=== PATIENT | female | born 1935 | race Caucasian/White ===

== ENCOUNTER → 2016-08-03 | Outpatient (CLI) | payer OTHER ==
--- NOTE | 2016-08-03 12:48 | MAMMOGRAPHY REPORT ---
BILATERAL DIGITAL SCREENING MAMMOGRAM WITH CAD: 08/03/2016 CLINICAL HISTORY: Routine screening. Patient has no complaints. TECHNIQUE: Bilateral CC and MLO views were obtained. Current study was also evaluated with a Comput er Aided Detection (CAD) system. COMPARISON: Comparison is made to exams dated: 08/03/2015 mammogram, 07/31/2013 mammogram, 07/30/2012 ma mmogram, 08/01/2014 mammogram, 07/28/2011 mammogram, and 07/26/2010 mammogram - [facility] ter. BREAST COMPOSITION: The tissue of both breasts is heterogeneously dense, which may obscure small ma sses. FINDINGS: There is an asymmetry in the medial posterior right breast, only seen on the CC view, for which additional spot compression tomosynthesis views and possibly ultrasound are recommended. There are minimal vascular calcifications in the breasts. No other suspicious mass, architectural di stortion or cluster of microcalcifications is seen. IMPRESSION: ACR BI-RADS CATEGORY 0: INCOMPLETE EVALUATION: NEED ADDITIONAL IMAGING EVALUATION The asymmetry in the medial right breast needs additional evaluation. The patient will be called to schedule an appointment. Approximately 10% of breast cancers are not detected with mammography. A negative mammographic repor t should not delay biopsy if a clinically suggestive mass is present. Namrata Perez M.D. ay/:08/03/2016 11:23:56 Institutional Cook: Stacey MARTINEZ(Ross)(Babita), [facility] letter sent: Addl Imaging 0 BI-RADS Code: ACR BI-RADS Category 0: Incomplete Evaluation: Need Additional Imaging Evaluation
== END | disposition home or self-care (01) ==
LOC: C.MAMM 10:42
PROVIDERS: ATTEND Obstetrics & Gynecology
DX: Z12.31 Encounter for screening mammogram for malignant neoplasm of breast (principal); N64.9 Disorder of breast, unspecified

== ENCOUNTER → 2016-08-24 | Outpatient (CLI) | payer OTHER ==
--- NOTE | 2016-08-24 13:33 | MAMMOGRAPHY REPORT ---
UNILATERAL RIGHT DIGITAL DIAGNOSTIC MAMMOGRAM TOMOSYNTHESIS: 08/24/2016 CLINICAL HISTORY: Callback from screening mammogram for right breast asymmetry. TECHNIQUE: Breast tomosynthesis in addition to standard 2D mammography was performed. Spot danette itzel right CC and MLO 2-D and tomosynthesis images were obtained. COMPARISON: Comparison is made to exams dated: 08/03/2016 mammogram, 08/03/2015 mammogram, 08/01/2014 mammogram, 07/31/2013 mammogram, 07/30/2012 mammogram, and 07/28/2011 mammogram - [facility] nter. BREAST COMPOSITION: The tissue of the right breast is heterogeneously dense, which may obscure smal l masses. FINDINGS: The previously described asymmetry seen within the right medial breast on the cc view eff aces on the additional images, and is compatible with normal overlapping fibroglandular tissue. No suspicious masses or areas of architectural distortion are seen in this region on the additional vie ws. IMPRESSION: ACR BI-RADS CATEGORY 2: BENIGN The right breast asymmetry effaces on the additional views, and is benign and compatible with normal overlapping fibroglandular tissue. There is no mammographic evidence of malignancy. A 1 year scree rosi mammogram is recommended. The patient has been verbally notified of the results. Approximately 10% of breast cancers are not detected with mammography. A negative mammographic repor t should not delay biopsy if a clinically suggestive mass is present. Dona Dela Cruz M.D. /:08/24/2016 11:15:04 Contact Center Specialist: Ashley MARTINEZ(R)(Babita), [facility] letter sent: Normal 1/2 BI-RADS Code: ACR BI-RADS Category 2: Benign
== END | disposition home or self-care (01) ==
LOC: C.MAMM 10:41
PROVIDERS: ATTEND Obstetrics & Gynecology
DX: R92.8 Other abnormal and inconclusive findings on diagnostic imaging of breast (principal)

== ENCOUNTER → 2016-11-07 | Outpatient (CLI) | payer OTHER | END | disposition home or self-care (01) | LOC: C.MAMM 15:32 | PROVIDERS: ATTEND Internal Medicine Endocrinology, Diabetes & Metabolism | DX: M85.89 Other specified disorders of bone density and structure, multiple sites (principal) ==

== ENCOUNTER → 2016-11-09 | Outpatient (CLI) | payer OTHER ==
[2016-11-09 12:17] LABS: BASO ABS # 0.05 K/uL (0-0.2); COMPLETE YES; EOS % 2.8 %; HEMATOCRIT 42.2 % (37-47); IG% 0.2 %; LYMPH % 43.7 %; LYMPH ABS # 2.19 K/uL (1.2-3.4); MEAN CORPUSCULAR HEMOGLOBIN 29.7 pg (25-34); MEAN CORPUSCULAR HGB CONC 33.4 g/dl (32-36); MEAN PLATELET VOLUME 9.4 fL (7.4-10.4); MONO % 9.2 %; NEUT % 43.1 %; PLATELET COUNT 253 K/uL (130-400); RED BLOOD COUNT 4.74 M/uL (4.2-5.4); WHITE BLOOD COUNT 5.01 K/uL (4.8-10.8)
[2016-11-09 12:47] LABS: ALT/SGPT 29 U/L (12-78); BLOOD UREA NITROGEN 35 mg/dl (7-18); BUN/CREATININE RATIO 28.9 (10-20); CALCIUM 8.9 mg/dl (8.5-10.1); CARBON DIOXIDE 27 mmol/L (21-32); CHLORIDE 106 mmol/L (98-107); CHOLESTEROL 203 mg/dl (0-200); GLUCOSE 94 mg/dl (70-99); POTASSIUM 3.8 mmol/L (3.5-5.1); SODIUM 139 mmol/L (136-145); TRIGLYCERIDES 58 mg/dl (0-150); VERY LOW DENSITY LIPOPROT CALC 12 mg/dl
[2016-11-09 12:58] LABS: ALB/GLOB RATIO 1.3 (0.9-2); ALKALINE PHOSPHATASE 59 U/L (45-117); AST/SGOT 25 U/L (15-37); CHOLESTEROL/HDL RATIO 2.3; HDL CHOLESTEROL 89 mg/dl; LDL CHOLESTEROL CALCULATED 102 mg/dl
== END | disposition home or self-care (01) ==
LOC: C.LABPBG 08:29
PROVIDERS: ATTEND Internal Medicine
DX: M85.80 Other specified disorders of bone density and structure, unspecified site (principal)

== ENCOUNTER → 2017-08-04 | Outpatient (CLI) | payer OTHER ==
--- NOTE | 2017-08-07 07:44 | MAMMOGRAPHY REPORT ---
BILATERAL DIGITAL SCREENING MAMMOGRAM TOMOSYNTHESIS WITH CAD: 08/04/2017 CLINICAL HISTORY: Routine screening. Patient has no complaints. TECHNIQUE: Breast tomosynthesis in addition to standard 2D mammography was performed. Current study was also evaluated with a Computer Aided Detection (CAD) system. COMPARISON: Comparison is made to exams dated: 08/24/2016 mammogram, 08/03/2016 mammogram, 08/03/2015 ma mmogram, 08/01/2014 mammogram, 07/31/2013 mammogram, and 07/30/2012 mammogram - [facility] er. BREAST COMPOSITION: The tissue of both breasts is heterogeneously dense, which may obscure small mas ses. FINDINGS: No suspicious masses, calcifications, or areas of architectural distortion are noted in ei ther breast. There has been no significant interval change compared to prior exams. IMPRESSION: ACR BI-RADS CATEGORY 1: NEGATIVE There is no mammographic evidence of malignancy. A 1 year screening mammogram is recommended. The pa tient will receive written notification of the results. Approximately 10% of breast cancers are not detected with mammography. A negative mammographic report should not delay biopsy if a clinically suggestive mass is present. Dona Dela Cruz M.D. ah/:08/04/2017 14:35:19 Sandwich Wrapper: Ashley MARTINEZ(Ross)(Babita), [facility] letter sent: Normal 1/2 BI-RADS Code: ACR BI-RADS Category 1: Negative
== END | disposition home or self-care (01) ==
LOC: C.MAMM 10:10
PROVIDERS: ATTEND Internal Medicine
DX: Z12.31 Encounter for screening mammogram for malignant neoplasm of breast (principal)

== ENCOUNTER → 2017-12-08 | Outpatient (CLI) | payer OTHER ==
[2017-12-08 13:17] LABS: BASO % 0.7 %; BASO ABS # 0.03 K/uL (0-0.2); EOS % 2.1 %; EOS ABS # 0.09 K/uL (0-0.5); HEMATOCRIT 42.3 % (37-47); HEMOGLOBIN 13.7 g/dL (12.0-16.0); LYMPH % 45.4 %; LYMPH ABS # 1.93 K/uL (1.2-3.4); MEAN CORPUSCULAR HEMOGLOBIN 29.1 pg (25-34); MEAN CORPUSCULAR HGB CONC 32.4 g/dl (32-36); MEAN PLATELET VOLUME 9.8 fL (7.4-10.4); MONO % 8.7 %; MONO ABS # 0.37 K/uL (0.11-0.59); NEUT % 43.1 %; NEUT ABS # 1.83 K/uL (1.4-6.5); PLATELET COUNT 280 K/uL (130-400); RED CELL DISTRIBUTION WIDTH CV 14.5 % (11.5-14.5); RED CELL DISTRIBUTION WIDTH SD 47.7 fL (36.4-46.3); WHITE BLOOD COUNT 4.25 K/uL (4.8-10.8)
[2017-12-08 14:01] LABS: ALKALINE PHOSPHATASE 50 U/L (45-117); ALT/SGPT 28 U/L (12-78); AST/SGOT 26 U/L (15-37); BLOOD UREA NITROGEN 38 mg/dl (7-18); CALCIUM 9.1 mg/dl (8.5-10.1); CARBON DIOXIDE 26 mmol/L (21-32); CHOLESTEROL 184 mg/dl (0-200); CREATININE 1.11 mg/dl (0.60-1.20); GLUCOSE 95 mg/dl (70-99); LDL CHOLESTEROL CALCULATED 90 mg/dl; POTASSIUM 4.3 mmol/L (3.5-5.1); SODIUM 137 mmol/L (136-145); TOTAL PROTEIN 7.7 gm/dl (6.4-8.2)
== END | disposition home or self-care (01) ==
LOC: C.LABPBG 09:16
PROVIDERS: ATTEND Internal Medicine
DX: Z00.00 Encounter for general adult medical examination without abnormal findings (principal); I10 Essential (primary) hypertension; R26.9 Unspecified abnormalities of gait and mobility; E78.5 Hyperlipidemia, unspecified; E03.9 Hypothyroidism, unspecified; M85.80 Other specified disorders of bone density and structure, unspecified site

== ENCOUNTER 2021-10-04 15:35 | Inpatient (IN) ==
--- NOTE | 2021-10-04 16:24 | XRay Report ---
RIGHT FOOT 3 VIEWS CLINICAL HISTORY: Right foot pain. FINDINGS: 3 views of the right foot are obtained. No prior studies are available for comparison at th e time of dictation. The skeletal structures are osteopenic. No acute fracture is identified. Mild de generative change is seen throughout the foot. No erosive disease is seen. The overlying soft tissues are within normal limits. There is a tiny plantar heel spur. IMPRESSION: No acute bony abnormality is identified. Electronically signed by: Wally Mario M.D. 10/04/2021 4:23 PM
--- NOTE | 2021-10-04 16:30 | XRay Report ---
XR ankle RT min 3V routine CLINICAL HISTORY: right ankle pain. COMPARISON STUDY: No previous studies for comparison. TECHNIQUE: 3 right ankle views FINDINGS: Bones: There is no evidence for an acute fracture or dislocation. There is evidence for an erosion ve rsus cyst at the base of the fifth metatarsal. Clinical correlation as to the exact site of pain is n ecessary. There is no lytic or blastic lesion. Joints: The joint spaces are maintained. The bones are in anatomic alignment. Soft tissues: There is no focal soft tissue abnormality. There is no radiopaque foreign body. IMPRESSION: 1. No acute osseous pathology. 2. Small erosion versus cyst at the base of the fifth metatarsal as described. ACT 112: Negative or not required by law. Electronically signed by: Duncan Rubalcava M.D. 10/04/2021 4:28 PM
--- NOTE | 2021-10-04 18:21 | Ultrasound Report ---
ULTRASOUND LEFT LOWER EXTREMITY VENOUS CLINICAL HISTORY: Left leg swelling. COMPARISON STUDY: No priors. TECHNIQUE: Real-time, grayscale, and color Doppler sonography of the deep veins of the left lower ext remity was performed from the inguinal crease to the calf. Compression and augmentation were utilized . FINDINGS: Extensive occlusive deep venous thrombosis is seen throughout the left lower extremity. Thi s extends from the common femoral vein, throughout the superficial femoral and popliteal veins, and i nto the calf within the tibial and peroneal veins. Superficial venous thrombus is seen within the gre ater saphenous vein. IMPRESSION: Extensive and occlusive left lower extremity deep venous thrombosis as above. ACT 112: Negative or not required by law. Electronically signed by: Wally Mario M.D. 10/04/2021 6:19 PM
[2021-10-04 18:44] LABS: Basophils # (auto) 0.02 K/uL (0-0.2); Basophils % (auto) 0.2 %; Eosinophils # (auto) 0.05 K/uL (0-0.5); Eosinophils % (auto) 0.5 %; Hemoglobin 13.5 g/dL (12.0-16.0); Immature Granulocytes # (auto) 0.03 K/uL (0.00-0.02); Immature Granulocytes % (auto) 0.3 %; Lymphocytes # (auto) 1.37 K/uL (1.2-3.4); Lymphocytes % (auto) 13.8 %; Mean Corpuscular Hemoglobin 29.3 pg (25-34); Mean Corpuscular Hgb Conc 32.1 g/dL (32-36); Mean Corpuscular Volume 91.3 fL (80-100); Mean Platelet Volume 9.5 fL (7.4-10.4); Monocytes # (auto) 0.77 K/uL (0.11-0.59); Monocytes % (auto) 7.7 %; Neutrophils # (auto) 7.72 K/uL (1.4-6.5); Neutrophils % (auto) 77.5 %; Platelet Count 279 K/uL (130-400); RDW Coefficient of Variation 14.1 % (11.5-14.5); RDW Standard Deviation 46.9 fL (36.4-46.3); White Blood Count 9.96 K/uL (4.8-10.8)
--- NOTE | 2021-10-04 18:54 | History & Physical Report ---
Date of Service October 04, 2021 Assessment & Plan (1) DVT (deep venous thrombosis): Plan: Unprovoked. Extensive and occlusive. Start IV heparin standard drip and bolus. CT for PE (due to tachycardia although notably not hypoxic) and CT A/P venogram to assess for venous compression. 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 CT head to r/o intracranial pathology. Haldol 2mg IV x2 given in the ER as patient at risk of removing IV and also unable to stay still for CT scan. Cautious use of Haldol ongoing given increased QTc 497ms (4) Peripheral vascular disease: Plan: Unable to feel pulses in left foot therefore US arterial doppler performed Severe peripheral artery disease but flow is detected in left foot. Notably CT A/P from February shows extensive atherosclerotic vascular disease with high grade stenosis of distal infrarenal artery at that time although not on antiplatelet or statin. Consider antiplatelet/statin depending on clinical course. (5) Hypothyroidism: Plan: TSH 3.256 in June Continue levothyroxine 50mcg PO daily (6) HTN (hypertension): Plan: Will hold off nebivolol pending CT results to make sure we are not going to drop her blood pressure extensively (7) Hyperlipidemia: Plan: Unclear why she isn't on a statin however last LDL only 70. Depending on prognosis consider statin on discharge for PVD. 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 Continue hydroxychloroquine Will need to hold Celebrex while on heparin IV drip (10) Parkinsonism: Plan: Continue Sinemet 0.5 tab PO BID Plan: VTE Prophylaxis - IV heparin standard dose with bolus Diet - NPO after midnight Disposition - admit to PCU Admission and Anticipated Discharge Date Admission Date: October 04, 2021 History of Present Illness Chief Complaint: Left leg swelling Primary Care Provider: DO Yolie Kuhn Terrie is an 86 year old female who presents to the ER with left leg swelling. Unable to get any history from the patient due to expressive dysphasia and unable to communicate by writing or other means. History taken from her daughter at bedside (reportedly her POA although paperwork not with her at the present time). She reports left leg swelling noticed today by her daughter. Associated discoloration of her leg and pain. No shortness of breath. Her daughter reports longer standing history of significant weight loss over the last year despite her eating well. 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 Her daughter reports she normally understand what is said to her however. Baseline mobility has significantly declined since clavicle fracture in February. However she is still mobile with walker. She lives with her at home in [place]. Her daughter notes she is more acutely confused than normal in the emergency room. In the ER US venous doppler showed extensive and occlusive left lower extremity DVT. 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 Allergies Allergy/AdvReac Type Severity Reaction Status Date / Time No Known Drug Allergies Allergy NKDA Verified 10/04/21 18:51 Home Medications Medication Instructions Recorded Confirmed Type calcium carbonate 600 mg-vitamin 1 tab PO HS tab 01/26/19 10/04/21 History D3 5 mcg (200 unit) tablet hydroxychloroquine 200 mg tablet 200 mg PO QAM 02/03/20 10/04/21 History multivitamin 1 tab PO QAM 08/31/20 10/04/21 History latanoprost 0.005 % eye drops 1 drp OPHTHALMIC (EYE) QPM 01/05/21 10/04/21 History celecoxib 100 mg capsule (Celebrex) 100 mg PO Q OTHER DAY cap 06/30/21 10/04/21 History turmeric root extract 500 mg 1,500 mg PO HS cap 07/26/21 10/04/21 History capsule carbidopa 25 mg-levodopa 100 mg 0.5 tab PO BID 10/04/21 10/04/21 History tablet (Sinemet) cyanocobalamin (vitamin B-12) 1,000 mcg PO QAM 10/04/21 10/04/21 History 1,000 mcg capsule glucosamine 750 yo-[id number]-[id number] 1 tab PO QAM 10/04/21 10/04/21 History no1 644 mg-C 30 mg-adriel 1 mg tablet (Osteo Bi-Flex Triple Strength) levothyroxine 50 mcg tablet 50 mcg PO QAM 10/04/21 10/04/21 History (Synthroid) nebivolol 10 mg tablet (Bystolic) 10 mg PO QAM 10/04/21 10/04/21 History Past Med/Surg History Medical History Chronic back pain Glaucoma Hearing deficit HTN (hypertension) Hyperlipidemia Hypothyroidism Osteoarthritis Osteopenia after menopause Ovarian cancer Prediabetes Primary progressive aphasia Pulmonary nodule (02/2021) Rheumatoid arthritis without rheumatoid factor, multiple sites Tachycardia Surgical History History of bilateral cataract extraction History of bladder suspension procedure History of colonoscopy with polypectomy History of total hysterectomy with bilateral salpingo-oophorectomy (BSO) S/P ORIF (open reduction internal fixation) fracture (03/17/21) Family History Sister Colorectal cancer, Onset Age: 68 Ovarian cancer Father Alzheimer disease Mother Hypertension Other No family history of adverse response to anesthesia Denies family history of Prostate cancer Myocardial infarction Breast cancer Social History Smoking Status: Never smoker Second Hand Exposure: No; Hx Alcohol Use: No Hx Substance Use: No Preferred Language: Moroccan Communication Ability: Effective Visual Impairment: Limited Hearing Ability: Use of Hearing Aid Media Reconciliation Specialist Required: No Beliefs That Will Affect Care: None marital status: Current Living Situation: Spouse current occupational status: retired Other Information That Helps Us Care for You: No Feels Safe at Home: Yes Safety Concerns: Feels Safe At This Time Childhood Exposure to Second-Hand Smoke: No Diet Comment: regular caffeine: Yes (Tea x 2 cups per day.) during the past year weight has: decreased > 10 lbs Dental Care, Regularly: Yes Physical Activity Frequency: Daily Seatbelt Use: always Sunscreen Use: Yes Assistive Devices: Glasses and Walker Review of Systems Review of Systems: Unobtainable due to cognitive status Physical Exam Constitutional: well developed and + frail appearing; + not well nourished and no acute distress Eyes: PERRL, conjunctivae normal, anicteric sclerae ENMT: external ear and nose normal, oropharynx normal Neck: trachea midline, no thyromegaly Respiratory: normal respiratory effort, lungs clear to auscultation Cardiovascular: Rate/Rhythm: regular rate and regular rhythm Heart Sounds: no murmur Extremities: + pedal edema (1+ pre-tibial on LLE, trace RLE); + abnormal capillary refill (5-6 seconds left 1st toe) and no calf tenderness (unable to assess due to cognitive status) Gastrointestinal (Abdomen): normal bowel sounds, soft, nontender, no hepatosplenomegaly Musculoskeletal: extensive rheumatic chronic joint changes most notably in right hand Skin: + mottling (purple blanching discoloration of enitre LLE, worse distally) Neurologic: moves all extremities, awake and + confused Speech / Cognition: + expressive aphasia and + receptive aphasia (unable to follow commands) Psychiatric: Orientation: alert; + not oriented to person, + not oriented to place and + not oriented to time Results & Data Results & Data ([facility]) Vital Signs (Past 12 Hours) Vital Signs Temp Pulse Resp BP Pulse Ox 10/04/21 18:30 86 19 136/78 98 10/04/21 15:38 36 C L 93 H 18 128/70 99 Laboratory Results Abnormal lab results 10/04/21 10/04/21 10/04/21 Range/Units 18:06 18:06 18:30 RDW Std Deviation 46.9 H (36.4-46.3) fL Neut # (Auto) 7.72 H (1.4-6.5) K/uL [place] # (Auto) 0.77 H (0.11-0.59) K/uL Immature Gran # (Auto) 0.03 H (0.00-0.02) K/uL POC BUN 40 H (7-18) mg/dl BUN 39 H (6-23) mg/dl BUN/Creatinine Ratio 35.8 H (10-20) Glucose 113 H (70-99(Fasting)) mg/dl POC Glucose (other) 117 H (70-99) mg/dl Calcium 10.2 H (8.5-10.1) mg/dl Diagnostic Findings ULTRASOUND LEFT LOWER EXTREMITY ARTERIAL CLINICAL HISTORY: Cold left foot with no pulses. COMPARISON STUDY: No priors. TECHNIQUE: Real-time grayscale and color Doppler sonography of the arteries of the left lower extremity is performed from the inguinal crease to the foot. FINDINGS: There is advanced atherosclerotic plaque and irregularity throughout the arteries of the left lower extremity. Monophasic flow is seen throughout the left lower extremity with blunted arterial upstroke. Velocities in the common femoral artery measure up to 5 cm/s. The profunda femoris artery is patent with velocities measuring up to 17 cm/s. Velocities throughout the superficial femoral artery measure up to 20 cm/s, and velocities in the popliteal artery measure up to 11 cm/s. There is three-vessel runoff to the foot. Velocities t hroughout the calf arteries measure up to 11 cm/s. The dorsalis pedis artery is patent with velocities measuring up to 7 cm/s. IMPRESSION: 1. Severe peripheral vascular disease throughout the left lower extremity with abnormal arterial waveforms and markedly diminished velocities. 2. No focally elevated velocities or focal vessel occlusion is identified. ULTRASOUND LEFT LOWER EXTREMITY VENOUS CLINICAL HISTORY: Left leg swelling. COMPARISON STUDY: No priors. TECHNIQUE: Real-time, grayscale, and color Doppler sonography of the deep veins of the left lower extremity was performed from the inguinal crease to the calf. Compression and augmentation were utilized. FINDINGS: Extensive occlusive deep venous thrombosis is seen throughout the left lower extremity. This extends from the common femoral vein, throughout the superficial femoral and popliteal veins, and into the calf within the tibial and peroneal veins. Superficial venous thrombus is seen within the greater saphenous vein. IMPRESSION: Extensive and occlusive left lower extremity deep venous thrombosis as above. XR ankle RT min 3V routine CLINICAL HISTORY: right ankle pain. COMPARISON STUDY: No previous studies for comparison. TECHNIQUE: 3 right ankle views FINDINGS: Bones: There is no evidence for an acute fracture or dislocation. There is evidence for an erosion versus cyst at the base of the fifth metatarsal. Clinical correlation as to the exact site of pain is necessary. There is no lytic or blastic lesion. Joints: The joint spaces are maintained. The bones are in anatomic alignment. Soft tissues: There is no focal soft tissue abnormality. There is no radiopaque foreign body. IMPRESSION: 1. No acute osseous pathology. 2. Small erosion versus cyst at the base of the fifth metatarsal as described. RIGHT FOOT 3 VIEWS CLINICAL HISTORY: Right foot pain. FINDINGS: 3 views of the right foot are obtained. No prior studies are available for comparison at the time of dictation. The skeletal structures are osteopenic. No acute fracture is identified. Mild degenerative change is seen throughout the foot. No erosive disease is seen. The overlying soft tissues are within normal limits. There is a tiny plantar heel spur. IMPRESSION: No acute bony abnormality is identified. Medications Administered ER Medications Given: None ECG Rate (beats per minute): 86 Rhythm: normal sinus Findings: + PVC; no acute ischemic change Comparison ECG Date: from (March 16, 2021) Change: the following changes noted Code Status & VTE Plan Code Status Full per daughter who reports she has POA paperwork - advised to bring this in VTE Prophylaxis Plan VTE Prophylaxis will be ordered: Yes PG Care Time/CCT Total # of Minutes Spent Total Time Spent with Patient: Total time spent is greater than 50% in coordination of care (as documented) at patient's floor/unit and/or counseling patient: Coding Level of Care Code 76249 Initial Inpt Care Lvl 3 Diagnoses Hypothyroidism E03.9 Hypothyroidism type: acquired HTN (hypertension) I10 Hypertension type: essential hypertension Hyperlipidemia E78.00; E78.0 Hyperlipidemia type: pure hypercholesterolemia Primary progressive aphasia G31.01; F02.80 Rheumatoid arthritis without rheumatoid factor, multiple sites M06.09 Parkinsonism G20 DVT (deep venous thrombosis) I82.409 Phlegmasia cerulea dolens I80.209 Peripheral vascular disease I73.9 Altered mental state R41.82 (1) Hyperlipidemia Hyperlipidemia type: pure hypercholesterolemia Qualified Code(s): E78.00 - Pure hypercholesterolemia, unspecified; E78.0 - Pure hypercholesterolemia (2) Hypothyroidism Hypothyroidism type: acquired Qualified Code(s): E03.9 - Hypothyroidism, unspecified (3) HTN (hypertension) Hypertension type: essential hypertension Qualified Code(s): I10 - Essential (primary) hypertension
[2021-10-04 18:58] LABS: iSTAT Creatinine 1.2 mg/dl (0.6-1.3); iSTAT Hemoglobin 13.9 g/dl (12.0-16.0); iSTAT Ionized Calcium 1.25 mmol/l (1.12-1.32); iSTAT Potassium 4.3 mmol/L (3.3-5.0)
[2021-10-04 19:05] LABS: Albumin Globulin Ratio 1.4 (0.9-2); Albumin Level 4.4 gm/dl (3.4-5.0); BUN Creatinine Ratio 35.8 (10-20); Bilirubin,Total 0.3 mg/dl (0.2-1.0); Calcium 10.2 mg/dl (8.5-10.1); Creatinine Clr Calc Pharmacy 24.7 ml/min; Est GFR (African American) 53.2 ml/min; Est GFR (Non-African American) 45.9 ml/min; Globulin 3.2 gm/dl (2.5-4.0); Potassium 4.1 mmol/L (3.5-5.1); Total Protein 7.6 gm/dl (6.0-8.3)
[2021-10-04 19:07] LABS: Partial Thromboplastin Ratio 0.8; Prothrombin Time 10.6 Seconds (9.0-12.0)
--- NOTE | 2021-10-04 19:09 | Emergency Department Note ---
Impression & Plan DVT (deep venous thrombosis), Phlegmasia cerulea dolens, Acute pain of left lower extremity ED Provider Note INFORMANT: Patient and daughter ED PROVIDER(S): Benoit Reeder MD CHIEF COMPLAINT: Leg pain PLAN: Disposition: Admitted Condition: Good Outpatient prescription management: none Referral: None patient presented with MEDICAL DECISION MAKING: Complaints of pain and swelling in the left lower extremity. On physical examination she had significant purpleish discoloration. Cap refill was about 3 to 4 seconds. X-ray imaging did not reveal any evidence of fracture or dislocat ion. No acute bony pathology was noted. Ultrasound imaging was performed and revealed an occlusive DVT. CBC and coagulation studies were unremarkable. I- STAT was unremarkable. Further management in the hospital will be necessary. [facility] Anticoagulation choice deferred to internal medicine. Patient and daughter were informed. I gave my usual and customary discussion regarding this issue. Triage Nursing notes reviewed and agree them. Vital Signs: reviewed and remarkable for no significant abnormalities Differential diagnosis: DVT, musculoskeletal, infection, joint effusion, trauma, lymphedema, idiopathic, CHF, as well as other pathologies. Diagnostics interpreted by me: ECG: none Cardiac Monitoring: Cardiac monitoring ordered by me: The patient was placed on continuous cardiac monitoring and observed. It revealed a normal sinus rhythm at 86 beats per minute without ectopy or evidence of dysrhythmia. Imaging studies: X-ray imaging of the left foot and ankle negative for acute process. Ultrasound imaging of the left lower extremity reveals extensive and occlusive DVT. HPI: The patient is a 86 year old female who presents to the Emergency Room with complaints of left leg pain. This started today and Was noticed by the daughter.patient has advanced Parkinson's disease and has difficulty speaking. She can understand basic questioning per the daughter. There was no trauma. The patient also notes the following associated symptoms, dark discoloration of the left leg as well as left leg swelling. The patient has taken no medication for relieving factors. Current pain is rated as 6/10. No history of the same. Patient has no history of significant vascular or blood clot related issues. Patient denies any chest pain or difficulty breathing. No abdominal pain. History is limited secondary to the patient's ability to communicate. ROS: See above HPI for pertinent positives & negatives. Limited secondary to the patient's ability to communicate. PAST MEDICAL HISTORY:See Below , Parkinson's disease PAST SURGICAL HISTORY:See Below, FAMILY HISTORY:See Below SOCIAL HISTORY:See Below, retired HOME MEDICATIONS:See Below ALLERGIES:See Below VITALS:See Below PHYSICAL EXAMINATION: GENERAL: Awake, alert, mildly uncomfortable-appearing, in no distress HENT: Normocephalic, atraumatic. Oropharynx unremarkable. EYES: Normal conjunctiva. Sclera non-icteric. NECK: Inspection normal. Non-tender. Supple. No nuchal rigidity. FROM. No masses. RESPIRATORY: Clear to auscultation. No wheezes. No rales. Normal respiratory effort. CARDIAC: Normal rate. Normal rhythm. No murmurs. No rubs. Extremities warm and well perfused. Pulses equal. No JVD. GI: Soft, non-distended. No tenderness to palpation. No rebound or guarding. No masses. RECTAL: Deferred. MUSCULOSKELETAL: Atraumatic. Chest examination reveals no tenderness. The back is symmetrical on inspection without obvious abnormality. There is no CVA tenderness to palpation. No joint edema. LOWER EXTREMITIES: There is bluish discoloration of the left lower leg with mild edema compared to the right. 4+ capillary refill on the left and 2-3 on the right. There is difficulty palpating pulses on the left side. There is mild tenderness from the calf distally through the foot. NEURO: Normal sensorium. No sensory or motor deficits noted. SKIN: No rash or jaundice noted. Benoit Reeder MD Past Med/Surg History Medical History Chronic back pain Glaucoma Hearing deficit HTN (hypertension) Hyperlipidemia Hypothyroidism Osteoarthritis Osteopenia after menopause Ovarian cancer Prediabetes Primary progressive aphasia Pulmonary nodule (02/2021) Rheumatoid arthritis without rheumatoid factor, multiple sites Tachycardia Surgical History History of bilateral cataract extraction History of bladder suspension procedure History of colonoscopy with polypectomy History of total hysterectomy with bilateral salpingo-oophorectomy (BSO) S/P ORIF (open reduction internal fixation) fracture (03/17/21) Family History Sister Colorectal cancer, Onset Age: 68 Ovarian cancer Father Alzheimer disease Mother Hypertension Other No family history of adverse response to anesthesia Denies family history of Prostate cancer Myocardial infarction Breast cancer Social History Smoking Status: Never smoker Second Hand Exposure: No; Hx Alcohol Use: No Hx Substance Use: No Preferred Language: Irish Communication Ability: Effective Visual Impairment: Limited Hearing Ability: Use of Hearing Aid Mobility Manager Required: No Beliefs That Will Affect Care: None marital status: Current Living Situation: Spouse current occupational status: retired Other Information That Helps Us Care for You: No Feels Safe at Home: Yes Safety Concerns: Feels Safe At This Time Childhood Exposure to Second-Hand Smoke: No Diet Comment: regular caffeine: Yes (Tea x 2 cups per day.) during the past year weight has: decreased > 10 lbs Dental Care, Regularly: Yes Physical Activity Frequency: Daily Seatbelt Use: always Sunscreen Use: Yes Assistive Devices: Glasses and Walker Allergies Allergies Allergy/AdvReac Type Severity Reaction Status Date / Time No Known Drug Allergies Allergy NKDA Verified 10/04/21 18:51 Home Meds Home Medications Medication Instructions Recorded Confirmed calcium carbonate 600 mg-vitamin 1 tab PO HS tab 01/26/19 10/04/21 D3 5 mcg (200 unit) tablet hydroxychloroquine 200 mg tablet 200 mg PO QAM 02/03/20 10/04/21 multivitamin 1 tab PO QAM 08/31/20 10/04/21 latanoprost 0.005 % eye drops 1 drp OPHTHALMIC (EYE) QPM 01/05/21 10/04/21 celecoxib 100 mg capsule (Celebrex) 100 mg PO Q OTHER DAY cap 06/30/21 10/04/21 turmeric root extract 500 mg 1,500 mg PO HS cap 07/26/21 10/04/21 capsule carbidopa 25 mg-levodopa 100 mg 0.5 tab PO BID 10/04/21 10/04/21 tablet (Sinemet) cyanocobalamin (vitamin B-12) 1,000 mcg PO QAM 10/04/21 10/04/21 1,000 mcg capsule glucosamine 750 mw-xugmnkmoije-uez 1 tab PO QAM 10/04/21 10/04/21 no1 644 mg-C 30 mg-adriel 1 mg tablet (Osteo Bi-Flex Triple Strength) levothyroxine 50 mcg tablet 50 mcg PO QAM 10/04/21 10/04/21 (Synthroid) nebivolol 10 mg tablet (Bystolic) 10 mg PO QAM 10/04/21 10/04/21 Results & Data (ED) Vital Signs Vital Signs - 24 hr 10/04/21 15:38 10/04/21 18:30 Temperature 36 C L Temperature Source Temporal Artery Scan Pulse Rate 93 H 86 Respiratory Rate 18 19 Blood Pressure 128/70 136/78 Blood Pressure Mean 89 97 Pulse Oximetry 99 98 Oxygen Delivery Method Room Air Sepsis Recent Fever Within 48 Hours No Sepsis New/Unexplained Change in Mental Status No Sepsis Action Taken by Nursing No Action Required Laboratory Data Result diagrams: 10/04/21 18:06 10/04/21 18:06 Lab Results 10/04/21 10/04/21 10/04/21 Range/Units 18:06 18:06 18:06 WBC 9.96 (4.8-10.8) K/uL RBC 4.60 (4.2-5.4) M/uL Hgb 13.5 (12.0-16.0) g/dL POC Hgb (12.0-16.0) g/dl Hct 42.0 (37-47) % POC Hct (37-47) % MCV 91.3 (80-100) fL MCH 29.3 (25-34) pg MCHC 32.1 (32-36) g/dL RDW Std Deviation 46.9 H (36.4-46.3) fL RDW Coeff of Meryl 14.1 (11.5-14.5) % Plt Count 279 (130-400) K/uL MPV 9.5 (7.4-10.4) fL Immature Gran % (Auto) 0.3 % Neut % (Auto) 77.5 % Lymph % (Auto) 13.8 % Dunn % (Auto) 7.7 % Eos % (Auto) 0.5 % Baso % (Auto) 0.2 % Neut # (Auto) 7.72 H (1.4-6.5) K/uL Lymph # (Auto) 1.37 (1.2-3.4) K/uL Dunn # (Auto) 0.77 H (0.11-0.59) K/uL Eos # (Auto) 0.05 (0-0.5) K/uL Baso # (Auto) 0.02 (0-0.2) K/uL Immature Gran # (Auto) 0.03 H (0.00-0.02) K/uL PT 10.6 (9.0-12.0) Seconds INR 1.0 (0.9-1.1) APTT 23.0 (21.0-31.0) Seconds PTT Ratio 0.8 POC Sodium (135-144) mmol/L Sodium 142 (136-145) mmol/L POC Potassium (3.3-5.0) mmol/L Potassium 4.1 (3.5-5.1) mmol/L POC Chloride (101-112) mmol/L Chloride 106 (98-107) mmol/L Carbon Dioxide 26 (21-32) mmol/L POC Total CO2 (24-31) mmol/L Anion Gap 10 (3-11) POC Anion Gap (16-25) mmol/L POC BUN (7-18) mg/dl BUN 39 H (6-23) mg/dl Creatinine 1.09 (0.6-1.2) mg/dl POC Creatinine (0.6-1.3) mg/dl Est Cr Clr Drug Dosing 24.7 ml/min Est GFR ( Amer) 53.2 ml/min Est GFR (Non-Af Amer) 45.9 ml/min BUN/Creatinine Ratio 35.8 H (10-20) Glucose 113 H (70-99(Fasting)) mg/dl POC Glucose (other) (70-99) mg/dl Calcium 10.2 H (8.5-10.1) mg/dl POC Ioniz Calcium Hema (1.12-1.32) mmol/l Total Bilirubin 0.3 (0.2-1.0) mg/dl AST 21 (13-39) U/L ALT 16 (7-52) U/L Alkaline Phosphatase 73 (34-104) U/L Total Protein 7.6 (6.0-8.3) gm/dl Albumin 4.4 (3.4-5.0) gm/dl Globulin 3.2 (2.5-4.0) gm/dl Albumin/Globulin Ratio 1.4 (0.9-2) SARS-CoV-2, RNA, NAAT (NEGATIVE) 10/04/21 10/04/21 Range/Units 18:30 18:42 WBC (4.8-10.8) K/uL RBC (4.2-5.4) M/uL Hgb (12.0-16.0) g/dL POC Hgb 13.9 (12.0-16.0) g/dl Hct (37-47) % POC Hct 41 (37-47) % MCV (80-100) fL MCH (25-34) pg MCHC (32-36) g/dL RDW Std Deviation (36.4-46.3) fL RDW Coeff of Meryl (11.5-14.5) % Plt Count (130-400) K/uL MPV (7.4-10.4) fL Immature Gran % (Auto) % Neut % (Auto) % Lymph % (Auto) % Dunn % (Auto) % Eos % (Auto) % Baso % (Auto) % Neut # (Auto) (1.4-6.5) K/uL Lymph # (Auto) (1.2-3.4) K/uL Dunn # (Auto) (0.11-0.59) K/uL Eos # (Auto) (0-0.5) K/uL Baso # (Auto) (0-0.2) K/uL Immature Gran # (Auto) (0.00-0.02) K/uL PT (9.0-12.0) Seconds INR (0.9-1.1) APTT (21.0-31.0) Seconds PTT Ratio POC Sodium 142 (135-144) mmol/L Sodium (136-145) mmol/L POC Potassium 4.3 (3.3-5.0) mmol/L Potassium (3.5-5.1) mmol/L POC Chloride 107 (101-112) mmol/L Chloride (98-107) mmol/L Carbon Dioxide (21-32) mmol/L POC Total CO2 24 (24-31) mmol/L Anion Gap (3-11) POC Anion Gap 16.0 (16-25) mmol/L POC BUN 40 H (7-18) mg/dl BUN (6-23) mg/dl Creatinine (0.6-1.2) mg/dl POC Creatinine 1.2 (0.6-1.3) mg/dl Est Cr Clr Drug Dosing ml/min Est GFR ( Amer) ml/min Est GFR (Non-Af Amer) ml/min BUN/Creatinine Ratio (10-20) Glucose (70-99(Fasting)) mg/dl POC Glucose (other) 117 H (70-99) mg/dl Calcium (8.5-10.1) mg/dl POC Ioniz Calcium Hema 1.25 (1.12-1.32) mmol/l Total Bilirubin (0.2-1.0) mg/dl AST (13-39) U/L ALT (7-52) U/L Alkaline Phosphatase (34-104) U/L Total Protein (6.0-8.3) gm/dl Albumin (3.4-5.0) gm/dl Globulin (2.5-4.0) gm/dl Albumin/Globulin Ratio (0.9-2) SARS-CoV-2, RNA, NAAT NEGATIVE (NEGATIVE) Administered Medications Heparin Sodium/Dextrose (Heparin Sodium/Dextrose) 25,000 units in 500 mls @ 15 mls/hr IV .Q24H [facility]; Protocol Stop: 11/03/21 21:14 Last Admin: 10/05/21 00:17 Dose: 750 units/hr, 15 mls/hr Documented by: [id number] Cosigned by: [id number] Discontinued Medications Haloperidol Lactate (Haloperidol Lactate 5 Mg/Ml 1 Ml Vial) 2 mg IV NOW STA Stop: 10/04/21 21:13 Last Admin: 10/04/21 21:21 Dose: 2 mg Documented by: [id number] Haloperidol Lactate (Haloperidol Lactate 5 Mg/Ml 1 Ml Vial) 2 mg IV NOW STA Stop: 10/04/21 22:03 Last Admin: 10/04/21 22:30 Dose: 2 mg Documented by: [id number] Heparin Sodium (Porcine) (Heparin Sod (Porcine) 1000 Unit/Ml) 3,000 units IV 210 [facility] Stop: 10/04/21 23:59 Last Admin: 10/05/21 00:17 Dose: 3,000 units Documented by: [id number] Cosigned by: [id number] Ioversol (Optiray 320 125ml) 125 ml IV ONCE ONE Stop: 10/04/21 23:31 Last Admin: 10/04/21 23:30 Dose: 118 ml Documented by: [id number] Imaging Data Radiologist's Impression: Foot X-Ray 10/04/21 15:43 RIGHT FOOT 3 VIEWS CLINICAL HISTORY: Right foot pain. FINDINGS: 3 views of the right foot are obtained. No prior studies are available for comparison at the time of dictation. The skeletal structures are osteopenic. No acute fracture is identified. Mild degenerative change is seen throughout the foot. No erosive disease is seen. The overlying soft tissues are within normal limits. There is a tiny plantar heel spur. IMPRESSION: No acute bony abnormality is identified. Electronically signed by: Wally Mario M.D. 10/04/2021 4:23 PM Ankle X-Ray 10/04/21 15:45 XR ankle RT min 3V routine CLINICAL HISTORY: right ankle pain. COMPARISON STUDY: No previous studies for comparison. TECHNIQUE: 3 right ankle views FINDINGS: Bones: There is no evidence for an acute fracture or dislocation. There is evidence for an erosion versus cyst at the base of the fifth metatarsal. Clinical correlation as to the exact site of pain is necessary. There is no lytic or blastic lesion. Joints: The joint spaces are maintained. The bones are in anatomic alignment. Soft tissues: There is no focal soft tissue abnormality. There is no radiopaque foreign body. IMPRESSION: 1. No acute osseous pathology. 2. Small erosion versus cyst at the base of the fifth metatarsal as described. ACT 112: Negative or not required by law. Electronically signed by: Duncan Rubalcava M.D. 10/04/2021 4:28 PM Venous Doppler Study 10/04/21 15:47 ULTRASOUND LEFT LOWER EXTREMITY VENOUS CLINICAL HISTORY: Left leg swelling. COMPARISON STUDY: No priors. TECHNIQUE: Real-time, grayscale, and color Doppler sonography of the deep veins of the left lower extremity was performed from the inguinal crease to the calf. Compression and augmentation were utilized. FINDINGS: Extensive occlusive deep venous thrombosis is seen throughout the left lower extremity. This extends from the common femoral vein, throughout the superficial femoral and popliteal veins, and into the calf within the tibial and peroneal veins. Superficial venous thrombus is seen within the greater saphenous vein. IMPRESSION: Extensive and occlusive left lower extremity deep venous thrombosis as above. ACT 112: Negative or not required by law. Electronically signed by: Wally Mario M.D. 10/04/2021 6:19 PM Duplex Scan Lower Extremity Artery 10/04/21 18:55 ULTRASOUND LEFT LOWER EXTREMITY ARTERIAL CLINICAL HISTORY: Cold left foot with no pulses. COMPARISON STUDY: No priors. TECHNIQUE: Real-time grayscale and color Doppler sonography of the arteries of the left lower extremity is performed from the inguinal crease to the foot. FINDINGS: There is advanced atherosclerotic plaque and irregularity throughout the arteries of the left lower extremity. Monophasic flow is seen throughout the left lower extremity with blunted arterial upstroke. Velocities in the common femoral artery measure up to 5 cm/s. The profunda femoris artery is patent with velocities measuring up to 17 cm/s. Velocities throughout the superficial femoral artery measure up to 20 cm/s, and velocities in the popliteal artery measure up to 11 cm/s. There is three-vessel runoff to the foot. Velocities throughout the calf arteries measure up to 11 cm/s. The dorsalis pedis artery is patent with velocities measuring up to 7 cm/s. IMPRESSION: 1. Severe peripheral vascular disease throughout the left lower extremity with abnormal arterial waveforms and markedly diminished velocities. 2. No focally elevated velocities or focal vessel occlusion is identified. Dictated: 10/04/2021 8:19 PM Transcribed: 10/04/2021 8:31 PM Amanda [id number] LUDWIN_Toni Electronically signed by: Wally Mario M.D. 10/04/2021 8:54 PM Discharge Plan Visit Data Chief Complaint: Leg Injury/Pain Stated Complaint: L LEG SWOLLEN ED Provider: Benoit Reeder Discharge Problem: DVT (deep venous thrombosis), Phlegmasia cerulea dolens, Acute pain of left lower extremity Patient Disposition: Admitted As Inpatient Discharge Instructions Interventions: ED Discharge Assessment Last Done: 10/04/21 22:52
--- NOTE | 2021-10-04 20:55 | Ultrasound Report ---
ULTRASOUND LEFT LOWER EXTREMITY ARTERIAL CLINICAL HISTORY: Cold left foot with no pulses. COMPARISON STUDY: No priors. TECHNIQUE: Real-time grayscale and color Doppler sonography of the arteries of the left lower extremi ty is performed from the inguinal crease to the foot. FINDINGS: There is advanced atherosclerotic plaque and irregularity throughout the arteries of the le ft lower extremity. Monophasic flow is seen throughout the left lower extremity with blunted arterial upstroke. Velocities in the common femoral artery measure up to 5 cm/s. The profunda femoris artery is patent with velocities measuring up to 17 cm/s. Velocities throughout the superficial femoral sharlene ry measure up to 20 cm/s, and velocities in the popliteal artery measure up to 11 cm/s. There is thre e-vessel runoff to the foot. Velocities throughout the calf arteries measure up to 11 cm/s. The dorsa lis pedis artery is patent with velocities measuring up to 7 cm/s. IMPRESSION: 1. Severe peripheral vascular disease throughout the left lower extremity with abnormal arterial wave forms and markedly diminished velocities. 2. No focally elevated velocities or focal vessel occlusion is identified. Dictated: 10/04/2021 8:19 PM Transcribed: 10/04/2021 8:31 PM Amanda [id number] LUDWIN_Toni Electronically signed by: Wally Mario M.D. 10/04/2021 8:54 PM
[2021-10-04] MEDS ORDERED: HEPARIN SOD (PORCINE) 1000 UNIT/ML IV SCH (21:01)
[2021-10-04] MEDS ORDERED: Heparin IV Adult Wt-Based Standard WITH Bolus Protocol IV SCH (21:05)
[2021-10-04] MEDS ORDERED: HALOPERIDOL LACTATE 5 MG/ML 1 ML VIAL IV STA ×2 (21:12→22:02)
[2021-10-04] MEDS ORDERED: OPTIRAY 320 125ml IV ONE (23:30)
[2021-10-05] MEDS: HEPARIN SODIUM/DEXTROSE 25,000 UNITS/500 ML BAG IV SCH (00:17)
[2021-10-05 05:54] LABS: Basophils # (auto) 0.01 K/uL (0-0.2); Basophils % (auto) 0.1 %; Eosinophils # (auto) 0.06 K/uL (0-0.5); Eosinophils % (auto) 0.8 %; Hematocrit (blood only) 36.2 % (37-47); Hemoglobin 11.9 g/dL (12.0-16.0); Immature Granulocytes # (auto) 0.02 K/uL (0.00-0.02); Immature Granulocytes % (auto) 0.3 %; Lymphocytes # (auto) 1.37 K/uL (1.2-3.4); Lymphocytes % (auto) 19.2 %; Mean Corpuscular Hemoglobin 30.1 pg (25-34); Mean Corpuscular Hgb Conc 32.9 g/dL (32-36); Mean Corpuscular Volume 91.6 fL (80-100); Mean Platelet Volume 8.9 fL (7.4-10.4); Monocytes # (auto) 0.53 K/uL (0.11-0.59); Monocytes % (auto) 7.4 %; Neutrophils # (auto) 5.16 K/uL (1.4-6.5); Neutrophils % (auto) 72.2 %; Platelet Count 192 K/uL (130-400); RDW Standard Deviation 47.3 fL (36.4-46.3); Red Blood Count 3.95 M/uL (4.2-5.4); White Blood Count 7.15 K/uL (4.8-10.8)
[2021-10-05 06:18] LABS: BUN Creatinine Ratio 34.5 (10-20); Calcium 8.8 mg/dl (8.5-10.1); Est GFR (African American) 69.9 ml/min; Est GFR (Non-African American) 60.3 ml/min
[2021-10-05 06:24] LABS: Partial Thromboplastin Ratio 2.6
[2021-10-05 06:44] LABS: Partial Thromboplastin Time 70.9 Seconds (21.0-31.0)
--- NOTE | 2021-10-05 07:12 | CT Scan Report ---
CT angio chest PE protocol CLINICAL HISTORY: PE TECHNIQUE: Multidetector row helical CT of the chest was performed with angiographic protocol. Max l and sagittal reformations were obtained. Coronal and sagittal MIPS were obtained from the axial flora a set and were submitted for review. Automated dose lowering techniques and/or adjustment according to patient size were utilized for this exam. CT DOSE: 1052.64 mGy.cm Comparison: Comparison is made to CT chest 03/14/2021 FINDINGS: Lungs and pleura: Atelectasis versus scarring is seen in the dependent portions of the lungs. Heart and pericardium: Cardiomegaly is seen with biatrial enlargement. Vessels: No evidence of pulmonary embolism. Mediastinum and medardo: Unremarkable. Chest wall and lower neck: Unremarkable. Abdomen: For findings below the diaphragm, please refer to CT of the abdomen dated the same. Bones: There is a fracture of the right eighth rib which is age-indeterminate but likely chronic. Old healed fractures on the left are seen. IMPRESSION: 1. No evidence of pulmonary embolism. 2. Fracture of the right eighth rib is age-indeterminate, correlation with physical exam is recommen ded to exclude acute fracture. Old healed fractures are seen in the left. 3. Atelectasis without evidence of pneumonia. ACT 112: Negative or not required by law. Electronically signed by: Jordan Kennedy M.D. 10/05/2021 7:10 AM
--- NOTE | 2021-10-05 07:17 | CT Scan Report ---
CT head/brain wo con CLINICAL HISTORY: altered mental state COMPARISON STUDY: 03/13/2021 CT DOSE: TECHNIQUE: Standard CT of the Brain was performed without IV contrast. A dose lowering technique was utilized adhering to the principles of ALARA. FINDINGS: Extraaxial space: There is no evidence for subdural hematoma. There are no extra-axial fluid collecti ons. Ventricles and cisterns: The ventricles are mildly dilated bilaterally. There is no evidence for midl ine shift or mass effect. Parenchyma: There is no subarachnoid or intraparenchymal hemorrhage. There is no evidence for an acut e infarct or cerebral edema. There is mild cerebral cortical atrophy and decreased attenuation in the periventricular white matter representing remote small vessel disease. There are no gross mass lesio ns. Osseous structures: There is no evidence for an acute fracture. The visualized paranasal sinuses are clear. The mastoid air cells are clear bilaterally. Soft tissues: There is no evidence for focal soft tissue swelling. IMPRESSION: 1. No acute intracerebral pathology. 2. Cerebral cortical atrophy and remote small vessel disease. ACT 112: Negative or not required by law. Electronically signed by: Duncan Rubalcava M.D. 10/05/2021 7:16 AM
--- NOTE | 2021-10-05 07:35 | CT Scan Report ---
CT abdomen pelvis veno w con CLINICAL HISTORY: DVT ?mass causing compression TECHNIQUE: Helical axial images of the abdomen and pelvis were obtained and displayed. Automated dose lowering techniques and/or adjustment according to patient size were utilized for this exam. This e xam was performed with intravenous contrast. COMPARISON: Comparison is made to CT abdomen pelvis 03/14/2021 FINDINGS: Lower chest: For findings above the diaphragm, please see CT chest performed same day. Liver: Unremarkable. No focal lesions are seen. Gallbladder and biliary tree: No calcified gallstones. Normal caliber wall. No intra- or extrahepatic biliary ductal dilation. Pancreas: Unremarkable, no focal lesions. Spleen: Unremarkable. Adrenals: Unremarkable. Kidneys and ureters: Previously noted renal cysts are stable. Bladder: Unremarkable. Reproductive organs: Unremarkable. Bowel: Unremarkable appearance of the bowel. The appendix is normal. Lymph nodes Retroperitoneal: Unremarkable. Mesenteric: Unremarkable. Pelvic: Unremarkable. Peritoneum: Normal. Vessels: Severe calcified and noncalcified atherosclerotic disease in the aorta is seen with near tot al occlusion in the infrarenal region. There is also critical stenosis in the bilateral iliac veins, most pronounced at the bifurcations. Deep venous thrombus in the right common iliac vein is more exte nsive than in the prior exam. There is suggestion of nonocclusive left common iliac vein thrombosis a s well. Abdominal wall: A fat-containing umbilical hernia is seen. Bones: Degenerative changes in the visualized spine. Old T9 and L2 compression deformities are seen. Bilateral sacral insufficiency fractures are again noted. IMPRESSION: 1. Interval enlargement of right common iliac vein thrombosis and likely development of nonocclusive left common iliac vein thrombosis as well. 2. 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 ACT 112: Negative or not required by law. Electronically signed by: Jordan Kennedy M.D. 10/05/2021 7:34 AM
[2021-10-05] MEDS ORDERED: CARBIDOPA/LEVODOPA 25/100MG TAB PO SCH (09:00)
[2021-10-05] MEDS: HYDROXYCHLOROQUINE SULFATE 200 MG TAB PO SCH (10:52)
[2021-10-05] MEDS: LEVOTHYROXINE SODIUM 50 MCG TABLET PO SCH (10:52)
--- NOTE | 2021-10-05 12:58 | Consultation ---
Date of Consultation October 05, 2021 Assessment & Plan (1) DVT (deep venous thrombosis): Pt with extensive DVT, no evidence for phlegmasia cerulea dolens. No indications for vascular surgical intervention at this time. Recommend AC as directed by medicine/AC clinic. (2) Peripheral arterial disease: Pt does appear to have severe aortoiliac occlusive disease and peripheral arterial disease based on imaging and exam. This is a chronic issue and is probably compensated via collateralization. She likely does not walk far or fast enough to claudicate. She denies any pain presently and has no visible toe or foot wounds. No indications for urgent vascular surgical intervention at this time. If she begins to have severe pain in legs or ulcerations that do not heal, would be happy to reeval pt for surgical options. Please call if needed. 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 Pt unable to verbalize any complaints or provide any meaningful hx, so information obtained from chart. She does shake her head when asked if she has pain currently. Per prior records, pt lives at home with family and typically uses a walker to ambulate. Daughter is clinical social worker. She noted swelling and discoloration of LLE, so brought her mother to [facility] ED. No prior hx of DVT, no recent travel or surgery. Has had decreased overall activity since falling and suffering a clavicle fx last fall. Venous US demonstrates extensive thrombus in LLE. Arterial US of LLE demonstrates extensive diffuse disease, with poor inflow to LLE. RLE was not examined. CT Venogram demonstrates severe aortoiliac disease. Allergies Allergy/AdvReac Type Severity Reaction Status Date / Time No Known Drug Allergies Allergy NKDA Verified 10/04/21 18:51 Home Medications Medication Instructions Recorded Confirmed Type calcium carbonate 600 mg-vitamin 1 tab PO HS tab 01/26/19 10/04/21 History D3 5 mcg (200 unit) tablet hydroxychloroquine 200 mg tablet 200 mg PO QAM 02/03/20 10/04/21 History multivitamin 1 tab PO QAM 08/31/20 10/04/21 History latanoprost 0.005 % eye drops 1 drp OPHTHALMIC (EYE) QPM 01/05/21 10/04/21 History celecoxib 100 mg capsule (Celebrex) 100 mg PO Q OTHER DAY cap 06/30/21 10/04/21 History turmeric root extract 500 mg 1,500 mg PO HS cap 07/26/21 10/04/21 History capsule carbidopa 25 mg-levodopa 100 mg 0.5 tab PO BID 10/04/21 10/04/21 History tablet (Sinemet) cyanocobalamin (vitamin B-12) 1,000 mcg PO QAM 10/04/21 10/04/21 History 1,000 mcg capsule glucosamine 750 tm-dvjurequwib-lva 1 tab PO QAM 10/04/21 10/04/21 History no1 644 mg-C 30 mg-adriel 1 mg tablet (Osteo Bi-Flex Triple Strength) levothyroxine 50 mcg tablet 50 mcg PO QAM 10/04/21 10/04/21 History (Synthroid) nebivolol 10 mg tablet (Bystolic) 10 mg PO QAM 10/04/21 10/04/21 History Patient History Medical History Chronic back pain Glaucoma Hearing deficit HTN (hypertension) Hyperlipidemia Hypothyroidism Osteoarthritis Osteopenia after menopause Ovarian cancer dianosed "a long time ago"--sx only Prediabetes Primary progressive aphasia Pulmonary nodule (02/2021) Rheumatoid arthritis without rheumatoid factor, multiple sites Tachycardia reason for bystolic Surgical History History of bilateral cataract extraction History of bladder suspension procedure History of colonoscopy with polypectomy History of total hysterectomy with bilateral salpingo-oophorectomy (BSO) S/P ORIF (open reduction internal fixation) fracture (03/17/21) L clavicle Family History Sister Colorectal cancer, Onset Age: 68 Ovarian cancer Father Alzheimer disease Mother Hypertension Other No family history of adverse response to anesthesia Denies family history of Prostate cancer Myocardial infarction Breast cancer Social History Smoking Status: Never smoker Second Hand Exposure: No; Hx Alcohol Use: No Hx Substance Use: No Preferred Language: Belarusian Communication Ability: Effective Visual Impairment: Limited Hearing Ability: Use of Hearing Aid Superintendent Meters Required: No Beliefs That Will Affect Care: None marital status: Current Living Situation: Spouse current occupational status: retired Other Information That Helps Us Care for You: No Feels Safe at Home: Yes Safety Concerns: Feels Safe At This Time Childhood Exposure to Second-Hand Smoke: No Diet Comment: regular caffeine: Yes (Tea x 2 cups per day.) during the past year weight has: decreased > 10 lbs Dental Care, Regularly: Yes Physical Activity Frequency: Daily Seatbelt Use: always Sunscreen Use: Yes Assistive Devices: Glasses and Walker Review of Systems Review of Systems: Unobtainable due to cognitive status Physical Exam Constitutional: WD/WN, vitals as above + thin, healthy appearing, + frail appearing and comfortable; not in distress ENMT: Ears: no hearing impairment Neck: trachea midline Respiratory: normal respiratory effort, lungs clear to auscultation Auscultation: + diminished lung sounds Cardiovascular: Rate/Rhythm: regular rate and regular rhythm Vessels: posterior tibial pulses present (nonpalpable but dopplerable), dorsalis pedis pulses present (nonpalpable but dopplerable) and radial pulses present; no carotid bruit, + abnormal peripheral pulses and + femoral pulses abnormal (nonpalpable) Extremities: + edema (+2 LLE); + abnormal capillary refill (LLE 5sec, RLE 3sec) Gastrointestinal (Abdomen): Inspection/Auscultation: abdomen normal to inspection and normal bowel sounds Percussion/Palpation: abdomen soft; abdomen nontender Musculoskeletal: no cyanosis or clubbing, extremities motor strength 5/5 Skin: no ulcers and no wound moves toes on command, L toes purplish discoloration consistent with venous engorgement. Mild erythema of LLE. Toes same temp as LLE, both are cool. Neurologic: moves all extremities and awake Speech / Cognition: + expressive aphasia Psychiatric: Orientation: alert and oriented to person; + not oriented to place and + not oriented to time Eye Contact: good eye contact Results & Data ([facility]) Vital Signs (Past 12 Hours) Vital Signs Temp Pulse Resp BP Pulse Ox 10/05/21 03:16 36.6 C 81 24 108/55 L 95
--- NOTE | 2021-10-05 14:25 | Hospitalist Progress Note ---
Date of Service October 05, 2021 Assessment & Plan (1) DVT (deep venous thrombosis): Plan: Unprovoked. Extensive and occlusive. Start IV heparin standard drip and bolus. - CTA chest for PE on 10/04 was negative. - Consulted vascular surgery due to concern for phlegmasia cerulea dolens; however, no acute intervention warranted. (2) Altered mental state: Plan: Suspect having some delirium in the ER due to unfamiliar environment. Baseline unknown as patient seems to have fairly advanced dementia to me. - CT head negative for acute processes. (3) Peripheral vascular disease: Plan: Severe peripheral artery disease reaffirmed on CT venogram with severe arthrosclerotic disease of aorta and iliac arteries. - Seen by vascular surgery with no acute needs - Will start ASA at minimum. (4) Hypothyroidism: Plan: TSH 3.256 in June. - Continue levothyroxine 50mcg PO daily (5) HTN (hypertension): Plan: BP today is 125/60. - Hold nebivolol (6) Hyperlipidemia: Plan: Unclear why she isn't on a statin however last LDL only 70. Depending on prognosis consider statin on discharge for PVD. (7) Primary progressive aphasia: (8) Rheumatoid arthritis without rheumatoid factor, multiple sites: Plan: No active flare suspected but extensive chronic joint deformities present. - Continue hydroxychloroquine - Hold Celebrex (9) Parkinsonism: Plan: Follows with [facility]. - Continue Sinemet 0.5 tab PO BID Plan: VTE Prophylaxis - IV heparin standard dose with bolus Did attempt to call and daughter with no answers. Admission and Anticipated Discharge Date Admission Date: October 04, 2021 Subjective Patient is very pleasant, but does not answer questions for me. Smiles and says, "Yeah." to all questions. Review of Systems Review of Systems: Unobtainable due to cognitive status Physical Exam Constitutional: WD/WN, vitals as above Eyes: EOM intact bilaterally; no conjunctival abnormality ENMT: external ear and nose normal, oropharynx normal Neck: trachea midline, no thyromegaly normal visual inspection Respiratory: normal respiratory effort, lungs clear to auscultation no respiratory distress Cardiovascular: RRR, no murmur, no edema Gastrointestinal (Abdomen): Inspection/Auscultation: abdomen normal to inspection; abdomen not distended Musculoskeletal: no cyanosis or clubbing, extremities motor strength 5/5 Skin: no rashes, warm and dry Left leg more swollen than left with some mild mottling Neurologic: moves all extremities and awake Psychiatric: Orientation: alert and cooperative; + not oriented to person Results & Data Results & Data ([facility]) Vital Signs (Past 12 Hours) Vital Signs Temp Pulse Pulse Resp BP BP Pulse Ox 10/05/21 12:32 85 19 124/58 L 95 10/05/21 12:30 90 26 H 10/05/21 12:00 94 H 25 H 10/05/21 11:30 84 19 10/05/21 11:00 24 10/05/21 10:30 81 20 10/05/21 10:11 83 25 H 133/57 L 10/05/21 10:00 82 21 10/05/21 09:30 69 19 10/05/21 09:00 74 18 10/05/21 08:30 93 H 22 95 10/05/21 08:00 77 16 10/05/21 07:30 77 22 10/05/21 07:00 93 H 24 10/05/21 06:45 104 H 21 10/05/21 03:16 36.6 C 81 24 108/55 L 95 PG Care Time/CCT Total # of Minutes Spent Total Time Spent with Patient: Total time spent is greater than 50% in coordination of care (as documented) at patient's floor/unit and/or counseling patient: Coding Level of Care Code 95716 Subseq Hosp Care Lvl 3 Diagnoses DVT (deep venous thrombosis) I82.409 Altered mental state R41.82 Peripheral vascular disease I73.9 Hypothyroidism E03.9 Hypothyroidism type: acquired HTN (hypertension) I10 Hypertension type: essential hypertension Hyperlipidemia E78.00; E78.0 Hyperlipidemia type: pure hypercholesterolemia Primary progressive aphasia G31.01; F02.80 Rheumatoid arthritis without rheumatoid factor, multiple sites M06.09 Parkinsonism G20 (1) Hypothyroidism Hypothyroidism type: acquired Qualified Code(s): E03.9 - Hypothyroidism, unspecified (2) HTN (hypertension) Hypertension type: essential hypertension Qualified Code(s): I10 - Essential (primary) hypertension (3) Hyperlipidemia Hyperlipidemia type: pure hypercholesterolemia Qualified Code(s): E78.00 - Pure hypercholesterolemia, unspecified; E78.0 - Pure hypercholesterolemia
[2021-10-05 14:57] LABS: Partial Thromboplastin Ratio 2.2; Partial Thromboplastin Time 61.2 Seconds (21.0-31.0)
--- NOTE | 2021-10-05 19:04 | Electrocardiogram Report ---
Test Reason : Blood Pressure : / mmHG Vent. Rate : 086 BPM Atrial Rate : 086 BPM P-R Int : 198 ms QRS Dur : 100 ms QT Int : 416 ms P-R-T Axes : 052 -18 066 degrees QTc Int : 497 ms Poor data quality, interpretation may be adversely affected Sinus rhythm with occasional Premature ventricular complexes Possible Left atrial enlargement Abnormal ECG When compared with ECG of 16-MAR-2021 16:45, Premature ventricular complexes are now Present Nonspecific T wave abnormality no longer evident in Inferior leads QT has lengthened Confirmed by Mushtaq Cruz ([id number]) on 10/05/2021 7:03:32 PM Referred By: REFERRED SELF Confirmed By:Juan Cruz
[2021-10-05] MEDS: CALCIUM 600MG + VIT D 400 IU TAB PO SCH (20:51)
[2021-10-05] MEDS: CARBIDOPA/LEVODOPA 25/100MG TAB PO SCH (20:52)
[2021-10-05] MEDS: LATANOPROST 0.005% OP SOLN 2.5 ML BTL OPB SCH (20:53)
[2021-10-05] MEDS ORDERED: LACTATED RINGER'S 500 ML IV ONE (20:55)
[2021-10-05] MEDS: MELATONIN 3 MG TAB PO PRN (21:01)
[2021-10-05] MEDS ORDERED: HALOPERIDOL LACTATE 5 MG/ML 1 ML VIAL IV STA (23:33)
[2021-10-06] MEDS: METOPROLOL TARTRATE 1 MG/ML VIAL IV SCH ×6 (00:02→22:04)
[2021-10-06] MEDS: HEPARIN SODIUM/DEXTROSE 25,000 UNITS/500 ML BAG IV SCH (00:03)
[2021-10-06] MEDS: LEVOTHYROXINE SODIUM 50 MCG TABLET PO SCH (04:51)
[2021-10-06 06:24] LABS: Hematocrit (blood only) 37.9 % (37-47); Hemoglobin 12.3 g/dL (12.0-16.0); Mean Corpuscular Hemoglobin 29.2 pg (25-34); Mean Corpuscular Hgb Conc 32.5 g/dL (32-36); Mean Platelet Volume 9.3 fL (7.4-10.4); Platelet Count 228 K/uL (130-400); RDW Coefficient of Variation 14.2 % (11.5-14.5); RDW Standard Deviation 46.7 fL (36.4-46.3); Red Blood Count 4.21 M/uL (4.2-5.4); White Blood Count 7.98 K/uL (4.8-10.8)
[2021-10-06 06:50] LABS: BUN Creatinine Ratio 30.7 (10-20); Calcium 9.3 mg/dl (8.5-10.1); Creatinine Clr Calc Pharmacy 24.6 ml/min; Est GFR (African American) 58.4 ml/min; Est GFR (Non-African American) 50.4 ml/min; Magnesium 1.7 mg/dl (1.7-2.4); Potassium 5.1 mmol/L (3.5-5.1)
[2021-10-06 06:55] LABS: Partial Thromboplastin Ratio 1.9
[2021-10-06 06:56] LABS: Partial Thromboplastin Time 52.9 Seconds (21.0-31.0)
[2021-10-06] MEDS: HYDROXYCHLOROQUINE SULFATE 200 MG TAB PO SCH (08:03)
[2021-10-06] MEDS: CARBIDOPA/LEVODOPA 25/100MG TAB PO SCH ×3 (08:03→22:02)
[2021-10-06] MEDS ORDERED: ASPIRIN 81 MG ECTAB PO SCH (09:00)
--- NOTE | 2021-10-06 11:51 | Electrocardiogram Report ---
Test Reason : Blood Pressure : / mmHG Vent. Rate : 123 BPM Atrial Rate : 123 BPM P-R Int : 150 ms QRS Dur : 098 ms QT Int : 320 ms P-R-T Axes : 060 -24 096 degrees QTc Int : 458 ms Poor data quality, interpretation may be adversely affected Sinus tachycardia Possible Left atrial enlargement Left ventricular hypertrophy Abnormal ECG When compared with ECG of 05-OCT-2021 00:19, Premature ventricular complexes are no longer Present T wave inversion now evident in Lateral leads Confirmed by Mushtaq Cruz ([id number]) on 10/06/2021 11:51:00 AM Referred By: REFERRED SELF Confirmed By:Juan Cruz
--- NOTE | 2021-10-06 12:11 | Hospitalist Progress Note ---
Date of Service October 06, 2021 Assessment & Plan (1) DVT (deep venous thrombosis): Plan: Unprovoked. Extensive and occlusive. Started IV heparin standard drip and bolus. - CTA chest for PE on 10/04 was negative. - Consulted vascular surgery due to concern for phlegmasia cerulea dolens; however, no acute intervention warranted. - Discussed with Dr. Gómez on 10/06 - Agrees that patient is a poor candidate for a DOAC given her age, renal dysfunction, and low weight. -> Will use Lovenox 40 mg SQ daily + warfarin 3 mg PO daily to start. Will follow factor X activity given her CKD and INR for her warfarin. Could in theory discharge patient on this regimen if family wants to bring her home. (2) Altered mental state: Plan: Initially thought some level of metabolic encephalpathy; however, per , baseline is with fairly advanced dementia and mumbling due to Parkinson's disease. - CT head negative for acute processes. (3) Peripheral vascular disease: Plan: Severe peripheral artery disease reaffirmed on CT venogram with severe arthrosclerotic disease of aorta and iliac arteries. - Seen by vascular surgery with no acute needs - Given age and need for anticoagulation, will defer anti-platelet agent as higher risk of bleeding. (4) Hypothyroidism: Plan: TSH 3.256 in June. - Continue levothyroxine 50mcg PO daily (5) HTN (hypertension): Plan: BP today is 115/60. - Hold nebivolol (6) Hyperlipidemia: Plan: Unclear why she isn't on a statin however last LDL only 70. Depending on prognosis consider statin on discharge for PVD. (7) Primary progressive aphasia: (8) Rheumatoid arthritis without rheumatoid factor, multiple sites: Plan: No active flare suspected but extensive chronic joint deformities present. - Continue hydroxychloroquine - Hold Celebrex now that she needs anticoagulation. (9) Parkinsonism: Plan: Follows with [facility]. - Continue Sinemet 0.5 tab PO TID Plan: VTE Prophylaxis - IV heparin standard dose with bolus Did attempt to call and daughter with no answers on 10/06; will attempt again today. Admission and Anticipated Discharge Date Admission Date: October 04, 2021 Subjective More tired today, but pleasant. Again, unable for me to understand responses other than "Yeah." Review of Systems Review of Systems: Unobtainable due to cognitive status Physical Exam Constitutional: WD/WN, vitals as above Eyes: EOM intact bilaterally; no conjunctival abnormality ENMT: external ear and nose normal, oropharynx normal Neck: trachea midline, no thyromegaly normal visual inspection Respiratory: normal respiratory effort, lungs clear to auscultation no respiratory distress Cardiovascular: RRR, no murmur, no edema Gastrointestinal (Abdomen): Inspection/Auscultation: abdomen normal to inspection; abdomen not distended Musculoskeletal: no cyanosis or clubbing, extremities motor strength 5/5 Left leg mildly swollen Skin: no rashes, warm and dry Neurologic: moves all extremities and awake Psychiatric: Orientation: alert and cooperative; + not oriented to person Results & Data Results & Data ([facility]) Vital Signs (Past 12 Hours) Vital Signs Pulse Resp BP 10/06/21 11:00 96 H 21 10/06/21 10:30 96 H 25 H 10/06/21 10:00 97 H 31 H 10/06/21 09:30 90 23 10/06/21 09:00 99 H 25 H 10/06/21 08:30 100 H 22 10/06/21 08:00 104 H 20 10/06/21 07:30 94 H 20 10/06/21 07:00 91 H 17 10/06/21 06:30 98 H 23 10/06/21 06:00 97 H 23 10/06/21 05:30 93 H 23 10/06/21 05:06 136 H 29 H 10/06/21 04:51 120 H 110/61 10/06/21 01:08 120 H PG Care Time/CCT Total # of Minutes Spent Total Time Spent with Patient: Total time spent is greater than 50% in coordination of care (as documented) at patient's floor/unit and/or counseling patient: Coding Level of Care Code 59217 Subseq Hosp Care Lvl 3 Diagnoses DVT (deep venous thrombosis) I82.409 Altered mental state R41.82 Peripheral vascular disease I73.9 Hypothyroidism E03.9 Hypothyroidism type: acquired HTN (hypertension) I10 Hypertension type: essential hypertension Hyperlipidemia E78.00; E78.0 Hyperlipidemia type: pure hypercholesterolemia Primary progressive aphasia G31.01; F02.80 Rheumatoid arthritis without rheumatoid factor, multiple sites M06.09 Parkinsonism G20 (1) Hypothyroidism Hypothyroidism type: acquired Qualified Code(s): E03.9 - Hypothyroidism, unspecified (2) HTN (hypertension) Hypertension type: essential hypertension Qualified Code(s): I10 - Essential (primary) hypertension (3) Hyperlipidemia Hyperlipidemia type: pure hypercholesterolemia Qualified Code(s): E78.00 - Pure hypercholesterolemia, unspecified; E78.0 - Pure hypercholesterolemia
[2021-10-06] MEDS: ENOXAPARIN INJ 40 MG/0.4 ML SYR SQ SCH (12:59)
[2021-10-06] MEDS: WARFARIN SOD 3 MG TAB PO SCH (17:58)
[2021-10-06] MEDS: LATANOPROST 0.005% OP SOLN 2.5 ML BTL OPB SCH (22:04)
[2021-10-06] MEDS: MELATONIN 3 MG TAB PO PRN (22:25)
[2021-10-06] MEDS: CALCIUM 600MG + VIT D 400 IU TAB PO SCH (22:34)
[2021-10-07] MEDS: METOPROLOL TARTRATE 1 MG/ML VIAL IV SCH ×5 (00:55→16:42)
[2021-10-07] MEDS: LEVOTHYROXINE SODIUM 50 MCG TABLET PO SCH (06:00)
[2021-10-07 06:37] LABS: Basophils # (auto) 0.01 K/uL (0-0.2); Basophils % (auto) 0.2 %; Eosinophils # (auto) 0.03 K/uL (0-0.5); Eosinophils % (auto) 0.5 %; Hemoglobin 11.1 g/dL (12.0-16.0); Immature Granulocytes # (auto) 0.02 K/uL (0.00-0.02); Immature Granulocytes % (auto) 0.3 %; Lymphocytes # (auto) 1.14 K/uL (1.2-3.4); Mean Corpuscular Hemoglobin 29.2 pg (25-34); Mean Corpuscular Hgb Conc 32.6 g/dL (32-36); Mean Corpuscular Volume 89.5 fL (80-100); Mean Platelet Volume 9.1 fL (7.4-10.4); Monocytes # (auto) 0.65 K/uL (0.11-0.59); Monocytes % (auto) 10.9 %; Neutrophils # (auto) 4.14 K/uL (1.4-6.5); Neutrophils % (auto) 69.1 %; Platelet Count 219 K/uL (130-400); RDW Standard Deviation 46.2 fL (36.4-46.3); White Blood Count 5.99 K/uL (4.8-10.8)
[2021-10-07 06:52] LABS: Partial Thromboplastin Ratio 0.8; Partial Thromboplastin Time 23.1 Seconds (21.0-31.0); Prothrombin Time 10.9 Seconds (9.0-12.0)
[2021-10-07 06:58] LABS: BUN Creatinine Ratio 30.5 (10-20); Calcium 8.6 mg/dl (8.5-10.1); Creatinine Clr Calc Pharmacy 33.1 ml/min; Est GFR (African American) 75.1 ml/min; Est GFR (Non-African American) 64.8 ml/min; Magnesium 1.7 mg/dl (1.7-2.4); Potassium 4.1 mmol/L (3.5-5.1)
[2021-10-07] MEDS: ENOXAPARIN INJ 40 MG/0.4 ML SYR SQ SCH (09:42)
[2021-10-07] MEDS: CARBIDOPA/LEVODOPA 25/100MG TAB PO SCH ×3 (09:42→20:15)
[2021-10-07] MEDS: HYDROXYCHLOROQUINE SULFATE 200 MG TAB PO SCH (09:42)
--- NOTE | 2021-10-07 13:39 | Hospitalist Progress Note ---
Date of Service October 07, 2021 Assessment & Plan (1) DVT (deep venous thrombosis): Plan: Unprovoked. Extensive and occlusive. Started IV heparin standard drip and bolus. - CTA chest for PE on 10/04 was negative. - Consulted vascular surgery due to concern for phlegmasia cerulea dolens; however, no acute intervention warranted. - Discussed with Dr. Gómez on 10/06 - Agrees that patient is a poor candidate for a DOAC given her age, renal dysfunction, and low weight. -> Will use Lovenox 40 mg SQ daily + warfarin 3 mg PO daily to start. Will follow INR for her warfarin. Dispo: Spoke with daughter today. Plan for family to take her home on 10/08. Family or neighbor will administer Lovenox injections for next 4-5 days. Plan for [facility] to draw INRs and be sent to her PCP who manages her 's INR as well. (2) Altered mental state: Plan: Initially thought some level of metabolic encephalpathy; however, per , baseline is with fairly advanced dementia and mumbling due to Parkinson's disease. - CT head negative for acute processes. (3) Peripheral vascular disease: Plan: Severe peripheral artery disease reaffirmed on CT venogram with severe arthrosclerotic disease of aorta and iliac arteries. - Seen by vascular surgery with no acute needs - Given age and need for anticoagulation, will defer anti-platelet agent as higher risk of bleeding. (4) Hypothyroidism: Plan: TSH 3.256 in June. - Continue levothyroxine 50mcg PO daily (5) HTN (hypertension): Plan: BP today is 135/75. - Hold nebivolol (6) Hyperlipidemia: Plan: Unclear why she isn't on a statin however last LDL only 70. Depending on prognosis consider statin on discharge for PVD. (7) Primary progressive aphasia: (8) Rheumatoid arthritis without rheumatoid factor, multiple sites: Plan: No active flare suspected but extensive chronic joint deformities present. - Continue hydroxychloroquine - Hold Celebrex now that she needs anticoagulation. (9) Parkinsonism: Plan: Follows with [facility]. - Continue Sinemet 0.5 tab PO TID Plan: VTE Prophylaxis - Lovenox + warfarin Admission and Anticipated Discharge Date Admission Date: October 04, 2021 Subjective Seems to be in no distress. Reports that she has to use the bathroom. Review of Systems Review of Systems: Unobtainable due to cognitive status Physical Exam Constitutional: WD/WN, vitals as above Eyes: EOM intact bilaterally; no conjunctival abnormality ENMT: external ear and nose normal, oropharynx normal Neck: trachea midline, no thyromegaly normal visual inspection Respiratory: normal respiratory effort, lungs clear to auscultation no respiratory distress Cardiovascular: RRR, no murmur, no edema Gastrointestinal (Abdomen): Inspection/Auscultation: abdomen normal to inspection; abdomen not distended Musculoskeletal: no cyanosis or clubbing, extremities motor strength 5/5 Skin: no rashes, warm and dry Neurologic: moves all extremities and awake Psychiatric: Orientation: alert and cooperative; + not oriented to person Results & Data Results & Data ([facility]) Vital Signs (Past 12 Hours) Vital Signs Temp Pulse Pulse Resp BP BP BP 10/07/21 13:06 105 H 132/74 10/07/21 11:29 36.5 C 100 H 18 129/70 10/07/21 11:06 83 10/07/21 08:53 87 128/74 10/07/21 07:00 36.9 C 84 18 133/68 10/07/21 04:20 81 118/61 10/07/21 04:18 81 118/61 10/07/21 03:18 37.1 C 88 18 103/60 Pulse Ox 10/07/21 13:06 10/07/21 11:29 94 10/07/21 11:06 10/07/21 08:53 10/07/21 07:00 97 10/07/21 04:20 10/07/21 04:18 10/07/21 03:18 92 PG Care Time/CCT Total # of Minutes Spent Total Time Spent with Patient: Total time spent is greater than 50% in coordination of care (as documented) at patient's floor/unit and/or counseling patient: Coding Level of Care Code 65639 Subseq Hosp Care Lvl 2 Diagnoses DVT (deep venous thrombosis) I82.409 Altered mental state R41.82 Peripheral vascular disease I73.9 Hypothyroidism E03.9 Hypothyroidism type: acquired HTN (hypertension) I10 Hypertension type: essential hypertension Hyperlipidemia E78.00; E78.0 Hyperlipidemia type: pure hypercholesterolemia Primary progressive aphasia G31.01; F02.80 Rheumatoid arthritis without rheumatoid factor, multiple sites M06.09 Parkinsonism G20 (1) Hypothyroidism Hypothyroidism type: acquired Qualified Code(s): E03.9 - Hypothyroidism, unspecified (2) HTN (hypertension) Hypertension type: essential hypertension Qualified Code(s): I10 - Essential (primary) hypertension (3) Hyperlipidemia Hyperlipidemia type: pure hypercholesterolemia Qualified Code(s): E78.00 - Pure hypercholesterolemia, unspecified; E78.0 - Pure hypercholesterolemia
[2021-10-07] MEDS: WARFARIN SOD 3 MG TAB PO SCH (16:41)
[2021-10-07] MEDS: LATANOPROST 0.005% OP SOLN 2.5 ML BTL OPB SCH (20:16)
[2021-10-07] MEDS: CALCIUM 600MG + VIT D 400 IU TAB PO SCH (20:16)
[2021-10-08] MEDS: LEVOTHYROXINE SODIUM 50 MCG TABLET PO SCH (05:41)
[2021-10-08 07:24] LABS: Hematocrit (blood only) 36.9 % (37-47); Hemoglobin 11.8 g/dL (12.0-16.0); Mean Corpuscular Hemoglobin 28.9 pg (25-34); Mean Corpuscular Volume 90.4 fL (80-100); Mean Platelet Volume 9.6 fL (7.4-10.4); Platelet Count 274 K/uL (130-400); RDW Standard Deviation 46.3 fL (36.4-46.3); Red Blood Count 4.08 M/uL (4.2-5.4); White Blood Count 8.99 K/uL (4.8-10.8)
[2021-10-08 07:40] LABS: Partial Thromboplastin Ratio 0.9; Partial Thromboplastin Time 24.4 Seconds (21.0-31.0)
[2021-10-08 07:43] LABS: BUN Creatinine Ratio 27.8 (10-20); Calcium 9.3 mg/dl (8.5-10.1); Creatinine Clr Calc Pharmacy 30.2 ml/min; Est GFR (African American) 67.1 ml/min; Est GFR (Non-African American) 57.9 ml/min; Magnesium 1.8 mg/dl (1.7-2.4); Potassium 4.7 mmol/L (3.5-5.1)
[2021-10-08] MEDS: CARBIDOPA/LEVODOPA 25/100MG TAB PO SCH ×2 (08:01→15:23)
[2021-10-08] MEDS: HYDROXYCHLOROQUINE SULFATE 200 MG TAB PO SCH (08:01)
[2021-10-08] MEDS: ENOXAPARIN INJ 40 MG/0.4 ML SYR SQ SCH (08:01)
[2021-10-08] MEDS ORDERED: CYANOCOBALAMIN (B-12) 500 MCG TABLET PO SCH (09:00)
[2021-10-08] MEDS ORDERED: METOPROLOL TARTRATE 25 MG TAB PO SCH (09:15)
--- NOTE | 2021-10-08 11:48 | Discharge Summary ---
Date of Service October 08, 2021 Admission HPI Per Admitting Provider Yolei Falcon is an 86 year old female who presents to the ER with left leg swelling. Unable to get any history from the patient due to expressive dysphasia and unable to communicate by writing or other means. History taken from her daughter at bedside (reportedly her POA although paperwork not with her at the present time). She reports left leg swelling noticed today by her daughter. Associated discoloration of her leg and pain. No shortness of breath. Her daughter reports longer standing history of significant weight loss over the last year despite her eating well. 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 Her daughter reports she normally understand what is said to her however. Baseline mobility has significantly declined since clavicle fracture in February. However she is still mobile with walker. She lives with her at home in [place]. Her daughter notes she is more acutely confused than normal in the emergency room. In the ER US venous doppler showed extensive and occlusive left lower extremity DVT. 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 Principal Diagnosis Extensive pelvic and LLE DVTs Severe PAD Discharge Exam Constitutional WD/WN, vitals as above Eyes + anicteric sclerae Neck trachea midline, no thyromegaly Respiratory normal respiratory effort, lungs clear to auscultation Cardiovascular RRR, no murmur, no edema Vessels: + dorsalis pedis pulses abnormal Chest (Breasts) Chest: normal inspection of chest Gastrointestinal (Abdomen) normal bowel sounds, soft, nontender, no hepatosplenomegaly Musculoskeletal Extremities: no cyanosis and no clubbing Skin multiple brownish discolored regions of skin on legs Neurologic moves all extremities and awake +expressive aphasia, smiles and seems to understand what I say to her. generally weak, spastic Lymphatic no lymphedema Discharge Data Allergies Allergy/AdvReac Type Severity Reaction Status Date / Time No Known Drug Allergies Allergy NKDA Verified 10/04/21 18:51 Consultations 10/04/21 19:23 ED Decision to Admit Stat 10/05/21 00:08 Consult Vascular Surgery Routine Ordered Studies 10/04/21 15:47 US venous doppler LE LT Stat 10/04/21 18:55 US arterial duplex LE LT Stat 10/04/21 22:06 CT abdomen pelvis veno w con Urgent CT angio chest PE protocol Urgent CT head/brain wo con Urgent Hospital Course (1) DVT (deep venous thrombosis): Unprovoked. Extensive and occlusive. WIth bilateral common iliac vein thromboses and LLE CFV DVT Likely due to sedentary lifestyle but could have some sort of underlying malignancy although none obvious on imaging of CHest/abd/pel Started IV heparin standard drip and bolus initially and then converted to Lovenox and coumadin - CTA chest for PE on 10/04 was negative. 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 - Discussed with Dr. Gómez on 10/06 - Agrees that patient is a poor candidate for a DOAC given her age, renal dysfunction, and low weight. -> Will use Lovenox 40 mg SQ daily + warfarin 3 mg PO daily to start. Will follow INR for her warfarin. INR was 1.0 on day of discharge after 2 doses of coumadin Dispo: Spoke with daughter today. Plan for family to take her home. Family or neighbor will administer Lovenox injections for next 4-5 days. Plan for [facility] to draw INRs and be sent to her PCP who manages her 's INR as well. (2) Altered mental state: Initially thought some level of metabolic encephalpathy; however, per , baseline is with fairly advanced dementia and mumbling due to Parkinson's disease. - CT head negative for acute processes. (3) Peripheral vascular disease: Severe peripheral artery disease reaffirmed on CT venogram with severe arthrosclerotic disease of aorta and iliac arteries. - Seen by vascular surgery with no acute needs - Given age and need for anticoagulation, will defer anti-platelet agent as higher risk of bleeding. (4) Hypothyroidism: TSH 3.256 in June. - Continue levothyroxine 50mcg PO daily (5) HTN (hypertension): BP today is 135/75. - nebivolol was not available here had some rebound sinus tach here-gave one dose metoprolol (6) Hyperlipidemia: Unclear why she isn't on a statin however last LDL only 70. Depending on prognosis consider statin after discharge for PVD. 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 - Continue hydroxychloroquine -ok to continue Celebrex as needed as lower risk than nonselective NSAIDs for risk of bleeding and PUD (9) Parkinsonism: Follows with [facility]. - Continue Sinemet 0.5 tab PO TID VTE Prophylaxis - Lovenox + warfarin Dispo-stable for dc to home with home health Total Time Total Time Spent Total Time Spent (In Minutes): 45 min Discharge Plan Discharge Items Patient Disposition: Home - Home Health Services Reason For Visit: DVT Discharge Diagnosis: DVT Condition on Discharge: Fair Activity: Resume your previous activity Non-emergency contact: Primary Care Provider Call non-emergency contact if: you have any medication questions and your symptoms worsen Follow-up/Referrals: Patito Benton DO [Primary Care Provider] - (Follow up within 1-2 weeks) Diet: Regular Addtl Attending Provider Instructions: Please continue the Lovenox shots once daily until your INR (Coumadin level) is at a goal of 2.0-3.0. After that, your doctor will instruct you on when to discontinue the Lovenox shots. If you experience any issues with bleeding such as blood in your stool or urine, bloody nose, bruising, coughing up blood, please call your doctor or come to the hospital right away. Please have the [facility] check your PT/INR on Monday with the results to be sent to your PCP, Dr. Benton. Pending Studies at Discharge: No Stand-Alone Forms: [facility] Medications and DC Order Prescriptions: New enoxaparin [Lovenox] 40 mg/0.4 mL Syringe 40 mg subcut QAM 5 Days Qty: 2 RF: 0 warfarin 3 mg Tablet 3 mg PO DAILY@1600 Qty: 30 RF: 0 Continued (DME) Transport Chair See Rx Instructions .Route .MEDSUPPLY Qty: 1 RF: 0 calcium carbonate-vitamin D3 600 mg(1,500mg) -200 unit tablet 1 tab PO HS RF: 0 hydroxychloroquine 200 mg tablet 200 mg PO QAM RF: 0 celecoxib [Celebrex] 100 mg capsule 100 mg PO Q OTHER DAY RF: 0 latanoprost 0.005 % drops 1 drp ophthalmic (eye) QPM RF: 0 multivitamin Tablet 1 tab PO QAM RF: 0 turmeric root extract 500 mg capsule 1,500 mg PO HS RF: 0 levothyroxine [Synthroid] 50 mcg tablet 50 mcg PO QAM RF: 0 nebivolol [Bystolic] 10 mg tablet 10 mg PO QAM RF: 0 Osteo Bi-Flex Triple Strength 750 mg-644 mg- 30 mg-1 mg Tablet 1 tab PO QAM RF: 0 carbidopa-levodopa [Sinemet] 25-100 mg tablet 0.5 tab PO BID RF: 0 cyanocobalamin (vitamin B-12) 1,000 mcg capsule 1,000 mcg PO QAM RF: 0 Discharge Orders: Discharge Order (Routine); Ordered 10/08/21 Ordered By: Inés Amanda Admission Data Admit Date/Time: 10/04/21 21:39 Attending Provider: Inés Amanda Admit Provider: Elmo Dobbs Primary Care Provider: Patito Benton Other Providers: Elmo Dobbs ; Osmin Kincaid ; Inés Amanda ; Bob Bell [facility] Other Interventions: Discharge Summary Assessment (RN) Last Done: 10/08/21 13:56 Coding Level of Care Code D/C DAY MANAGEMENT >30 MINS Diagnoses DVT (deep venous thrombosis) I82.409 Altered mental state R41.82 Peripheral vascular disease I73.9 Hypothyroidism E03.9 Hypothyroidism type: acquired HTN (hypertension) I10 Hypertension type: essential hypertension Hyperlipidemia E78.00; E78.0 Hyperlipidemia type: pure hypercholesterolemia Primary progressive aphasia G31.01; F02.80 Rheumatoid arthritis without rheumatoid factor, multiple sites M06.09 Parkinsonism G20
[2021-10-08] MEDS: WARFARIN SOD 3 MG TAB PO SCH (15:24)
== END 2021-10-08 16:42 | disposition home health service (06) | DRG 300 ==
LOC: ED 15:35 → 1E 21:39 → SUATTDRO 21:39 → 1E 22:52 → 2S 10-06 15:21

== ENCOUNTER 2022-03-07 15:04 | Inpatient (IN) ==
[2022-03-07] MEDS ORDERED: SODIUM CHLORIDE 0.9% 1000ML 500 ML IV ONE (15:30)
[2022-03-07] MEDS ORDERED: CEFEPIME 2,000 MG/20 ML VIAL IV STA (15:30)
--- NOTE | 2022-03-07 16:01 | Emergency Department Note ---
Impression & Plan Decubitus ulcer of sacral area, Anemia ED Provider Note NAME: CASSIE DIALLO AGE: 86 SEX: F : 1935 ARRIVES VIA: Ambulance INFORMANT: Patient, the patient's family members ED PROVIDER(S): Omar Gonzalez DO CHIEF COMPLAINT: Sacral ulcer HPI: The patient is an 86-year-old female who has a history of Parkinson's who presented to the emergency department with her family members for an evaluation of a sacral ulcer. Patient has a large sacral ulcer which is very deep. She was seen today at the wound care center. She had pictures taken and cultures were obtained and the patient was sent to the emergency department for possible admission for further evaluation as well as possible wound VAC placement family members provide the history. The patient has not been experiencing vomiting or fever. There is been no lower extremity swelling greater than usual. The patient does have a history of DVT and is currently taking Coumadin. There is been no trauma. The wound was evaluated via the photos that were put in the EMR today. ROS: See above HPI for pertinent positives & negatives. A total of 10 systems reviewed and were otherwise negative. PAST MEDICAL HISTORY: See Below PAST SURGICAL HISTORY: See Below FAMILY HISTORY: See Below SOCIAL HISTORY: See Below HOME MEDICATIONS: See Below ALLERGIES: See Below VITALS: See Below PHYSICAL EXAMINATION: GENERAL: The patient is awake and looking around the room. EYES: The conjunctivae are clear. The pupils are round and reactive. EARS, NOSE, MOUTH AND THROAT: The nose is without any evidence of any deformity. Mucous membranes are dry. NECK: The neck is nontender and supple. RESPIRATORY: Normal respiratory effort is noted there is no evidence of wheezing rhonchi or rales CARDIOVASCULAR: Regular rate and rhythm noted there no murmurs rubs or gallops normal S1 normal S2. GASTROINTESTINAL: The abdomen is soft. Abdomen is nontender. MUSCULOSKELETAL/EXTREMITIES: Patient is contracted. There is no deformity appreciated. SKIN: No significant pedal edema was noted. NEUROLOGIC: Patient is awake and alert. She does not answer questions or follow commands at this time. MEDICAL DECISION MAKING: The patient is an 86-year-old female who presented to the emergency department with family. The patient was seen at the wound care center. She was found have a very deep sacral ulcer. Cultures and pictures were obtained at the wound care center. I was able to review the pictures. The patient's inflammatory markers do appear to be elevated. I am concerned this represents a very significant deep infection. I discussed the patient's laboratory results with her family. I discussed her condition with the on-call [facility]ist. I do feel she could benefit from inpatient management. Triage Nursing notes reviewed. Prior medical records reviewed Vital Signs: reviewed and remarkable for no significant abnormalities Differential diagnosis: Cellulitis, abscess, MRSA infection, DVT, necrotizing fasciitis, dermatitis, drug eruption, allergic reaction, as well as other pathologies. ER treatment provided: See below Diagnostics interpreted by me: ECG: none Cardiac Monitoring: An order was placed for continuous cardiac monitoring. The monitor shows a rate of 89 bpm with sinus rhythm. Laboratory studies: As stated above and show below. Imaging studies: See below Consultation(s): I discussed this case with Dr. Power who is on-call for the [facility]ist group. Past Med/Surg History Medical History Chronic back pain Glaucoma Hearing deficit HTN (hypertension) Hyperlipidemia Hypothyroidism Osteoarthritis Osteopenia after menopause Ovarian cancer dianosed "a long time ago"--sx only Prediabetes Primary progressive aphasia Pulmonary nodule (02/2021) Rheumatoid arthritis without rheumatoid factor, multiple sites Tachycardia reason for bystolic Surgical History History of bilateral cataract extraction History of bladder suspension procedure History of colonoscopy with polypectomy History of total hysterectomy with bilateral salpingo-oophorectomy (BSO) S/P ORIF (open reduction internal fixation) fracture (03/17/21) L clavicle Family History Sister Colorectal cancer, Onset Age: 68 Ovarian cancer Father Alzheimer disease Mother Hypertension Other No family history of adverse response to anesthesia Denies family history of Prostate cancer Myocardial infarction Breast cancer Social History Smoking Status: Never smoker Second Hand Exposure: No; Hx Alcohol Use: No Hx Substance Use: No Preferred Language: Amharic Communication Ability: Impaired Visual Impairment: Limited Hearing Ability: Use of Hearing Aid Kelly Machine Operator Required: No Beliefs That Will Affect Care: Evangelical Evangelical Beliefs: Congregational marital status: Current Living Situation: Spouse Current Living Situation Comment: Caregiver 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, daughter barrett current occupational status: retired Feels Safe at Home: Yes Childhood Exposure to Second-Hand Smoke: No Diet Comment: regular caffeine: Yes (Tea x 2 cups per day.) during the past year weight has: other Dental Care, Regularly: Yes Physical Activity Frequency: Does not Exercise Physical Activity Frequency Comment: due to physical condition Seatbelt Use: always Sunscreen Use: Yes Assistive Devices: Glasses, Hearing Aid - Bilateral, Lift Chair and Walker Allergies Allergies Allergy/AdvReac Type Severity Reaction Status Date / Time No Known Drug Allergies Allergy NKDA Verified 03/07/22 15:37 Home Meds Home Medications Medication Instructions Recorded Confirmed calcium carbonate 600 mg-vitamin 1 tab PO HS 01/26/19 03/07/22 D3 5 mcg (200 unit) tablet hydroxychloroquine 200 mg tablet 200 mg PO QAM 02/03/20 03/07/22 multivitamin 1 tab PO QAM 08/31/20 03/07/22 latanoprost 0.005 % eye drops 1 drp ophthalmic (eye) QPM 01/05/21 03/07/22 cyanocobalamin (vitamin B-12) 1,000 mcg PO QAM 10/04/21 03/07/22 1,000 mcg capsule levothyroxine 50 mcg tablet 50 mcg PO QAM 10/04/21 03/07/22 (Synthroid) ascorbic acid (vitamin C) 1,000 mg 1 g PO DAILY 01/06/22 03/07/22 capsule Previous Rx's Medication Instructions Recorded warfarin 3 mg tablet 3 mg PO DAILY@1600 #90 tabs 11/08/21 nebivolol 10 mg tablet (Bystolic) 10 mg PO QAM #10 tabs 12/03/21 carbidopa 25 mg-levodopa 100 mg 0.5 tab PO BID 30 days #30 tabs 01/20/22 tablet (Sinemet) warfarin 1 mg tablet See Rx Instructions PO .COMPLEX 02/24/22 #90 tabs Results & Data (ED) Vital Signs Vital Signs - 24 hr 03/07/22 15:19 03/07/22 14:53 03/07/22 15:25 Pulse Rate 92 H 89 Pulse Rate [Finger] 90 Pulse Rate from SpO2 Sensor Pulse Rhythm Regular Pulse Rhythm [Finger] Regular Pulse Strength Normal Pulse Strength [Finger] Normal Respiratory Rate 15 20 20 Respiratory Effort / Characteristics Non-Labored Non-Labored Respiratory Depth Normal Normal Respiratory Pattern Regular Regular Blood Pressure 128/61 Blood Pressure [Right Arm] 120/69 Blood Pressure Mean 83 Blood Pressure Mean [Right Arm] 86 Blood Pressure Position Lying Blood Pressure Position [Right Arm] Lying Pulse Oximetry 98 98 Oxygen Delivery Method Room Air Sepsis Recent Fever Within 48 Hours No Sepsis New/Unexplained Change in Mental Status No Sepsis Action Taken by Nursing No Action Required 03/07/22 15:30 03/07/22 15:32 03/07/22 15:32 Pulse Rate 87 85 Pulse Rate [Finger] Pulse Rate from SpO2 Sensor Pulse Rhythm Pulse Rhythm [Finger] Pulse Strength Pulse Strength [Finger] Respiratory Rate 18 16 Respiratory Effort / Characteristics Respiratory Depth Respiratory Pattern Blood Pressure 126/76 Blood Pressure [Right Arm] Blood Pressure Mean 92 Blood Pressure Mean [Right Arm] Blood Pressure Position Blood Pressure Position [Right Arm] Pulse Oximetry Oxygen Delivery Method Sepsis Recent Fever Within 48 Hours Sepsis New/Unexplained Change in Mental Status Sepsis Action Taken by Nursing 03/07/22 16:00 03/07/22 16:00 03/07/22 16:26 Pulse Rate 88 89 Pulse Rate [Finger] Pulse Rate from SpO2 Sensor 80 Pulse Rhythm Pulse Rhythm [Finger] Pulse Strength Pulse Strength [Finger] Respiratory Rate 17 22 Respiratory Effort / Characteristics Respiratory Depth Respiratory Pattern Blood Pressure 139/65 Blood Pressure [Right Arm] Blood Pressure Mean 89 Blood Pressure Mean [Right Arm] Blood Pressure Position Blood Pressure Position [Right Arm] Pulse Oximetry 98 Oxygen Delivery Method Sepsis Recent Fever Within 48 Hours Sepsis New/Unexplained Change in Mental Status Sepsis Action Taken by Nursing 03/07/22 16:36 03/07/22 16:38 03/07/22 17:00 Pulse Rate Pulse Rate [Finger] Pulse Rate from SpO2 Sensor 89 Pulse Rhythm Pulse Rhythm [Finger] Pulse Strength Pulse Strength [Finger] Respiratory Rate Respiratory Effort / Characteristics Respiratory Depth Respiratory Pattern Blood Pressure 125/59 L 120/69 Blood Pressure [Right Arm] Blood Pressure Mean 81 86 Blood Pressure Mean [Right Arm] Blood Pressure Position Blood Pressure Position [Right Arm] Pulse Oximetry 96 Oxygen Delivery Method Sepsis Recent Fever Within 48 Hours Sepsis New/Unexplained Change in Mental Status Sepsis Action Taken by Care Home Medications Current Medication List: was personally reviewed by me Laboratory Data Attestation: I reviewed the patient's lab results. Result diagrams: 03/07/22 16:36 03/07/22 16:36 Lab Results 03/07/22 03/07/22 03/07/22 Range/Units 15:44 15:44 16:36 WBC 8.26 (4.8-10.8) K/ul RBC 3.55 L (3.93-5.22) M/uL Hgb 9.6 L (12.0-16.0) g/dl Hct 29.5 L (34.1-44.9) % MCV 83.1 (80.0-100.0) fL MCH 27.0 (25.0-34.0) pg MCHC 32.5 (32.0-36.0) g/dL RDW Std Deviation 43.9 (36.4-46.3) fL RDW Coeff of Meryl 14.5 (11.5-14.5) % Plt Count 386 (130-400) K/uL MPV 8.8 L (9.4-12.3) fL Immature Gran % (Auto) 0.5 % Neut % (Auto) 78.8 % Lymph % (Auto) 12.0 % [place] % (Auto) 8.2 % Eos % (Auto) 0.1 % Baso % (Auto) 0.4 % Neut # (Auto) 6.51 H (1.4-6.5) K/uL Lymph # (Auto) 0.99 L (1.2-3.4) K/uL [place] # (Auto) 0.68 (0.24-0.82) K/uL Eos # (Auto) 0.01 (0-0.50) K/uL Baso # (Auto) 0.03 (0-0.2) K/uL Immature Gran # (Auto) 0.04 H (0.00-0.02) K/uL ESR (0-30) mm/hr PT 48.8 H (9.0-12.0) Seconds INR 5.0 H (0.9-1.1) APTT 47.1 H* (21.0-31.0) Seconds PTT Ratio 1.7 Sodium (136-145) mmol/L Potassium (3.5-5.1) mmol/L Chloride (98-107) mmol/L Carbon Dioxide (21-32) mmol/L Anion Gap (3-11) BUN (6-23) mg/dl Creatinine (0.6-1.2) mg/dl Est Cr Clr Drug Dosing ml/min Est GFR ( Amer) ml/min Est GFR (Non-Af Amer) ml/min BUN/Creatinine Ratio (10-20) Glucose (70-99(Fasting)) mg/dl Lactate (0.4-2.0) mmol/L Calcium (8.5-10.1) mg/dl Total Bilirubin (0.2-1.0) mg/dl AST (13-39) U/L ALT (7-52) U/L Alkaline Phosphatase (34-104) U/L C-Reactive Protein (0-0.5) mg/dl Total Protein (6.0-8.3) gm/dl Albumin (3.4-5.0) gm/dl Globulin (2.5-4.0) gm/dl Albumin/Globulin Ratio (0.9-2) Lipase (11-82) U/L Procalcitonin 0.21 (0-0.5) ng/ml SARS-CoV-2, RNA, NAAT (NEGATIVE) 03/07/22 03/07/22 03/07/22 Range/Units 16:36 16:36 16:36 WBC (4.8-10.8) K/ul RBC (3.93-5.22) M/uL Hgb (12.0-16.0) g/dl Hct (34.1-44.9) % MCV (80.0-100.0) fL MCH (25.0-34.0) pg MCHC (32.0-36.0) g/dL RDW Std Deviation (36.4-46.3) fL RDW Coeff of Meryl (11.5-14.5) % Plt Count (130-400) K/uL MPV (9.4-12.3) fL Immature Gran % (Auto) % Neut % (Auto) % Lymph % (Auto) % [place] % (Auto) % Eos % (Auto) % Baso % (Auto) % Neut # (Auto) (1.4-6.5) K/uL Lymph # (Auto) (1.2-3.4) K/uL [place] # (Auto) (0.24-0.82) K/uL Eos # (Auto) (0-0.50) K/uL Baso # (Auto) (0-0.2) K/uL Immature Gran # (Auto) (0.00-0.02) K/uL ESR 80 H (0-30) mm/hr PT (9.0-12.0) Seconds INR (0.9-1.1) APTT (21.0-31.0) Seconds PTT Ratio Sodium 138 (136-145) mmol/L Potassium 3.5 (3.5-5.1) mmol/L Chloride 104 (98-107) mmol/L Carbon Dioxide 25 (21-32) mmol/L Anion Gap 9 (3-11) BUN 33 H (6-23) mg/dl Creatinine 0.73 (0.6-1.2) mg/dl Est Cr Clr Drug Dosing 39.7 ml/min Est GFR ( Amer) 86.4 ml/min Est GFR (Non-Af Amer) 74.6 ml/min BUN/Creatinine Ratio 45.2 H (10-20) Glucose 95 (70-99(Fasting)) mg/dl Lactate 0.6 (0.4-2.0) mmol/L Calcium 8.6 (8.5-10.1) mg/dl Total Bilirubin 0.3 (0.2-1.0) mg/dl AST 33 (13-39) U/L ALT 35 (7-52) U/L Alkaline Phosphatase 68 (34-104) U/L C-Reactive Protein 16.38 H (0-0.5) mg/dl Total Protein 6.2 (6.0-8.3) gm/dl Albumin 2.9 L (3.4-5.0) gm/dl Globulin 3.3 (2.5-4.0) gm/dl Albumin/Globulin Ratio 0.9 (0.9-2) Lipase 40 (11-82) U/L Procalcitonin (0-0.5) ng/ml SARS-CoV-2, RNA, NAAT (NEGATIVE) 03/07/22 Range/Units 16:37 WBC (4.8-10.8) K/ul RBC (3.93-5.22) M/uL Hgb (12.0-16.0) g/dl Hct (34.1-44.9) % MCV (80.0-100.0) fL MCH (25.0-34.0) pg MCHC (32.0-36.0) g/dL RDW Std Deviation (36.4-46.3) fL RDW Coeff of Meryl (11.5-14.5) % Plt Count (130-400) K/uL MPV (9.4-12.3) fL Immature Gran % (Auto) % Neut % (Auto) % Lymph % (Auto) % [place] % (Auto) % Eos % (Auto) % Baso % (Auto) % Neut # (Auto) (1.4-6.5) K/uL Lymph # (Auto) (1.2-3.4) K/uL [place] # (Auto) (0.24-0.82) K/uL Eos # (Auto) (0-0.50) K/uL Baso # (Auto) (0-0.2) K/uL Immature Gran # (Auto) (0.00-0.02) K/uL ESR (0-30) mm/hr PT (9.0-12.0) Seconds INR (0.9-1.1) APTT (21.0-31.0) Seconds PTT Ratio Sodium (136-145) mmol/L Potassium (3.5-5.1) mmol/L Chloride (98-107) mmol/L Carbon Dioxide (21-32) mmol/L Anion Gap (3-11) BUN (6-23) mg/dl Creatinine (0.6-1.2) mg/dl Est Cr Clr Drug Dosing ml/min Est GFR ( Amer) ml/min Est GFR (Non-Af Amer) ml/min BUN/Creatinine Ratio (10-20) Glucose (70-99(Fasting)) mg/dl Lactate (0.4-2.0) mmol/L Calcium (8.5-10.1) mg/dl Total Bilirubin (0.2-1.0) mg/dl AST (13-39) U/L ALT (7-52) U/L Alkaline Phosphatase (34-104) U/L C-Reactive Protein (0-0.5) mg/dl Total Protein (6.0-8.3) gm/dl Albumin (3.4-5.0) gm/dl Globulin (2.5-4.0) gm/dl Albumin/Globulin Ratio (0.9-2) Lipase (11-82) U/L Procalcitonin (0-0.5) ng/ml SARS-CoV-2, RNA, NAAT POSITIVE A* (NEGATIVE) Administered Medications Discontinued Medications Sodium Chloride (Nss 1000ml) 500 mls @ 999 mls/hr IV .Q31M ONE Stop: 03/07/22 16:00 Last Infusion: 03/07/22 16:41 Dose: 0 mls/hr Documented By: Admin: 03/07/22 16:10 Dose: 999 mls/hr Documented By: AUSTIN Cefepime HCl (Maxipime) 2,000 mg in 20 mls @ 5 mls/min IV NOW STA; Protocol Stop: 03/07/22 15:33 Last Admin: 03/07/22 16:48 Dose: 5 mls/min Documented By: AUSTIN Acetaminophen (Ofirmev) 1,000 mg in 100 mls @ 400 mls/hr IV NOW STA Stop: 03/07/22 18:13 Last Admin: 03/07/22 18:45 Dose: 400 mls/hr Documented By: AUSTIN Discharge Plan Visit Data Chief Complaint: Infection, Wound ED Provider: Omar Gonzalez Discharge Problem: Decubitus ulcer of sacral area, Anemia Patient Disposition: Being Evaluated by Hospitalist Forms Stand Alone Forms: [facility] Prescriptions Prescriptions: No Action warfarin 3 mg tablet 3 mg PO DAILY@1600 Qty: 90 1RF Protocol: Dose Management Condition: Monday Dose/Route: 3 mg Instruction: 1 x 3 mg tablet Condition: Monday Dose/Route: 3 mg Instruction: 1 x 3 mg tablet Condition: Monday Dose/Route: 4 mg Instruction: 1 x 1 mg tablet, 1 x 3 mg tablet Condition: Monday Dose/Route: 3 mg Instruction: 1 x 3 mg tablet Condition: Dose/Route: 4 mg Instruction: 1 x 1 mg tablet, 1 x 3 mg tablet Condition: Monday Dose/Route: 3 mg Instruction: 1 x 3 mg tablet Condition: Monday Dose/Route: 3 mg Instruction: 1 x 3 mg tablet Protocol Text: Adjustment Start Date: Monday02/28/22 INR Value: 2.6 INR Date: 02/25/22 Recheck Date: 03/28/22 nebivolol [Bystolic] 10 mg tablet 10 mg PO QAM Qty: 10 0RF carbidopa-levodopa [Sinemet] 25-100 mg tablet 0.5 tab PO BID 30 Days Qty: 30 5RF warfarin 1 mg tablet See Rx Instructions PO .COMPLEX Qty: 90 2RF Protocol: Dose Management Condition: Monday Dose/Route: 3 mg Instruction: 1 x 3 mg tablet Condition: Monday Dose/Route: 3 mg Instruction: 1 x 3 mg tablet Condition: Monday Dose/Route: 4 mg Instruction: 1 x 1 mg tablet, 1 x 3 mg tablet Condition: Monday Dose/Route: 3 mg Instruction: 1 x 3 mg tablet Condition: Dose/Route: 4 mg Instruction: 1 x 1 mg tablet, 1 x 3 mg tablet Condition: Monday Dose/Route: 3 mg Instruction: 1 x 3 mg tablet Condition: Monday Dose/Route: 3 mg Instruction: 1 x 3 mg tablet Protocol Text: Adjustment Start Date: Monday02/28/22 INR Value: 2.6 INR Date: 02/25/22 Recheck Date: 03/28/22 Rx Instructions: PO; as directed calcium carbonate-vitamin D3 600 mg(1,500mg) -200 unit tablet 1 tab PO HS ascorbic acid (vitamin C) 1,000 mg capsule 1 g PO DAILY hydroxychloroquine 200 mg tablet 200 mg PO QAM latanoprost 0.005 % drops 1 drp ophthalmic (eye) QPM multivitamin Tablet 1 tab PO QAM levothyroxine [Synthroid] 50 mcg tablet 50 mcg PO QAM Rx Instructions: Every day but Monday cyanocobalamin (vitamin B-12) 1,000 mcg capsule 1,000 mcg PO QAM Referrals Referrals: Patito Benton DO [Primary Care Provider] -
[2022-03-07 16:25] LABS: Partial Thromboplastin Ratio 1.7; Prothrombin Time 48.8 Seconds (9.0-12.0)
[2022-03-07 16:41] LABS: Partial Thromboplastin Time 47.1 Seconds (21.0-31.0)
[2022-03-07 16:46] LABS: Basophils # (auto) 0.03 K/uL (0-0.2); Basophils % (auto) 0.4 %; Eosinophils # (auto) 0.01 K/uL (0-0.50); Eosinophils % (auto) 0.1 %; Hematocrit (blood only) 29.5 % (34.1-44.9); Hemoglobin 9.6 g/dl (12.0-16.0); Immature Granulocytes # (auto) 0.04 K/uL (0.00-0.02); Immature Granulocytes % (auto) 0.5 %; Lymphocytes # (auto) 0.99 K/uL (1.2-3.4); Mean Corpuscular Hgb Conc 32.5 g/dL (32.0-36.0); Mean Corpuscular Volume 83.1 fL (80.0-100.0); Mean Platelet Volume 8.8 fL (9.4-12.3); Monocytes # (auto) 0.68 K/uL (0.24-0.82); Monocytes % (auto) 8.2 %; Neutrophils # (auto) 6.51 K/uL (1.4-6.5); Neutrophils % (auto) 78.8 %; Platelet Count 386 K/uL (130-400); RDW Coefficient of Variation 14.5 % (11.5-14.5); RDW Standard Deviation 43.9 fL (36.4-46.3); Red Blood Count 3.55 M/uL (3.93-5.22); White Blood Count 8.26 K/ul (4.8-10.8)
[2022-03-07 17:08] LABS: Albumin Globulin Ratio 0.9 (0.9-2); Albumin Level 2.9 gm/dl (3.4-5.0); BUN Creatinine Ratio 45.2 (10-20); Bilirubin,Total 0.3 mg/dl (0.2-1.0); C Reactive Protein 16.38 mg/dl (0-0.5); Calcium 8.6 mg/dl (8.5-10.1); Creatinine Clr Calc Pharmacy 39.7 ml/min; Est GFR (African American) 86.4 ml/min; Est GFR (Non-African American) 74.6 ml/min; Globulin 3.3 gm/dl (2.5-4.0); Potassium 3.5 mmol/L (3.5-5.1); Total Protein 6.2 gm/dl (6.0-8.3)
--- NOTE | 2022-03-07 17:32 | History & Physical Report ---
Date of Service March 07, 2022 Assessment & Plan (1) Unstageable pressure ulcer of sacral region: Plan: Sacral ulceration, cellulitis No leukocytosis Hemoglobin 9.6 Sodium, potassium normal Creatinine with normal baseline, 0.73 on admission CRP 16.38, trended XR pelvis as initial screening for cortical enhancement/bony involvement Procalcitonin normal On empiric cefepime BC pending Wound culture reportedly taken as outpatient, is not available to view in system. Repeat ordered. No prior wound cultures to guide antibiotics, single urine culture for E. 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 Admitting kidney function: Creatinine 0.73, creatinine clearance 39.7 AST/ALT: Normal CXR: Pending CRP: 16.38, in the setting of sacral wound/infection Dexamethasone not indicated at this time as patient is not hypoxic Remdesivir: Not indicated, not hypoxic and with CKD Baricitinib: Not indicated Anemia Hemoglobin 9.6, MCV 83 In the setting of CKD Iron studies, B12, folate levels pending Patient is anticoagulated with warfarin for history of DVT, supratherapeutic 2 and INR 5.0 on admission Hold warfarin on admission No acute unstable bleed, defer vitamin K/reversal at this time Hypertension Continue nebivolol RA Hydroxychloroquine held in the setting of acute infection Parkinsonism Continue carbidopa levodopa 25-100 mg half tablet p.o. twice daily DVT prophylaxis: Anticoagulated Diet: Heart healthy Disposition: Medical/surgical CODE STATUS: Full code (2) COVID-19: (3) Hypothyroidism: (4) HTN (hypertension): (5) Hyperlipidemia: (6) CKD (chronic kidney disease), stage III: (7) Prediabetes: (8) DVT (deep venous thrombosis): (9) Anticoagulated on Coumadin: History of Present Illness Primary Care Provider: Patito Benton DO Yolie is a 86-year-old female with a past medical history of CKD 3, hyperlipidemia, hypertension, hypothyroidism, RA, pulmonary nodules, DVT on Coumadin who presents with a deep sacral ulcer with malodorous worsening appearance at wound care and he was recommended for inpatient treatment of cellulitis. Yolie is seen at the bedside with her daughter. There was seen at wound care and reports that she has had continued progression of the deep sacral ulcer which is very painful to Yolie. Yolie is able to understand things are being said to her, but does have some underlying cognitive change and expressive aphasia thought to be due to underlying Parkinson's. They have never discussed Lewy body in the past. No fever/chills/sweats. History is limited by cognitive status, grossly denies chest pain and radiating pain. Does endorse tenderness in the sacrum. Endorses runny nose and sore throat for about 4 days, no cough. Medical History: Reviewed Medications: Reviewed Surgical History: Reviewed Allergies: Reviewed Social History: Reviewed, no tobacco/alcohol use Code Status: Full Code, discussed with family and went over the nature of DNR/DNI. This has not been brought up to them before, they will think about it but would like to remain full code for now Allergies Allergy/AdvReac Type Severity Reaction Status Date / Time No Known Drug Allergies Allergy NKDA Verified 03/07/22 15:37 Home Medications Medication Instructions Recorded Confirmed Type calcium carbonate 600 mg-vitamin 1 tab PO HS 01/26/19 03/07/22 History D3 5 mcg (200 unit) tablet hydroxychloroquine 200 mg tablet 200 mg PO QAM 02/03/20 03/07/22 History multivitamin 1 tab PO QAM 08/31/20 03/07/22 History latanoprost 0.005 % eye drops 1 drp ophthalmic (eye) QPM 01/05/21 03/07/22 History cyanocobalamin (vitamin B-12) 1,000 mcg PO QAM 10/04/21 03/07/22 History 1,000 mcg capsule levothyroxine 50 mcg tablet 50 mcg PO QAM 10/04/21 03/07/22 History (Synthroid) warfarin 3 mg tablet 3 mg PO DAILY@1600 #90 tabs 11/08/21 03/07/22 Rx nebivolol 10 mg tablet (Bystolic) 10 mg PO QAM #10 tabs 12/03/21 03/07/22 Rx ascorbic acid (vitamin C) 1,000 mg 1 g PO DAILY 01/06/22 03/07/22 History capsule carbidopa 25 mg-levodopa 100 mg 0.5 tab PO BID 30 days #30 tabs 01/20/22 03/07/22 Rx tablet (Sinemet) warfarin 1 mg tablet See Rx Instructions PO .COMPLEX 02/24/22 03/07/22 Rx #90 tabs Past Med/Surg History Medical History Chronic back pain Glaucoma Hearing deficit HTN (hypertension) Hyperlipidemia Hypothyroidism Osteoarthritis Osteopenia after menopause Ovarian cancer dianosed "a long time ago"--sx only Prediabetes Primary progressive aphasia Pulmonary nodule (02/2021) Rheumatoid arthritis without rheumatoid factor, multiple sites Tachycardia reason for bystolic Surgical History History of bilateral cataract extraction History of bladder suspension procedure History of colonoscopy with polypectomy History of total hysterectomy with bilateral salpingo-oophorectomy (BSO) S/P ORIF (open reduction internal fixation) fracture (03/17/21) L clavicle Family History Sister Colorectal cancer, Onset Age: 68 Ovarian cancer Father Alzheimer disease Mother Hypertension Other No family history of adverse response to anesthesia Denies family history of Prostate cancer Myocardial infarction Breast cancer Social History Smoking Status: Never smoker Second Hand Exposure: No; Hx Alcohol Use: No Hx Substance Use: No Preferred Language: Kazakh Communication Ability: Impaired Visual Impairment: Limited Hearing Ability: Use of Hearing Aid Product Safety Technical Assistant Required: No Beliefs That Will Affect Care: Yarsani Yarsani Beliefs: Roman Catholic marital status: Current Living Situation: Spouse Current Living Situation Comment: Caregiver 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, daughter barrett current occupational status: retired Feels Safe at Home: Yes Childhood Exposure to Second-Hand Smoke: No Diet Comment: regular caffeine: Yes (Tea x 2 cups per day.) during the past year weight has: other Dental Care, Regularly: Yes Physical Activity Frequency: Does not Exercise Physical Activity Frequency Comment: due to physical condition Seatbelt Use: always Sunscreen Use: Yes Assistive Devices: Glasses, Hearing Aid - Bilateral, Lift Chair and Walker Review of Systems Review of Systems: Unobtainable due to cognitive status Physical Exam Physical Exam: General: Nonverbal. Does not follow complex commands no acute distress HEENT: Atraumatic, normocephalic. Difficult to assess vision/hearing due to cognitive status, but both appear grossly intact Pulm: CTAB A&P. -wheezes, -rales, -rhonchi. Symmetrical chest rise. No increase in work of breathing. No respiratory distress. Cardiac: RRR, soft systolic murmur. Radial pulses intact and symmetrical. Abdominal: Nontender, nondistended, soft. BS present. Skin: Sacrum with 4 cm wide deep unstageable pressure ulceration with surrounding tenderness, erythema and without purulence. Results & Data Results & Data ([facility]) Vital Signs (Past 12 Hours) Vital Signs Pulse Pulse Resp BP BP Pulse Ox O2 Del Method 03/07/22 17:00 120/69 03/07/22 16:38 96 03/07/22 16:36 125/59 L 03/07/22 16:26 98 03/07/22 16:00 89 22 03/07/22 16:00 88 17 139/65 03/07/22 15:32 85 16 03/07/22 15:32 126/76 03/07/22 15:30 87 18 03/07/22 15:25 89 20 03/07/22 14:53 90 20 120/69 98 03/07/22 15:19 92 H 15 128/61 98 Room Air PG Care Time/CCT Total # of Minutes Spent Total Time Spent with Patient: Total time spent is greater than 50% in coordination of care (as documented) at patient's floor/unit and/or counseling patient: Coding Level of Care Code INT OBSERVATION CARE 50M LVL 2 Diagnoses Unstageable pressure ulcer of sacral region L89.150 COVID-19 U07.1 Hypothyroidism E03.9 Hypothyroidism type: acquired HTN (hypertension) I10 Hypertension type: essential hypertension Hyperlipidemia E78.00; E78.0 Hyperlipidemia type: pure hypercholesterolemia CKD (chronic kidney disease), stage III N18.3 Prediabetes R73.03 DVT (deep venous thrombosis) I82.409 Anticoagulated on Coumadin Z79.01 (1) Hypothyroidism Hypothyroidism type: acquired Qualified Code(s): E03.9 - Hypothyroidism, unspecified (2) HTN (hypertension) Hypertension type: essential hypertension Qualified Code(s): I10 - Essential (primary) hypertension (3) Hyperlipidemia Hyperlipidemia type: pure hypercholesterolemia Qualified Code(s): E78.00 - Pure hypercholesterolemia, unspecified; E78.0 - Pure hypercholesterolemia
[2022-03-07] MEDS ORDERED: ACETAMINOPHEN 1,000 MG/100 ML VIAL IV STA (17:59)
[2022-03-07] MEDS ORDERED: LEVOTHYROXINE SODIUM 50 MCG TABLET PO SCH (20:27)
[2022-03-07 21:31] LABS: Vitamin B12 > 1500 pg/ml (180-914)
[2022-03-07 21:39] LABS: Iron < 10 mcg/dl (35-150); Unsaturated Iron Binding Cap 234 mcg/dl (155-355)
[2022-03-07] MEDS: CARBIDOPA/LEVODOPA 25/100MG TAB PO SCH (22:04)
[2022-03-08] MEDS: CEFEPIME 2,000 MG in SYRINGE 0 ML IV SCH ×2 (04:33→18:11)
--- NOTE | 2022-03-08 07:07 | XRay Report ---
SINGLE VIEW CHEST CLINICAL HISTORY: Covid. FINDINGS: An AP, portable, supine chest radiograph is correlated with chest CT dated 10/04/2021. The e xamination is degraded by portable technique and patient rotation. The heart is enlarged noting athe rosclerotic calcification of the thoracic aorta. The pulmonary vasculature is noncongested. There is chronic elevation of the right hemidiaphragm with bibasilar scarring/atelectasis. No airspace consoli dation or large pleural effusion is identified. No pneumothorax is seen. The skeletal structures are osteopenic. Posttraumatic/postsurgical changes noted in the left clavicle. There are healed left-side d rib fractures. IMPRESSION: Cardiomegaly and chronic changes as above with no acute cardiopulmonary abnormality ident ified. ACT 112: Negative or not required by law. Electronically signed by: Wally Mario M.D. 03/08/2022 7:06 AM
--- NOTE | 2022-03-08 08:25 | Hospitalist Progress Note ---
Date of Service March 08, 2022 Assessment & Plan (1) Unstageable pressure ulcer of sacral region: Plan: 86-year-old female past medical history significant for hypertension, hypothyroidism, hyperlipidemia, CKD stage III, prediabetes, rheumatoid arthritis admitted for worsening sacral pressure ulcer for wound care and IV antibiotics. Sacral ulceration, cellulitis: No leukocytosis. CRP 16.38, stable today. XR pelvis without evidence of osteomyelitis. Procalcitonin normal. BCx pending. Wound culture prelim growing gram negative bacilli. Continue cefepime. - Wound care nursing, and if necessary, surgical consult for debridement. (2) COVID-19: Plan: COVID positive on admission 03/07. First day of symptoms: 03/03. Vaccination status: Fully vaccinated and boosted. Baseline kidney function: CKD due to age, baseline creatinine less than 1. Admitting kidney function: Creatinine 0.73, creatinine clearance 39.7. AST/ALT: Normal. CRP: 16.38, in the setting of sacral wound/infection. Dexamethasone not indicated at this time as patient is not hypoxic. Remdesivir: Not indicated, not hypoxic and with CKD. Baricitinib: Not indicated. (3) Anemia: Plan: Hemoglobin 9.6, MCV 83. In the setting of CKD. Iron level <10, ferritin normal. Iron supplement started. Patient is anticoagulated with warfarin for history of DVT, supratherapeutic with INR 5.0 on admission. Hold until therapeutic range. No acute unstable bleed, defer vitamin K/reversal at this time. Hypertension RA Parkinsonism (4) Parkinsonism: Plan: Continue carbidopa levodopa 25-100 mg half tablet p.o. twice daily. - Baseline function is unable to speak, bedbound and caregiver dependent. (5) Hypothyroidism: Plan: - Continue home levothyroxine. (6) HTN (hypertension): Plan: Continue nebivolol. (7) Rheumatoid arthritis without rheumatoid factor, multiple sites: Plan: Hydroxychloroquine held in the setting of acute infection. (8) CKD (chronic kidney disease), stage III: Plan: - Baseline creatinine ~0.8, at baseline this admission. - Avoid nephrotoxins. Plan DVT prophylaxis: supratherapeutic INR, holding warfarin Diet: Heart healthy Disposition: Medical/surgical CODE STATUS: Full code Admission and Anticipated Discharge Date Admission Date: March 07, 2022 Subjective Patient without acute events overnight. Has been eating well, and has not appeared to be in pain per nursing staff. Patient is nonverbal at baseline and therefore unable to assess for complaints, however she does have a smile on her face during my interview. Review of Systems Review of Systems: Unobtainable due to cognitive status Physical Exam Constitutional: WD/WN, vitals as above Respiratory: normal respiratory effort, lungs clear to auscultation Cardiovascular: RRR, no murmur, no edema Gastrointestinal (Abdomen): normal bowel sounds, soft, nontender, no hepatosplenomegaly Skin: no rashes, warm and dry 4 cm unstageable pressure ulcer Psychiatric: Alert, cannot assess level of orientation Results & Data Results & Data ([facility]) Vital Signs (Past 12 Hours) Vital Signs Temp Pulse Pulse Pulse Resp BP BP 03/08/22 07:07 37.2 C 98 H 18 141/59 H 03/07/22 22:00 03/07/22 20:52 36.8 C 87 18 03/07/22 20:48 36.8 C 87 18 03/07/22 20:29 70 19 126/62 BP Pulse Ox O2 Del Method 03/08/22 07:07 93 Room Air 03/07/22 22:00 Room Air 03/07/22 20:52 114/51 L 94 Room Air 03/07/22 20:48 114/51 L 94 Room Air 03/07/22 20:29 98 Room Air PG Care Time/CCT Total # of Minutes Spent Total Time Spent with Patient: Total time spent is greater than 50% in coordination of care (as documented) at patient's floor/unit and/or counseling patient: Coding Level of Care Code 24621 Subseq Hosp Care Lvl 2 Diagnoses Unstageable pressure ulcer of sacral region L89.150 COVID-19 U07.1 Anemia D64.9 Anemia type: unspecified type Parkinsonism G20 Hypothyroidism E03.9 Hypothyroidism type: acquired HTN (hypertension) I10 Hypertension type: essential hypertension Rheumatoid arthritis without rheumatoid factor, multiple sites M06.09 CKD (chronic kidney disease), stage III N18.3 (1) Hypothyroidism Hypothyroidism type: acquired Qualified Code(s): E03.9 - Hypothyroidism, unspecified (2) HTN (hypertension) Hypertension type: essential hypertension Qualified Code(s): I10 - Essential (primary) hypertension (3) Anemia Anemia type: unspecified type Qualified Code(s): D64.9 - Anemia, unspecified
[2022-03-08] MEDS: LEVOTHYROXINE SODIUM 50 MCG TABLET PO SCH (09:12)
[2022-03-08] MEDS: CARBIDOPA/LEVODOPA 25/100MG TAB PO SCH ×2 (09:12→20:53)
[2022-03-08] MEDS: METOPROLOL TARTRATE 50 MG TAB PO SCH ×2 (09:12→20:54)
--- NOTE | 2022-03-08 09:25 | XRay Report ---
XR pelvis 1-2V routine CLINICAL HISTORY: ? sacral osteomyelitis COMPARISON STUDY: Abdomen and pelvis CT 10/04/2021. FINDINGS: The sacrum is partially obscured by overlying bowel gas. No large areas of sacral destructi on identified. No fracture or dislocation within the pelvis or hips. IMPRESSION: The sacrum is partially obscured by overlying bowel gas. No large areas of sacral destru ction identified to suggest an osteomyelitis. ACT 112: Negative or not required by law. Electronically signed by: Mayur Ibarra M.D. 03/08/2022 9:24 AM
[2022-03-08 10:26] LABS: INR 4.2 (0.9-1.1); Prothrombin Time 41.3 Seconds (9.0-12.0)
[2022-03-09] MEDS: CEFEPIME 2,000 MG in SYRINGE 0 ML IV SCH (05:10)
[2022-03-09 05:58] LABS: Hematocrit (blood only) 26.3 % (34.1-44.9); Hemoglobin 8.6 g/dl (12.0-16.0); Mean Corpuscular Hemoglobin 26.8 pg (25.0-34.0); Mean Corpuscular Hgb Conc 32.7 g/dL (32.0-36.0); Mean Corpuscular Volume 81.9 fL (80.0-100.0); Mean Platelet Volume 8.7 fL (9.4-12.3); Platelet Count 348 K/uL (130-400); RDW Coefficient of Variation 14.8 % (11.5-14.5); RDW Standard Deviation 44.1 fL (36.4-46.3); Red Blood Count 3.21 M/uL (3.93-5.22); White Blood Count 8.77 K/ul (4.8-10.8)
[2022-03-09 06:19] LABS: BUN Creatinine Ratio 27.4 (10-20); Calcium 7.9 mg/dl (8.5-10.1); Creatinine Clr Calc Pharmacy 37.7 ml/min; Est GFR (African American) 86.4 ml/min; Est GFR (Non-African American) 74.6 ml/min; Potassium 3.5 mmol/L (3.5-5.1); Prothrombin Time 39.2 Seconds (9.0-12.0)
[2022-03-09] MEDS: METOPROLOL TARTRATE 50 MG TAB PO SCH ×2 (08:20→22:46)
[2022-03-09] MEDS: LEVOTHYROXINE SODIUM 50 MCG TABLET PO SCH (08:20)
[2022-03-09] MEDS: CARBIDOPA/LEVODOPA 25/100MG TAB PO SCH ×2 (08:20→22:47)
--- NOTE | 2022-03-09 08:50 | Hospitalist Progress Note ---
Date of Service March 09, 2022 Assessment & Plan (1) Unstageable pressure ulcer of sacral region: Plan: 86-year-old female past medical history significant for hypertension, hypothyroidism, hyperlipidemia, CKD stage III, prediabetes, rheumatoid arthritis admitted for worsening sacral pressure ulcer for wound care and IV antibiotics. Sacral ulceration, cellulitis: No leukocytosis. CRP 16.38 on admission. XR pelvis without evidence of osteomyelitis. Procalcitonin normal. BCx negative at 48 hours. - Wound culture growing Proteus penneri and "probable Enterococcus". - After discussion of antibiotic options with Pharmacy, elected to transition to Augmentin. This should cover the Proteus, while also covering for E. faecalis (would not cover for E. faecium, however 86% of isolates in our area are E. faecalis). - Continue to monitor cultures and adjust Abx as necessary. - Due to degree of necrotic tissue patient will need debridement in the near future. - General Surgery consulted and appreciate recommendations: to hold off on surgery at this time while waiting for INR to decrease (suspected surgery at beginning of next week). Patient is COVID-19 positive however without symptoms at this time. - Turns q2h to offset sacral pressure. (2) COVID-19: Plan: COVID positive on admission 03/07. Vaccination status: Fully vaccinated and boosted. Baseline kidney function: CKD due to age, baseline creatinine less than 1. Admitting kidney function: Creatinine 0.73, creatinine clearance 39.7. AST/ALT: Normal. CRP: 16.38, in the setting of sacral wound/infection. Dexamethasone not indicated at this time as patient is not hypoxic. Remdesivir: Not indicated, not hypoxic and with CKD. Baricitinib: Not indicated. (3) Functional quadriplegia: Plan: - Functional quadriplegia in the setting of bed bound and altered cognitive status. - Cared for by her and her daughter. (4) Anemia: Plan: Hemoglobin 8.6, MCV 83. In the setting of CKD. Iron level <10, ferritin normal, suggesting anemia of chronic disease. Oral iron supplement started. Patient is anticoagulated with warfarin for history of DVT, supratherapeutic with INR 5.0 on admission -> 4.0 today. Continue to hold for now until therapeutic. No acute unstable bleed, defer vitamin K/reversal at this time. (5) Parkinsonism: Plan: Continue carbidopa levodopa 25-100 mg half tablet p.o. twice daily. - Baseline function is unable to speak, bedbound and caregiver dependent. (6) Hypothyroidism: Plan: - Continue home levothyroxine. (7) HTN (hypertension): Plan: Continue metoprolol (on nebivolol at home). (8) Rheumatoid arthritis without rheumatoid factor, multiple sites: Plan: Hydroxychloroquine held in the setting of acute infection. (9) CKD (chronic kidney disease), stage III: Plan: - Baseline creatinine ~0.8, at baseline this admission. - Avoid nephrotoxins. Plan DVT prophylaxis: supratherapeutic INR, holding warfarin Diet: Following Nutrition recommendations have adjusted diet to Regular minced and moist diet with multivitamin to assist with wound healing and calorie consumption to minimize weight loss in hospital Disposition: Medical/surgical CODE STATUS: Full code Admission and Anticipated Discharge Date Admission Date: March 08, 2022 Subjective No acute events overnight. Evaluated by wound care team today. Unable to respond to my questions, this is baseline. No fevers overnight. Review of Systems Review of Systems: Unobtainable due to cognitive status Physical Exam Constitutional: WD/WN, vitals as above Respiratory: normal respiratory effort, lungs clear to auscultation Cardiovascular: RRR, no murmur, no edema Gastrointestinal (Abdomen): normal bowel sounds, soft, nontender, no hepatosplenomegaly Musculoskeletal: upper and lower limb contractures increased kyphosis of T spine Skin: no rashes, warm and dry 4 cm unstageable pressure ulcer Neurologic: Speech / Cognition: + expressive aphasia functional quadriplegia Psychiatric: Alert Does not answer questions, nonverbal at baseline Results & Data Results & Data ([facility]) Vital Signs (Past 12 Hours) Vital Signs Temp Pulse Resp BP Pulse Ox O2 Del Method 03/09/22 07:59 36.9 C 98 H 16 130/64 95 Room Air 03/09/22 02:43 36.5 C 94 H 18 143/66 H 94 Room Air PG Care Time/CCT Total # of Minutes Spent Total Time Spent with Patient: Total time spent is greater than 50% in coordination of care (as documented) at patient's floor/unit and/or counseling patient: Coding Level of Care Code 89364 Subseq Hosp Care Lvl 3 Diagnoses Unstageable pressure ulcer of sacral region L89.150 COVID-19 U07.1 Functional quadriplegia R53.2 Anemia D64.9 Anemia type: unspecified type Parkinsonism G20 Hypothyroidism E03.9 Hypothyroidism type: acquired HTN (hypertension) I10 Hypertension type: essential hypertension Rheumatoid arthritis without rheumatoid factor, multiple sites M06.09 CKD (chronic kidney disease), stage III N18.3 (1) Anemia Anemia type: unspecified type Qualified Code(s): D64.9 - Anemia, unspecified (2) Hypothyroidism Hypothyroidism type: acquired Qualified Code(s): E03.9 - Hypothyroidism, unspecified (3) HTN (hypertension) Hypertension type: essential hypertension Qualified Code(s): I10 - Essential (primary) hypertension
[2022-03-09] MEDS: AMOXICILLIN/CLAVULANATE 875 MG TAB PO SCH ×2 (11:11→22:45)
[2022-03-09] MEDS: FERROUS SULFATE 325 MG TAB PO SCH (12:49)
--- NOTE | 2022-03-09 15:55 | Surgery Consultation ---
Date of Consultation March 09, 2022 Assessment & Plan (1) Decubitus ulcer of sacral area: Chart reviewed, including wound images. Patient not seen at this time. Will require eventual debridement of wound in OR once she has recovered from her COVID pneumonia. Also INR is 4.[address] Rampatient admitted from the wound clinic with unmanageable outpatient sacral decubitus ulcer I do not think the patient is septic from this however it will require major d ebridement in the operating room under likely general anesthesia Patient has tested positive for COVID recently and is symptomatic We will continue with local wound care via the wound nurses We will continue to monitor progress in the hospital I did discuss this with the patient's daughterLaura History of Present Illness Attending Physician: Eva Worley, History of Present Illness 86 y/o female referred by wound care for management of sacral ulcer. Tested CO VID + with respiratory failure/COVID pneumonia. Presumed day 6 of symptoms. Allergies Allergy/AdvReac Type Severity Reaction Status Date / Time No Known Drug Allergies Allergy NKDA Verified 03/07/22 15:37 Home Medications Medication Instructions Recorded Confirmed Type calcium carbonate 600 mg-vitamin 1 tab PO HS 01/26/19 03/07/22 History D3 5 mcg (200 unit) tablet hydroxychloroquine 200 mg tablet 200 mg PO QAM 02/03/20 03/07/22 History multivitamin 1 tab PO QAM 08/31/20 03/07/22 History latanoprost 0.005 % eye drops 1 drp ophthalmic (eye) QPM 01/05/21 03/07/22 History cyanocobalamin (vitamin B-12) 1,000 mcg PO QAM 10/04/21 03/07/22 History 1,000 mcg capsule levothyroxine 50 mcg tablet 50 mcg PO QAM 10/04/21 03/07/22 History (Synthroid) warfarin 3 mg tablet 3 mg PO DAILY@1600 #90 tabs 11/08/21 03/07/22 Rx nebivolol 10 mg tablet (Bystolic) 10 mg PO QAM #10 tabs 12/03/21 03/07/22 Rx ascorbic acid (vitamin C) 1,000 mg 1 g PO DAILY 01/06/22 03/07/22 History capsule carbidopa 25 mg-levodopa 100 mg 0.5 tab PO BID 30 days #30 tabs 01/20/22 03/07/22 Rx tablet (Sinemet) warfarin 1 mg tablet See Rx Instructions PO .COMPLEX 02/24/22 03/07/22 Rx #90 tabs Patient History Medical History Chronic back pain Glaucoma Hearing deficit HTN (hypertension) Hyperlipidemia Hypothyroidism Osteoarthritis Osteopenia after menopause Ovarian cancer dianosed "a long time ago"--sx only Prediabetes Primary progressive aphasia Pulmonary nodule (02/2021) Rheumatoid arthritis without rheumatoid factor, multiple sites Tachycardia reason for bystolic Surgical History History of bilateral cataract extraction History of bladder suspension procedure History of colonoscopy with polypectomy History of total hysterectomy with bilateral salpingo-oophorectomy (BSO) S/P ORIF (open reduction internal fixation) fracture (03/17/21) L clavicle Family History Sister Colorectal cancer, Onset Age: 68 Ovarian cancer Father Alzheimer disease Mother Hypertension Other No family history of adverse response to anesthesia Denies family history of Prostate cancer Myocardial infarction Breast cancer Social History Smoking Status: Never smoker Second Hand Exposure: No; Hx Alcohol Use: No Hx Substance Use: No Preferred Language: Latvian Communication Ability: Effective Visual Impairment: Limited Hearing Ability: Use of Hearing Aid Addictions Counselor Assistant Required: No Beliefs That Will Affect Care: Church Church Beliefs: Church. marital status: Current Living Situation: Spouse Current Living Situation Comment: Caregiver 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, daughter barrett current occupational status: retired Other Information That Helps Us Care for You: No Feels Safe at Home: Yes Safety Concerns: Feels Safe At This Time Childhood Exposure to Second-Hand Smoke: No Diet Comment: regular caffeine: Yes (Tea x 2 cups per day.) during the past year weight has: other Dental Care, Regularly: Yes Physical Activity Frequency: Does not Exercise Physical Activity Frequency Comment: due to physical condition Seatbelt Use: always Sunscreen Use: Yes Assistive Devices: Hospital Bed, Stair Lift and Wheelchair Assistive Devices Comment: hearing aids at home Results & Data ([facility]) Vital Signs (Past 12 Hours) Vital Signs Temp Pulse Pulse Resp BP Pulse Ox O2 Del Method 03/09/22 15:31 36.8 C 101 H 18 141/75 H 96 Room Air 03/09/22 07:59 36.9 C 98 H 16 130/64 95 Room Air PG Care Time/CCT Total # of Minutes Spent Total Time Spent with Patient: Total time spent is greater than 50% in coordination of care (as documented) at patient's floor/unit and/or counseling patient: Coding Level of Care Code 29899 Initial Inpt Care Lvl 1 Diagnoses Decubitus ulcer of sacral area L89.159 Pressure injury stage: unspecified pressure injury stage (1) Decubitus ulcer of sacral area Pressure injury stage: unspecified pressure injury stage Qualified Code(s): L89.159 - Pressure ulcer of sacral region, unspecified stage
--- NOTE | 2022-03-10 06:30 | Surgery Progress Note ---
Date of Service March 10, 2022 Assessment & Plan (1) Decubitus ulcer of sacral area: Plan: Continue to monitor progress Consider major debridement next week [facility] surgical team is available and will continue to monitor Admission and Anticipated Discharge Date Admission Date: March 08, 2022 Results & Data ([facility]) Vital Signs (Past 12 Hours) Vital Signs Temp Pulse Resp BP Pulse Ox O2 Del Method 03/09/22 21:42 36.8 C 89 18 161/71 H 97 Room Air PG Care Time/CCT Total # of Minutes Spent Total Time Spent with Patient: Total time spent is greater than 50% in coordination of care (as documented) at patient's floor/unit and/or counseling patient: Coding Level of Care Code None Diagnoses Decubitus ulcer of sacral area L89.159 Pressure injury stage: unspecified pressure injury stage (1) Decubitus ulcer of sacral area Pressure injury stage: unspecified pressure injury stage Qualified Code(s): L89.159 - Pressure ulcer of sacral region, unspecified stage
[2022-03-10 07:27] LABS: Hematocrit (blood only) 28.6 % (34.1-44.9); Hemoglobin 9.2 g/dl (12.0-16.0); Mean Corpuscular Hemoglobin 26.7 pg (25.0-34.0); Mean Corpuscular Hgb Conc 32.2 g/dL (32.0-36.0); Mean Corpuscular Volume 83.1 fL (80.0-100.0); Mean Platelet Volume 8.7 fL (9.4-12.3); Platelet Count 395 K/uL (130-400); RDW Coefficient of Variation 14.8 % (11.5-14.5); RDW Standard Deviation 45.2 fL (36.4-46.3); Red Blood Count 3.44 M/uL (3.93-5.22); White Blood Count 8.19 K/ul (4.8-10.8)
[2022-03-10 07:41] LABS: INR 2.6 (0.9-1.1); Prothrombin Time 26.6 Seconds (9.0-12.0)
[2022-03-10 07:58] LABS: BUN Creatinine Ratio 32.3 (10-20); Calcium 8.1 mg/dl (8.5-10.1); Creatinine Clr Calc Pharmacy 44.4 ml/min; Est GFR (African American) 94.6 ml/min; Est GFR (Non-African American) 81.6 ml/min; Potassium 3.8 mmol/L (3.5-5.1)
--- NOTE | 2022-03-10 08:16 | Hospitalist Progress Note ---
Date of Service March 10, 2022 Assessment & Plan (1) Unstageable pressure ulcer of sacral region: Plan: 86-year-old female past medical history significant for hypertension, hypothyroidism, hyperlipidemia, CKD stage III, prediabetes, rheumatoid arthritis admitted for worsening sacral pressure ulcer for wound care and IV antibiotics. Sacral ulceration, cellulitis: No leukocytosis. CRP 16.38 on admission. XR pelvis without evidence of osteomyelitis. Procalcitonin normal. BCx negative at 48 hours. - Wound culture growing Proteus penneri and E. faecalis; after discussion with pharmacist Abx deescalated to Augmentin as this should cover both isolates. - General Surgery consulted and appreciate recommendations: to hold off on surgical debridement at this time while waiting for INR to decrease (suspected surgery at beginning of next week). Patient is COVID-19 positive however without symptoms at this time. Continue wound care. - Turns q2h to offset sacral pressure. (2) COVID-19: Plan: COVID positive on admission 03/07. Vaccination status: Fully vaccinated and boosted. Baseline kidney function: CKD due to age, baseline creatinine less than 1. Admitting kidney function: Creatinine 0.73, creatinine clearance 39.7. AST/ALT: Normal. CRP: 16.38, in the setting of sacral wound/infection. Dexamethasone not indicated at this time as patient is not hypoxic. Remdesivir: Not indicated, not hypoxic and with CKD. Baricitinib: Not indicated. (3) Functional quadriplegia: Plan: - Functional quadriplegia in the setting of bed bound and altered cognitive status. - Cared for by her and her daughter. (4) Anemia: Plan: Hemoglobin 9.2, MCV 83. In the setting of CKD. Iron level <10, ferritin normal, suggesting anemia of chronic disease. Oral iron supplement started. Patient is anticoagulated with warfarin for history of DVT, supratherapeutic with INR 5.0 on admission -> 2.6 today. Continue to hold for now. (5) Parkinsonism: Plan: Continue carbidopa levodopa 25-100 mg half tablet p.o. twice daily. - Baseline function is unable to speak, bedbound and caregiver dependent. (6) Hypothyroidism: Plan: - Continue home levothyroxine. (7) HTN (hypertension): Plan: Continue metoprolol (on nebivolol at home). (8) Rheumatoid arthritis without rheumatoid factor, multiple sites: Plan: Hydroxychloroquine held in the setting of acute infection. (9) CKD (chronic kidney disease), stage III: Plan: - Baseline creatinine ~0.8, at baseline this admission. - Avoid nephrotoxins. Plan DVT prophylaxis: holding warfarin due to upcoming surgery; Lovenox 30 daily given BMI and age Diet: Continue regular minced and moist diet with multivitamin to assist with wound healing and calorie consumption to minimize weight loss in hospital Disposition: Medical/surgical CODE STATUS: Full code Admission and Anticipated Discharge Date Admission Date: March 08, 2022 Subjective No acute events overnight. Patient does not appear uncomfortable, smiling. Aphasic; unable to express needs. No reports of issues per nursing. Review of Systems Review of Systems: Unobtainable due to cognitive status Physical Exam Constitutional: WD/WN, vitals as above Respiratory: normal respiratory effort, lungs clear to auscultation Cardiovascular: RRR, no murmur, no edema Gastrointestinal (Abdomen): normal bowel sounds, soft, nontender, no hepatosplenomegaly Skin: no rashes, warm and dry Neurologic: Speech / Cognition: + expressive aphasia Results & Data Results & Data ([facility]) Vital Signs (Past 12 Hours) Vital Signs Temp Pulse Resp BP Pulse Ox O2 Del Method 03/10/22 07:51 36.9 C 103 H 20 166/82 H 95 Room Air 03/09/22 21:42 36.8 C 89 18 161/71 H 97 Room Air PG Care Time/CCT Total # of Minutes Spent Total Time Spent with Patient: Total time spent is greater than 50% in coordination of care (as documented) at patient's floor/unit and/or counseling patient: Coding Level of Care Code 85744 Subseq Hosp Care Lvl 2 Diagnoses Unstageable pressure ulcer of sacral region L89.150 COVID-19 U07.1 Functional quadriplegia R53.2 Anemia D64.9 Anemia type: unspecified type Parkinsonism G20 Hypothyroidism E03.9 Hypothyroidism type: acquired HTN (hypertension) I10 Hypertension type: essential hypertension Rheumatoid arthritis without rheumatoid factor, multiple sites M06.09 CKD (chronic kidney disease), stage III N18.3 (1) Anemia Anemia type: unspecified type Qualified Code(s): D64.9 - Anemia, unspecified (2) Hypothyroidism Hypothyroidism type: acquired Qualified Code(s): E03.9 - Hypothyroidism, unspecified (3) HTN (hypertension) Hypertension type: essential hypertension Qualified Code(s): I10 - Essential (primary) hypertension
[2022-03-10] MEDS: METOPROLOL TARTRATE 50 MG TAB PO SCH ×2 (09:34→20:19)
[2022-03-10] MEDS: MULTIVITAMIN TAB PO SCH (09:34)
[2022-03-10] MEDS: LEVOTHYROXINE SODIUM 50 MCG TABLET PO SCH (09:35)
[2022-03-10] MEDS: CARBIDOPA/LEVODOPA 25/100MG TAB PO SCH ×2 (09:35→20:18)
[2022-03-10] MEDS: AMOXICILLIN/CLAVULANATE 875 MG TAB PO SCH ×2 (09:35→20:19)
[2022-03-10] MEDS: FERROUS SULFATE 325 MG TAB PO SCH (12:27)
[2022-03-10] MEDS: ACETAMINOPHEN 325 MG TAB PO PRN (22:45)
[2022-03-11] MEDS: AMOXICILLIN/CLAVULANATE 875 MG TAB PO SCH ×2 (08:26→20:40)
[2022-03-11] MEDS: LEVOTHYROXINE SODIUM 50 MCG TABLET PO SCH (08:28)
[2022-03-11] MEDS: MULTIVITAMIN TAB PO SCH (08:28)
[2022-03-11] MEDS: METOPROLOL TARTRATE 50 MG TAB PO SCH ×2 (08:28→20:40)
[2022-03-11] MEDS: CARBIDOPA/LEVODOPA 25/100MG TAB PO SCH ×2 (08:28→20:40)
[2022-03-11 08:39] LABS: Prothrombin Time 20.2 Seconds (9.0-12.0)
[2022-03-11] MEDS ORDERED: ENOXAPARIN INJ 30 MG/0.3 ML SYR SQ SCH (09:00)
--- NOTE | 2022-03-11 10:22 | Hospitalist Progress Note ---
Date of Service March 11, 2022 Assessment & Plan (1) Unstageable pressure ulcer of sacral region: Plan: 86-year-old female past medical history significant for hypertension, hypothyroidism, hyperlipidemia, CKD stage III, prediabetes, rheumatoid arthritis admitted for worsening sacral pressure ulcer for wound care and IV antibiotics. Sacral ulceration, cellulitis: No leukocytosis. Repeat CBC in the morning. CRP 16.38 on admission. XR pelvis without evidence of osteomyelitis. Procalcitonin normal. BCx negative at 48 hours. - Wound culture growing Proteus penneri and E. faecalis; after discussion with pharmacist Abx deescalated to Augmentin as this should cover both isolates. However, if patient has repeat fevers will likely have to adjust antibiotics. - General Surgery consulted and appreciate recommendations: to hold off on surgical debridement at this time while waiting for INR to decrease (suspected surgery at beginning of next week). Patient is COVID-19 positive however without symptoms at this time. Continue wound care. - Turns q2h to offset sacral pressure. (2) COVID-19: Plan: COVID positive on admission 03/07. Vaccination status: Fully vaccinated and boosted. Baseline kidney function: CKD due to age, baseline creatinine less than 1. Admitting kidney function: Creatinine 0.73, creatinine clearance 39.7. AST/ALT: Normal. CRP: 16.38, in the setting of sacral wound/infection. Dexamethasone not indicated at this time as patient is not hypoxic. Remdesivir: Not indicated, not hypoxic and with CKD. Baricitinib: Not indicated. (3) Functional quadriplegia: Plan: - Functional quadriplegia in the setting of bed bound and altered cognitive status. - Cared for by her and her daughter. (4) Anemia: Plan: Hemoglobin 9.2, MCV 83. In the setting of CKD. Iron level <10, ferritin normal, suggesting anemia of chronic disease. Oral iron supplement started. Patient is anticoagulated with warfarin for history of DVT, supratherapeutic with INR 5.0 on admission -> 2.6 today. Continue to hold for now. (5) Parkinsonism: Plan: Continue carbidopa levodopa 25-100 mg half tablet p.o. twice daily. - Baseline function is unable to speak, bedbound and caregiver dependent. (6) Hypothyroidism: Plan: - Continue home levothyroxine. (7) HTN (hypertension): Plan: Continue metoprolol (on nebivolol at home). (8) Rheumatoid arthritis without rheumatoid factor, multiple sites: Plan: Hydroxychloroquine held in the setting of acute infection. (9) CKD (chronic kidney disease), stage III: Plan: - Baseline creatinine ~0.8, at baseline this admission. - Avoid nephrotoxins. - Repeat BMP in the morning. Plan DVT prophylaxis: holding warfarin due to upcoming surgery; Heparin twice daily Diet: Continue regular minced and moist diet with multivitamin to assist with wound healing and calorie consumption to minimize weight loss in hospital Disposition: Medical/surgical CODE STATUS: Full code Admission and Anticipated Discharge Date Admission Date: March 08, 2022 Subjective Patient did have fever x1 overnight. Otherwise no issues. Review of Systems Review of Systems: Unobtainable due to cognitive status Physical Exam Constitutional: WD/WN, vitals as above Respiratory: normal respiratory effort, lungs clear to auscultation Cardiovascular: RRR, no murmur, no edema Gastrointestinal (Abdomen): normal bowel sounds, soft, nontender, no hepatosplenomegaly Skin: no rashes, warm and dry Neurologic: Speech / Cognition: + expressive aphasia Results & Data Results & Data ([facility]) Vital Signs (Past 12 Hours) Vital Signs Temp Pulse Pulse Resp BP Pulse Ox O2 Del Method 03/11/22 08:25 Room Air 03/11/22 08:21 36.7 C 104 H 16 120/65 93 Room Air 03/10/22 23:58 37.1 C 03/10/22 22:44 38 C H 100 H PG Care Time/CCT Total # of Minutes Spent Total Time Spent with Patient: Total time spent is greater than 50% in coordination of care (as documented) at patient's floor/unit and/or counseling patient: Coding Level of Care Code 96307 Subseq Hosp Care Lvl 2 Diagnoses Unstageable pressure ulcer of sacral region L89.150 COVID-19 U07.1 Functional quadriplegia R53.2 Anemia D64.9 Anemia type: unspecified type Parkinsonism G20 Hypothyroidism E03.9 Hypothyroidism type: acquired HTN (hypertension) I10 Hypertension type: essential hypertension Rheumatoid arthritis without rheumatoid factor, multiple sites M06.09 CKD (chronic kidney disease), stage III N18.3 (1) Anemia Anemia type: unspecified type Qualified Code(s): D64.9 - Anemia, unspecified (2) Hypothyroidism Hypothyroidism type: acquired Qualified Code(s): E03.9 - Hypothyroidism, unspecified (3) HTN (hypertension) Hypertension type: essential hypertension Qualified Code(s): I10 - Essential (primary) hypertension
[2022-03-11] MEDS: FERROUS SULFATE 325 MG TAB PO SCH (12:43)
[2022-03-11] MEDS: ACETAMINOPHEN 325 MG TAB PO PRN (20:42)
[2022-03-12 06:25] LABS: Hematocrit (blood only) 30.3 % (34.1-44.9); Hemoglobin 9.8 g/dl (12.0-16.0); Mean Corpuscular Hemoglobin 26.6 pg (25.0-34.0); Mean Corpuscular Hgb Conc 32.3 g/dL (32.0-36.0); Mean Corpuscular Volume 82.1 fL (80.0-100.0); Platelet Count 405 K/uL (130-400); RDW Coefficient of Variation 14.8 % (11.5-14.5); RDW Standard Deviation 44.4 fL (36.4-46.3); Red Blood Count 3.69 M/uL (3.93-5.22); White Blood Count 7.07 K/ul (4.8-10.8)
[2022-03-12 06:41] LABS: INR 1.5 (0.9-1.1); Prothrombin Time 16.1 Seconds (9.0-12.0)
[2022-03-12 06:54] LABS: BUN Creatinine Ratio 34.3 (10-20); Calcium 8.2 mg/dl (8.5-10.1); Creatinine Clr Calc Pharmacy 41.1 ml/min; Est GFR (African American) 92.2 ml/min; Est GFR (Non-African American) 79.6 ml/min; Potassium 4.4 mmol/L (3.5-5.1)
[2022-03-12] MEDS: HEPARIN SOD 5,000 UNIT/0.5 ML VIAL SQ SCH ×2 (08:15→21:24)
[2022-03-12] MEDS: AMOXICILLIN/CLAVULANATE 875 MG TAB PO SCH ×2 (08:16→21:21)
[2022-03-12] MEDS: CARBIDOPA/LEVODOPA 25/100MG TAB PO SCH ×2 (08:16→21:21)
[2022-03-12] MEDS: LEVOTHYROXINE SODIUM 50 MCG TABLET PO SCH (08:17)
[2022-03-12] MEDS: MULTIVITAMIN TAB PO SCH (08:18)
[2022-03-12] MEDS: METOPROLOL TARTRATE 50 MG TAB PO SCH ×2 (08:18→21:24)
--- NOTE | 2022-03-12 09:22 | Hospitalist Progress Note ---
Date of Service March 12, 2022 Assessment & Plan (1) Unstageable pressure ulcer of sacral region: Plan: 86-year-old female past medical history significant for hypertension, hypothyroidism, hyperlipidemia, CKD stage III, prediabetes, rheumatoid arthritis admitted for worsening sacral pressure ulcer for wound care and IV antibiotics. Sacral ulceration, cellulitis: No leukocytosis. Repeat CBC in the morning. CRP 16.38 on admission. XR pelvis without evidence of osteomyelitis. Procalcitonin normal. BCx negative at 48 hours. - Wound culture growing Proteus penneri and E. faecalis; after discussion with pharmacist Abx deescalated to Augmentin as this should cover both isolates. However, if patient has repeat fevers will likely have to adjust antibiotics. - General Surgery consulted and appreciate recommendations: to hold off on surgical debridement at this time while waiting for INR to decrease (suspected surgery at beginning of next week). Patient is COVID-19 positive however without symptoms at this time. Continue wound care. - Turns q2h to offset sacral pressure. (2) COVID-19: Plan: COVID positive on admission 03/07. Vaccination status: Fully vaccinated and boosted. Baseline kidney function: CKD due to age, baseline creatinine less than 1. Admitting kidney function: Creatinine 0.73, creatinine clearance 39.7. AST/ALT: Normal. CRP: 16.38, in the setting of sacral wound/infection. Dexamethasone not indicated at this time as patient is not hypoxic. Remdesivir: Not indicated, not hypoxic and with CKD. Baricitinib: Not indicated. Fevers could be secondary to this or secondary to sacral infection, will continue to monitor. (3) Functional quadriplegia: Plan: - Functional quadriplegia in the setting of bed bound and altered cognitive status. - Cared for by her and her daughter. (4) Anemia: Plan: Hemoglobin 9.8, MCV 83. In the setting of CKD. Iron level <10, ferritin normal, suggesting anemia of chronic disease. Oral iron supplement started. Patient is anticoagulated with warfarin for history of DVT, supratherapeutic with INR 5.0 on admission -> 1.5 today. Continue to hold in favor of heparin twice daily as patient will be having possible debridement at the beginning of next week. (5) Parkinsonism: Plan: Continue carbidopa levodopa 25-100 mg half tablet p.o. twice daily. - Baseline function is unable to speak, bedbound and caregiver dependent. (6) Hypothyroidism: Plan: - Continue home levothyroxine. (7) HTN (hypertension): Plan: Continue metoprolol (on nebivolol at home). (8) Rheumatoid arthritis without rheumatoid factor, multiple sites: Plan: Hydroxychloroquine held in the setting of acute infection. (9) CKD (chronic kidney disease), stage III: Plan: - Baseline creatinine ~0.8, at baseline this admission. - Avoid nephrotoxins. Plan DVT prophylaxis: holding warfarin due to upcoming surgery; Heparin twice daily Diet: Continue regular minced and moist diet with multivitamin to assist with wound healing and calorie consumption to minimize weight loss in hospital Disposition: Medical/surgical CODE STATUS: Full code Admission and Anticipated Discharge Date Admission Date: March 08, 2022 Subjective Patient without any acute events overnight. Patient is pleasant. Patient did have a fever to 38.1C but it was an axillary check. No further fevers since this episode. Review of Systems Review of Systems: Unobtainable due to cognitive status Physical Exam Constitutional: WD/WN, vitals as above Respiratory: normal respiratory effort, lungs clear to auscultation Cardiovascular: RRR, no murmur, no edema Gastrointestinal (Abdomen): normal bowel sounds, soft, nontender, no hepatosplenomegaly Skin: no rashes, warm and dry Neurologic: Speech / Cognition: + expressive aphasia Results & Data Results & Data ([facility]) Vital Signs (Past 12 Hours) Vital Signs Temp Pulse Resp BP Pulse Ox O2 Del Method 03/12/22 07:09 36.4 C L 104 H 16 124/66 95 Room Air PG Care Time/CCT Total # of Minutes Spent Total Time Spent with Patient: Total time spent is greater than 50% in coordination of care (as documented) at patient's floor/unit and/or counseling patient: Coding Level of Care Code 06785 Subseq Hosp Care Lvl 2 Diagnoses Unstageable pressure ulcer of sacral region L89.150 COVID-19 U07.1 Functional quadriplegia R53.2 Anemia D64.9 Anemia type: unspecified type Parkinsonism G20 Hypothyroidism E03.9 Hypothyroidism type: acquired HTN (hypertension) I10 Hypertension type: essential hypertension Rheumatoid arthritis without rheumatoid factor, multiple sites M06.09 CKD (chronic kidney disease), stage III N18.3 (1) Anemia Anemia type: unspecified type Qualified Code(s): D64.9 - Anemia, unspecified (2) Hypothyroidism Hypothyroidism type: acquired Qualified Code(s): E03.9 - Hypothyroidism, unspecified (3) HTN (hypertension) Hypertension type: essential hypertension Qualified Code(s): I10 - Essential (primary) hypertension
[2022-03-12] MEDS: FERROUS SULFATE 325 MG TAB PO SCH (12:17)
[2022-03-12] MEDS: LATANOPROST 0.005% OP SOLN 2.5 ML BTL OP SCH (21:11)
[2022-03-12] MEDS: CALCIUM CARBONATE 1250MG TAB PO SCH (21:12)
[2022-03-13 08:18] LABS: Hematocrit (blood only) 30.4 % (34.1-44.9); Hemoglobin 9.9 g/dl (12.0-16.0); Mean Corpuscular Hemoglobin 26.6 pg (25.0-34.0); Mean Corpuscular Hgb Conc 32.6 g/dL (32.0-36.0); Mean Corpuscular Volume 81.7 fL (80.0-100.0); Mean Platelet Volume 8.6 fL (9.4-12.3); Platelet Count 440 K/uL (130-400); RDW Coefficient of Variation 14.9 % (11.5-14.5); RDW Standard Deviation 44.7 fL (36.4-46.3); Red Blood Count 3.72 M/uL (3.93-5.22); White Blood Count 8.66 K/ul (4.8-10.8)
[2022-03-13 08:34] LABS: INR 1.2 (0.9-1.1); Prothrombin Time 13.1 Seconds (9.0-12.0)
[2022-03-13] MEDS: AMOXICILLIN/CLAVULANATE 875 MG TAB PO SCH ×2 (08:38→21:18)
[2022-03-13] MEDS: CARBIDOPA/LEVODOPA 25/100MG TAB PO SCH ×2 (08:38→21:19)
[2022-03-13] MEDS: ASCORBIC ACID 500 MG TAB PO SCH (08:38)
[2022-03-13 08:39] LABS: BUN Creatinine Ratio 43.8 (10-20); Calcium 8.5 mg/dl (8.5-10.1); Est GFR (African American) 93.6 ml/min; Est GFR (Non-African American) 80.8 ml/min; Potassium 4.4 mmol/L (3.5-5.1)
[2022-03-13] MEDS: MULTIVITAMIN TAB PO SCH ×2 (08:39)
[2022-03-13] MEDS: HEPARIN SOD 5,000 UNIT/0.5 ML VIAL SQ SCH ×2 (08:39→21:18)
[2022-03-13] MEDS: CYANOCOBALAMIN (B-12) 500 MCG TABLET PO SCH (08:39)
[2022-03-13] MEDS: METOPROLOL TARTRATE 50 MG TAB PO SCH ×2 (08:39→21:18)
[2022-03-13] MEDS: FERROUS SULFATE 325 MG TAB PO SCH (12:53)
--- NOTE | 2022-03-13 17:48 | Hospitalist Progress Note ---
Date of Service March 13, 2022 Assessment & Plan (1) Unstageable pressure ulcer of sacral region: Plan: 86-year-old female past medical history significant for hypertension, hypothyroidism, hyperlipidemia, CKD stage III, prediabetes, rheumatoid arthritis admitted for worsening sacral pressure ulcer for wound care and IV antibiotics. Sacral ulceration, cellulitis: No leukocytosis. CRP 16.38 on admission. XR pelvis without evidence of osteomyelitis. Procalcitonin normal. BCx negative at 48 hours. - Wound culture growing Proteus penneri and E. faecalis; after discussion with pharmacist Abx deescalated to Augmentin as this should cover both isolates. However, if patient has repeat fevers will likely have to adjust antibiotics. Antibiotics are set to complete on 03/16. - General Surgery consulted and appreciate recommendations: to hold off on surgical debridement at this time while waiting for INR to decrease (suspected surgery at beginning of next week). Patient is COVID-19 positive however without symptoms at this time. Continue wound care. - Turns q2h to offset sacral pressure. (2) COVID-19: Plan: COVID positive on admission 03/07. Vaccination status: Fully vaccinated and boosted. Baseline kidney function: CKD due to age, baseline creatinine less than 1. Admitting kidney function: Creatinine 0.73, creatinine clearance 39.7. AST/ALT: Normal. CRP: 16.38, in the setting of sacral wound/infection. Dexamethasone not indicated at this time as patient is not hypoxic. Remdesivir: Not indicated, not hypoxic and with CKD. Baricitinib: Not indicated. Fevers could be secondary to this or secondary to sacral infection, will continue to monitor. (3) Functional quadriplegia: Plan: - Functional quadriplegia in the setting of bed bound and altered cognitive status. - Cared for by her and her daughter. (4) Anemia: Plan: Hemoglobin 9.8, MCV 83. In the setting of CKD. Iron level <10, ferritin normal, suggesting anemia of chronic disease. Oral iron supplement started. Patient is anticoagulated with warfarin for history of DVT, supratherapeutic with INR 5.0 on admission -> 1.2 today. Continue to hold in favor of heparin twice daily as patient will be having possible debridement at the beginning of next week. (5) Parkinsonism: Plan: Continue carbidopa levodopa 25-100 mg half tablet p.o. twice daily. - Baseline function is unable to speak, bedbound and caregiver dependent. (6) Hypothyroidism: Plan: - Continue home levothyroxine. (7) HTN (hypertension): Plan: Continue metoprolol (on nebivolol at home). (8) Rheumatoid arthritis without rheumatoid factor, multiple sites: Plan: Hydroxychloroquine held in the setting of acute infection. (9) CKD (chronic kidney disease), stage III: Plan: - Baseline creatinine ~0.8, at baseline this admission. - Avoid nephrotoxins. Plan DVT prophylaxis: holding warfarin due to upcoming surgery; Heparin twice daily Diet: Continue regular minced and moist diet with multivitamin to assist with wound healing and calorie consumption to minimize weight loss in hospital Disposition: Medical/surgical CODE STATUS: Full code; this was confirmed with patient's daughter Veronica. Discussed that due to patient's age she would be at higher risk for surgery for debridement, however, daughter would like her to return home to her previous arrangements rather than pursue more comfort related care. Admission and Anticipated Discharge Date Admission Date: March 08, 2022 Subjective No fevers overnight, but did have some tachycardia that has since resolved. EKG was done which showed sinus tachycardia with occasional PVCs. She is pleasant but unable to answer my questions, unchanged from previous days. Review of Systems Review of Systems: Unobtainable due to cognitive status Physical Exam Constitutional: WD/WN, vitals as above Respiratory: normal respiratory effort, lungs clear to auscultation Cardiovascular: RRR, no murmur, no edema Gastrointestinal (Abdomen): normal bowel sounds, soft, nontender, no hepatosplenomegaly Skin: no rashes, warm and dry Neurologic: Speech / Cognition: + expressive aphasia Upper and lower extremities contracted Results & Data Results & Data ([facility]) Vital Signs (Past 12 Hours) Vital Signs Temp Pulse Resp BP Pulse Ox Pulse Ox O2 Del Method 03/13/22 07:15 96 03/13/22 09:42 98 H 96 Room Air 03/13/22 08:29 36.7 C 122 H 16 146/80 H 94 Room Air O2 Del Method 03/13/22 07:15 Room Air 03/13/22 09:42 03/13/22 08:29 PG Care Time/CCT Total # of Minutes Spent Total Time Spent with Patient: Total time spent is greater than 50% in coordination of care (as documented) at patient's floor/unit and/or counseling patient: Coding Level of Care Code 69454 Subseq Hosp Care Lvl 2 Diagnoses Unstageable pressure ulcer of sacral region L89.150 COVID-19 U07.1 Functional quadriplegia R53.2 Anemia D64.9 Anemia type: unspecified type Parkinsonism G20 Hypothyroidism E03.9 Hypothyroidism type: acquired HTN (hypertension) I10 Hypertension type: essential hypertension Rheumatoid arthritis without rheumatoid factor, multiple sites M06.09 CKD (chronic kidney disease), stage III N18.3 (1) Anemia Anemia type: unspecified type Qualified Code(s): D64.9 - Anemia, unspecified (2) Hypothyroidism Hypothyroidism type: acquired Qualified Code(s): E03.9 - Hypothyroidism, unspecified (3) HTN (hypertension) Hypertension type: essential hypertension Qualified Code(s): I10 - Essential (primary) hypertension
[2022-03-13] MEDS: LATANOPROST 0.005% OP SOLN 2.5 ML BTL OP SCH (21:18)
[2022-03-13] MEDS: CALCIUM CARBONATE 1250MG TAB PO SCH (21:18)
--- NOTE | 2022-03-14 05:34 | Electrocardiogram Report ---
Test Reason : Blood Pressure : / mmHG Vent. Rate : 117 BPM Atrial Rate : 117 BPM P-R Int : 154 ms QRS Dur : 100 ms QT Int : 334 ms P-R-T Axes : 044 -33 107 degrees QTc Int : 465 ms Poor data quality, interpretation may be adversely affected Sinus tachycardia with occasional Premature supraventricular complexes Left axis deviation Septal infarct (cited on or before 13-MAR-2022) Nonspecific ST and T wave abnormality Abnormal ECG When compared with ECG of 05-OCT-2021 19:38, Premature supraventricular complexes are now Present Confirmed by Sideny Eagle ([id number]) on 03/14/2022 5:33:55 AM Referred By: REFERRED SELF Confirmed By:Sidney Eagle
[2022-03-14] MEDS: ASCORBIC ACID 500 MG TAB PO SCH (08:21)
[2022-03-14] MEDS: AMOXICILLIN/CLAVULANATE 875 MG TAB PO SCH ×2 (08:21→21:16)
[2022-03-14] MEDS: MULTIVITAMIN TAB PO SCH ×2 (08:22→08:23)
[2022-03-14] MEDS: METOPROLOL TARTRATE 50 MG TAB PO SCH (08:23)
[2022-03-14] MEDS: CARBIDOPA/LEVODOPA 25/100MG TAB PO SCH ×2 (08:24→21:15)
[2022-03-14] MEDS: CYANOCOBALAMIN (B-12) 500 MCG TABLET PO SCH (08:24)
[2022-03-14] MEDS: HEPARIN SOD 5,000 UNIT/0.5 ML VIAL SQ SCH ×2 (08:25→21:16)
[2022-03-14] MEDS: LEVOTHYROXINE SODIUM 50 MCG TABLET PO SCH (08:25)
[2022-03-14] MEDS: FERROUS SULFATE 325 MG TAB PO SCH (12:34)
--- NOTE | 2022-03-14 14:48 | Communication Note ---
Date of Service: March 14, 2022 Discussed patient with hospitalist service. Patient was sent here from wound care center for unstageable wound likely requiring surgical debridement. She was found to have COVID on admission. Plans to hold off on surgery until off covid precautions..however it appears is nearing stability for discharge. We will tentatively book patient for debridement of sacral wounds on Monday morning. Will re-evaluate tomorrow.
--- NOTE | 2022-03-14 18:55 | Hospitalist Progress Note ---
Date of Service March 14, 2022 Assessment & Plan (1) Unstageable pressure ulcer of sacral region: Plan: 86-year-old female past medical history significant for hypertension, hypothyroidism, hyperlipidemia, CKD stage III, prediabetes, rheumatoid arthritis, Parkinsonism with dementia and aphasia admitted for worsening sacral pressure ulcer for wound care and IV antibiotics. Sacral ulceration, cellulitis: No leukocytosis. CRP 16.38 on admission. XR pelvis without evidence of osteomyelitis. Procalcitonin normal. BCx negative - Wound culture growing Proteus penneri and E. faecalis; after discussion with pharmacist Abx de-escalated to Augmentin as this should cover both isolates. However, if patient has repeat fevers will likely have to adjust antibiotics. Will extend previous planned course to minimum of 10 days of antibiotics--> 03/19 final day if improved and s/p surgical debridement - General Surgery consulted and appreciate recommendations: initially held off on surgical debridement while waiting for INR to decrease and due to being CO VID-19 positive. Now plan for surgical debridement on 03/16 - Continue wound care. - Turns q2h to offset sacral pressure. (2) COVID-19: Plan: COVID positive on admission 03/07. Vaccination status: Fully vaccinated and boosted. CRP: 16.38, in the setting of sacral wound/infection. Dexamethasone not indicated at this time as patient is not hypoxic. Remdesivir: Not indicated, not hypoxic and with CKD. Baricitinib: Not indicated. Fevers now resolved -remains on isolation as per hospital protocol (3) Functional quadriplegia: Plan: - Functional quadriplegia in the setting of bed bound, Parksinonsim - Cared for by her and her daughter. (4) HTN (hypertension): Plan: Continue metoprolol (on nebivolol at home). BPs controlled, has some ectopy on exam With tachycardia as well--> increase metoprolol to 75mg po bid (5) Anemia: Plan: Hemoglobin 9.8, MCV 83. In the setting of CKD, anemia of chronic disease Iron studies suggestive of anemia of chronic disease. Serum iron undetectable- started on po FeSO4 -follow [facility] after surgical debridement (6) Parkinsonism: Plan: Continue carbidopa levodopa 25-100 mg half tablet p.o. twice daily. - Baseline function is unable to speak, bedbound and caregiver dependent. With significant rigidity on exam Follows with [facility] (7) Hypothyroidism: Plan: - Continue home levothyroxine. TSH normal in 12/2021 (8) Rheumatoid arthritis without rheumatoid factor, multiple sites: Plan: Hydroxychloroquine held in the setting of acute infection. (9) CKD (chronic kidney disease), stage III: Plan: - Baseline creatinine ~0.8, at baseline this admission. - Avoid nephrotoxins. -renally dose meds Plan DVT prophylaxis: holding warfarin due to upcoming surgery; Heparin SQ twice daily Diet: Continue regular minced and moist diet with multivitamin to assist with wound healing and calorie consumption to minimize weight loss in hospital Disposition: continued stay Medical/surgical, could dc to home with previous ho ma arrangements for care after recovers from surgery CODE STATUS: Full code; this was confirmed with patient's daughter Veronica. Discussed care with her daughter on the phone on 03/14 Admission and Anticipated Discharge Date Admission Date: March 08, 2022 Subjective Pt smiles and hums at me but cannot answer any questions. Review of Systems Review of Systems: Unobtainable due to cognitive status Physical Exam Constitutional: WD/WN, vitals as above Eyes: + anicteric sclerae and EOM intact bilaterally Neck: trachea midline, no thyromegaly Respiratory: normal respiratory effort, lungs clear to auscultation Cardiovascular: RRR, no murmur, no edema (with some ectopy) Chest (Breasts): Chest: normal inspection of chest Gastrointestinal (Abdomen): normal bowel sounds, soft, nontender, no hepatosplenomegaly Musculoskeletal: Extremities: extremities normal to inspection; no cyanosis and no clubbing Skin: no rashes, warm and dry (sacral wound not examined) Neurologic: rigidity throughout upper extremities Psychiatric: Orientation: alert; + not oriented x 3 Lymphatic: no lymphedema Results & Data Results & Data ([facility]) Vital Signs (Past 12 Hours) Vital Signs Temp Pulse Resp BP BP Pulse Ox Pulse Ox 03/14/22 15:11 36.8 C 114 H 16 128/69 95 03/14/22 08:10 96 03/14/22 08:10 03/14/22 08:32 36.6 C 105 H 18 101/63 96 O2 Del Method O2 Del Method 03/14/22 15:11 Room Air 03/14/22 08:10 Room Air 03/14/22 08:10 Room Air 03/14/22 08:32 Room Air PG Care Time/CCT Total # of Minutes Spent Total Time Spent with Patient: Total time spent is greater than 50% in coordination of care (as documented) at patient's floor/unit and/or counseling patient: Coding Level of Care Code 09067 Subseq Hosp Care Lvl 2 Diagnoses Unstageable pressure ulcer of sacral region L89.150 COVID-19 U07.1 Functional quadriplegia R53.2 HTN (hypertension) I10 Hypertension type: essential hypertension Anemia D64.9 Anemia type: unspecified type Parkinsonism G20 Hypothyroidism E03.9 Hypothyroidism type: acquired Rheumatoid arthritis without rheumatoid factor, multiple sites M06.09 CKD (chronic kidney disease), stage III N18.3 (1) Anemia Anemia type: unspecified type Qualified Code(s): D64.9 - Anemia, unspecified (2) Hypothyroidism Hypothyroidism type: acquired Qualified Code(s): E03.9 - Hypothyroidism, unspecified (3) HTN (hypertension) Hypertension type: essential hypertension Qualified Code(s): I10 - Essential (primary) hypertension
[2022-03-14] MEDS: CALCIUM CARBONATE 1250MG TAB PO SCH (21:16)
[2022-03-14] MEDS: METOPROLOL TARTRATE 25 MG TAB PO SCH (21:17)
[2022-03-14] MEDS: LATANOPROST 0.005% OP SOLN 2.5 ML BTL OP SCH (21:21)
[2022-03-15 06:43] LABS: INR 1.1 (0.9-1.1); Prothrombin Time 11.9 Seconds (9.0-12.0)
--- NOTE | 2022-03-15 10:26 | Anesthesiology Consultation ---
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 Surgery Operation Date: 03/16/22 09:30 Proposed Procedures p Debridement of Sacral Wound - Lakhwinder Mccauley DO, FACS Height/Weight Height: 5 ft Weight: 43.2 kg Allergies Allergy/AdvReac Type Severity Reaction Status Date / Time No Known Drug Allergies Allergy NKDA Verified 03/07/22 15:37 Medications Home Medications Medication Instructions Recorded Confirmed Last Taken calcium carbonate 600 mg-vitamin 1 tab PO HS 01/26/19 03/07/22 10/03/21 D3 5 mcg (200 unit) tablet hydroxychloroquine 200 mg tablet 200 mg PO QAM 02/03/20 03/07/22 10/04/21 multivitamin 1 tab PO QAM 08/31/20 03/07/22 10/04/21 latanoprost 0.005 % eye drops 1 drp ophthalmic (eye) QPM 01/05/21 03/07/22 10/03/21 cyanocobalamin (vitamin B-12) 1,000 mcg PO QAM 10/04/21 03/07/22 10/04/21 1,000 mcg capsule levothyroxine 50 mcg tablet 50 mcg PO QAM 10/04/21 03/07/22 10/04/21 (Synthroid) warfarin 3 mg tablet 3 mg PO DAILY@1600 #90 tabs 11/08/21 03/07/22 Unknown nebivolol 10 mg tablet (Bystolic) 10 mg PO QAM #10 tabs 12/03/21 03/07/22 Unknown ascorbic acid (vitamin C) 1,000 mg 1 g PO DAILY 01/06/22 03/07/22 Unknown capsule carbidopa 25 mg-levodopa 100 mg 0.5 tab PO BID 30 days #30 tabs 01/20/2202/22 Unknown tablet (Sinemet) warfarin 1 mg tablet See Rx Instructions PO .COMPLEX 02/24/22 03/07/22 Unknown #90 tabs Active Medications Generic Name Dose Route Start Last Admin Trade Name Freq PRN Reason Stop Dose Admin Acetaminophen 650 mg 03/07/22 20:27 03/11/22 20:42 Acetaminophen 325 Mg Tab PO 04/06/22 20:26 650 mg Q4H PRN Administration pain/fever Amoxicillin/Clavulanate Potassium 1 tab 03/09/22 09:15 03/14/22 21:16 Amoxicillin/Clavulanate 875 Mg Tab PO 03/19/22 10:48 1 tab BID SUDHA Administration Ascorbic Acid 1,000 mg 03/13/22 09:00 03/14/22 08:21 Ascorbic Acid 500 Mg Tab PO 04/12/22 08:59 1,000 mg DAILY SUDHA Administration Calcium Carbonate 1,250 mg 03/12/22 21:00 03/14/22 21:16 Calcium Carbonate 1250mg Tab PO 04/11/22 20:59 1,250 mg HS SUDHA Administration Carbidopa/Levodopa 0.5 tab 03/07/22 21:00 03/14/22 21:15 Carbidopa/Levodopa 25/100mg Tab PO 04/06/22 20:59 0.5 tab BID SUDHA Administration Cyanocobalamin 1,000 mcg 03/13/22 09:00 03/14/22 08:24 Cyanocobalamin (B-12) 500 Mcg Tablet PO 04/12/22 08:59 1,000 mcg QAM SUDHA Administration Ferrous Sulfate 325 mg 03/09/22 12:00 03/14/22 12:34 Ferrous Sulfate 325 Mg Tab PO 04/08/22 11:59 325 mg DAILY@1200 SUDHA Administration Heparin Sodium (Porcine) 5,000 units 03/12/22 08:00 03/14/22 21:16 Heparin Sod 5,000 Unit/0.5 Ml Vial SQ 04/11/22 07:59 5,000 units Q12H SUDHA Administration Latanoprost 1 drops 03/12/22 21:00 03/14/22 21:21 Latanoprost 0.005% Op Soln 2.5 Ml Btl OP 04/11/22 20:59 1 drops QPM SUDHA Administration Levothyroxine Sodium 50 mcg 03/08/22 09:00 03/14/22 08:25 Levothyroxine Sodium 50 Mcg Tablet PO 04/07/22 08:59 50 mcg [id number] SUDHA Administration Metoprolol Tartrate 75 mg 03/14/22 21:00 03/14/22 21:17 Metoprolol Tartrate 25 Mg Tab PO 04/13/22 20:59 75 mg BID SUDHA Administration Protocol Multivitamins 1 tab 03/10/22 09:00 03/14/22 08:22 Multivitamin Tab PO 04/09/22 08:59 1 tab QAM SUDHA Administration Past Medical History Medical History Chronic back pain Glaucoma Hearing deficit HTN (hypertension) Hyperlipidemia Hypothyroidism Osteoarthritis Osteopenia after menopause Ovarian cancer dianosed "a long time ago"--sx only Prediabetes Primary progressive aphasia Pulmonary nodule (02/2021) Rheumatoid arthritis without rheumatoid factor, multiple sites Tachycardia reason for bystolic Past Family History Family History Sister Colorectal cancer, Onset Age: 68 Ovarian cancer Father Alzheimer disease Mother Hypertension Other No family history of adverse response to anesthesia Denies family history of Prostate cancer Myocardial infarction Breast cancer Past Surgical History Surgical History History of bilateral cataract extraction History of bladder suspension procedure History of colonoscopy with polypectomy History of total hysterectomy with bilateral salpingo-oophorectomy (BSO) S/P ORIF (open reduction internal fixation) fracture (03/17/21) L clavicle Social History Smoking Status: Never smoker Hx Alcohol Use: No Alcohol type: beer alcohol intake frequency: holidays/special occasions only Hx Substance Use: No substance use type: does not use Physical Exam Vital Signs Last Vital Signs Temp 98.2 F 03/15/22 07:29 Pulse 107 H 03/15/22 07:29 Resp 18 03/15/22 07:29 BP 142/72 H 03/15/22 07:29 Pulse Ox 95 03/15/22 07:29 O2 Del Method 03/15/22 07:29 Testing Laboratory Results 03/13/22 08:08 03/13/22 08:08 PT 11.9 Seconds (9.0-12.0) 03/15/22 05:40 INR 1.1 (0.9-1.1) 03/15/22 05:40 APTT 47.1 Seconds (21.0-31.0) H* 03/07/22 15:44 03/07/22 16:36 Aerobic Blood Culture - Final Blood No growth in Aerobic bottle after 5 days. Anaerobic Blood Culture - Final No growth in Anaerobic bottle after 5 days. 03/07/22 16:36 Aerobic Blood Culture - Final Blood No growth in Aerobic bottle after 5 days. Anaerobic Blood Culture - Final No growth in Anaerobic bottle after 5 days. Electrocardiogram Date: 03/13/22 Poor data quality, interpretation may be adversely affected Sinus tachycardia with occasional Premature supraventricular complexes, rate 117 bpm Left axis deviation Septal infarct (cited on or before 13-MAR-2022) Nonspecific ST and T wave abnormality Abnormal ECG When compared with ECG of 05-OCT-2021 19:38, Premature supraventricular complexes are now Present Confirmed by Sidney Eagle ([id number]) on 03/14/2022 5:33:55 AM Chest X-Ray Date: 03/08/22 IMPRESSION: Cardiomegaly and chronic changes as above with no acute cardiopulmonary abnormality identified. Echocardiogram Date: 03/25/20 Negative dobutamine stress echo for myocardial ischemia at 73% MPHR Negative dobutamine stress ECG for myocardial ischemia at 73% MPHR No dobutamine induced chest pain The baseline echocardiogram noted normal LV function
[2022-03-15] MEDS: AMOXICILLIN/CLAVULANATE 875 MG TAB PO SCH ×2 (12:03→20:36)
[2022-03-15] MEDS: CARBIDOPA/LEVODOPA 25/100MG TAB PO SCH ×2 (12:03→20:37)
[2022-03-15] MEDS: HEPARIN SOD 5,000 UNIT/0.5 ML VIAL SQ SCH ×2 (12:03→20:35)
[2022-03-15] MEDS: ASCORBIC ACID 500 MG TAB PO SCH (12:03)
[2022-03-15] MEDS: CYANOCOBALAMIN (B-12) 500 MCG TABLET PO SCH (12:05)
[2022-03-15] MEDS: METOPROLOL TARTRATE 25 MG TAB PO SCH ×2 (12:06→20:34)
[2022-03-15] MEDS: MULTIVITAMIN TAB PO SCH (12:06)
[2022-03-15] MEDS: LEVOTHYROXINE SODIUM 50 MCG TABLET PO SCH (12:06)
[2022-03-15] MEDS: FERROUS SULFATE 325 MG TAB PO SCH (12:49)
--- NOTE | 2022-03-15 13:00 | Surgery Progress Note ---
Date of Service March 15, 2022 Assessment & Plan (1) Decubitus ulcer of sacral area: Plan: Patient sent over from wound care for management of sacral ulcer for IV abx and possible surgical debridement On admission was + for Rodríguez, still on isolation, plans for surgery were postponed. She is asymptomatic at this time Wound care pictures noted We will schedule her for surgical debridement of wounds in the OR tomorrow. NPO at midnight Admission and Anticipated Discharge Date Admission Date: March 08, 2022 Supervising Physician Co-Signing Physician Notes discussed with daughter, agree with above. plan for debridement in OR tomorrow. Risks discussed. Subjective Patient awake, but unable to meaningfully converse Physical Exam Physical Exam: awake, appears in no distress Respiratory: normal respiratory effort Skin: wound care pictures noted of sacrum Results & Data ([facility]) Vital Signs (Past 12 Hours) Vital Signs Temp Pulse Resp BP Pulse Ox O2 Del Method 03/15/22 07:55 Room Air 03/15/22 07:29 36.8 C 107 H 18 142/72 H 95 Room Air PG Care Time/CCT Total # of Minutes Spent Total Time Spent with Patient: Total time spent is greater than 50% in coordination of care (as documented) at patient's floor/unit and/or counseling patient: Coding Level of Care Code 22541 Subseq Hosp Care Lvl 1 Diagnoses Decubitus ulcer of sacral area L89.159 Pressure injury stage: unspecified pressure injury stage (1) Decubitus ulcer of sacral area Pressure injury stage: unspecified pressure injury stage Qualified Code(s): L89.159 - Pressure ulcer of sacral region, unspecified stage
--- NOTE | 2022-03-15 20:26 | Hospitalist Progress Note ---
Date of Service March 15, 2022 Assessment & Plan (1) Unstageable pressure ulcer of sacral region: Plan: 86-year-old female past medical history significant for hypertension, hypothyroidism, hyperlipidemia, CKD stage III, prediabetes, rheumatoid arthritis, Parkinsonism with dementia and aphasia admitted for worsening sacral pressure ulcer for wound care and IV antibiotics. Sacral ulceration, cellulitis: No leukocytosis. CRP 16.38 on admission. XR pelvis without evidence of osteomyelitis. Procalcitonin normal. BCx negative - Wound culture growing Proteus penneri and E. faecalis; after discussion with pharmacist Abx de-escalated to Augmentin as this should cover both isolates. However, if patient has repeat fevers will likely have to adjust antibiotics. Will extend previous planned course to minimum of 10 days of antibiotics--> 03/19 final day if improved and s/p surgical debridement - General Surgery consulted and appreciate recommendations: initially held off on surgical debridement while waiting for INR to decrease and due to being CO VID-19 positive. Now plan for surgical debridement on 03/16 (tomorrow) - Continue wound care. - Turns q2h to offset sacral pressure. (2) COVID-19: Plan: COVID positive on admission 03/07. Vaccination status: Fully vaccinated and boosted. CRP: 16.38, in the setting of sacral wound/infection. Dexamethasone not indicated at this time as patient is not hypoxic. Remdesivir: Not indicated, not hypoxic and with CKD. Baricitinib: Not indicated. Fevers now resolved -remains on isolation as per hospital protocol (3) Functional quadriplegia: Plan: - Functional quadriplegia in the setting of bed bound, Parksinonsim - Cared for by her and her daughter. (4) HTN (hypertension): Plan: Continue metoprolol (on nebivolol at home). BPs controlled, has some ectopy on exam With tachycardia as well--> increase metoprolol to 75mg po bid (5) Anemia: Plan: Hemoglobin 9.8, MCV 83. In the setting of CKD, anemia of chronic disease Iron studies suggestive of anemia of chronic disease. Serum iron undetectable- started on po FeSO4 -follow BCC after surgical debridement (6) Parkinsonism: Plan: Continue carbidopa levodopa 25-100 mg half tablet p.o. twice daily. - Baseline function is unable to speak, bedbound and caregiver dependent. With significant rigidity on exam Follows with [place] [facility] (7) Hypothyroidism: Plan: - Continue home levothyroxine. TSH normal in 12/2021 (8) Rheumatoid arthritis without rheumatoid factor, multiple sites: Plan: Hydroxychloroquine held in the setting of acute infection. (9) CKD (chronic kidney disease), stage III: Plan: - Baseline creatinine ~0.8, at baseline this admission. - Avoid nephrotoxins. -renally dose meds Plan DVT prophylaxis: holding warfarin due to upcoming surgery; Heparin SQ twice daily Diet: Continue regular minced and moist diet with multivitamin to assist with wound healing and calorie consumption to minimize weight loss in hospital Disposition: continued stay Medical/surgical, could dc to home with previous home arrangements for care after recovers from surgery CODE STATUS: Full code; this was confirmed with patient's daughter Veronica. Admission and Anticipated Discharge Date Admission Date: March 08, 2022 Subjective Patient cannot answer questions Review of Systems Review of Systems: Unobtainable due to cognitive status Physical Exam Physical Exam: Constitutional: WD/WN, vitals as above Eyes: + anicteric sclerae and EOM intact bilaterally Neck: trachea midline, no thyromegaly Respiratory: normal respiratory effort, lungs clear to auscultation Cardiovascular: RRR, no murmur, no edema (with some ectopy) Chest (Breasts): Chest: normal inspection of chest Gastrointestinal (Abdomen): normal bowel sounds, soft, nontender, no hepatosplenomegaly Musculoskeletal: Extremities: extremities normal to inspection; no cyanosis and no clubbing Skin: no rashes, warm and dry (sacral wound not examined) Neurologic: rigidity throughout upper extremities Psychiatric: Orientation: alert; + not oriented x 3 Lymphatic: no lymphedema Results & Data Results & Data ([facility]) Vital Signs (Past 12 Hours) Vital Signs Temp Pulse Resp BP Pulse Ox O2 Del Method 03/15/22 15:25 36.8 C 101 H 16 125/60 96 Room Air PG Care Time/CCT Total # of Minutes Spent Total Time Spent with Patient: Total time spent is greater than 50% in coordination of care (as documented) at patient's floor/unit and/or counseling patient: Coding Level of Care Code 63628 Subseq Hosp Care Lvl 2 Diagnoses Unstageable pressure ulcer of sacral region L89.150 COVID-19 U07.1 Functional quadriplegia R53.2 HTN (hypertension) I10 Hypertension type: essential hypertension Anemia D64.9 Anemia type: unspecified type Parkinsonism G20 Hypothyroidism E03.9 Hypothyroidism type: acquired Rheumatoid arthritis without rheumatoid factor, multiple sites M06.09 CKD (chronic kidney disease), stage III N18.3 Time Spent (min) 25 (1) Anemia Anemia type: unspecified type Qualified Code(s): D64.9 - Anemia, unspecified (2) Hypothyroidism Hypothyroidism type: acquired Qualified Code(s): E03.9 - Hypothyroidism, unspecified (3) HTN (hypertension) Hypertension type: essential hypertension Qualified Code(s): I10 - Essential (primary) hypertension
[2022-03-15] MEDS: LATANOPROST 0.005% OP SOLN 2.5 ML BTL OP SCH (20:33)
[2022-03-15] MEDS: CALCIUM CARBONATE 1250MG TAB PO SCH (20:34)
[2022-03-16] MEDS ORDERED: PROPOFOL IV EMULSION 10 MG/ML 100 ML VIAL IV ONE (08:32)
[2022-03-16] MEDS ORDERED: KETAMINE 50 MG/5 ML SYRINGE ONE (08:32)
[2022-03-16] MEDS ORDERED: MIDAZOLAM HCL 1 MG/ML 2ML VIAL ONE (08:32)
[2022-03-16] MEDS ORDERED: fentaNYL citrate 100 MCG/2 ML VIAL ONE (08:32)
[2022-03-16] MEDS: MULTIVITAMIN TAB PO SCH (08:38)
[2022-03-16] MEDS: HEPARIN SOD 5,000 UNIT/0.5 ML VIAL SQ SCH ×2 (08:38→20:51)
[2022-03-16] MEDS: ASCORBIC ACID 500 MG TAB PO SCH (08:38)
[2022-03-16] MEDS: CYANOCOBALAMIN (B-12) 500 MCG TABLET PO SCH (08:38)
[2022-03-16] MEDS: AMOXICILLIN/CLAVULANATE 875 MG TAB PO SCH ×2 (08:38→20:45)
[2022-03-16] MEDS: CARBIDOPA/LEVODOPA 25/100MG TAB PO SCH ×2 (08:40→20:44)
[2022-03-16] MEDS: LEVOTHYROXINE SODIUM 50 MCG TABLET PO SCH (08:40)
[2022-03-16] MEDS: METOPROLOL TARTRATE 25 MG TAB PO SCH ×2 (08:41→20:44)
[2022-03-16 08:44] LABS: Hemoglobin 9.7 g/dl (12.0-16.0); Mean Corpuscular Hemoglobin 26.4 pg (25.0-34.0); Mean Corpuscular Hgb Conc 32.3 g/dL (32.0-36.0); Mean Corpuscular Volume 81.7 fL (80.0-100.0); Mean Platelet Volume 8.8 fL (9.4-12.3); Platelet Count 449 K/uL (130-400); RDW Coefficient of Variation 14.8 % (11.5-14.5); RDW Standard Deviation 44.6 fL (36.4-46.3); Red Blood Count 3.67 M/uL (3.93-5.22); White Blood Count 7.59 K/ul (4.8-10.8)
[2022-03-16 09:20] LABS: BUN Creatinine Ratio 40.3 (10-20); Calcium 8.8 mg/dl (8.5-10.1); Creatinine Clr Calc Pharmacy 38.3 ml/min; Est GFR (African American) 87.9 ml/min; Est GFR (Non-African American) 75.8 ml/min; Potassium 4.3 mmol/L (3.5-5.1)
[2022-03-16] MEDS ORDERED: BUPIVACAINE 0.5 % 5 MG/1 ML MPF 30ML VIAL ONE (09:28)
[2022-03-16] MEDS ORDERED: LIDOCAINE 2% JELLY 5 ML TUBE EXT ONE (09:28)
[2022-03-16] MEDS ORDERED: GELATIN SPONGE SZ 100 ONE (09:28)
[2022-03-16] MEDS ORDERED: LIDOCAINE 1%/EPINEPHRINE 1:100,000 50 ML VIAL ONE (09:28)
[2022-03-16] MEDS ORDERED: ePHEDrine sulfate 50 MG/ML AMP IV PRN (09:30)
[2022-03-16] MEDS ORDERED: NALOXONE HCL 0.4 MG/1 ML VIAL/CARP IV PRN (09:30)
[2022-03-16] MEDS ORDERED: ATROPINE SULFATE 0.1 MG/ML 10ML SYR IV PRN (09:30)
[2022-03-16] MEDS ORDERED: LABETALOL HCL IV 5 MG/ML 20ML IV PRN (09:30)
[2022-03-16] MEDS ORDERED: PROMETHAZINE HCL 12.5 MG in SODIUM CHLORIDE 0.9% 50 ML IV PRN (09:30)
[2022-03-16] MEDS ORDERED: ONDANSETRON INJ 2 MG/ML 2 ML VIAL IV PRN (09:30)
[2022-03-16] MEDS ORDERED: fentaNYL citrate 100 MCG/2 ML VIAL IV PRN (09:30)
--- NOTE | 2022-03-16 09:51 | Surgery Progress Note ---
Date of Service March 16, 2022 Assessment & Plan (1) Decubitus ulcer of sacral area: Plan: 86-year-old nonverbal female with sacral pressure ulcer requiring debridement Plan for debridement sacral ulcer Risk the procedure were discussed to include but not limited to bleeding, infection, prolonged wound healing, damage surrounding structures, need for future surgery, and the risk of anesthesia Consent was signed by the daughter who is the power of drop hammer operator helper Wound care to follow afterwards Dr. Guzman covering over the weekend, surgery will follow peripherally, call with questions or concerns Dressing may be removed tomorrow Admission and Anticipated Discharge Date Admission Date: March 08, 2022 Subjective 86-year-old female with sacral ulcer, plan for debridement today. She is nonverbal. Spoke with the daughter. Physical Exam Constitutional: + cachectic Skin: + wound (Unstageable decubitus ulcer) Results & Data ([facility]) Vital Signs (Past 12 Hours) Vital Signs Temp Pulse Resp BP Pulse Ox O2 Del Method 03/16/22 08:56 36.9 C 108 H 20 132/65 96 Room Air 03/16/22 08:14 37.1 C 110 H 18 128/68 99 Room Air PG Care Time/CCT Total # of Minutes Spent Total Time Spent with Patient: Total time spent is greater than 50% in coordination of care (as documented) at patient's floor/unit and/or counseling patient: Coding Level of Care Code 91412 Inpt Consult Level 1 Diagnoses Decubitus ulcer of sacral area L89.159 Pressure injury stage: unspecified pressure injury stage (1) Decubitus ulcer of sacral area Pressure injury stage: unspecified pressure injury stage Qualified Code(s): L89.159 - Pressure ulcer of sacral region, unspecified stage
[2022-03-16] MEDS: BUPIVACAINE LIPOSOME 1.3% 266 MG/20 ML VIAL ONE ×2 (10:45→12:06)
--- NOTE | 2022-03-16 11:11 | Operative Report ---
PG Post Operative Report Pre & Post Diagnosis Operation Date: 03/16/22 09:30 Preoperative diagnosis: Sacral ulcer Postoperative diagnosis: Sacral ulcer I identified the patient and participated in the time-out.: Yes Procedure Operation Date: 03/16/22 09:30 Procedure performed: Debridement of sacral ulcer. Sharp debridement, stage IV, down to bone, greater than 50 cm. Biopsy of sacrum. Surgeon Lakhwinder Mccauley DO, FACS Simulation Analyst Melissa Johnson Estimated Blood Loss 5 Findings Consistent with Post-Op Diagnosis Sacral decubitus ulcer down to bone, debrided to healthy tissue. Wound measured 7 x 8 x 0.5 cm. Biopsy of sacrum performed to rule out osteomyelitis. Specimens Sacral decubitus ulcer to pathology Sacrum for culture to rule out osteomyelitis Anesthesia Type General Complications none Disposition Accompanied Patient To Recovery: No Disposition: Recovery Room Indications 86-year-old bedbound female with sacral pressure ulcer. After discussion with the daughter, plan for debridement of sacral ulcer. The risks of the procedure were discussed, all questions were answered, and the patient agreed to proceed with surgery as planned. Description of Procedure The patient was COVID-positive but asymptomatic. All COVID precautions were used during the surgery. The patient was properly identified, consented, and taken to the operating room where she was placed in the supine position. General endotracheal anesthesia was induced. SCDs and a safety belt were placed. The patient was rolled into the prone position. Preoperative antibiotics were administered. The patient's lower back and buttocks was prepped and draped in the standard sterile fashion. Surgical timeout was performed and all parties were in agreement that this was the correct patient and procedure to be performed and we continued as planned. The wound was debrided of nonviable tissue. This was performed using scalpel and cautery. We debrided back to healthy tissue in all directions. The wound was overlying the sacrum. A rongeur was used to perform a biopsy of the sacrum to be sent for culture and rule out osteomyelitis. No debridement of the bone is necessary otherwise. The wound was irrigated and hemostasis achieved. The total size of the wound was 7 cm x 8 cm x 0.5 cm deep. Exparel was injected in the surrounding tissues. Saline soaked Kerlix was placed into the wound. Fluffed 4 x 4 gauze, an ABD, and disposable knit underwear were placed as a dressing. The patient was rolled into the supine position placed back on her bed. The patient was extubated in the operating room and taken to the PACU where she recovered without apparent incident. All sponge, instrument and needle counts were correct at the conclusion of the procedure. The patient tolerated the procedure well. The physician's financial assistant was present and scrubbed for the entire to the case. She was critical in positioning the patient, prepping and draping, retraction and exposure, debridement of the tissue, and placement of the dressings. I attest to the content of the Intraoperative Record and any orders documented therein. Any exceptions are noted below.
--- NOTE | 2022-03-16 11:53 | Anesthesiology Progress Note ---
Date of Service March 16, 2022 Anesthesia Post Procedure Vital Signs Vital Signs: Temp Pulse Resp BP Pulse Ox O2 Del Method O2 Flow Rate 03/16/22 11:37 36.4 C L 90 20 101/55 L 100 Nasal Cannula 2 03/16/22 11:30 90 20 108/55 L 100 Nasal Cannula 2 03/16/22 11:10 36.9 C 89 20 124/63 100 Nasal Cannula 2 03/16/22 11:00 36.9 C 91 H 20 108/55 L 100 Nasal Cannula 2 03/16/22 08:56 36.9 C 108 H 20 132/65 96 Room Air 03/16/22 08:14 37.1 C 110 H 18 128/68 99 Room Air 03/15/22 20:20 Room Air 03/15/22 21:44 36.8 C 92 H 18 116/61 96 Room Air 03/15/22 20:30 36.9 C 120 H 18 131/63 93 Room Air 03/15/22 15:25 36.8 C 101 H 16 125/60 96 Room Air Transfer of Care Handoff Completed per policy Notes Mental Status: alert / awake / arousable Patient Amnestic to Procedure: Yes Nausea / Vomiting: adequately controlled Pain: adequately controlled Airway Patency, RR, SpO2: stable & adequate BP & HR: stable & adequate Hydration State: stable & adequate Anesthetic Complications: no major complications apparent
[2022-03-16] MEDS: FERROUS SULFATE 325 MG TAB PO SCH (12:06)
[2022-03-16] MEDS: CALCIUM CARBONATE 1250MG TAB PO SCH (20:45)
[2022-03-16] MEDS: LATANOPROST 0.005% OP SOLN 2.5 ML BTL OP SCH (20:46)
--- NOTE | 2022-03-16 22:05 | Hospitalist Progress Note ---
Date of Service March 16, 2022 Assessment & Plan (1) Unstageable pressure ulcer of sacral region: Plan: 86-year-old female past medical history significant for hypertension, hypothyroidism, hyperlipidemia, CKD stage III, prediabetes, rheumatoid arthritis, Parkinsonism with dementia and aphasia admitted for worsening sacral pressure ulcer for wound care and IV antibiotics. Sacral ulceration, cellulitis: No leukocytosis. CRP 16.38 on admission. XR pelvis without evidence of osteomyelitis. Procalcitonin normal. BCx negative - Wound culture growing Proteus penneri and E. faecalis; after discussion with pharmacist Abx de-escalated to Augmentin as this should cover both isolates. However, if patient has repeat fevers will likely have to adjust antibiotics. Will extend previous planned course to minimum of 10 days of antibiotics--> 03/19 final day if improved and s/p surgical debridement - General Surgery consulted and appreciate recommendations: initially held off on surgical debridement while waiting for INR to decrease and due to being CO VID-19 positive. Now plan for surgical debridement on 03/16 later today. - will check blood work in AM - Continue wound care. - Turns q2h to offset sacral pressure. (2) COVID-19: Plan: COVID positive on admission 03/07. Vaccination status: Fully vaccinated and boosted. CRP: 16.38, in the setting of sacral wound/infection. Dexamethasone not indicated at this time as patient is not hypoxic. Remdesivir: Not indicated, not hypoxic and with CKD. Baricitinib: Not indicated. Fevers now resolved -remains on isolation as per hospital protocol (3) Functional quadriplegia: Plan: - Functional quadriplegia in the setting of bed bound, Parksinonsim - Cared for by her and her daughter. (4) HTN (hypertension): Plan: Continue metoprolol (on nebivolol at home). BPs controlled, has some ectopy on exam With tachycardia as well--> increase metoprolol to 75mg po bid (5) Anemia: Plan: Hemoglobin 9.8, MCV 83. In the setting of CKD, anemia of chronic disease Iron studies suggestive of anemia of chronic disease. Serum iron undetectable- started on po FeSO4 -follow BCC after surgical debridement (6) Parkinsonism: Plan: Continue carbidopa levodopa 25-100 mg half tablet p.o. twice daily. - Baseline function is unable to speak, bedbound and caregiver dependent. With significant rigidity on exam Follows with [place] [facility] (7) Hypothyroidism: Plan: - Continue home levothyroxine. TSH normal in 12/2021 (8) Rheumatoid arthritis without rheumatoid factor, multiple sites: Plan: Hydroxychloroquine held in the setting of acute infection. (9) CKD (chronic kidney disease), stage III: Plan: - Baseline creatinine ~0.8, at baseline this admission. - Avoid nephrotoxins. -renally dose meds Plan DVT prophylaxis: holding warfarin due to upcoming surgery; Heparin SQ twice daily Diet: Continue regular minced and moist diet with multivitamin to assist with wound healing and calorie consumption to minimize weight loss in hospital Disposition: continued stay Medical/surgical, could dc to home with previous home arrangements for care after recovers from surgery CODE STATUS: Full code; this was confirmed with patient's daughter Veronica. Admission and Anticipated Discharge Date Admission Date: March 08, 2022 Subjective 86 yo female only humjovanni. Review of Systems Review of Systems: All systems reviewed & are unremarkable except as noted in HPI & below Physical Exam Physical Exam: Constitutional: WD/WN, vitals as above Eyes: + anicteric sclerae and EOM intact bilaterally Neck: trachea midline, no thyromegaly Respiratory: normal respiratory effort, lungs clear to auscultation Cardiovascular: RRR, no murmur, no edema (with some ectopy) Chest (Breasts): Chest: normal inspection of chest Gastrointestinal (Abdomen): normal bowel sounds, soft, nontender, no hepatosplenomegaly Musculoskeletal: Extremities: extremities normal to inspection; no cyanosis and no clubbing Skin: no rashes, warm and dry (sacral wound not examined) Neurologic: rigidity throughout upper extremities Psychiatric: Orientation: alert; + not oriented x 3 Lymphatic: no lymphedema Results & Data Results & Data ([facility]) Vital Signs (Past 12 Hours) Vital Signs Temp Pulse Pulse Pulse Resp BP BP 03/16/22 20:42 36.8 C 110 H 114 H 16 125/62 03/16/22 14:28 36.6 C 93 H 18 117/68 03/16/22 13:00 36.6 C 91 H 18 112/65 03/16/22 12:00 36.6 C 88 16 121/70 03/16/22 11:30 36.4 C L 90 20 101/55 L 03/16/22 11:20 90 20 108/55 L 03/16/22 11:10 89 20 124/63 03/16/22 11:00 36.9 C 91 H 20 108/55 L Pulse Ox O2 Del Method O2 Flow Rate 03/16/22 20:42 96 Room Air 03/16/22 14:28 99 Room Air 03/16/22 13:00 98 Room Air 03/16/22 12:00 98 Room Air 03/16/22 11:30 100 Nasal Cannula 2 03/16/22 11:20 100 Nasal Cannula 2 03/16/22 11:10 100 Nasal Cannula 2 03/16/22 11:00 100 Nasal Cannula 2 PG Care Time/CCT Total # of Minutes Spent Total Time Spent with Patient: Total time spent is greater than 50% in coordination of care (as documented) at patient's floor/unit and/or counseling patient: Coding Level of Care Code 82205 Subseq Hosp Care Lvl 2 Diagnoses Unstageable pressure ulcer of sacral region L89.150 COVID-19 U07.1 Functional quadriplegia R53.2 HTN (hypertension) I10 Hypertension type: essential hypertension Anemia D64.9 Anemia type: unspecified type Parkinsonism G20 Hypothyroidism E03.9 Hypothyroidism type: acquired Rheumatoid arthritis without rheumatoid factor, multiple sites M06.09 CKD (chronic kidney disease), stage III N18.3 (1) Anemia Anemia type: unspecified type Qualified Code(s): D64.9 - Anemia, unspecified (2) Hypothyroidism Hypothyroidism type: acquired Qualified Code(s): E03.9 - Hypothyroidism, unspecified (3) HTN (hypertension) Hypertension type: essential hypertension Qualified Code(s): I10 - Essential (primary) hypertension
[2022-03-17 05:57] LABS: Hematocrit (blood only) 28.2 % (34.1-44.9); Hemoglobin 9.2 g/dl (12.0-16.0); Mean Corpuscular Hemoglobin 26.6 pg (25.0-34.0); Mean Corpuscular Hgb Conc 32.6 g/dL (32.0-36.0); Mean Corpuscular Volume 81.5 fL (80.0-100.0); Mean Platelet Volume 8.6 fL (9.4-12.3); Platelet Count 375 K/uL (130-400); RDW Coefficient of Variation 15.2 % (11.5-14.5); RDW Standard Deviation 45.1 fL (36.4-46.3); Red Blood Count 3.46 M/uL (3.93-5.22); White Blood Count 7.62 K/ul (4.8-10.8)
[2022-03-17 06:15] LABS: INR 1.1 (0.9-1.1); Prothrombin Time 11.9 Seconds (9.0-12.0)
[2022-03-17 06:31] LABS: Calcium 8.5 mg/dl (8.5-10.1); Creatinine Clr Calc Pharmacy 45.1 ml/min; Est GFR (African American) 95.1 ml/min; Est GFR (Non-African American) 82.1 ml/min; Potassium 4.1 mmol/L (3.5-5.1)
[2022-03-17] MEDS: MULTIVITAMIN TAB PO SCH (09:45)
[2022-03-17] MEDS: CARBIDOPA/LEVODOPA 25/100MG TAB PO SCH ×2 (09:46→20:21)
[2022-03-17] MEDS: LEVOTHYROXINE SODIUM 50 MCG TABLET PO SCH (09:46)
[2022-03-17] MEDS: CYANOCOBALAMIN (B-12) 500 MCG TABLET PO SCH (09:46)
[2022-03-17] MEDS: METOPROLOL TARTRATE 25 MG TAB PO SCH ×2 (09:46→20:21)
[2022-03-17] MEDS: ASCORBIC ACID 500 MG TAB PO SCH (09:47)
[2022-03-17] MEDS: HEPARIN SOD 5,000 UNIT/0.5 ML VIAL SQ SCH ×2 (09:48→20:19)
[2022-03-17] MEDS: AMOXICILLIN/CLAVULANATE 875 MG TAB PO SCH ×2 (09:48→20:20)
--- NOTE | 2022-03-17 12:11 | Surgery Progress Note ---
Date of Service March 17, 2022 Assessment & Plan (1) Decubitus ulcer of sacral area: Plan: 86-year-old nonverbal female with sacral pressure ulcer requiring debridement Postop day 1 s/p debridement of sacral ulcer Wound dressing was changed this morning. Dressing dry and clean. Wound care to follow afterwards We will follow peripherally Admission and Anticipated Discharge Date Admission Date: March 08, 2022 Subjective Doing well. Denies any pain. Dressing was changed this morning by nursing. Results & Data ([facility]) Vital Signs (Past 12 Hours) Vital Signs Temp Pulse Resp BP Pulse Ox O2 Del Method 03/17/22 08:00 36.8 C 104 H 20 136/72 95 Room Air (1) Decubitus ulcer of sacral area Pressure injury stage: unspecified pressure injury stage Qualified Code(s): L89.159 - Pressure ulcer of sacral region, unspecified stage
[2022-03-17] MEDS: FERROUS SULFATE 325 MG TAB PO SCH (14:07)
[2022-03-17] MEDS: LATANOPROST 0.005% OP SOLN 2.5 ML BTL OP SCH (20:20)
[2022-03-17] MEDS: ACETAMINOPHEN 325 MG TAB PO PRN (20:25)
[2022-03-17] MEDS: CALCIUM CARBONATE 1250MG TAB PO SCH (20:26)
--- NOTE | 2022-03-17 21:50 | Hospitalist Progress Note ---
Date of Service March 17, 2022 Assessment & Plan (1) Unstageable pressure ulcer of sacral region: Plan: 86-year-old female past medical history significant for hypertension, hypothyroidism, hyperlipidemia, CKD stage III, prediabetes, rheumatoid arthritis, Parkinsonism with dementia and aphasia admitted for worsening sacral pressure ulcer for wound care and IV antibiotics. Sacral ulceration, cellulitis: No leukocytosis. CRP 16.38 on admission. XR pelvis without evidence of osteomyelitis. Procalcitonin normal. BCx negative - Wound culture growing Proteus penneri and E. faecalis; after discussion with pharmacist Abx de-escalated to Augmentin as this should cover both isolates. However, if patient has repeat fevers will likely have to adjust antibiotics. Will extend previous planned course to minimum of 10 days of antibiotics--> 03/19 final day if improved and s/p surgical debridement - General Surgery consulted and appreciate recommendations: initially held off on surgical debridement while waiting for INR to decrease and due to being CO VID-19 positive. Now plan for surgical debridement on 03/16 later today. - will check blood work in AM - Continue wound care. - Turns q2h to offset sacral pressure. (2) COVID-19: Plan: COVID positive on admission 03/07. Vaccination status: Fully vaccinated and boosted. CRP: 16.38, in the setting of sacral wound/infection. Dexamethasone not indicated at this time as patient is not hypoxic. Remdesivir: Not indicated, not hypoxic and with CKD. Baricitinib: Not indicated. Fevers now resolved -remains on isolation as per hospital protocol (3) Functional quadriplegia: Plan: - Functional quadriplegia in the setting of bed bound, Parksinonsim - Cared for by her and her daughter. (4) HTN (hypertension): Plan: Continue metoprolol (on nebivolol at home). BPs controlled, has some ectopy on exam With tachycardia as well--> increase metoprolol to 75mg po bid (5) Anemia: Plan: Hemoglobin 9.8, MCV 83. In the setting of CKD, anemia of chronic disease Iron studies suggestive of anemia of chronic disease. Serum iron undetectable- started on po FeSO4 -follow BCC after surgical debridement (6) Parkinsonism: Plan: Continue carbidopa levodopa 25-100 mg half tablet p.o. twice daily. - Baseline function is unable to speak, bedbound and caregiver dependent. With significant rigidity on exam Follows with [place] [facility] (7) Hypothyroidism: Plan: - Continue home levothyroxine. TSH normal in 12/2021 (8) Rheumatoid arthritis without rheumatoid factor, multiple sites: Plan: Hydroxychloroquine held in the setting of acute infection. (9) CKD (chronic kidney disease), stage III: Plan: - Baseline creatinine ~0.8, at baseline this admission. - Avoid nephrotoxins. -renally dose meds Plan DVT prophylaxis: holding warfarin due to upcoming surgery; Heparin SQ twice daily Diet: Continue regular minced and moist diet with multivitamin to assist with wound healing and calorie consumption to minimize weight loss in hospital Disposition: continued stay Medical/surgical, could dc to home with previous home arrangements for care after recovers from surgery CODE STATUS: Full code; this was confirmed with patient's daughter Veronica. Admission and Anticipated Discharge Date Admission Date: March 08, 2022 Subjective 86 yo female only humjovanni. Review of Systems Review of Systems: All systems reviewed & are unremarkable except as noted in HPI & below Physical Exam Physical Exam: Constitutional: WD/WN, vitals as above Eyes: + anicteric sclerae and EOM intact bilaterally Neck: trachea midline, no thyromegaly Respiratory: normal respiratory effort, lungs clear to auscultation Cardiovascular: RRR, no murmur, no edema (with some ectopy) Chest (Breasts): Chest: normal inspection of chest Gastrointestinal (Abdomen): normal bowel sounds, soft, nontender, no hepatosplenomegaly Musculoskeletal: Extremities: extremities normal to inspection; no cyanosis and no clubbing Skin: no rashes, warm and dry (sacral wound not examined) Neurologic: rigidity throughout upper extremities Psychiatric: Orientation: alert; + not oriented x 3 Lymphatic: no lymphedema Results & Data Results & Data ([facility]) Vital Signs (Past 12 Hours) Vital Signs Temp Pulse Pulse Pulse Resp BP Pulse Ox 03/17/22 21:40 37.4 C 03/17/22 20:00 38 C H 120 H 118 H 20 123/74 97 03/17/22 15:47 36.7 C 108 H 18 123/63 96 O2 Del Method 03/17/22 21:40 03/17/22 20:00 Room Air 03/17/22 15:47 Room Air PG Care Time/CCT Total # of Minutes Spent Total Time Spent with Patient: Total time spent is greater than 50% in coordination of care (as documented) at patient's floor/unit and/or counseling patient: Coding Level of Care Code 34176 Subseq Hosp Care Lvl 1 Diagnoses Unstageable pressure ulcer of sacral region L89.150 COVID-19 U07.1 Functional quadriplegia R53.2 HTN (hypertension) I10 Hypertension type: essential hypertension Anemia D64.9 Anemia type: unspecified type Parkinsonism G20 Hypothyroidism E03.9 Hypothyroidism type: acquired Rheumatoid arthritis without rheumatoid factor, multiple sites M06.09 CKD (chronic kidney disease), stage III N18.3 (1) Anemia Anemia type: unspecified type Qualified Code(s): D64.9 - Anemia, unspecified (2) Hypothyroidism Hypothyroidism type: acquired Qualified Code(s): E03.9 - Hypothyroidism, unspecified (3) HTN (hypertension) Hypertension type: essential hypertension Qualified Code(s): I10 - Essential (primary) hypertension
--- NOTE | 2022-03-18 09:31 | Surgery Progress Note ---
Date of Service March 18, 2022 Assessment & Plan (1) Decubitus ulcer of sacral area: Plan: POD#2 continue dressing changes and abx Admission and Anticipated Discharge Date Admission Date: March 08, 2022 Subjective Non-verbal Review of Systems Constitutional: no fever Physical Exam Constitutional: WD/WN, vitals as above tachycardic Eyes: PERRL, conjunctivae normal, anicteric sclerae Neck: trachea midline Respiratory: normal respiratory effort; no respiratory distress Cardiovascular: Rate/Rhythm: + tachycardic Gastrointestinal (Abdomen): normal bowel sounds, soft, nontender, no he patosplenomegaly Skin: sacral dressing in place, will coordinate dressing change observation this weekend Results & Data ([facility]) Vital Signs (Past 12 Hours) Vital Signs Temp Pulse Resp BP Pulse Ox O2 Del Method 03/18/22 07:20 36.6 C 108 H 20 125/65 96 Room Air 03/17/22 21:40 37.4 C (1) Decubitus ulcer of sacral area Pressure injury stage: unspecified pressure injury stage Qualified Code(s): L89.159 - Pressure ulcer of sacral region, unspecified stage
[2022-03-18] MEDS: METOPROLOL TARTRATE 25 MG TAB PO SCH ×2 (10:16→21:27)
[2022-03-18] MEDS: MULTIVITAMIN TAB PO SCH (10:16)
[2022-03-18] MEDS: HEPARIN SOD 5,000 UNIT/0.5 ML VIAL SQ SCH ×2 (10:16→21:29)
[2022-03-18] MEDS: ASCORBIC ACID 500 MG TAB PO SCH (10:16)
[2022-03-18] MEDS: CYANOCOBALAMIN (B-12) 500 MCG TABLET PO SCH (10:16)
[2022-03-18] MEDS: CARBIDOPA/LEVODOPA 25/100MG TAB PO SCH ×2 (10:17→21:27)
[2022-03-18] MEDS: LEVOTHYROXINE SODIUM 50 MCG TABLET PO SCH (10:18)
[2022-03-18] MEDS: AMOXICILLIN/CLAVULANATE 875 MG TAB PO SCH ×2 (10:18→21:26)
[2022-03-18] MEDS: FERROUS SULFATE 325 MG TAB PO SCH (12:20)
[2022-03-18] MEDS ORDERED: POLYETHYLENE (MIRALAX) 17 GM PACK ONE (12:21)
[2022-03-18] MEDS: POLYETHYLENE (MIRALAX) 17 GM PACK PO SCH (12:30)
[2022-03-18] MEDS: CALCIUM CARBONATE 1250MG TAB PO SCH (21:28)
--- NOTE | 2022-03-18 21:30 | Hospitalist Progress Note ---
Date of Service March 18, 2022 Assessment & Plan (1) Unstageable pressure ulcer of sacral region: Plan: 86-year-old female past medical history significant for hypertension, hypothyroidism, hyperlipidemia, CKD stage III, prediabetes, rheumatoid arthritis, Parkinsonism with dementia and aphasia admitted for worsening sacral pressure ulcer for wound care and IV antibiotics. Sacral ulceration, cellulitis: No leukocytosis. CRP 16.38 on admission. XR pelvis without evidence of osteomyelitis. Procalcitonin normal. BCx negative - Wound culture growing Proteus penneri and E. faecalis; after discussion with pharmacist Abx de-escalated to Augmentin as this should cover both isolates. However, if patient has repeat fevers will likely have to adjust antibiotics. Will extend previous planned course to minimum of 10 days of antibiotics--> 03/19 final day if improved and s/p surgical debridement - General Surgery consulted and appreciate recommendations: initially held off on surgical debridement while waiting for INR to decrease and due to being CO VID-19 positive. Now plan for surgical debridement on 03/16 later today. - will check blood work in AM - Continue wound care. - Turns q2h to offset sacral pressure. Patient had a hard bowel movement on 03/17, added miralax on 03/18 (2) COVID-19: Plan: COVID positive on admission 03/07. Vaccination status: Fully vaccinated and boosted. CRP: 16.38, in the setting of sacral wound/infection. Dexamethasone not indicated at this time as patient is not hypoxic. Remdesivir: Not indicated, not hypoxic and with CKD. Baricitinib: Not indicated. Fevers now resolved -now off precautions. Completed 10 days on isolation. (3) Functional quadriplegia: Plan: - Functional quadriplegia in the setting of bed bound, Parksinonsim - Cared for by her and her daughter. (4) HTN (hypertension): Plan: Continue metoprolol (on nebivolol at home). BPs controlled, has some ectopy on exam With tachycardia as well--> increase metoprolol to 75mg po bid (5) Anemia: Plan: Hemoglobin 9.8, MCV 83. In the setting of CKD, anemia of chronic disease Iron studies suggestive of anemia of chronic disease. Serum iron undetectable- started on po FeSO4 -follow BCC after surgical debridement (6) Parkinsonism: Plan: Continue carbidopa levodopa 25-100 mg half tablet p.o. twice daily. - Baseline function is unable to speak, bedbound and caregiver dependent. With significant rigidity on exam Follows with [facility] (7) Hypothyroidism: Plan: - Continue home levothyroxine. TSH normal in 12/2021 (8) Rheumatoid arthritis without rheumatoid factor, multiple sites: Plan: Hydroxychloroquine held in the setting of acute infection. (9) CKD (chronic kidney disease), stage III: Plan: - Baseline creatinine ~0.8, at baseline this admission. - Avoid nephrotoxins. -renally dose meds Plan DVT prophylaxis: holding warfarin due to upcoming surgery; Heparin SQ twice daily Diet: Continue regular minced and moist diet with multivitamin to assist with wound healing and calorie consumption to minimize weight loss in hospital Disposition: continued stay Medical/surgical, awaiting placement. CODE STATUS: Full code; this was confirmed with patient's daughter Veronica. Admission and Anticipated Discharge Date Admission Date: March 08, 2022 Subjective 86 yo female appears comfortable. Review of Systems Review of Systems: All systems reviewed & are unremarkable except as noted in HPI & below Physical Exam Physical Exam: Constitutional: WD/WN, vitals as above Eyes: + anicteric sclerae and EOM intact bilaterally Neck: trachea midline, no thyromegaly Respiratory: normal respiratory effort, lungs clear to auscultation Cardiovascular: RRR, no murmur, no edema (with some ectopy) Chest (Breasts): Chest: normal inspection of chest Gastrointestinal (Abdomen): normal bowel sounds, soft, nontender, no hepatosplenomegaly Musculoskeletal: Extremities: extremities normal to inspection; no cyanosis and no clubbing Skin: no rashes, warm and dry (sacral wound not examined) Neurologic: rigidity throughout upper extremities Psychiatric: Orientation: alert; + not oriented x 3 Lymphatic: no lymphedema Results & Data Results & Data ([facility]) Vital Signs (Past 12 Hours) Vital Signs Temp Pulse Resp BP Pulse Ox O2 Del Method 03/18/22 15:41 36.9 C 102 H 18 125/61 95 Room Air 03/18/22 09:45 Room Air PG Care Time/CCT Total # of Minutes Spent Total Time Spent with Patient: Total time spent is greater than 50% in coordination of care (as documented) at patient's floor/unit and/or counseling patient: Coding Level of Care Code 30931 Subseq Hosp Care Lvl 2 Diagnoses Unstageable pressure ulcer of sacral region L89.150 COVID-19 U07.1 Functional quadriplegia R53.2 HTN (hypertension) I10 Hypertension type: essential hypertension Anemia D64.9 Anemia type: unspecified type Parkinsonism G20 Hypothyroidism E03.9 Hypothyroidism type: acquired Rheumatoid arthritis without rheumatoid factor, multiple sites M06.09 CKD (chronic kidney disease), stage III N18.3 (1) Anemia Anemia type: unspecified type Qualified Code(s): D64.9 - Anemia, unspecified (2) Hypothyroidism Hypothyroidism type: acquired Qualified Code(s): E03.9 - Hypothyroidism, unspecified (3) HTN (hypertension) Hypertension type: essential hypertension Qualified Code(s): I10 - Essential (primary) hypertension
[2022-03-18] MEDS: LATANOPROST 0.005% OP SOLN 2.5 ML BTL OP SCH (21:31)
[2022-03-19 07:36] LABS: INR 1.1 (0.9-1.1); Prothrombin Time 11.5 Seconds (9.0-12.0)
[2022-03-19] MEDS: HEPARIN SOD 5,000 UNIT/0.5 ML VIAL SQ SCH ×2 (09:23→20:20)
[2022-03-19] MEDS: MULTIVITAMIN TAB PO SCH (09:24)
[2022-03-19] MEDS: CARBIDOPA/LEVODOPA 25/100MG TAB PO SCH ×2 (09:24→20:19)
[2022-03-19] MEDS: METOPROLOL TARTRATE 25 MG TAB PO SCH ×2 (09:25→20:19)
[2022-03-19] MEDS: CYANOCOBALAMIN (B-12) 500 MCG TABLET PO SCH (09:25)
[2022-03-19] MEDS: ASCORBIC ACID 500 MG TAB PO SCH (09:26)
[2022-03-19] MEDS: LEVOTHYROXINE SODIUM 50 MCG TABLET PO SCH (09:26)
[2022-03-19] MEDS: AMOXICILLIN/CLAVULANATE 875 MG TAB PO SCH (09:26)
[2022-03-19] MEDS: POLYETHYLENE (MIRALAX) 17 GM PACK PO SCH (09:27)
--- NOTE | 2022-03-19 11:35 | Surgery Progress Note ---
Date of Service March 19, 2022 Assessment & Plan (1) Decubitus ulcer of sacral area: Plan: continue present care wound dressing daily changes Admission and Anticipated Discharge Date Admission Date: March 08, 2022 Subjective patient non-verbal Review of Systems Constitutional: no fever Respiratory: no problem reported Cardiovascular: no problem reported Gastrointestinal: no problem reported Integumentary: + skin ulcer Physical Exam Constitutional: WD/WN, vitals as above Respiratory: normal respiratory effort, lungs clear to auscultation Cardiovascular: RRR, no murmur, no edema Skin: no rashes, warm and dry dressing in place; will check wound in AM Results & Data ([facility]) Vital Signs (Past 12 Hours) Vital Signs Temp Pulse Resp BP Pulse Ox O2 Del Method 03/19/22 09:30 Room Air 03/19/22 07:25 36.9 C 103 H 18 103/51 L 95 Room Air (1) Decubitus ulcer of sacral area Pressure injury stage: unspecified pressure injury stage Qualified Code(s): L89.159 - Pressure ulcer of sacral region, unspecified stage
[2022-03-19] MEDS: FERROUS SULFATE 325 MG TAB PO SCH (15:20)
[2022-03-19] MEDS: CALCIUM CARBONATE 1250MG TAB PO SCH (20:19)
[2022-03-19] MEDS: LATANOPROST 0.005% OP SOLN 2.5 ML BTL OP SCH (20:20)
--- NOTE | 2022-03-19 22:18 | Hospitalist Progress Note ---
Date of Service March 19, 2022 Assessment & Plan (1) Unstageable pressure ulcer of sacral region: Plan: 86-year-old female past medical history significant for hypertension, hypothyroidism, hyperlipidemia, CKD stage III, prediabetes, rheumatoid arthritis, Parkinsonism with dementia and aphasia admitted for worsening sacral pressure ulcer for wound care and IV antibiotics. Sacral ulceration, cellulitis: No leukocytosis. CRP 16.38 on admission. XR pelvis without evidence of osteomyelitis. Procalcitonin normal. BCx negative - Wound culture growing Proteus penneri and E. faecalis; after discussion with pharmacist Abx de-escalated to Augmentin as this should cover both isolates. However, if patient has repeat fevers will likely have to adjust antibiotics. Will extend previous planned course to minimum of 10 days of antibiotics--> 03/19 final day if improved and s/p surgical debridement - General Surgery consulted and appreciate recommendations: initially held off on surgical debridement while waiting for INR to decrease and due to being CO VID-19 positive. Now plan for surgical debridement on 03/16 later today. - will check blood work in AM - Continue wound care. - Turns q2h to offset sacral pressure. Patient had a hard bowel movement on 03/17, added miralax on 03/18 Had BM on 03/19 (2) COVID-19: Plan: COVID positive on admission 03/07. Vaccination status: Fully vaccinated and boosted. CRP: 16.38, in the setting of sacral wound/infection. Dexamethasone not indicated at this time as patient is not hypoxic. Remdesivir: Not indicated, not hypoxic and with CKD. Baricitinib: Not indicated. Fevers now resolved -now off precautions. Completed 10 days on isolation. (3) Functional quadriplegia: Plan: - Functional quadriplegia in the setting of bed bound, Parksinonsim - Cared for by her and her daughter. (4) HTN (hypertension): Plan: Continue metoprolol (on nebivolol at home). BPs controlled, has some ectopy on exam With tachycardia as well--> increase metoprolol to 75mg po bid (5) Anemia: Plan: Hemoglobin 9.8, MCV 83. In the setting of CKD, anemia of chronic disease Iron studies suggestive of anemia of chronic disease. Serum iron undetectable- started on po FeSO4 -follow BCC after surgical debridement (6) Parkinsonism: Plan: Continue carbidopa levodopa 25-100 mg half tablet p.o. twice daily. - Baseline function is unable to speak, bedbound and caregiver dependent. With significant rigidity on exam Follows with [facility] (7) Hypothyroidism: Plan: - Continue home levothyroxine. TSH normal in 12/2021 (8) Rheumatoid arthritis without rheumatoid factor, multiple sites: Plan: Hydroxychloroquine held in the setting of acute infection. (9) CKD (chronic kidney disease), stage III: Plan: - Baseline creatinine ~0.8, at baseline this admission. - Avoid nephrotoxins. -renally dose meds Plan DVT prophylaxis: holding warfarin due to upcoming surgery; Heparin SQ twice daily Diet: Continue regular minced and moist diet with multivitamin to assist with wound healing and calorie consumption to minimize weight loss in hospital Disposition: continued stay Medical/surgical, awaiting placement. CODE STATUS: Full code; this was confirmed with patient's daughter Veronica. Admission and Anticipated Discharge Date Admission Date: March 08, 2022 Subjective Patient only bianca. Review of Systems Review of Systems: All systems reviewed & are unremarkable except as noted in HPI & below Physical Exam Physical Exam: Constitutional: WD/WN, vitals as above Eyes: + anicteric sclerae and EOM intact bilaterally Neck: trachea midline, no thyromegaly Respiratory: normal respiratory effort, lungs clear to auscultation Cardiovascular: RRR, no murmur, no edema (with some ectopy) Chest (Breasts): Chest: normal inspection of chest Gastrointestinal (Abdomen): normal bowel sounds, soft, nontender, no hepatosp lenomegaly Musculoskeletal: Extremities: extremities normal to inspection; no cyanosis and no clubbing Skin: no rashes, warm and dry (sacral wound not examined) Neurologic: rigidity throughout upper extremities Psychiatric: Orientation: alert; + not oriented x 3 Lymphatic: no lymphedema Results & Data Results & Data ([facility]) Vital Signs (Past 12 Hours) Vital Signs Temp Pulse Resp BP Pulse Ox O2 Del Method 03/19/22 20:23 37.2 C 107 H 20 131/65 94 Room Air 03/19/22 16:36 36.8 C 95 H 18 116/64 100 Room Air PG Care Time/CCT Total # of Minutes Spent Total Time Spent with Patient: Total time spent is greater than 50% in coordination of care (as documented) at patient's floor/unit and/or counseling patient: Coding Level of Care Code 20861 Subseq Hosp Care Lvl 2 Diagnoses Unstageable pressure ulcer of sacral region L89.150 COVID-19 U07.1 Functional quadriplegia R53.2 HTN (hypertension) I10 Hypertension type: essential hypertension Anemia D64.9 Anemia type: unspecified type Parkinsonism G20 Hypothyroidism E03.9 Hypothyroidism type: acquired Rheumatoid arthritis without rheumatoid factor, multiple sites M06.09 CKD (chronic kidney disease), stage III N18.3 (1) Anemia Anemia type: unspecified type Qualified Code(s): D64.9 - Anemia, unspecified (2) Hypothyroidism Hypothyroidism type: acquired Qualified Code(s): E03.9 - Hypothyroidism, unspecified (3) HTN (hypertension) Hypertension type: essential hypertension Qualified Code(s): I10 - Essential (primary) hypertension
[2022-03-20] MEDS: METOPROLOL TARTRATE 25 MG TAB PO SCH ×2 (08:31→20:00)
[2022-03-20] MEDS: CARBIDOPA/LEVODOPA 25/100MG TAB PO SCH ×2 (08:32→20:00)
[2022-03-20] MEDS: ASCORBIC ACID 500 MG TAB PO SCH (08:34)
[2022-03-20] MEDS: MULTIVITAMIN TAB PO SCH (08:36)
[2022-03-20] MEDS: CYANOCOBALAMIN (B-12) 500 MCG TABLET PO SCH (08:37)
[2022-03-20] MEDS: HEPARIN SOD 5,000 UNIT/0.5 ML VIAL SQ SCH ×2 (08:38→19:59)
[2022-03-20] MEDS: POLYETHYLENE (MIRALAX) 17 GM PACK PO SCH (08:39)
--- NOTE | 2022-03-20 12:28 | Surgery Progress Note ---
Date of Service March 20, 2022 Assessment & Plan (1) Decubitus ulcer of sacral area: Plan: continue dressings Admission and Anticipated Discharge Date Admission Date: March 08, 2022 Subjective dementia Review of Systems Constitutional: no fever and no chills Physical Exam Constitutional: + thin Neck: trachea midline Respiratory: normal respiratory effort, lungs clear to auscultation Cardiovascular: RRR, no murmur, no edema Gastrointestinal (Abdomen): Inspection/Auscultation: abdomen normal to inspection and normal bowel sounds; abdomen not distended Percussion/Palpation: + abdomen tender and abdomen soft Skin: + ulcer (dressing in place dry) Results & Data ([facility]) Vital Signs (Past 12 Hours) Vital Signs Temp Pulse Resp BP Pulse Ox O2 Del Method 03/20/22 08:45 Room Air 03/20/22 07:43 37.0 C 107 H 16 128/67 100 Room Air (1) Decubitus ulcer of sacral area Pressure injury stage: unspecified pressure injury stage Qualified Code(s): L89.159 - Pressure ulcer of sacral region, unspecified stage
--- NOTE | 2022-03-20 13:11 | Hospitalist Progress Note ---
Date of Service March 20, 2022 Assessment & Plan (1) Unstageable pressure ulcer of sacral region: Plan: 86-year-old female past medical history significant for hypertension, hypothyroidism, hyperlipidemia, CKD stage III, prediabetes, rheumatoid arthritis, Parkinsonism with dementia and aphasia admitted for worsening sacral pressure ulcer for wound care and IV antibiotics. Sacral ulceration, cellulitis: No leukocytosis. CRP 16.38 on admission. - Wound culture growing Proteus penneri and E. faecalis; after discussion with pharmacist Abx de-escalated to Augmentin as this should cover both isolates. Previous planned course to minimum of 10 days of antibiotics--> 03/19 final day if improved and s/p surgical debridement [03/16] s/p Debridement of sacral ulcer. Sharp debridement, stage IV, down to bone - Continue wound care. - Turns q2h to offset sacral pressure. Patient had a hard bowel movement on 03/17, added miralax on 03/18 Had BM on 03/19 (2) COVID-19: Plan: COVID positive on admission 03/07. Vaccination status: Fully vaccinated and boosted. CRP: 16.38, in the setting of sacral wound/infection. Dexamethasone not indicated at this time as patient is not hypoxic. Remdesivir: Not indicated, not hypoxic and with CKD. Baricitinib: Not indicated. Fevers now resolved - now off precautions. Completed 10 days on isolation. (3) Functional quadriplegia: Plan: - Functional quadriplegia in the setting of bed bound, Parkinsonism - Cared for by her and her daughter. (4) HTN (hypertension): Plan: Continue metoprolol (on nebivolol at home). BPs controlled, has some ectopy on exam With tachycardia as well--> increase metoprolol to 75mg po bid (5) Anemia: Plan: Hemoglobin 9.8, MCV 83. In the setting of CKD, anemia of chronic disease Iron studies suggestive of anemia of chronic disease. Serum iron undetectable- started on po FeSO4 - Follow BCC after surgical debridement (6) Parkinsonism: Plan: Continue carbidopa levodopa 25-100 mg half tablet p.o. twice daily. - Baseline function is unable to speak, bedbound and caregiver dependent. With significant rigidity on exam. Follows with [facility] (7) Hypothyroidism: Plan: - Continue home levothyroxine. TSH normal in 12/2021 (8) Rheumatoid arthritis without rheumatoid factor, multiple sites: Plan: Hydroxychloroquine held in the setting of acute infection. (9) CKD (chronic kidney disease), stage III: Plan: - Baseline creatinine ~0.8, at baseline this admission. - Avoid nephrotoxins. - Renally dose meds Plan DVT prophylaxis: restart on warfarin (Hx DVT), continue heparin until INR therapeutic Diet: Continue regular minced and moist diet with multivitamin to assist with wound healing and calorie consumption to minimize weight loss in hospital Disposition: continued stay Medical/surgical, medically stable awaiting placement. CODE STATUS: Full code; this was confirmed with patient's daughter Veronica. Admission and Anticipated Discharge Date Admission Date: March 08, 2022 Subjective Unable to get any history from the patient. Family at bedside report she is at her baseline status. Awaiting wound care nurse tomorrow for dressing recommendations ?wound vac. Review of Systems Review of Systems: Unobtainable due to cognitive status Physical Exam Constitutional: + thin Respiratory: normal respiratory effort, lungs clear to auscultation Cardiovascular: RRR, no murmur, no edema Gastrointestinal (Abdomen): Inspection/Auscultation: abdomen normal to inspection and normal bowel sounds; abdomen not distended Percussion/Palpation: abdomen soft; abdomen nontender Skin: + ulcer (no significant surrounding cellulitis, slough in ulcer) Results & Data Results & Data ([facility]) Vital Signs (Past 12 Hours) Vital Signs Temp Pulse Resp BP Pulse Ox O2 Del Method 03/20/22 08:45 Room Air 03/20/22 07:43 37.0 C 107 H 16 128/67 100 Room Air PG Care Time/CCT Total # of Minutes Spent Total Time Spent with Patient: Total time spent is greater than 50% in coordination of care (as documented) at patient's floor/unit and/or counseling patient: Coding Level of Care Code 34968 Subseq Hosp Care Lvl 2 Diagnoses Unstageable pressure ulcer of sacral region L89.150 COVID-19 U07.1 Functional quadriplegia R53.2 HTN (hypertension) I10 Hypertension type: essential hypertension Anemia D64.9 Anemia type: unspecified type Parkinsonism G20 Hypothyroidism E03.9 Hypothyroidism type: acquired Rheumatoid arthritis without rheumatoid factor, multiple sites M06.09 CKD (chronic kidney disease), stage III N18.3 (1) Anemia Anemia type: unspecified type Qualified Code(s): D64.9 - Anemia, unspecified (2) Hypothyroidism Hypothyroidism type: acquired Qualified Code(s): E03.9 - Hypothyroidism, unspecified (3) HTN (hypertension) Hypertension type: essential hypertension Qualified Code(s): I10 - Essential (primary) hypertension
[2022-03-20] MEDS: FERROUS SULFATE 325 MG TAB PO SCH (15:00)
[2022-03-20] MEDS: CALCIUM CARBONATE 1250MG TAB PO SCH (20:00)
[2022-03-20] MEDS: LATANOPROST 0.005% OP SOLN 2.5 ML BTL OP SCH (20:01)
[2022-03-21 06:52] LABS: Basophils # (auto) 0.04 K/uL (0-0.2); Basophils % (auto) 0.5 %; Eosinophils # (auto) 0.02 K/uL (0-0.50); Eosinophils % (auto) 0.3 %; Hematocrit (blood only) 27.6 % (34.1-44.9); Hemoglobin 8.8 g/dl (12.0-16.0); Immature Granulocytes # (auto) 0.03 K/uL (0.00-0.02); Immature Granulocytes % (auto) 0.4 %; Lymphocytes # (auto) 1.59 K/uL (1.2-3.4); Lymphocytes % (auto) 21.1 %; Mean Corpuscular Hemoglobin 25.9 pg (25.0-34.0); Mean Corpuscular Hgb Conc 31.9 g/dL (32.0-36.0); Mean Corpuscular Volume 81.2 fL (80.0-100.0); Mean Platelet Volume 8.3 fL (9.4-12.3); Monocytes # (auto) 0.59 K/uL (0.24-0.82); Monocytes % (auto) 7.8 %; Neutrophils # (auto) 5.26 K/uL (1.4-6.5); Neutrophils % (auto) 69.9 %; Platelet Count 413 K/uL (130-400); RDW Coefficient of Variation 15.4 % (11.5-14.5); RDW Standard Deviation 46.3 fL (36.4-46.3); White Blood Count 7.53 K/ul (4.8-10.8)
[2022-03-21 07:13] LABS: INR 1.1 (0.9-1.1); Prothrombin Time 11.4 Seconds (9.0-12.0)
[2022-03-21 07:17] LABS: Albumin Globulin Ratio 0.9 (0.9-2); Albumin Level 2.9 gm/dl (3.4-5.0); BUN Creatinine Ratio 40.9 (10-20); Bilirubin,Total 0.3 mg/dl (0.2-1.0); Calcium 8.4 mg/dl (8.5-10.1); Creatinine Clr Calc Pharmacy 41.7 ml/min; Est GFR (African American) 92.7 ml/min; Globulin 3.4 gm/dl (2.5-4.0); Potassium 4.2 mmol/L (3.5-5.1); Total Protein 6.3 gm/dl (6.0-8.3)
[2022-03-21] MEDS: METOPROLOL TARTRATE 25 MG TAB PO SCH ×2 (08:18→20:56)
[2022-03-21] MEDS: MULTIVITAMIN TAB PO SCH (08:19)
[2022-03-21] MEDS: LEVOTHYROXINE SODIUM 50 MCG TABLET PO SCH (08:19)
[2022-03-21] MEDS: ASCORBIC ACID 500 MG TAB PO SCH (08:19)
[2022-03-21] MEDS: CYANOCOBALAMIN (B-12) 500 MCG TABLET PO SCH (08:19)
[2022-03-21] MEDS: AMOXICILLIN/CLAVULANATE 875 MG TAB PO SCH ×2 (08:19→16:48)
[2022-03-21] MEDS: CARBIDOPA/LEVODOPA 25/100MG TAB PO SCH ×2 (08:19→20:56)
[2022-03-21] MEDS: HEPARIN SOD 5,000 UNIT/0.5 ML VIAL SQ SCH ×2 (08:20→20:54)
[2022-03-21] MEDS: POLYETHYLENE (MIRALAX) 17 GM PACK PO SCH (08:21)
[2022-03-21] MEDS: HYDROXYCHLOROQUINE SULFATE 200 MG TAB PO SCH (09:14)
[2022-03-21] MEDS: FERROUS SULFATE 325 MG TAB PO SCH (12:33)
[2022-03-21] MEDS: WARFARIN SOD 5 MG TAB PO SCH (16:48)
--- NOTE | 2022-03-21 18:46 | Hospitalist Progress Note ---
Date of Service March 21, 2022 Assessment & Plan (1) Unstageable pressure ulcer of sacral region: Plan: 86-year-old female past medical history significant for hypertension, hypothyroidism, hyperlipidemia, CKD stage III, prediabetes, rheumatoid arthritis, Parkinsonism with dementia and aphasia admitted for worsening sacral pressure ulcer for wound care and IV antibiotics. Sacral ulceration, cellulitis: No leukocytosis. CRP 16.38 on admission. - Wound culture growing Proteus penneri and E. faecalis; surgical culture growing Proventella bivia - will continue on Augmentin for 7 days after surgical debridement [03/16] s/p Debridement of sacral ulcer. Sharp debridement, stage IV, down to bone - Wound VAC now in place from wound care nurse. - Turns q2h to offset sacral pressure. (2) COVID-19: Plan: COVID positive on admission 03/07. Vaccination status: Fully vaccinated and boosted. CRP: 16.38, in the setting of sacral wound/infection. Dexamethasone not indicated at this time as patient is not hypoxic. Remdesivir: Not indicated, not hypoxic and with CKD. Baricitinib: Not indicated. Fevers now resolved - now off precautions. Completed 10 days on isolation. (3) Functional quadriplegia: Plan: - Functional quadriplegia in the setting of bed bound, Parkinsonism - Cared for by her and her daughter. (4) HTN (hypertension): Plan: Continue metoprolol (on nebivolol at home). BPs controlled, has some ectopy on exam With tachycardia as well--> increase metoprolol to 75mg po bid (5) Anemia: Plan: Hemoglobin 9.8, MCV 83. In the setting of CKD, anemia of chronic disease Iron studies suggestive of iron deficiency anemia. I suspect the ferritin is normal as an acute inflammatory reactant. Will discuss iron transfusions with family. (6) Parkinsonism: Plan: Continue carbidopa levodopa 25-100 mg half tablet p.o. twice daily. - Baseline function is unable to speak, bedbound and caregiver dependent. With significant rigidity on exam. Follows with [facility] (7) Hypothyroidism: Plan: - Continue home levothyroxine. TSH normal in 12/2021 (8) Rheumatoid arthritis without rheumatoid factor, multiple sites: Plan: Hydroxychloroquine restarted today to avoid worsening rheumatoid arthritis which may be devastating for her (9) CKD (chronic kidney disease), stage III: Plan: - Baseline creatinine ~0.8, at baseline this admission. - Avoid nephrotoxins. - Renally dose meds Plan DVT prophylaxis: restarted on warfarin (Hx DVT), continue heparin until INR therapeutic Diet: Continue regular minced and moist diet with multivitamin to assist with wound healing and calorie consumption to minimize weight loss in hospital Disposition: continued stay Medical/surgical, medically stable awaiting placement. CODE STATUS: Full code; this was confirmed with patient's daughter Veronica. Admission and Anticipated Discharge Date Admission Date: March 08, 2022 Subjective Unable to get any history from patient Review of Systems Review of Systems: Unobtainable due to cognitive status Physical Exam Constitutional: + thin Respiratory: normal respiratory effort, lungs clear to auscultation Cardiovascular: RRR, no murmur, no edema Gastrointestinal (Abdomen): Inspection/Auscultation: abdomen normal to inspection and normal bowel sounds; abdomen not distended Percussion/Palpation: abdomen soft; abdomen nontender Skin: + ulcer (Not inspected today as seen yesterday and wound Care picture and for today) Results & Data Results & Data ([facility]) Vital Signs (Past 12 Hours) Vital Signs Temp Pulse Resp BP BP Pulse Ox O2 Del Method 03/21/22 13:43 36.9 C 93 H 16 122/73 99 Room Air 03/21/22 07:02 36.4 C L 108 H 16 132/67 100 Room Air PG Care Time/CCT Total # of Minutes Spent Total Time Spent with Patient: Total time spent is greater than 50% in coordination of care (as documented) at patient's floor/unit and/or counseling patient: Coding Level of Care Code 50142 Subseq Hosp Care Lvl 1 Diagnoses Unstageable pressure ulcer of sacral region L89.150 COVID-19 U07.1 Functional quadriplegia R53.2 HTN (hypertension) I10 Hypertension type: essential hypertension Anemia D64.9 Anemia type: unspecified type Parkinsonism G20 Hypothyroidism E03.9 Hypothyroidism type: acquired Rheumatoid arthritis without rheumatoid factor, multiple sites M06.09 CKD (chronic kidney disease), stage III N18.3 (1) HTN (hypertension) Hypertension type: essential hypertension Qualified Code(s): I10 - Essential (primary) hypertension (2) Anemia Anemia type: unspecified type Qualified Code(s): D64.9 - Anemia, unspecified (3) Hypothyroidism Hypothyroidism type: acquired Qualified Code(s): E03.9 - Hypothyroidism, unspecified
[2022-03-21] MEDS: LATANOPROST 0.005% OP SOLN 2.5 ML BTL OP SCH (20:55)
[2022-03-21] MEDS: CALCIUM CARBONATE 1250MG TAB PO SCH (20:56)
[2022-03-21] MEDS: ACETAMINOPHEN 325 MG TAB PO PRN (20:58)
[2022-03-22] MEDS: POLYETHYLENE (MIRALAX) 17 GM PACK PO SCH (08:36)
[2022-03-22] MEDS: ASCORBIC ACID 500 MG TAB PO SCH (08:37)
[2022-03-22] MEDS: HEPARIN SOD 5,000 UNIT/0.5 ML VIAL SQ SCH ×2 (08:37→20:26)
[2022-03-22] MEDS: CYANOCOBALAMIN (B-12) 500 MCG TABLET PO SCH (08:38)
[2022-03-22] MEDS: CARBIDOPA/LEVODOPA 25/100MG TAB PO SCH ×2 (08:38→20:30)
[2022-03-22] MEDS: METOPROLOL TARTRATE 25 MG TAB PO SCH ×2 (08:39→20:31)
[2022-03-22] MEDS: LEVOTHYROXINE SODIUM 50 MCG TABLET PO SCH (08:39)
[2022-03-22] MEDS: HYDROXYCHLOROQUINE SULFATE 200 MG TAB PO SCH (08:39)
[2022-03-22] MEDS: MULTIVITAMIN TAB PO SCH (08:40)
[2022-03-22] MEDS: AMOXICILLIN/CLAVULANATE 875 MG TAB PO SCH ×2 (09:50→16:15)
[2022-03-22 10:36] LABS: INR 1.1 (0.9-1.1); Prothrombin Time 11.4 Seconds (9.0-12.0)
[2022-03-22] MEDS: FERROUS SULFATE 325 MG TAB PO SCH (12:36)
[2022-03-22] MEDS: WARFARIN SOD 5 MG TAB PO SCH (16:15)
--- NOTE | 2022-03-22 18:35 | Hospitalist Progress Note ---
Date of Service March 22, 2022 Assessment & Plan (1) Unstageable pressure ulcer of sacral region: Plan: 86-year-old female past medical history significant for hypertension, hypothyroidism, hyperlipidemia, CKD stage III, prediabetes, rheumatoid arthritis, Parkinsonism with dementia and aphasia admitted for worsening sacral pressure ulcer for wound care and IV antibiotics. Sacral ulceration, cellulitis: No leukocytosis. CRP 16.38 on admission. - Wound culture growing Proteus penneri and E. faecalis; surgical culture growing Proventella bivia - will continue on Augmentin for 7 days following surgical debridement [03/16] s/p Debridement of sacral ulcer. Sharp debridement, stage IV, down to bone - Wound VAC now in place from wound care nurse. - Turns q2h to offset sacral pressure. (2) COVID-19: Plan: COVID positive on admission 03/07. Vaccination status: Fully vaccinated and boosted. CRP: 16.38, in the setting of sacral wound/infection. Dexamethasone not indicated at this time as patient is not hypoxic. Remdesivir: Not indicated, not hypoxic and with CKD. Baricitinib: Not indicated. Fevers now resolved - now off precautions. Completed 10 days on isolation. (3) Functional quadriplegia: Plan: - Functional quadriplegia in the setting of bed bound, Parkinsonism - Cared for by her and her daughter. (4) HTN (hypertension): Plan: Continue metoprolol (on nebivolol at home). BPs controlled, has some ectopy on exam With tachycardia as well--> increase metoprolol to 75mg po bid (5) Anemia: Plan: Hemoglobin 9.8, MCV 83. In the setting of CKD, anemia of chronic disease Iron studies suggestive of iron deficiency anemia. I suspect the ferritin is normal as an acute inflammatory reactant. Will discuss iron transfusions with randy cool. (6) Parkinsonism: Plan: Continue carbidopa levodopa 25-100 mg half tablet p.o. twice daily. - Baseline function is unable to speak, bedbound and caregiver dependent. With significant rigidity on exam. Follows with [place] [facility] (7) Hypothyroidism: Plan: - Continue home levothyroxine. TSH normal in 12/2021 (8) Rheumatoid arthritis without rheumatoid factor, multiple sites: Plan: Hydroxychloroquine restarted today to avoid worsening rheumatoid arthritis which may be devastating for her (9) CKD (chronic kidney disease), stage III: Plan: - Baseline creatinine ~0.8, at baseline this admission. - Avoid nephrotoxins. - Renally dose meds Plan DVT prophylaxis: restarted on warfarin (Hx DVT), continue heparin until INR therapeutic Diet: Continue regular minced and moist diet with multivitamin to assist with wound healing and calorie consumption to minimize weight loss in hospital Disposition: continued stay Medical/surgical, medically stable awaiting placement. CODE STATUS: Full code; this was confirmed with patient's daughter Veronica. Admission and Anticipated Discharge Date Admission Date: March 08, 2022 Subjective Patient is nonverbal. Review of Systems Review of Systems: Unobtainable due to cognitive status Physical Exam Constitutional: + thin Respiratory: normal respiratory effort, lungs clear to auscultation Cardiovascular: RRR, no murmur, no edema Gastrointestinal (Abdomen): Inspection/Auscultation: abdomen normal to inspec tion and normal bowel sounds; abdomen not distended Percussion/Palpation: abdomen soft; abdomen nontender Results & Data Results & Data ([facility]) Vital Signs (Past 12 Hours) Vital Signs Temp Pulse Resp BP Pulse Ox O2 Del Method 03/22/22 15:07 36.7 C 104 H 18 132/71 96 Room Air 03/22/22 08:25 Room Air 03/22/22 07:41 36.4 C L 98 H 18 131/73 99 Room Air PG Care Time/CCT Total # of Minutes Spent Total Time Spent with Patient: Total time spent is greater than 50% in coordination of care (as documented) at patient's floor/unit and/or counseling patient: Coding Level of Care Code 80093 Subseq Hosp Care Lvl 1 Diagnoses Unstageable pressure ulcer of sacral region L89.150 COVID-19 U07.1 Functional quadriplegia R53.2 HTN (hypertension) I10 Hypertension type: essential hypertension Anemia D64.9 Anemia type: unspecified type Parkinsonism G20 Hypothyroidism E03.9 Hypothyroidism type: acquired Rheumatoid arthritis without rheumatoid factor, multiple sites M06.09 CKD (chronic kidney disease), stage III N18.3 (1) Anemia Anemia type: unspecified type Qualified Code(s): D64.9 - Anemia, unspecified (2) Hypothyroidism Hypothyroidism type: acquired Qualified Code(s): E03.9 - Hypothyroidism, unspecified (3) HTN (hypertension) Hypertension type: essential hypertension Qualified Code(s): I10 - Essential (primary) hypertension
[2022-03-22] MEDS: LATANOPROST 0.005% OP SOLN 2.5 ML BTL OP SCH (20:28)
[2022-03-22] MEDS: CALCIUM CARBONATE 1250MG TAB PO SCH (20:30)
[2022-03-23 08:54] LABS: INR 1.3 (0.9-1.1); Prothrombin Time 13.7 Seconds (9.0-12.0)
[2022-03-23] MEDS: AMOXICILLIN/CLAVULANATE 875 MG TAB PO SCH ×2 (09:26→17:39)
[2022-03-23] MEDS: ASCORBIC ACID 500 MG TAB PO SCH (09:27)
[2022-03-23] MEDS: CARBIDOPA/LEVODOPA 25/100MG TAB PO SCH ×2 (09:27→21:14)
[2022-03-23] MEDS: CYANOCOBALAMIN (B-12) 500 MCG TABLET PO SCH (09:28)
[2022-03-23] MEDS: LEVOTHYROXINE SODIUM 50 MCG TABLET PO SCH (09:29)
[2022-03-23] MEDS: HYDROXYCHLOROQUINE SULFATE 200 MG TAB PO SCH (09:29)
[2022-03-23] MEDS: METOPROLOL TARTRATE 25 MG TAB PO SCH (09:30)
[2022-03-23] MEDS: POLYETHYLENE (MIRALAX) 17 GM PACK PO SCH (09:31)
[2022-03-23] MEDS: MULTIVITAMIN TAB PO SCH (09:31)
[2022-03-23] MEDS: HEPARIN SOD 5,000 UNIT/0.5 ML VIAL SQ SCH ×2 (09:39→21:14)
[2022-03-23] MEDS: FERROUS SULFATE 325 MG TAB PO SCH (13:51)
[2022-03-23] MEDS ORDERED: WARFARIN SOD 10 MG TAB PO SCH (16:00)
--- NOTE | 2022-03-23 17:55 | Hospitalist Progress Note ---
Date of Service March 23, 2022 Assessment & Plan (1) Unstageable pressure ulcer of sacral region: Plan: 86-year-old female past medical history significant for hypertension, hypothyroidism, hyperlipidemia, CKD stage III, prediabetes, rheumatoid arthritis, Parkinsonism with dementia and aphasia admitted for worsening sacral pressure ulcer for wound care and IV antibiotics. Sacral ulceration, cellulitis: No leukocytosis. CRP 16.38 on admission. - Wound culture growing Proteus penneri and E. faecalis; surgical culture growing Proventella bivia - continue on Augmentin for 7 days following surgical debridement [03/16] s/p Debridement of sacral ulcer. Sharp debridement, stage IV, down to bone - Wound VAC now in place from wound care nurse. - Turns q2h to offset sacral pressure. (2) COVID-19: Plan: COVID positive on admission 03/07. Vaccination status: Fully vaccinated and boosted. CRP: 16.38, in the setting of sacral wound/infection. Dexamethasone not indicated at this time as patient is not hypoxic. Remdesivir: Not indicated, not hypoxic and with CKD. Baricitinib: Not indicated. Fevers now resolved - now off precautions. Completed 10 days on isolation. (3) Functional quadriplegia: Plan: - Functional quadriplegia in the setting of bed bound, Parkinsonism - Cared for by her and her daughter. (4) HTN (hypertension): Plan: Continue metoprolol (on nebivolol at home). BPs controlled, has some ectopy on exam With tachycardia as well--> increase metoprolol to 100 mg po bid (5) Anemia: Plan: In the setting of CKD, anemia of chronic disease Iron studies suggestive of iron deficiency anemia. I suspect the ferritin is normal as an acute inflammatory reactant. - tried calling daughter today to discuss iron transfusions but no answer on number provided. - repeat CBC with AM labs (6) Parkinsonism: Plan: Continue carbidopa levodopa 25-100 mg half tablet p.o. twice daily. - Baseline function is unable to speak, bedbound and caregiver dependent. With significant rigidity on exam. Follows with [place] [facility] (7) Hypothyroidism: Plan: - Continue home levothyroxine. TSH normal in 12/2021 (8) Rheumatoid arthritis without rheumatoid factor, multiple sites: Plan: Hydroxychloroquine restarted today to avoid worsening rheumatoid arthritis which may be devastating for her (9) CKD (chronic kidney disease), stage III: Plan: - Baseline creatinine ~0.8, at baseline this admission. - Avoid nephrotoxins. - Renally dose meds Plan DVT prophylaxis: restarted on warfarin (Hx DVT), continue heparin until INR therapeutic Diet: Continue regular minced and moist diet with multivitamin to assist with wound healing and calorie consumption to minimize weight loss in hospital Disposition: continued stay Medical/surgical, medically stable awaiting placement. CODE STATUS: Full code; this was confirmed with patient's daughter Veronica. Admission and Anticipated Discharge Date Admission Date: March 08, 2022 Subjective Patient is nonverbal. Reportedly vomited after having a large amount of water all at once this morning. Did well with lunch following this however. Review of Systems Review of Systems: Unobtainable due to cognitive status Physical Exam Constitutional: + thin Respiratory: normal respiratory effort Psychiatric: Orientation: alert Results & Data Results & Data ([facility]) Vital Signs (Past 12 Hours) Vital Signs Temp Pulse Pulse Pulse Resp BP BP 03/23/22 15:39 36.5 C 03/23/22 15:22 36.3 C L 92 H 20 126/71 03/23/22 09:00 03/23/22 09:24 102 H 127/69 03/23/22 07:18 36.7 C 107 H 18 127/86 Pulse Ox O2 Del Method 03/23/22 15:39 96 Room Air 03/23/22 15:22 93 Room Air 03/23/22 09:00 Room Air 03/23/22 09:24 03/23/22 07:18 94 Room Air PG Care Time/CCT Total # of Minutes Spent Total Time Spent with Patient: Total time spent is greater than 50% in coordination of care (as documented) at patient's floor/unit and/or counseling patient: Coding Level of Care Code 22582 Subseq Hosp Care Lvl 1 Diagnoses Unstageable pressure ulcer of sacral region L89.150 COVID-19 U07.1 Functional quadriplegia R53.2 HTN (hypertension) I10 Hypertension type: essential hypertension Anemia D64.9 Anemia type: unspecified type Parkinsonism G20 Hypothyroidism E03.9 Hypothyroidism type: acquired Rheumatoid arthritis without rheumatoid factor, multiple sites M06.09 CKD (chronic kidney disease), stage III N18.3 (1) HTN (hypertension) Hypertension type: essential hypertension Qualified Code(s): I10 - Essential (primary) hypertension (2) Anemia Anemia type: unspecified type Qualified Code(s): D64.9 - Anemia, unspecified (3) Hypothyroidism Hypothyroidism type: acquired Qualified Code(s): E03.9 - Hypothyroidism, unspecified
[2022-03-23] MEDS: CALCIUM CARBONATE 1250MG TAB PO SCH (21:15)
[2022-03-23] MEDS: METOPROLOL TARTRATE 100 MG TAB PO SCH (21:18)
[2022-03-23] MEDS: LATANOPROST 0.005% OP SOLN 2.5 ML BTL OP SCH (21:20)
[2022-03-24 09:00] LABS: Hematocrit (blood only) 31.1 % (34.1-44.9); Hemoglobin 10.3 g/dl (12.0-16.0); Mean Corpuscular Hemoglobin 26.3 pg (25.0-34.0); Mean Corpuscular Hgb Conc 33.1 g/dL (32.0-36.0); Mean Corpuscular Volume 79.5 fL (80.0-100.0); Mean Platelet Volume 9.1 fL (9.4-12.3); Platelet Count 468 K/uL (130-400); RDW Coefficient of Variation 15.9 % (11.5-14.5); RDW Standard Deviation 45.1 fL (36.4-46.3); Red Blood Count 3.91 M/uL (3.93-5.22); White Blood Count 19.43 K/ul (4.8-10.8)
[2022-03-24 09:09] LABS: INR 2.4 (0.9-1.1)
[2022-03-24] MEDS: AMOXICILLIN/CLAVULANATE 875 MG TAB PO SCH (09:15)
[2022-03-24] MEDS: ASCORBIC ACID 500 MG TAB PO SCH (09:18)
[2022-03-24] MEDS: CARBIDOPA/LEVODOPA 25/100MG TAB PO SCH ×2 (09:19→21:36)
[2022-03-24] MEDS: CYANOCOBALAMIN (B-12) 500 MCG TABLET PO SCH (09:20)
[2022-03-24] MEDS: HYDROXYCHLOROQUINE SULFATE 200 MG TAB PO SCH (09:22)
[2022-03-24 09:23] LABS: BUN Creatinine Ratio 54.5 (10-20); Calcium 9.6 mg/dl (8.5-10.1); Creatinine Clr Calc Pharmacy 35.8 ml/min; Est GFR (Non-African American) 69.9 ml/min; Potassium 4.6 mmol/L (3.5-5.1)
[2022-03-24] MEDS: LEVOTHYROXINE SODIUM 50 MCG TABLET PO SCH (09:23)
[2022-03-24] MEDS: MULTIVITAMIN TAB PO SCH (09:24)
--- NOTE | 2022-03-24 10:01 | Hospitalist Progress Note ---
Date of Service March 24, 2022 Assessment & Plan (1) Unstageable pressure ulcer of sacral region: Plan: 86-year-old female past medical history significant for hypertension, hypothyroidism, hyperlipidemia, CKD stage III, prediabetes, rheumatoid arthritis, Parkinsonism with dementia and aphasia admitted for worsening sacral pressure ulcer for wound care and IV antibiotics. Sacral ulceration, cellulitis: No leukocytosis. CRP 16.38 on admission. - Wound culture growing Proteus penneri and E. faecalis; surgical culture growing Proventella bivia - continue on Augmentin for 7 days following surgical debridement [03/16] s/p Debridement of sacral ulcer. Sharp debridement, stage IV, down to bone - Wound VAC now in place from wound care nurse. - Turns q2h to offset sacral pressure. on 03/24 -Oxygen level worsened, and WBC increased. -Clinically patient apprears comfortable and similar to when she was last seen by me 5 days ago. -Patient will have inflammatory markers checked On recheck, lactic acid is elevated. IVF was given. Chest x ray showed clear lungs but dilated bowels. Ordered ct scan of abdomen and pelvis: 2. High-grade small bowel obstruction with a transition point seen in the left lower quadrant. This is likely on the basis of adhesions. Clinical correlation required and surgical assessment is advised. 3. There is trace interloop fluid. No intraperitoneal free air is seen. There is no pneumatosis intestinalis or portal venous gas. 4. 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 This represents a change from 10/04/2021. 5. There is reconstitution of flow at the iliac bifurcation on the left and in the distal external iliac artery on the right. 6. Small volume ascites. Consulted vascular surgery, and general surgery. (2) COVID-19: Plan: COVID positive on admission 03/07. Vaccination status: Fully vaccinated and boosted. CRP: 16.38, in the setting of sacral wound/infection. Dexamethasone not indicated at this time as patient is not hypoxic. Remdesivir: Not indicated, not hypoxic and with CKD. Baricitinib: Not indicated. Fevers now resolved - now off precautions. Completed 10 days on isolation. (3) Functional quadriplegia: Plan: - Functional quadriplegia in the setting of bed bound, Parkinsonism - Cared for by her and her daughter. (4) HTN (hypertension): Plan: Continue metoprolol (on nebivolol at home). BPs controlled, has some ectopy on exam With tachycardia as well--> increase metoprolol to 100 mg po bid (5) Anemia: Plan: In the setting of CKD, anemia of chronic disease Iron studies suggestive of iron deficiency anemia. I suspect the ferritin is normal as an acute inflammatory reactant. - tried calling daughter today to discuss iron transfusions but no answer on number provided. - repeat CBC with AM labs (6) Parkinsonism: Plan: Continue carbidopa levodopa 25-100 mg half tablet p.o. twice daily. - Baseline function is unable to speak, bedbound and caregiver dependent. With significant rigidity on exam. Follows with [place] [facility] (7) Hypothyroidism: Plan: - Continue home levothyroxine. TSH normal in 12/2021 (8) Rheumatoid arthritis without rheumatoid factor, multiple sites: Plan: Hydroxychloroquine restarted today to avoid worsening rheumatoid arthritis which may be devastating for her (9) CKD (chronic kidney disease), stage III: Plan: - Baseline creatinine ~0.8, at baseline this admission. - Avoid nephrotoxins. - Renally dose meds Plan DVT prophylaxis: restarted on warfarin (Hx DVT), continue heparin until INR therapeutic Diet: Continue regular minced and moist diet with multivitamin to assist with wound healing and calorie consumption to minimize weight loss in hospital Disposition: continued stay Medical/surgical, medically stable awaiting placement. CODE STATUS: DNR/DNI confirmed with Daughter Admission and Anticipated Discharge Date Admission Date: March 08, 2022 Subjective Was called by nurse as patient is now requiring oxygen. Patient though appears calm sitting upright. She does not verbalize any complaints, but does appear to be calm. Review of Systems Review of Systems: Unobtainable due to cognitive status Physical Exam Physical Exam: Constitutional: WD/WN, vitals as above Eyes: + anicteric sclerae Neck: trachea midline, no thyromegaly Respiratory: normal respiratory effort, lungs clear to auscultation Cardiovascular: RRR, no murmur, no edema (with some ectopy) Chest (Breasts): Chest: normal inspection of chest Gastrointestinal (Abdomen): normal bowel sounds, soft, nontender, no hepatosplenomegaly Musculoskeletal: Extremities: extremities normal to inspection; no cyanosis and no clubbing Skin: no rashes, warm and dry (sacral wound not examined) Psychiatric: Orientation: alert; + not oriented x 3 Lymphatic: no lymphedema Results & Data Results & Data ([facility]) Vital Signs (Past 12 Hours) Vital Signs Temp Pulse Resp BP Pulse Ox O2 Del Method O2 Flow Rate 03/24/22 09:25 36.8 C 97 H 18 124/76 93 Nasal Cannula 2 03/24/22 08:38 93 Nasal Cannula 2 03/24/22 08:20 36.8 C 111 H 16 133/72 86 L Room Air PG Care Time/CCT Total # of Minutes Spent Total Time Spent with Patient: Total time spent is greater than 50% in coordination of care (as documented) at patient's floor/unit and/or counseling patient: Prolonged Care Time Prolonged Care Time: Yes Total Prolonged Care Time: 105 9:30 to 10:20 11:00 to 11:05 12:00 to 12:30 13:20 to 13:40 Coding Level of Care Code 08213 Subseq Hosp Care Lvl 3 (25 - SIGNIFICANT, SEPARATELY IDENTIFIABLE ) Diagnoses Unstageable pressure ulcer of sacral region L89.150 COVID-19 U07.1 Functional quadriplegia R53.2 HTN (hypertension) I10 Hypertension type: essential hypertension Anemia D64.9 Anemia type: unspecified type Parkinsonism G20 Hypothyroidism E03.9 Hypothyroidism type: acquired Rheumatoid arthritis without rheumatoid factor, multiple sites M06.09 CKD (chronic kidney disease), stage III N18.3 Additional Codes Prolonged Care Time - Prolonged Care Time: Yes ([id number]) Time Spent (min) 105 (1) Anemia Anemia type: unspecified type Qualified Code(s): D64.9 - Anemia, unspecified (2) Hypothyroidism Hypothyroidism type: acquired Qualified Code(s): E03.9 - Hypothyroidism, unspecified (3) HTN (hypertension) Hypertension type: essential hypertension Qualified Code(s): I10 - Essential (primary) hypertension
--- NOTE | 2022-03-24 10:16 | XRay Report ---
XR chest 1V portable HISTORY: hypoxia COMPARISON: Chest 03/07/2022. FINDINGS: No pneumothorax. There is chronic elevation of the right hemidiaphragm. No pleural effusion s. Right basilar linear densities persist and favor subsegmental atelectasis. A few left basilar line ar densities also favors subsegmental atelectasis. No evidence for pulmonary edema. Postoperative kimberley nges seen within the left clavicle. There are old, healed left-sided rib fractures. The heart remains mildly enlarged. There is a tortuous thoracic aorta. Dilated gas-filled loops of small bowel seen wi thin the visualized abdomen measuring up to 3.5 cm in diameter. This is nonspecific but could represe nt a developing small bowel obstruction. Clinical correlation recommended. IMPRESSION: 1. Interval development of dilated gas-filled loops of small bowel within the visualized abdomen. Thi s could represent a small bowel obstruction. Clinical correlation recommended. 2. Bibasilar linear densities favor subsegmental atelectasis. 3. This report was called/faxed to the referring physician following dictation. ACT 112: Negative or not required by law. Electronically signed by: Mayur Ibarra M.D. 03/24/2022 10:15 AM
[2022-03-24] MEDS: HEPARIN SOD 5,000 UNIT/0.5 ML VIAL SQ SCH (11:34)
[2022-03-24] MEDS: METOPROLOL TARTRATE 100 MG TAB PO SCH ×2 (11:34→21:35)
[2022-03-24] MEDS: POLYETHYLENE (MIRALAX) 17 GM PACK PO SCH (11:38)
[2022-03-24] MEDS ORDERED: NORMOSOL-R 1,000 ML IV ONE (12:01)
[2022-03-24] MEDS ORDERED: OPTIRAY 350 100ml IV ONE (12:52)
--- NOTE | 2022-03-24 13:19 | CT Scan Report ---
CT SCAN OF THE ABDOMEN AND PELVIS WITH IV CONTRAST CLINICAL HISTORY: Generalized abdominal pain. Elevated lactic acid. COMPARISON STUDY: Abdominal CT dated 10/04/2021. TECHNIQUE: Following the IV administration of 85 cc of Optiray 350, CT scan of the abdomen and pelvi s is performed from the lung bases to the proximal femora. Images are reviewed in the axial, sagittal , and coronal planes. IV contrast was administered without complication. A dose lowering technique wa s utilized adhering to the principles of ALARA. The examination is significantly degraded by streak a rtifact from the arms which could not be elevated above the abdomen as well as motion. CT DOSE: 263.93 mGycm FINDINGS: Lung bases: The heart is normal in size and without pericardial effusion. Dependent airspace consolid ation is seen at both lung bases. Liver: The contrast-enhanced liver is normal in size, contour, and attenuation. There is no intrahepa tic biliary ductal dilatation. The hepatic veins and portal veins are patent. Gallbladder: Contracted. Spleen: Normal in size and attenuation. Pancreas: Unremarkable. Adrenal glands: Unremarkable. Kidneys: The contrast enhanced kidneys are atrophic and without hydronephrosis. The kidneys enhance s ymmetrically. Large bilateral renal cysts measure up to 6 cm. Foci of cortical scarring are noted in both kidneys. Abdominal vasculature: There is advanced atherosclerotic calcification and mild ectasia of the abdomi nal aorta. There is approximately 75% stenosis of the proximal abdominal aorta at the level of the re nal arteries. 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 There is complete thrombosis of the right common iliac artery as well as the proximal and mid p ortions of the right external iliac artery, with distal reconstitution. There is also complete thromb osis of the proximal right internal carotid artery. There is complete thrombosis of the left common i liac artery, with reconstitution at the iliac bifurcation. There is greater than 50% focal stenosis w ith intraluminal thrombus seen in the left external iliac artery on image #355. Bowel: The proximal small bowel loops are distended and fluid-filled, measuring up to 3.[address] A transition point is seen in the left lower quadrant on image #275, and the appearance is consi stent with a high-grade small bowel obstruction. The distal small bowel and colon are decompressed. N o focally thick-walled bowel loops are identified. There is trace interloop fluid. No pneumatosis int estinalis or portal venous gas is seen. There is advanced sigmoid diverticulosis without CT evidence of acute diverticulitis. The appendix is not visualized. Peritoneum: No intraperitoneal free air seen. There is a small volume of pelvic ascites. There is als o free fluid in the right paracolic gutter. Lymphadenopathy: None. Pelvic viscera: The bladder is decompressed around a Soto catheter not well evaluated. The uterus is surgically absent. No adnexal lesion is seen. Skeletal structures: The skeletal structures are osteopenic. There are chronic superior endplate comp ression deformities of T9 and L2. There is moderate lumbosacral spondylosis as well as scoliosis. No lytic or blastic lesions are seen. There are bilateral sacral insufficiency fractures. Healed rib fra ctures are seen bilaterally. IMPRESSION: 1. Severely streak and motion compromised examination. 2. High-grade small bowel obstruction with a transition point seen in the left lower quadrant. This i s likely on the basis of adhesions. Clinical correlation required and surgical assessment is advised. 3. There is trace interloop fluid. No intraperitoneal free air is seen. There is no pneumatosis intes tinalis or portal venous gas. 4. 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 This represents a change from 10/04/2021. 5. There is reconstitution of flow at the iliac bifurcation on the left and in the distal external il iac artery on the right. 6. Small volume ascites. 7. There is bibasilar airspace consolidation. Correlate clinically from the pneumonia/aspiration pneu monitis. 8. Additional findings as above. ACT 112: Negative or not required by law. Electronically signed by: Wally Mario M.D. 03/24/2022 1:17 PM
[2022-03-24] MEDS: FERROUS SULFATE 325 MG TAB PO SCH (13:27)
--- NOTE | 2022-03-24 15:32 | Surgery Progress Note ---
Date of Service March 24, 2022 Assessment & Plan (1) Small bowel obstruction: Plan: no acute abdominal findings No distress, no vomiting Would keep NPO for now, IVF, consider NG although I'm not sure she can cooperate for placement Admission and Anticipated Discharge Date Admission Date: March 08, 2022 Supervising Physician Co-Signing Physician Notes I personally saw and evaluated the patient with Enzo Sigala PA-C and agree with the assessment and plan. 86-year-old female small bowel obstruction CT results and images personally viewed by myself We will keep her n.p.o. and place NG tube if possible Will follow along Subjective 86 y/o female 8 days s/p debridement sacral ulcer noted today to have bowel distention on CXR. She does not answer questions. Apparently had half of her breakfast and had BM today, diarrhea yesterday. Physical Exam Constitutional: comfortable; no acute distress Gastrointestinal (Abdomen): Inspection/Auscultation: abdomen not distended Percussion/Palpation: + abdomen tender (minimal) and abdomen soft Results & Data ([facility]) Vital Signs (Past 12 Hours) Vital Signs Temp Pulse Resp BP Pulse Ox O2 Del Method O2 Flow Rate 03/24/22 08:30 Nasal Cannula 2 03/24/22 11:43 36.9 C 102 H 18 136/72 95 Nasal Cannula 2 03/24/22 09:25 36.8 C 97 H 18 124/76 93 Nasal Cannula 2 03/24/22 08:38 93 Nasal Cannula 2 03/24/22 08:20 36.8 C 111 H 16 133/72 86 L Room Air PG Care Time/CCT Total # of Minutes Spent Total Time Spent with Patient: Total time spent is greater than 50% in coordination of care (as documented) at patient's floor/unit and/or counseling patient: Coding Level of Care Code 27561 Subseq Hosp Care Lvl 1 Diagnoses Small bowel obstruction K56.609
[2022-03-24] MEDS: AMPICILLIN/SULBACTAM SOD 3,000 MG in 0.9 % SODIUM CHLORIDE 100 ML IV SCH ×2 (18:28→23:36)
--- NOTE | 2022-03-24 19:01 | XCELERA ---
[id number] \\[id number]
--- NOTE | 2022-03-24 19:14 | XRay Report ---
KUB CLINICAL HISTORY: Enteric tube placement. FINDINGS: An AP upright view of the lower chest and upper abdomen is correlated with abdominal CT per formed the same day 03/24/2022. An enteric tube has been placed. The tip projects below the diaphragm over the proximal to mid stomach. Distended gas-filled loops of small bowel in the upper abdomen torres stacy persistent obstruction. No evidence of intraperitoneal free air is seen. There are no abnormal c alcifications in the upper abdomen. Bibasilar airspace consolidation is seen at the lung bases. The h eart is enlarged noting atherosclerotic calcification of the thoracic aorta. IMPRESSION: 1. An enteric tube has been placed as above. 2. Persistent small bowel obstruction. 3. Bibasilar consolidation. Electronically signed by: Wally Mario M.D. 03/24/2022 7:12 PM
[2022-03-24] MEDS: LATANOPROST 0.005% OP SOLN 2.5 ML BTL OP SCH (21:35)
[2022-03-25] MEDS: AMPICILLIN/SULBACTAM SOD 3,000 MG in 0.9 % SODIUM CHLORIDE 100 ML IV SCH ×4 (05:56→23:35)
[2022-03-25 07:05] LABS: Hematocrit (blood only) 25.4 % (34.1-44.9); Hemoglobin 8.2 g/dl (12.0-16.0); Mean Corpuscular Hemoglobin 26.3 pg (25.0-34.0); Mean Corpuscular Hgb Conc 32.3 g/dL (32.0-36.0); Mean Corpuscular Volume 81.4 fL (80.0-100.0); Mean Platelet Volume 8.7 fL (9.4-12.3); Platelet Count 332 K/uL (130-400); RDW Coefficient of Variation 15.6 % (11.5-14.5); RDW Standard Deviation 46.2 fL (36.4-46.3); Red Blood Count 3.12 M/uL (3.93-5.22); White Blood Count 10.48 K/ul (4.8-10.8)
[2022-03-25 07:11] LABS: INR 3.5 (0.9-1.1); Prothrombin Time 34.7 Seconds (9.0-12.0)
[2022-03-25 07:27] LABS: BUN Creatinine Ratio 50.7 (10-20); C Reactive Protein 10.39 mg/dl (0-0.5); Calcium 8.1 mg/dl (8.5-10.1); Creatinine Clr Calc Pharmacy 37.7 ml/min; Est GFR (African American) 86.4 ml/min; Est GFR (Non-African American) 74.6 ml/min; Potassium 3.6 mmol/L (3.5-5.1)
[2022-03-25] MEDS: METOPROLOL TARTRATE 100 MG TAB PO SCH ×2 (08:38→22:00)
[2022-03-25] MEDS: CARBIDOPA/LEVODOPA 25/100MG TAB PO SCH ×2 (08:38→22:00)
[2022-03-25] MEDS: HYDROXYCHLOROQUINE SULFATE 200 MG TAB PO SCH (08:38)
[2022-03-25] MEDS: POLYETHYLENE (MIRALAX) 17 GM PACK PO SCH (08:38)
--- NOTE | 2022-03-25 10:23 | Surgery Progress Note ---
Date of Service March 25, 2022 Assessment & Plan (1) Small bowel obstruction: Plan: stable will restart IVF repeat KUB tomorrow, continue NG for now Admission and Anticipated Discharge Date Admission Date: March 08, 2022 Supervising Physician Co-Signing Physician Notes I personally saw and evaluated the patient with Enzo Sigala PA-C and agree with the assessment and plan. 86-year-old female small bowel obstruction Patient had multiple bowel movements yesterday and overnight, but still has high NG tube output We will continue NG tube decompression for today and repeat KUB in the morning Surgery will continue to follow while in the hospital If she were to need surgical intervention, discussion will have to be had with the family about the goals of care Subjective had BMs yesterday, none yet today Physical Exam Gastrointestinal (Abdomen): Inspection/Auscultation: abdomen not distended Percussion/Palpation: abdomen soft; abdomen nontender (appears) total NG output 300 cc Results & Data ([facility]) Vital Signs (Past 12 Hours) Vital Signs Temp Pulse Pulse Resp BP Pulse Ox O2 Del Method 03/25/22 07:53 37.0 C 95 H 16 129/58 L 97 Nasal Cannula 03/25/22 06:27 36.7 C 99 H 18 138/54 L 99 Nasal Cannula 03/25/22 00:40 36.9 C 88 14 124/72 96 Nasal Cannula O2 Flow Rate 03/25/22 07:53 2 03/25/22 06:27 2 03/25/22 00:40 2 PG Care Time/CCT Total # of Minutes Spent Total Time Spent with Patient: Total time spent is greater than 50% in coordination of care (as documented) at patient's floor/unit and/or counseling patient: Coding Level of Care Code 87202 Subseq Hosp Care Lvl 1 Diagnoses Small bowel obstruction K56.609
[2022-03-25] MEDS ORDERED: NSS + 20MEQ KCL 20 MEQ/1,000 ML BAG IV SCH (10:30)
[2022-03-25] MEDS: NORMOSOL-R 1,000 ML IV SCH ×2 (10:34→13:32)
[2022-03-25] MEDS ORDERED: OPTIRAY 350 100ml IV ONE (12:40)
--- NOTE | 2022-03-25 13:28 | CT Scan Report ---
CT ANGIOGRAM OF THE ABDOMEN AND PELVIS WITH BILATERAL LOWER EXTREMITY RUNOFF CLINICAL HISTORY: Thrombosed abdominal aorta. COMPARISON STUDY: Abdominal CT scans dated 03/24/2022 and 10/04/2021. TECHNIQUE: Following the IV administration of 87 cc of Optiray 350, CT angiogram of the abdomen and pelvis left lower extremity runoff is performed from the lung bases to the feet. Images are reviewed in the axial, sagittal, and coronal planes. IV contrast was administered without complication. 3-D LA PS are created and assessed. A dose lowering technique was utilized adhering to the principles of ALA RA. The examination is significantly degraded by streak artifact from the arms which could not be abdelrahman vated above the abdomen as well as motion. CT DOSE: 942.62 mGy.cm FINDINGS: Lung bases: The heart is enlarged and without pericardial effusion. Dependent airspace consolidation is seen at both lung bases. Liver: The contrast-enhanced liver is normal in size, contour, and attenuation. There is no intrahepa tic biliary ductal dilatation. Gallbladder: Vicariously excreted contrast fills the gallbladder. Spleen: Normal in size and attenuation noting heterogeneous arterial phase enhancement. Pancreas: Unremarkable. Adrenal glands: Unremarkable. Kidneys: The contrast enhanced kidneys are atrophic and without hydronephrosis. The kidneys enhance s ymmetrically. Large bilateral renal cysts measure up to 6 cm. Foci of cortical scarring are noted in both kidneys. Abdominal aorta and iliac arteries: There is advanced atherosclerotic calcification and mild ectasia of the abdominal aorta. There is approximately 75% stenosis of the proximal abdominal aorta at the le emory of the renal arteries. There is complete thrombosis of the distal abdominal aorta which extends t o the bifurcation. There is complete thrombosis of the right common iliac artery as well as the proxi mal and mid portions of the right external iliac artery, with distal reconstitution. There is also co mplete thrombosis of the proximal right internal carotid artery. There is complete thrombosis of the left common iliac artery, with reconstitution at the iliac bifurcation. There is greater than 50% foc al stenosis with intraluminal thrombus seen in the left external iliac artery. Major branches of the abdominal aorta: The celiac trunk and superior mesenteric artery are widely pat ent. There is thrombosis of the origin of the inferior mesenteric artery. The distal vessel is opacif ied by retrograde flow. The splenic artery is patent. Hepatic arterial anatomy is conventional. There are single bilateral renal arteries. There is mild stenosis at the origin of the right renal artery. High-grade stenosis is seen at the origin of the left renal artery. Right lower extremity runoff: There is advanced atherosclerotic plaque and irregularity throughout th e arteries of the right lower extremity. The right common femoral artery is patent, as is the right p rofunda femoris artery. The superficial femoral artery and the popliteal artery are patent noting adv anced atherosclerotic plaque and irregularity. The calf arteries are diminutive, with three-vessel ru noff to the foot. The calf artery are not well visualized at the ankle joint due to motion. The dorsa lis pedis artery is patent. Left lower extremity runoff: There is advanced atherosclerotic plaque and irregularity seen throughou t the arteries of the left lower extremity. The common femoral artery is patent, as is the profunda f emoris artery. The superficial femoral and popliteal arteries are patent noting advanced atherosclero tic plaque and irregularity. There is focal high-grade stenosis of the distal superficial femoral art manish seen on image #604. The calf arteries are diminutive. There is three-vessel runoff to the foot. T he calf artery are not well visualized at the ankle joint due to motion. Flow is shown within the raymon salis pedis. Bowel: An enteric tube terminates in the stomach. The proximal small bowel loops are distended and fl uid-filled, measuring up to 3.5 cm in diameter. A complex transition point is again seen in the centr al pelvis and the appearance is consistent with a high-grade small bowel obstruction. The distal smal l bowel and colon are decompressed. There are mildly thick-walled loops of small bowel in the pelvis. There is trace interloop fluid. No pneumatosis intestinalis or portal venous gas is seen. There is a dvanced sigmoid diverticulosis without CT evidence of acute diverticulitis. The appendix is not visu alized. Peritoneum: No intraperitoneal free air seen. There is a small volume of pelvic ascites. Mesenteric e adriano is noted in the pelvis. There is also free fluid in the right paracolic gutter. Lymphadenopathy: None. Pelvic viscera: The bladder is decompressed around a Soto catheter and contains excreted IV contrast . The uterus is surgically absent. No adnexal lesion is seen. Skeletal structures: The skeletal structures are osteopenic. There are chronic superior endplate comp ression deformities of T9 and L2. There is moderate lumbosacral spondylosis as well as scoliosis. No lytic or blastic lesions are seen. There are bilateral sacral insufficiency fractures. Healed rib fra ctures are seen bilaterally. Lower extremities: The lower extremity soft tissues are normal as imaged noting generalized atrophy o f the regional musculature. IMPRESSION: 1. Streak and motion compromised examination. 2. Persistent high-grade small bowel obstruction with a complex transition point in the pelvis. 3. There are thick walled loops of small bowel in the pelvis with surrounding mesenteric edema. This has progressed as compared to 03/24/2022 and these may be risk for ischemia. Surgical assessment is ad vised. 4. There is trace interloop fluid. No intraperitoneal free air is seen. There is no pneumatosis intes tinalis or portal venous gas. 5. Again seen is complete thrombosis of the distal abdominal aorta as well as both common iliac arter ies. 6. There is reconstitution of flow at the iliac bifurcation on the left and in the distal external il iac artery on the right. 7. Abdominal angiogram and lower extremity runoff findings as above. 8. Small volume ascites. 9. There is bibasilar airspace consolidation. Correlate clinically from the pneumonia/aspiration pneu monitis. 10. Additional findings as above. ACT 112: Negative or not required by law. Electronically signed by: Wally Mario M.D. 03/25/2022 1:27 PM
--- NOTE | 2022-03-25 14:02 | Consultation ---
Date of Consultation March 25, 2022 Assessment & Plan (1) Aortoiliac occlusive disease: This patient does not appear to be having any symptoms from her infra renal aortic occlusion. Her feet are well collateralized. There are no open wounds on her feet. She does not walk far enough at this time to claudicate. This appears to be a terminal occlusion of previously significantly stenotic aorta and iliac arteries. Due to this gradual onset she has developed enough collaterals to keep her feet viable. She is no candidate at this time for any vascular intervention at this time. Thank you very much for letting us participate in the care of this patient. History of Present Illness Reason for Consultation: Infrarenal aortic occlusion Attending Physician: Arnav Rodney History of Present Illness This is an 86yo female admitted for a sacral decub and now has a SBO. On routine CT scan she was noted to have an infrarenal aortic occlusion and bilateral iliac artery occlusion. In September there was a question of a significant narrowing of these arteries. It is difficult to get answers from the patient but she does say no for foot or leg pain. Allergies Allergy/AdvReac Type Severity Reaction Status Date / Time No Known Drug Allergies Allergy NKDA Verified 03/07/22 15:37 Home Medications Medication Instructions Recorded Confirmed Type calcium carbonate 600 mg-vitamin 1 tab PO HS 01/26/19 03/07/22 History D3 5 mcg (200 unit) tablet hydroxychloroquine 200 mg tablet 200 mg PO QAM 02/03/20 03/07/22 History multivitamin 1 tab PO QAM 08/31/20 03/07/22 History latanoprost 0.005 % eye drops 1 drp ophthalmic (eye) QPM 01/05/21 03/07/22 History cyanocobalamin (vitamin B-12) 1,000 mcg PO QAM 10/04/21 03/07/22 History 1,000 mcg capsule levothyroxine 50 mcg tablet 50 mcg PO QAM 10/04/21 03/07/22 History (Synthroid) warfarin 3 mg tablet 3 mg PO DAILY@1600 #90 tabs 11/08/21 03/07/22 Rx nebivolol 10 mg tablet (Bystolic) 10 mg PO QAM #10 tabs 12/03/21 03/07/22 Rx ascorbic acid (vitamin C) 1,000 mg 1 g PO DAILY 01/06/22 03/07/22 History capsule carbidopa 25 mg-levodopa 100 mg 0.5 tab PO BID 30 days #30 tabs 01/20/22 03/07/22 Rx tablet (Sinemet) warfarin 1 mg tablet See Rx Instructions PO .COMPLEX 02/24/22 03/07/22 Rx #90 tabs Patient History Medical History Chronic back pain Glaucoma Hearing deficit HTN (hypertension) Hyperlipidemia Hypothyroidism Osteoarthritis Osteopenia after menopause Ovarian cancer dianosed "a long time ago"--sx only Prediabetes Primary progressive aphasia Pulmonary nodule (02/2021) Rheumatoid arthritis without rheumatoid factor, multiple sites Tachycardia reason for bystolic Surgical History History of bilateral cataract extraction History of bladder suspension procedure History of colonoscopy with polypectomy History of total hysterectomy with bilateral salpingo-oophorectomy (BSO) S/P debridement (03/16/22) Debridement of sacral ulcer. Sharp debridement, stage IV, down to bone, greater than 50 cm. Biopsy of sacrum. S/P ORIF (open reduction internal fixation) fracture (03/17/21) L clavicle Family History Sister Colorectal cancer, Onset Age: 68 Ovarian cancer Father Alzheimer disease Mother Hypertension Other No family history of adverse response to anesthesia Denies family history of Prostate cancer Myocardial infarction Breast cancer Social History Smoking Status: Never smoker Second Hand Exposure: No; Hx Alcohol Use: No Hx Substance Use: No Preferred Language: Citizen Of [place] Communication Ability: Effective Visual Impairment: Limited Hearing Ability: Use of Hearing Aid Waxer Required: No Beliefs That Will Affect Care: Yarsani Yarsani Beliefs: Holiness. marital status: Current Living Situation: Spouse Current Living Situation Comment: Caregiver 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, daughter barrett current occupational status: retired Feels Safe at Home: Yes Childhood Exposure to Second-Hand Smoke: No Diet Comment: regular caffeine: Yes (Tea x 2 cups per day.) during the past year weight has: other Dental Care, Regularly: Yes Physical Activity Frequency: Does not Exercise Physical Activity Frequency Comment: due to physical condition Seatbelt Use: always Sunscreen Use: Yes Assistive Devices: Hospital Bed, Stair Lift and Wheelchair Review of Systems Review of Systems: Unobtainable due to cognitive status Physical Exam Constitutional: + cachectic Respiratory: normal respiratory effort; no respiratory distress Cardiovascular: Rate/Rhythm: regular rate and regular rhythm Vessels: radial pulses present; + femoral pulses abnormal, + posterior tibial pulses abnormal and + dorsalis pedis pulses abnormal Extremities: normal capillary refill Gastrointestinal (Abdomen): Percussion/Palpation: + abdomen tender (mild to deep palpation) and abdomen soft; no abdominal aortic enlargement Neurologic: moves all extremities Psychiatric: Orientation: alert Results & Data ([facility]) Vital Signs (Past 12 Hours) Vital Signs Temp Pulse Resp BP Pulse Ox O2 Del Method O2 Flow Rate 03/25/22 07:53 37.0 C 95 H 16 129/58 L 97 Nasal Cannula 2 03/25/22 06:27 36.7 C 99 H 18 138/54 L 99 Nasal Cannula 2
[2022-03-25 14:25] LABS: Hemoglobin 8.3 g/dl (12.0-16.0)
--- NOTE | 2022-03-25 21:36 | Hospitalist Progress Note ---
Date of Service March 25, 2022 Assessment & Plan (1) Unstageable pressure ulcer of sacral region: Plan: 86-year-old female past medical history significant for hypertension, hypothyroidism, hyperlipidemia, CKD stage III, prediabetes, rheumatoid arthritis, Parkinsonism with dementia and aphasia admitted for worsening sacral pressure ulcer for wound care and IV antibiotics. Sacral ulceration, cellulitis: No leukocytosis. CRP 16.38 on admission. - Wound culture growing Proteus penneri and E. faecalis; surgical culture growing Proventella bivia - continue on Augmentin for 7 days following surgical debridement [03/16] s/p Debridement of sacral ulcer. Sharp debridement, stage IV, down to bone - Wound VAC now in place from wound care nurse. - Turns q2h to offset sacral pressure. on 03/24 -Oxygen level worsened, and WBC increased. -Clinically patient apprears comfortable and similar to when she was last seen by me 5 days ago. -Patient will have inflammatory markers checked On recheck, lactic acid is elevated. IVF was given. Chest x ray showed clear lungs but dilated bowels. Ordered ct scan of abdomen and pelvis: 2. High-grade small bowel obstruction with a transition point seen in the left lower quadrant. This is likely on the basis of adhesions. Clinical correlation required and surgical assessment is advised. 3. There is trace interloop fluid. No intraperitoneal free air is seen. There is no pneumatosis intestinalis or portal venous gas. 4. 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 This represents a change from 10/04/2021. 5. There is reconstitution of flow at the iliac bifurcation on the left and in the distal external iliac artery on the right. 6. Small volume ascites. Consulted vascular surgery, and general surgery. D/W 03/25 D/W vascular surgery no intervention required given high ris, and likely chronicity of thrombus. Patient tolerated NG tube placement from day prior, having moderate amount of GI content suctioned. Patient will continue on low intermittent suction. placed on IVF. Lactic acid improved, which is reassuring. LIkely means symptoms are more from SBO. (2) COVID-19: Plan: COVID positive on admission 03/07. Vaccination status: Fully vaccinated and boosted. CRP: 16.38, in the setting of sacral wound/infection. Dexamethasone not indicated at this time as patient is not hypoxic. Remdesivir: Not indicated, not hypoxic and with CKD. Baricitinib: Not indicated. Fevers now resolved - now off precautions. Completed 10 days on isolation. (3) Functional quadriplegia: Plan: - Functional quadriplegia in the setting of bed bound, Parkinsonism - Cared for by her and her daughter. (4) HTN (hypertension): Plan: Continue metoprolol (on nebivolol at home). BPs controlled, has some ectopy on exam With tachycardia as well--> increase metoprolol to 100 mg po bid (5) Anemia: Plan: In the setting of CKD, anemia of chronic disease Iron studies suggestive of iron deficiency anemia. I suspect the ferritin is normal as an acute inflammatory reactant. - tried calling daughter today to discuss iron transfusions but no answer on number provided. - repeat CBC with AM labs (6) Parkinsonism: Plan: Continue carbidopa levodopa 25-100 mg half tablet p.o. twice daily. - Baseline function is unable to speak, bedbound and caregiver dependent. With significant rigidity on exam. Follows with [facility] (7) Hypothyroidism: Plan: - Continue home levothyroxine. TSH normal in 12/2021 (8) Rheumatoid arthritis without rheumatoid factor, multiple sites: Plan: Hydroxychloroquine restarted today to avoid worsening rheumatoid arthritis which may be devastating for her (9) CKD (chronic kidney disease), stage III: Plan: - Baseline creatinine ~0.8, at baseline this admission. - Avoid nephrotoxins. - Renally dose meds Plan DVT prophylaxis: restarted on warfarin (Hx DVT), continue heparin until INR therapeutic Diet: Continue regular minced and moist diet with multivitamin to assist with wound healing and calorie consumption to minimize weight loss in hospital Disposition: continued stay Medical/surgical, medically stable awaiting placement. CODE STATUS: DNR/DNI confirmed with Daughter Admission and Anticipated Discharge Date Admission Date: March 08, 2022 Subjective Patient appears comfortable lying down, tolerating NG tube Review of Systems Review of Systems: All systems reviewed & are unremarkable except as noted in HPI & below Physical Exam Physical Exam: Constitutional: WD/WN, vitals as above Eyes: + anicteric sclerae Neck: trachea midline, no thyromegaly Respiratory: normal respiratory effort, lungs clear to auscultation Cardiovascular: RRR, no murmur, no edema (with some ectopy) Chest (Breasts): Chest: normal inspection of chest Gastrointestinal (Abdomen): normal bowel sounds, soft, nontender, no hepatosplenomegaly Musculoskeletal: Extremities: extremities normal to inspection; no cyanosis and no clubbing Skin: no rashes, warm and dry (sacral wound not examined) Psychiatric: Orientation: alert; + not oriented x 3 Lymphatic: no lymphedema Results & Data Results & Data ([facility]) Vital Signs (Past 12 Hours) Vital Signs Temp Pulse Resp BP Pulse Ox O2 Del Method 03/25/22 14:39 36.6 C 94 H 16 130/60 95 Room Air PG Care Time/CCT Total # of Minutes Spent Total Time Spent with Patient: Total time spent is greater than 50% in coordination of care (as documented) at patient's floor/unit and/or counseling patient: Coding Level of Care Code 42044 Subseq Hosp Care Lvl 2 Diagnoses Unstageable pressure ulcer of sacral region L89.150 COVID-19 U07.1 Functional quadriplegia R53.2 HTN (hypertension) I10 Hypertension type: essential hypertension Anemia D64.9 Anemia type: unspecified type Parkinsonism G20 Hypothyroidism E03.9 Hypothyroidism type: acquired Rheumatoid arthritis without rheumatoid factor, multiple sites M06.09 CKD (chronic kidney disease), stage III N18.3 (1) Anemia Anemia type: unspecified type Qualified Code(s): D64.9 - Anemia, unspecified (2) Hypothyroidism Hypothyroidism type: acquired Qualified Code(s): E03.9 - Hypothyroidism, unspecified (3) HTN (hypertension) Hypertension type: essential hypertension Qualified Code(s): I10 - Essential (primary) hypertension
[2022-03-25] MEDS: LATANOPROST 0.005% OP SOLN 2.5 ML BTL OP SCH (22:00)
[2022-03-26] MEDS: NORMOSOL-R 1,000 ML IV SCH ×2 (03:56→18:02)
[2022-03-26] MEDS: AMPICILLIN/SULBACTAM SOD 3,000 MG in 0.9 % SODIUM CHLORIDE 100 ML IV SCH ×4 (05:12→23:08)
--- NOTE | 2022-03-26 07:43 | XRay Report ---
KUB HISTORY: Small bowel obstruction. Follow-up. COMPARISON: KUB 03/24/2022. Abdomen, pelvis, and bilateral lower extremity CTA 03/25/2022. FINDINGS: Nasogastric tube terminates in the distal stomach. Bibasilar densities persist. Old, healed bilateral rib fractures again noted. Dilated small bowel loops within the lower abdomen again noted. This suggests a persistent small bowel obstruction pattern. These measure up to 4 cm in diameter. Wh ich is similar to the prior study. No renal calculi. No ureteral calculi. No pneumoperitoneum or pneu matosis. IMPRESSION: 1. Redemonstration of the dilated gas-filled loops of small bowel within the lower abdomen consistent with a small bowel obstruction. 2. Nasogastric tube terminates in the distal stomach. 3. Bibasilar densities persist. ACT 112: Negative or not required by law. Electronically signed by: Mayur Ibarra M.D. 03/26/2022 7:42 AM
[2022-03-26 09:15] LABS: Basophils # (auto) 0.01 K/uL (0-0.2); Basophils % (auto) 0.1 %; Hematocrit (blood only) 23.6 % (34.1-44.9); Hemoglobin 7.3 g/dl (12.0-16.0); Immature Granulocytes # (auto) 0.05 K/uL (0.00-0.02); Immature Granulocytes % (auto) 0.6 %; Lymphocytes # (auto) 0.78 K/uL (1.2-3.4); Lymphocytes % (auto) 9.8 %; Mean Corpuscular Hemoglobin 26.2 pg (25.0-34.0); Mean Corpuscular Hgb Conc 30.9 g/dL (32.0-36.0); Mean Corpuscular Volume 84.6 fL (80.0-100.0); Mean Platelet Volume 8.6 fL (9.4-12.3); Monocytes # (auto) 0.64 K/uL (0.24-0.82); Monocytes % (auto) 8.1 %; Neutrophils # (auto) 6.47 K/uL (1.4-6.5); Neutrophils % (auto) 81.4 %; Platelet Count 299 K/uL (130-400); RDW Coefficient of Variation 15.9 % (11.5-14.5); RDW Standard Deviation 48.6 fL (36.4-46.3); Red Blood Count 2.79 M/uL (3.93-5.22); White Blood Count 7.95 K/ul (4.8-10.8)
[2022-03-26 09:33] LABS: Albumin Globulin Ratio 0.9 (0.9-2); Albumin Level 2.6 gm/dl (3.4-5.0); BUN Creatinine Ratio 39.1 (10-20); Bilirubin,Total 0.3 mg/dl (0.2-1.0); C Reactive Protein 15.04 mg/dl (0-0.5); Calcium 7.4 mg/dl (8.5-10.1); Est GFR (African American) 93.6 ml/min; Est GFR (Non-African American) 80.8 ml/min; Potassium 3.3 mmol/L (3.5-5.1); Prothrombin Time 48.8 Seconds (9.0-12.0); Total Protein 5.6 gm/dl (6.0-8.3)
[2022-03-26] MEDS: CARBIDOPA/LEVODOPA 25/100MG TAB PO SCH ×2 (09:43→20:47)
[2022-03-26] MEDS: HYDROXYCHLOROQUINE SULFATE 200 MG TAB PO SCH (09:43)
[2022-03-26] MEDS: METOPROLOL TARTRATE 100 MG TAB PO SCH ×2 (09:43→20:46)
[2022-03-26] MEDS: POLYETHYLENE (MIRALAX) 17 GM PACK PO SCH (09:44)
[2022-03-26 09:45] LABS: Polychromasia 1+
--- NOTE | 2022-03-26 11:52 | Surgery Progress Note ---
Date of Service March 26, 2022 Assessment & Plan (1) Small bowel obstruction: Plan: having BMs KUB still with SB pattern IVF possibly remove tube tomorrow if continues to do well Present on Admission?: No Admission and Anticipated Discharge Date Admission Date: March 08, 2022 Subjective sleepy no complaints +BM Review of Systems Constitutional: no fever and no chills Gastrointestinal: no abdominal pain, no nausea and no vomiting Genitourinary: no dysuria Physical Exam Constitutional: + thin Eyes: PERRL, conjunctivae normal, anicteric sclerae ENMT: external ear and nose normal, oropharynx normal Neck: trachea midline Respiratory: normal respiratory effort, lungs clear to auscultation Cardiovascular: RRR, no murmur, no edema Gastrointestinal (Abdomen): Inspection/Auscultation: abdomen normal to inspection and normal bowel sounds; abdomen not distended Pe rcussion/Palpation: abdomen soft; abdomen nontender, no guarding and abdomen not rigid Musculoskeletal: Head/Neck/Chest: normocephalic and head atraumatic Results & Data ([facility]) Vital Signs (Past 12 Hours) Vital Signs Temp Pulse Resp BP Pulse Ox O2 Del Method O2 Flow Rate 03/26/22 10:00 Nasal Cannula 2 03/26/22 09:04 93 H 97 Nasal Cannula 2 03/26/22 07:27 36.3 C L 95 H 12 137/67 93 Nasal Cannula 2 Diagnostic Findings KUB HISTORY: Small bowel obstruction. Follow-up. COMPARISON: KUB 03/24/2022. Abdomen, pelvis, and bilateral lower extremity CTA 03/25/2022. FINDINGS: Nasogastric tube terminates in the distal stomach. Bibasilar densities persist. Old, healed bilateral rib fractures again noted. Dilated small bowel loops within the lower abdomen again noted. This suggests a persistent small bowel obstruction pattern. These measure up to 4 cm in diameter. Which is similar to the prior study. No renal calculi. No ureteral calculi. No pneumoperitoneum or pneumatosis. IMPRESSION: 1. Redemonstration of the dilated gas-filled loops of small bowel within the lower abdomen consistent with a small bowel obstruction. 2. Nasogastric tube terminates in the distal stomach. 3. Bibasilar densities persist.
[2022-03-26 12:29] LABS: Hematocrit (blood only) 23.7 % (34.1-44.9); Hemoglobin 7.4 g/dl (12.0-16.0)
[2022-03-26] MEDS ORDERED: PHYTONADIONE 5 MG in DEXTROSE 5% 50 ML IV ONE (12:30)
[2022-03-26] MEDS: PANTOprazole 40 MG in DEXTROSE 5% 100 ML IV SCH ×3 (13:49→23:08)
[2022-03-26 17:18] LABS: Hemoglobin 7.1 g/dl (12.0-16.0)
[2022-03-26 18:27] LABS: INR 1.9 (0.9-1.1); Prothrombin Time 19.5 Seconds (9.0-12.0)
[2022-03-26] MEDS: LATANOPROST 0.005% OP SOLN 2.5 ML BTL OP SCH (20:46)
--- NOTE | 2022-03-26 23:28 | Hospitalist Progress Note ---
Date of Service March 26, 2022 Assessment & Plan (1) Unstageable pressure ulcer of sacral region: Plan: 86-year-old female past medical history significant for hypertension, hypothyroidism, hyperlipidemia, CKD stage III, prediabetes, rheumatoid arthritis, Parkinsonism with dementia and aphasia admitted for worsening sacral pressure ulcer for wound care and IV antibiotics. Sacral ulceration, cellulitis: No leukocytosis. CRP 16.38 on admission. - Wound culture growing Proteus penneri and E. faecalis; surgical culture growing Proventella bivia - continue on Augmentin for 7 days following surgical debridement [03/16] s/p Debridement of sacral ulcer. Sharp debridement, stage IV, down to bone - Wound VAC now in place from wound care nurse. - Turns q2h to offset sacral pressure. on 03/24 -Oxygen level worsened, and WBC increased. -Clinically patient apprears comfortable and similar to when she was last seen by me 5 days ago. -Patient will have inflammatory markers checked On recheck, lactic acid is elevated. IVF was given. Chest x ray showed clear lungs but dilated bowels. Ordered ct scan of abdomen and pelvis: 2. High-grade small bowel obstruction with a transition point seen in the left lower quadrant. This is likely on the basis of adhesions. Clinical correlation required and surgical assessment is advised. 3. There is trace interloop fluid. No intraperitoneal free air is seen. There is no pneumatosis intestinalis or portal venous gas. 4. 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 This represents a change from 10/04/2021. 5. There is reconstitution of flow at the iliac bifurcation on the left and in the distal external iliac artery on the right. 6. Small volume ascites. Consulted vascular surgery, and general surgery. \ 03/25 D/W vascular surgery no intervention required given high ris, and likely chronicity of thrombus. Patient tolerated NG tube placement from day prior, having moderate amount of GI content suctioned. Patient will continue on low intermittent suction. placed on IVF. Lactic acid improved, which is reassuring. LIkely means symptoms are more from SBO. 03/26 Hemoglobin dropped. NG tube suction had been stopped due to concern of GI bleed. May also be dilutional, though given positive fluid balance Will place on PPI drip for GI protection. Patient had a small amount of stool last evening. However, xray shows small bowel obstruction. Will closely monitor hemoglobin. As INR was elevated, ordered vitamin K. updated family. may need consent for transfusion if blood count continues to drop.. (2) COVID-19: Plan: COVID positive on admission 03/07. Vaccination status: Fully vaccinated and boosted. CRP: 16.38, in the setting of sacral wound/infection. Dexamethasone not indicated at this time as patient is not hypoxic. Remdesivir: Not indicated, not hypoxic and with CKD. Baricitinib: Not indicated. Fevers now resolved - now off precautions. Completed 10 days on isolation. (3) Functional quadriplegia: Plan: - Functional quadriplegia in the setting of bed bound, Parkinsonism - Cared for by her and her daughter. (4) HTN (hypertension): Plan: Continue metoprolol (on nebivolol at home). BPs controlled, has some ectopy on exam With tachycardia as well--> increase metoprolol to 100 mg po bid (5) Anemia: Plan: In the setting of CKD, anemia of chronic disease Iron studies suggestive of iron deficiency anemia. I suspect the ferritin is normal as an acute inflammatory reactant. - tried calling daughter today to discuss iron transfusions but no answer on number provided. - repeat CBC with AM labs (6) Parkinsonism: Plan: Continue carbidopa levodopa 25-100 mg half tablet p.o. twice daily. - Baseline function is unable to speak, bedbound and caregiver dependent. With significant rigidity on exam. Follows with [facility] (7) Hypothyroidism: Plan: - Continue home levothyroxine. TSH normal in 12/2021 (8) Rheumatoid arthritis without rheumatoid factor, multiple sites: Plan: Hydroxychloroquine restarted today to avoid worsening rheumatoid arthritis which may be devastating for her (9) CKD (chronic kidney disease), stage III: Plan: - Baseline creatinine ~0.8, at baseline this admission. - Avoid nephrotoxins. - Renally dose meds Plan DVT prophylaxis: restarted on warfarin (Hx DVT), continue heparin until INR therapeutic Diet: Continue regular minced and moist diet with multivitamin to assist with wound healing and calorie consumption to minimize weight loss in hospital Disposition: continued stay Medical/surgical, medically stable awaiting placement. CODE STATUS: DNR/DNI confirmed with Daughter Admission and Anticipated Discharge Date Admission Date: March 08, 2022 Subjective Patient had asmall dark stool overnight. Review of Systems Review of Systems: All systems reviewed & are unremarkable except as noted in HPI & below Physical Exam Physical Exam: Constitutional: WD/WN, vitals as above Eyes: + anicteric sclerae Neck: trachea midline, no thyromegaly Respiratory: normal respiratory effort, lungs clear to auscultation Cardiovascular: RRR, no murmur, no edema (with some ectopy) Chest (Breasts): Chest: normal inspection of chest Gastrointestinal (Abdomen): normal bowel sounds, soft, nontender, no hepatosplenomegaly Musculoskeletal: Extremities: extremities normal to inspection; no cyanosis and no clubbing Skin: no rashes, warm and dry (sacral wound not examined) Psychiatric: Orientation: alert; + not oriented x 3 Lymphatic: no lymphedema Results & Data Results & Data ([facility]) Vital Signs (Past 12 Hours) Vital Signs Temp Pulse Resp BP BP Pulse Ox O2 Del Method 03/26/22 22:42 36.6 C 71 16 126/55 L 93 Room Air 03/26/22 20:41 37.1 C 85 14 131/58 L 94 Nasal Cannula 03/26/22 16:26 37.1 C 87 12 135/58 L 100 Room Air O2 Flow Rate 03/26/22 22:42 03/26/22 20:41 2 03/26/22 16:26 PG Care Time/CCT Total # of Minutes Spent Total Time Spent with Patient: Total time spent is greater than 50% in coordination of care (as documented) at patient's floor/unit and/or counseling patient: Coding Level of Care Code 97107 Subseq Hosp Care Lvl 3 Diagnoses Unstageable pressure ulcer of sacral region L89.150 COVID-19 U07.1 Functional quadriplegia R53.2 HTN (hypertension) I10 Hypertension type: essential hypertension Anemia D64.9 Anemia type: unspecified type Parkinsonism G20 Hypothyroidism E03.9 Hypothyroidism type: acquired Rheumatoid arthritis without rheumatoid factor, multiple sites M06.09 CKD (chronic kidney disease), stage III N18.3 Time Spent (min) 45 (1) Anemia Anemia type: unspecified type Qualified Code(s): D64.9 - Anemia, unspecified (2) Hypothyroidism Hypothyroidism type: acquired Qualified Code(s): E03.9 - Hypothyroidism, unspecified (3) HTN (hypertension) Hypertension type: essential hypertension Qualified Code(s): I10 - Essential (primary) hypertension
[2022-03-27 00:21] LABS: Hematocrit (blood only) 21.6 % (34.1-44.9); Hemoglobin 6.8 g/dl (12.0-16.0)
[2022-03-27] MEDS: PANTOprazole 40 MG in DEXTROSE 5% 100 ML IV SCH ×5 (03:09→23:37)
[2022-03-27] MEDS: NORMOSOL-R 1,000 ML IV SCH ×2 (05:13→18:38)
[2022-03-27] MEDS: AMPICILLIN/SULBACTAM SOD 3,000 MG in 0.9 % SODIUM CHLORIDE 100 ML IV SCH ×2 (05:15→12:04)
[2022-03-27 06:09] LABS: Hemoglobin 7.1 g/dl (12.0-16.0); Mean Corpuscular Hemoglobin 25.9 pg (25.0-34.0); Mean Corpuscular Hgb Conc 30.9 g/dL (32.0-36.0); Mean Corpuscular Volume 83.9 fL (80.0-100.0); Mean Platelet Volume 8.9 fL (9.4-12.3); Platelet Count 295 K/uL (130-400); RDW Coefficient of Variation 15.9 % (11.5-14.5); RDW Standard Deviation 48.7 fL (36.4-46.3); Red Blood Count 2.74 M/uL (3.93-5.22); White Blood Count 5.99 K/ul (4.8-10.8)
[2022-03-27 06:16] LABS: INR 1.3 (0.9-1.1); Prothrombin Time 13.6 Seconds (9.0-12.0)
[2022-03-27 06:31] LABS: BUN Creatinine Ratio 28.3 (10-20); C Reactive Protein 14.38 mg/dl (0-0.5); Calcium 7.1 mg/dl (8.5-10.1); Creatinine Clr Calc Pharmacy 45.9 ml/min; Est GFR (African American) 95.7 ml/min; Est GFR (Non-African American) 82.5 ml/min
[2022-03-27] MEDS: CARBIDOPA/LEVODOPA 25/100MG TAB PO SCH ×2 (08:26→21:39)
[2022-03-27] MEDS: METOPROLOL TARTRATE 100 MG TAB PO SCH ×2 (08:26→21:39)
[2022-03-27] MEDS: POLYETHYLENE (MIRALAX) 17 GM PACK PO SCH (08:27)
[2022-03-27] MEDS: HYDROXYCHLOROQUINE SULFATE 200 MG TAB PO SCH (08:27)
[2022-03-27] MEDS: LEVOTHYROXINE SODIUM 37.5 MCG in SYRINGE 0 ML IV SCH (08:43)
[2022-03-27] MEDS: POTASSIUM CHLORIDE / WTR 10 MEQ/100 ML PLCT IV SCH ×4 (09:34→12:34)
--- NOTE | 2022-03-27 10:34 | Surgery Progress Note ---
Date of Service March 27, 2022 Assessment & Plan (1) Small bowel obstruction: Plan: still distended likely remove ng in AM repeat KUB in AM Present on Admission?: Yes Admission and Anticipated Discharge Date Admission Date: March 08, 2022 Subjective not communicative Review of Systems Constitutional: no fever and no chills Gastrointestinal: no abdominal pain Physical Exam Constitutional: + thin Respiratory: normal respiratory effort, lungs clear to auscultation Cardiovascular: RRR, no murmur, no edema Gastrointestinal (Abdomen): Inspection/Auscultation: abdomen normal to inspection and + abdomen distended; + abnormal bowel sounds Percussion/Palpation: abdomen soft; abdomen nontender, no guarding and abdomen not rigid Skin: no rashes, warm and dry Results & Data ([facility]) Vital Signs (Past 12 Hours) Vital Signs Temp Pulse Pulse Resp BP BP Pulse Ox 03/27/22 07:21 36.7 C 84 12 150/60 H 93 03/27/22 04:03 37.1 C 74 14 139/52 L 93 03/26/22 22:42 36.6 C 71 16 126/55 L 93 O2 Del Method O2 Flow Rate 03/27/22 07:21 Room Air 03/27/22 04:03 Nasal Cannula 2 03/26/22 22:42 Room Air
--- NOTE | 2022-03-27 14:45 | Gastrointestinal Consultation ---
Date of Consultation March 27, 2022 Assessment & Plan (1) Small bowel obstruction: Will defer to General surgery, though I agree with their plan of conservative management, as she is not an adequate surgical candidate. (2) Unstageable pressure ulcer of sacral region: (3) Melena: No further overt GI bleeding noted since dark stool yesterday Recommend Protonix 40 mg IV BID Check stool for H. pylori Ag No plans for invasive workup secondary to overall clinical picture History of Present Illness Reason for Consultation: Anemia, Questionable GI bleed Attending Physician: Arnav Rodney History of Present Illness Yolie Falcon is an 86 yo CF with an extensive PMHx which includes Parkinson's disease and dementia. She was initially brought to the [facility] on 03/07/2022 due to concerns over a large sacral decubitus ulcer. She has had a prolonged course, and is not able to provide any details to her history, secondary to her dementia. A chart review reveals that she underwent a Chest X-ray on 03/24 for hypoxia, and was incidentally found to have a SBO. She has been followed by the General Surgery team, and has been treated conservatively with NG tube, as she is not a surgical candidate. She has been having BM's, most recently on 03/26 as per nursing documentation. She was noted to have a black stool at that time. She was subsequently placed on a protonix gtt. She has not had any further stools, and NG suction material in the canister is noted to be dark brown, without gross blood. She cannot provide any further details. Allergies Allergy/AdvReac Type Severity Reaction Status Date / Time No Known Drug Allergies Allergy NKDA Verified 03/07/22 15:37 Home Medications Medication Instructions Recorded Confirmed Type calcium carbonate 600 mg-vitamin 1 tab PO HS 01/26/19 03/07/22 History D3 5 mcg (200 unit) tablet hydroxychloroquine 200 mg tablet 200 mg PO QAM 02/03/20 03/07/22 History multivitamin 1 tab PO QAM 08/31/20 03/07/22 History latanoprost 0.005 % eye drops 1 drp ophthalmic (eye) QPM 01/05/21 03/07/22 History cyanocobalamin (vitamin B-12) 1,000 mcg PO QAM 10/04/21 03/07/22 History 1,000 mcg capsule levothyroxine 50 mcg tablet 50 mcg PO QAM 10/04/21 03/07/22 History (Synthroid) warfarin 3 mg tablet 3 mg PO DAILY@1600 #90 tabs 11/08/21 03/07/22 Rx nebivolol 10 mg tablet (Bystolic) 10 mg PO QAM #10 tabs 12/03/21 03/07/22 Rx ascorbic acid (vitamin C) 1,000 mg 1 g PO DAILY 01/06/22 03/07/22 History capsule carbidopa 25 mg-levodopa 100 mg 0.5 tab PO BID 30 days #30 tabs 01/20/22 03/07/22 Rx tablet (Sinemet) warfarin 1 mg tablet See Rx Instructions PO .COMPLEX 02/24/22 03/07/22 Rx #90 tabs Patient History Medical History Chronic back pain Glaucoma Hearing deficit HTN (hypertension) Hyperlipidemia Hypothyroidism Osteoarthritis Osteopenia after menopause Ovarian cancer dianosed "a long time ago"--sx only Prediabetes Primary progressive aphasia Pulmonary nodule (02/2021) Rheumatoid arthritis without rheumatoid factor, multiple sites Tachycardia reason for bystolic Surgical History History of bilateral cataract extraction History of bladder suspension procedure History of colonoscopy with polypectomy History of total hysterectomy with bilateral salpingo-oophorectomy (BSO) S/P debridement (03/16/22) Debridement of sacral ulcer. Sharp debridement, stage IV, down to bone, greater than 50 cm. Biopsy of sacrum. S/P ORIF (open reduction internal fixation) fracture (03/17/21) L clavicle Family History Sister Colorectal cancer, Onset Age: 68 Ovarian cancer Father Alzheimer disease Mother Hypertension Other No family history of adverse response to anesthesia Denies family history of Prostate cancer Myocardial infarction Breast cancer Social History Smoking Status: Never smoker Second Hand Exposure: No; Hx Alcohol Use: No Hx Substance Use: No Preferred Language: Mozambican Communication Ability: Effective Visual Impairment: Limited Hearing Ability: Use of Hearing Aid Raveler Required: No Beliefs That Will Affect Care: Scientology Scientology Beliefs: Worship. marital status: Current Living Situation: Spouse Current Living Situation Comment: Caregiver 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, daughter barrett current occupational status: retired Feels Safe at Home: Yes Childhood Exposure to Second-Hand Smoke: No Diet Comment: regular caffeine: Yes (Tea x 2 cups per day.) during the past year weight has: other Dental Care, Regularly: Yes Physical Activity Frequency: Does not Exercise Physical Activity Frequency Comment: due to physical condition Seatbelt Use: always Sunscreen Use: Yes Assistive Devices: Hospital Bed, Stair Lift and Wheelchair Review of Systems Review of Systems: Unobtainable due to cognitive status Physical Exam Constitutional: + ill appearing (Chronic), + thin and + cachectic; no acute distress Eyes: + anicteric sclerae ENMT: NG tube present Respiratory: Auscultation: + diminished lung sounds (Bilateral bases) Cardiovascular: RRR, no murmur, no edema Gastrointestinal (Abdomen): Inspection/Auscultation: + abdomen distended; + abnormal bowel sounds Percussion/Palpation: abdomen soft; no guarding and abdomen not rigid Skin: + pallor Results & Data ([facility]) Vital Signs (Past 12 Hours) Vital Signs Temp Pulse Resp BP Pulse Ox O2 Del Method O2 Flow Rate 03/27/22 10:00 Room Air 03/27/22 07:21 36.7 C 84 12 150/60 H 93 Room Air 03/27/22 04:03 37.1 C 74 14 139/52 L 93 Nasal Cannula 2 PG Care Time/CCT Total # of Minutes Spent Total Time Spent with Patient: Total time spent is greater than 50% in coordination of care (as documented) at patient's floor/unit and/or counseling patient: Coding Level of Care Code 11285 Initial Inpt Care Lvl 3 Diagnoses Small bowel obstruction K56.609 Unstageable pressure ulcer of sacral region L89.150 Melena K92.1
--- NOTE | 2022-03-27 17:33 | XRay Report ---
KUB HISTORY: positioning of ng tube COMPARISON: KUB 03/26/2022. FINDINGS: Nasogastric tube terminates in the distal stomach. Bibasilar densities/effusions persist. D ilated loops of small bowel within the lower abdomen are partially visualized on this study. No britta l calculi. No ureteral calculi. No pneumoperitoneum or pneumatosis. IMPRESSION: Nasogastric tube terminates in the distal stomach. ACT 112: Negative or not required by law. Electronically signed by: Mayur Ibarra M.D. 03/27/2022 5:31 PM
[2022-03-27 17:36] LABS: Hematocrit (blood only) 22.8 % (34.1-44.9); Hemoglobin 7.1 g/dl (12.0-16.0)
--- NOTE | 2022-03-27 21:38 | Hospitalist Progress Note ---
Date of Service March 27, 2022 Assessment & Plan (1) Unstageable pressure ulcer of sacral region: Plan: 86-year-old female past medical history significant for hypertension, hypothyroidism, hyperlipidemia, CKD stage III, prediabetes, rheumatoid arthritis, Parkinsonism with dementia and aphasia admitted for worsening sacral pressure ulcer for wound care and IV antibiotics. Sacral ulceration, cellulitis: No leukocytosis. CRP 16.38 on admission. - Wound culture growing Proteus penneri and E. faecalis; surgical culture growing Proventella bivia - continue on Augmentin for 7 days following surgical debridement [03/16] s/p Debridement of sacral ulcer. Sharp debridement, stage IV, down to bone - Wound VAC now in place from wound care nurse. - Turns q2h to offset sacral pressure. on 03/24 -Oxygen level worsened, and WBC increased. -Clinically patient apprears comfortable and similar to when she was last seen by me 5 days ago. -Patient will have inflammatory markers checked On recheck, lactic acid is elevated. IVF was given. Chest x ray showed clear lungs but dilated bowels. Ordered ct scan of abdomen and pelvis: 2. High-grade small bowel obstruction with a transition point seen in the left lower quadrant. This is likely on the basis of adhesions. Clinical correlation required and surgical assessment is advised. 3. There is trace interloop fluid. No intraperitoneal free air is seen. There is no pneumatosis intestinalis or portal venous gas. 4. 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 This represents a change from 10/04/2021. 5. There is reconstitution of flow at the iliac bifurcation on the left and in the distal external iliac artery on the right. 6. Small volume ascites. Consulted vascular surgery, and general surgery. \ 03/25 D/W vascular surgery no intervention required given high ris, and likely chronicity of thrombus. Patient tolerated NG tube placement from day prior, having moderate amount of GI content suctioned. Patient will continue on low intermittent suction. placed on IVF. Lactic acid improved, which is reassuring. LIkely means symptoms are more from SBO. 03/26 Hemoglobin dropped. NG tube suction had been stopped due to concern of GI bleed. May also be dilutional, though given positive fluid balance Will place on PPI drip for GI protection. Patient had a small amount of stool last evening. However, xray shows small bowel obstruction. Will closely monitor hemoglobin. As INR was elevated, ordered vitamin K. updated family. may need consent for transfusion if blood count continues to drop. 03/27 Hemoglobin has been stable. INR normaiized. Will hold off wafarin for now and monitor patient's hemoglobin. continue NG tube on intermittent suction (2) COVID-19: Plan: COVID positive on admission 03/07. Vaccination status: Fully vaccinated and boosted. CRP: 16.38, in the setting of sacral wound/infection. Dexamethasone not indicated at this time as patient is not hypoxic. Remdesivir: Not indicated, not hypoxic and with CKD. Baricitinib: Not indicated. Fevers now resolved - now off precautions. Completed 10 days on isolation. (3) Functional quadriplegia: Plan: - Functional quadriplegia in the setting of bed bound, Parkinsonism - Cared for by her and her daughter. (4) HTN (hypertension): Plan: Continue metoprolol (on nebivolol at home). BPs controlled, has some ectopy on exam With tachycardia as well--> increase metoprolol to 100 mg po bid (5) Anemia: Plan: In the setting of CKD, anemia of chronic disease Iron studies suggestive of iron deficiency anemia. I suspect the ferritin is normal as an acute inflammatory reactant. - tried calling daughter today to discuss iron transfusions but no answer on number provided. - repeat CBC with AM labs (6) Parkinsonism: Plan: Continue carbidopa levodopa 25-100 mg half tablet p.o. twice daily. - Baseline function is unable to speak, bedbound and caregiver dependent. With significant rigidity on exam. Follows with [facility] (7) Hypothyroidism: Plan: - Continue home levothyroxine. TSH normal in 12/2021 (8) Rheumatoid arthritis without rheumatoid factor, multiple sites: Plan: Hydroxychloroquine restarted today to avoid worsening rheumatoid arthritis which may be devastating for her (9) CKD (chronic kidney disease), stage III: Plan: - Baseline creatinine ~0.8, at baseline this admission. - Avoid nephrotoxins. - Renally dose meds (10) Small bowel obstruction: Plan: as above. Plan DVT prophylaxis: hold warfarin. Diet: Continue regular minced and moist diet with multivitamin to assist with wound healing and calorie consumption to minimize weight loss in hospital Disposition: continued stay Medical/surgical, medically stable awaiting placement. CODE STATUS: DNR/DNI confirmed with Daughter Admission and Anticipated Discharge Date Admission Date: March 08, 2022 Subjective 86 yo female is awake, appears comfortable. Unable to verbalize complaints. Review of Systems Review of Systems: All systems reviewed & are unremarkable except as noted in HPI & below Physical Exam Physical Exam: Constitutional: WD/WN, vitals as above Eyes: + anicteric sclerae Neck: trachea midline, no thyromegaly Respiratory: normal respiratory effort, lungs clear to auscultation Cardiovascular: RRR, no murmur, no edema (with some ectopy) Chest (Breasts): Chest: normal inspection of chest Gastrointestinal (Abdomen): normal bowel sounds, soft, nontender, no he patosplenomegaly Musculoskeletal: Extremities: extremities normal to inspection; no cyanosis and no clubbing Skin: no rashes, warm and dry (sacral wound not examined) Psychiatric: Orientation: alert; + not oriented x 3 Lymphatic: no lymphedema Results & Data Results & Data ([facility]) Vital Signs (Past 12 Hours) Vital Signs Temp Pulse Pulse Resp BP BP Pulse Ox 03/27/22 21:33 36.8 C 98 H 18 149/68 H 95 03/27/22 15:25 36.7 C 78 12 125/60 93 03/27/22 10:00 O2 Del Method 03/27/22 21:33 Room Air 03/27/22 15:25 Room Air 03/27/22 10:00 Room Air PG Care Time/CCT Total # of Minutes Spent Total Time Spent with Patient: Total time spent is greater than 50% in coordination of care (as documented) at patient's floor/unit and/or counseling patient: Coding Level of Care Code 73328 Subseq Hosp Care Lvl 3 Diagnoses Unstageable pressure ulcer of sacral region L89.150 COVID-19 U07.1 Functional quadriplegia R53.2 HTN (hypertension) I10 Hypertension type: essential hypertension Anemia D64.9 Anemia type: unspecified type Parkinsonism G20 Hypothyroidism E03.9 Hypothyroidism type: acquired Rheumatoid arthritis without rheumatoid factor, multiple sites M06.09 CKD (chronic kidney disease), stage III N18.3 Small bowel obstruction K56.609 Time Spent (min) 35 (1) Anemia Anemia type: unspecified type Qualified Code(s): D64.9 - Anemia, unspecified (2) Hypothyroidism Hypothyroidism type: acquired Qualified Code(s): E03.9 - Hypothyroidism, unspecified (3) HTN (hypertension) Hypertension type: essential hypertension Qualified Code(s): I10 - Essential (primary) hypertension
[2022-03-27] MEDS: LATANOPROST 0.005% OP SOLN 2.5 ML BTL OP SCH (21:39)
[2022-03-28] MEDS: PANTOprazole 40 MG in DEXTROSE 5% 100 ML IV SCH ×4 (04:37→19:09)
[2022-03-28] MEDS: NORMOSOL-R 1,000 ML IV SCH (07:26)
[2022-03-28 08:10] LABS: Hemoglobin 7.5 g/dl (12.0-16.0); Mean Corpuscular Hemoglobin 26.2 pg (25.0-34.0); Mean Corpuscular Hgb Conc 31.3 g/dL (32.0-36.0); Mean Corpuscular Volume 83.9 fL (80.0-100.0); Mean Platelet Volume 8.9 fL (9.4-12.3); Platelet Count 336 K/uL (130-400); RDW Coefficient of Variation 15.8 % (11.5-14.5); RDW Standard Deviation 47.8 fL (36.4-46.3); Red Blood Count 2.86 M/uL (3.93-5.22)
[2022-03-28 08:25] LABS: INR 1.3 (0.9-1.1); Prothrombin Time 13.6 Seconds (9.0-12.0)
[2022-03-28 08:28] LABS: Calcium 6.9 mg/dl (8.5-10.1); Creatinine Clr Calc Pharmacy 50.1 ml/min; Est GFR (African American) 98.4 ml/min; Est GFR (Non-African American) 84.9 ml/min; Potassium 3.1 mmol/L (3.5-5.1)
[2022-03-28] MEDS: CARBIDOPA/LEVODOPA 25/100MG TAB PO SCH ×2 (08:49→20:09)
[2022-03-28] MEDS: HYDROXYCHLOROQUINE SULFATE 200 MG TAB PO SCH (08:50)
--- NOTE | 2022-03-28 08:50 | XRay Report ---
XR KUB/Abdomen 1 view CLINICAL HISTORY: SBO TECHNIQUE: 1 view of the abdomen was obtained. Comparison: Comparison is made to abdomen radiograph 03/27/[address] abdomen pelvis 03/25/2022 FINDINGS: Enteric tube tip lies below the diaphragm, the side-port is above the diaphragm. Degenerative changes are seen in the visualized skeleton. Multiple gas-distended loops of small bowel are seen measuring up to 35 mm in diameter. Small stool burden is seen. IMPRESSION: 1. Enteric tube side-port lies below the diaphragm and could be advanced approximately 5 cm for impr russ positioning. 2. Distended loops of small bowel compatible with obstruction. ACT 112: Negative or not required by law. Electronically signed by: Jordan Kennedy M.D. 03/28/2022 8:49 AM
[2022-03-28] MEDS: POLYETHYLENE (MIRALAX) 17 GM PACK PO SCH (08:53)
--- NOTE | 2022-03-28 09:08 | Surgery Progress Note ---
Date of Service March 28, 2022 Assessment & Plan (1) Small bowel obstruction: Plan: She does not seem to have any meaningful return of bowel function, no signs of mesenteric ischemia on exam We will proceed with a small bowel follow-through today in the hopes that this will be therapeutic If operative intervention is to be entertained, will have to have a thorough discussion with the family about goals of care as she is severely malnourished and has significant aortoiliac occlusive disease at baseline Will follow up results of small bowel follow-through (2) Aortoiliac occlusive disease: Admission and Anticipated Discharge Date Admission Date: March 08, 2022 Subjective Patient seen and examined. No BMs. Afebrile. Vital signs of been stable. Review of Systems Constitutional: no fever and no chills Physical Exam Gastrointestinal (Abdomen): Inspection/Auscultation: abdomen not distended Percussion/Palpation: abdomen soft; abdomen nontender (appears) Results & Data ([facility]) Vital Signs (Past 12 Hours) Vital Signs Temp Pulse Resp BP BP Pulse Ox O2 Del Method 03/28/22 07:41 89 16 160/62 H 93 Room Air 03/27/22 21:40 Room Air 03/27/22 21:33 36.8 C 98 H 18 149/68 H 95 Room Air PG Care Time/CCT Total # of Minutes Spent Total Time Spent with Patient: Total time spent is greater than 50% in coordination of care (as documented) at patient's floor/unit and/or counseling patient: Coding Level of Care Code 91922 Subseq Hosp Care Lvl 1 Diagnoses Small bowel obstruction K56.609 Aortoiliac occlusive disease I74.09
[2022-03-28] MEDS: METOPROLOL TARTRATE 100 MG TAB PO SCH ×2 (09:16→20:09)
[2022-03-28] MEDS: NSS + 20MEQ KCL 20 MEQ/1,000 ML BAG IV SCH (12:36)
--- NOTE | 2022-03-28 14:23 | Fluoroscopy Report ---
[place] small bowel follow through CLINICAL HISTORY: Small bowel obstruction. Follow-up. COMPARISON STUDY: Abdomen and pelvis CT 03/25/2022. FLUOROSCOPY TIME: None.. FINDINGS: Presetter Operator images demonstrate the nasogastric tube within the stomach. Bibasilar densities/effus ions persist. There are old, healed left-sided rib fractures. Dilated gas-filled loops of small bowel again noted within the mid to lower abdomen. There is also gas within the nondistended colon. A tota l of 300 cc of dilute Optiray 320 and water were placed to the NG tube. Contrast is seen within the s tomach. The proximal small bowel is normal in caliber. The mid to distal small bowel is mildly disten ded. A few loops of the distal ileum are also decompressed. Contrast reached the cecum at 2 hours and 40 minutes. IMPRESSION: Dilated loops of mid to distal small bowel again noted. There are few decompressed distal loops of ileum. Contrast reached the cecum at 2 hours and 40 minutes. Therefore, these findings are consistent with a low-grade partial small bowel obstruction. ACT 112: Negative or not required by law. Electronically signed by: Mayur Ibarra M.D. 03/28/2022 2:21 PM
[2022-03-28] MEDS: LATANOPROST 0.005% OP SOLN 2.5 ML BTL OP SCH (20:09)
[2022-03-29] MEDS: PANTOprazole 40 MG in DEXTROSE 5% 100 ML IV SCH ×3 (00:11→10:20)
[2022-03-29] MEDS: NSS + 20MEQ KCL 20 MEQ/1,000 ML BAG IV SCH (01:01)
[2022-03-29 08:11] LABS: Hemoglobin 8.4 g/dl (12.0-16.0); Mean Corpuscular Hemoglobin 25.7 pg (25.0-34.0); Mean Corpuscular Hgb Conc 31.1 g/dL (32.0-36.0); Mean Corpuscular Volume 82.6 fL (80.0-100.0); Mean Platelet Volume 8.7 fL (9.4-12.3); Platelet Count 376 K/uL (130-400); RDW Coefficient of Variation 15.6 % (11.5-14.5); RDW Standard Deviation 47.5 fL (36.4-46.3); Red Blood Count 3.27 M/uL (3.93-5.22); White Blood Count 6.34 K/ul (4.8-10.8)
[2022-03-29] MEDS: HYDROXYCHLOROQUINE SULFATE 200 MG TAB PO SCH (08:18)
[2022-03-29] MEDS: METOPROLOL TARTRATE 100 MG TAB PO SCH ×2 (08:18→21:56)
[2022-03-29] MEDS: CARBIDOPA/LEVODOPA 25/100MG TAB PO SCH ×2 (08:18→21:55)
[2022-03-29] MEDS: POLYETHYLENE (MIRALAX) 17 GM PACK PO SCH (08:22)
[2022-03-29 08:31] LABS: INR 1.5 (0.9-1.1); Prothrombin Time 15.6 Seconds (9.0-12.0)
[2022-03-29 08:57] LABS: Albumin Level 2.6 gm/dl (3.4-5.0); BUN Creatinine Ratio 15.4 (10-20); Bilirubin Direct 0.1 mg/dl (0-0.2); Bilirubin,Total 0.5 mg/dl (0.2-1.0); Calcium 7.1 mg/dl (8.5-10.1); Est GFR (African American) 100.3 ml/min; Est GFR (Non-African American) 86.5 ml/min; Potassium 3.1 mmol/L (3.5-5.1); Total Protein 5.4 gm/dl (6.0-8.3)
--- NOTE | 2022-03-29 09:21 | Surgery Progress Note ---
Date of Service March 29, 2022 Assessment & Plan (1) Small bowel obstruction: Plan: Small bowel follow-through images and results personally viewed by myself, contrast within the colon She is tolerating clear liquids after her NG tube removal, will advance diet Will recommend keeping electrolytes within normal limits as her hypokalemia could certainly have contributed to slowing her bowel transit No plans for any surgical intervention, will sign off at this time please call with any questions or concerns Admission and Anticipated Discharge Date Admission Date: March 08, 2022 Subjective Patient seen and examined. Tolerating clear liquid diet. Has return of bowel function. No abdominal pain. Review of Systems Constitutional: no fever and no chills Physical Exam Constitutional: WD/WN, vitals as above Gastrointestinal (Abdomen): Soft, nontender, nondistended Results & Data ([facility]) Vital Signs (Past 12 Hours) Vital Signs Temp Pulse Resp BP Pulse Ox O2 Del Method 03/29/22 07:55 36.7 C 95 H 16 164/75 H 93 Room Air 03/29/22 07:55 Room Air 03/28/22 23:16 36.8 C 78 18 161/67 H 96 Room Air Diagnostic Findings [place] small bowel follow through CLINICAL HISTORY: Small bowel obstruction. Follow-up. COMPARISON STUDY: Abdomen and pelvis CT 03/25/2022. FLUOROSCOPY TIME: None.. FINDINGS: Senior Linux Systems Engineer images demonstrate the nasogastric tube within the stomach. Bibasilar densities/effusions persist. There are old, healed left-sided rib fractures. Dilated gas-filled loops of small bowel again noted within the mid to lower abdomen. There is also gas within the nondistended colon. A total of 300 cc of dilute Optiray 320 and water were placed to the NG tube. Contrast is seen within the stomach. The proximal small bowel is normal in caliber. The mid to distal small bowel is mildly distended. A few loops of the distal ileum are also decompressed. Contrast reached the cecum at 2 hours and 40 minutes. IMPRESSION: Dilated loops of mid to distal small bowel again noted. There are few decompressed distal loops of ileum. Contrast reached the cecum at 2 hours and 40 minutes. Therefore, these findings are consistent with a low-grade partial small bowel obstruction. PG Care Time/CCT Total # of Minutes Spent Total Time Spent with Patient: Total time spent is greater than 50% in coordination of care (as documented) at patient's floor/unit and/or counseling patient: Coding Level of Care Code 60987 Subseq Hosp Care Lvl 1 Diagnoses Small bowel obstruction K56.609
--- NOTE | 2022-03-29 09:45 | Hospitalist Progress Note ---
Date of Service March 28, 2022 Assessment & Plan (1) Unstageable pressure ulcer of sacral region: Plan: 86-year-old female past medical history significant for hypertension, hypothyroidism, hyperlipidemia, CKD stage III, prediabetes, rheumatoid arthritis, Parkinsonism with dementia and aphasia admitted for worsening sacral pressure ulcer for wound care and IV antibiotics. Sacral ulceration, cellulitis: No leukocytosis. CRP 16.38 on admission. - Wound culture growing Proteus penneri and E. faecalis; surgical culture growing Proventella bivia - continue on Augmentin for 7 days following surgical debridement [03/16] s/p Debridement of sacral ulcer. Sharp debridement, stage IV, down to bone - Wound VAC now in place from wound care nurse. - Turns q2h to offset sacral pressure. on 03/24 -Oxygen level worsened, and WBC increased. -Clinically patient apprears comfortable and similar to when she was last seen by me 5 days ago. -Patient will have inflammatory markers checked On recheck, lactic acid is elevated. IVF was given. Chest x ray showed clear lungs but dilated bowels. Ordered ct scan of abdomen and pelvis: 2. High-grade small bowel obstruction with a transition point seen in the left lower quadrant. This is likely on the basis of adhesions. Clinical correlation required and surgical assessment is advised. 3. There is trace interloop fluid. No intraperitoneal free air is seen. There is no pneumatosis intestinalis or portal venous gas. 4. 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 This represents a change from 10/04/2021. 5. There is reconstitution of flow at the iliac bifurcation on the left and in the distal external iliac artery on the right. 6. Small volume ascites. Consulted vascular surgery, and general surgery. \ 12 D/W vascular surgery no intervention required given high ris, and likely chronicity of thrombus. Patient tolerated NG tube placement from day prior, having moderate amount of GI content suctioned. Patient will continue on low intermittent suction. placed on IVF. Lactic acid improved, which is reassuring. LIkely means symptoms are more from SBO. 03/26 Hemoglobin dropped. NG tube suction had been stopped due to concern of GI bleed. May also be dilutional, though given positive fluid balance Will place on PPI drip for GI protection. Patient had a small amount of stool last evening. However, xray shows small bowel obstruction. Will closely monitor hemoglobin. As INR was elevated, ordered vitamin K. updated family. may need consent for transfusion if blood count continues to drop. 03/27 Hemoglobin has been stable. INR normaiized. Will hold off wafarin for now and monitor patient's hemoglobin. continue NG tube on intermittent suction 03/28 Patient tolerated small bowel follow through. Now having multiple bowel movements, some stools even with food particles, despite being NPO for days. Will place on clear liquids and remove NG tube. and will monitor. (2) COVID-19: Plan: COVID positive on admission 03/07. Vaccination status: Fully vaccinated and boosted. CRP: 16.38, in the setting of sacral wound/infection. Dexamethasone not indicated at this time as patient is not hypoxic. Remdesivir: Not indicated, not hypoxic and with CKD. Baricitinib: Not indicated. Fevers now resolved - now off precautions. Completed 10 days on isolation. (3) Functional quadriplegia: Plan: - Functional quadriplegia in the setting of bed bound, Parkinsonism - Cared for by her and her daughter. (4) HTN (hypertension): Plan: Continue metoprolol (on nebivolol at home). BPs controlled, has some ectopy on exam With tachycardia as well--> increase metoprolol to 100 mg po bid (5) Anemia: Plan: In the setting of CKD, anemia of chronic disease Iron studies suggestive of iron deficiency anemia. I suspect the ferritin is normal as an acute inflammatory reactant. - tried calling daughter today to discuss iron transfusions but no answer on number provided. - repeat CBC with AM labs (6) Parkinsonism: Plan: Continue carbidopa levodopa 25-100 mg half tablet p.o. twice daily. - Baseline function is unable to speak, bedbound and caregiver dependent. With significant rigidity on exam. Follows with [facility] (7) Hypothyroidism: Plan: - Continue home levothyroxine. TSH normal in 12/2021 (8) Rheumatoid arthritis without rheumatoid factor, multiple sites: Plan: Hydroxychloroquine restarted today to avoid worsening rheumatoid arthritis which may be devastating for her (9) CKD (chronic kidney disease), stage III: Plan: - Baseline creatinine ~0.8, at baseline this admission. - Avoid nephrotoxins. - Renally dose meds (10) Small bowel obstruction: Plan: as above. Plan DVT prophylaxis: hold warfarin. Diet: Continue regular minced and moist diet with multivitamin to assist with wound healing and calorie consumption to minimize weight loss in hospital Disposition: continued stay Medical/surgical, medically stable awaiting placement. CODE STATUS: DNR/DNI confirmed with Daughter Admission and Anticipated Discharge Date Admission Date: March 08, 2022 Subjective Patient appears comfortable. Patient had NG tube removed, has been having multiple bowel movements since small bowel folow through study. Nurse reports some stools had formed food like carrots and peas. Review of Systems Review of Systems: All systems reviewed & are unremarkable except as noted in HPI & below Physical Exam Physical Exam: Constitutional: WD/WN, vitals as above Eyes: + anicteric sclerae Neck: trachea midline, no thyromegaly Respiratory: normal respiratory effort, lungs clear to auscultation Cardiovascular: RRR, no murmur, no edema (with some ectopy) Chest (Breasts): Chest: normal inspection of chest Gastrointestinal (Abdomen): normal bowel sounds, soft, nontender, no hepatosplenomegaly Musculoskeletal: Extremities: extremities normal to inspection; no cyanosis and no clubbing Skin: no rashes, warm and dry (sacral wound not examined) Psychiatric: Orientation: alert; + not oriented x 3 Lymphatic: no lymphedema Results & Data Results & Data ([facility]) Vital Signs (Past 12 Hours) Vital Signs Temp Pulse Resp BP Pulse Ox O2 Del Method 03/29/22 07:55 36.7 C 95 H 16 164/75 H 93 Room Air 03/29/22 07:55 Room Air 03/28/22 23:16 36.8 C 78 18 161/67 H 96 Room Air PG Care Time/CCT Total # of Minutes Spent Total Time Spent with Patient: Total time spent is greater than 50% in coordination of care (as documented) at patient's floor/unit and/or counseling patient: Coding Level of Care Code 78389 Subseq Hosp Care Lvl 2 Diagnoses Unstageable pressure ulcer of sacral region L89.150 COVID-19 U07.1 Functional quadriplegia R53.2 HTN (hypertension) I10 Hypertension type: essential hypertension Anemia D64.9 Anemia type: unspecified type Parkinsonism G20 Hypothyroidism E03.9 Hypothyroidism type: acquired Rheumatoid arthritis without rheumatoid factor, multiple sites M06.09 CKD (chronic kidney disease), stage III N18.3 Small bowel obstruction K56.609 Time Spent (min) 25 (1) HTN (hypertension) Hypertension type: essential hypertension Qualified Code(s): I10 - Essential (primary) hypertension (2) Anemia Anemia type: unspecified type Qualified Code(s): D64.9 - Anemia, unspecified (3) Hypothyroidism Hypothyroidism type: acquired Qualified Code(s): E03.9 - Hypothyroidism, unspecified
[2022-03-29] MEDS ORDERED: CALCIUM GLUCONATE 10% 1,000 MG in DEXTROSE 5% 50 ML IV ONE (09:50)
[2022-03-29] MEDS ORDERED: STAT IV STA (09:50)
[2022-03-29] MEDS ORDERED: POTASSIUM CHLORIDE / WTR 10 MEQ/100 ML PLCT IV SCH (10:00)
[2022-03-29] MEDS: MAGNESIUM SULFATE / D5W 1 GM/100 ML BAG IV SCH ×2 (10:44→12:24)
[2022-03-29 10:52] LABS: Magnesium 1.7 mg/dl (1.7-2.4); Phosphorus 1.7 mg/dl (2.5-4.9)
[2022-03-29] MEDS ORDERED: POTASSIUM PHOS 3 MMOL/1 ML INFUSION IV STA (11:34)
[2022-03-29] MEDS: POTASSIUM CHLORIDE 20 MEQ/15 ML UDC PO SCH ×2 (11:50→13:12)
[2022-03-29] MEDS ORDERED: POTASSIUM PHOSPHATE 30 MMOL in SODIUM CHLORIDE 0.9% 500 ML IV ONE (12:00)
--- NOTE | 2022-03-29 20:12 | Hospitalist Progress Note ---
Date of Service March 29, 2022 Assessment & Plan (1) Unstageable pressure ulcer of sacral region: Plan: 86-year-old female past medical history significant for hypertension, hypothyroidism, hyperlipidemia, CKD stage III, prediabetes, rheumatoid arthritis, Parkinsonism with dementia and aphasia admitted for worsening sacral pressure ulcer for wound care and IV antibiotics. Sacral ulceration, cellulitis: No leukocytosis. CRP 16.38 on admission. - Wound culture growing Proteus penneri and E. faecalis; surgical culture growing Proventella bivia - continue on Augmentin for 7 days following surgical debridement [03/16] s/p Debridement of sacral ulcer. Sharp debridement, stage IV, down to bone - Wound VAC now in place from wound care nurse. - Turns q2h to offset sacral pressure. on 03/24 -Oxygen level worsened, and WBC increased. -Clinically patient apprears comfortable and similar to when she was last seen by me 5 days ago. -Patient will have inflammatory markers checked On recheck, lactic acid is elevated. IVF was given. Chest x ray showed clear lungs but dilated bowels. Ordered ct scan of abdomen and pelvis: 2. High-grade small bowel obstruction with a transition point seen in the left lower quadrant. This is likely on the basis of adhesions. Clinical correlation required and surgical assessment is advised. 3. There is trace interloop fluid. No intraperitoneal free air is seen. There is no pneumatosis intestinalis or portal venous gas. 4. 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 This represents a change from 10/04/2021. 5. There is reconstitution of flow at the iliac bifurcation on the left and in the distal external iliac artery on the right. 6. Small volume ascites. Consulted vascular surgery, and general surgery. \ 12 D/W vascular surgery no intervention required given high ris, and likely chronicity of thrombus. Patient tolerated NG tube placement from day prior, having moderate amount of GI content suctioned. Patient will continue on low intermittent suction. placed on IVF. Lactic acid improved, which is reassuring. LIkely means symptoms are more from SBO. 03/26 Hemoglobin dropped. NG tube suction had been stopped due to concern of GI bleed. May also be dilutional, though given positive fluid balance Will place on PPI drip for GI protection. Patient had a small amount of stool last evening. However, xray shows small bowel obstruction. Will closely monitor hemoglobin. As INR was elevated, ordered vitamin K. updated family. may need consent for transfusion if blood count continues to drop. 03/27 Hemoglobin has been stable. INR normaiized. Will hold off wafarin for now and monitor patient's hemoglobin. continue NG tube on intermittent suction 03/28 Patient tolerated small bowel follow through. Now having multiple bowel movements, some stools even with food particles, despite being NPO for days. Will place on clear liquids and remove NG tube. and will monitor. 03/29 Patient's diet has been advanced. Patient appears to be tolerating this. Will monitor electrolytes, and replace. Concerned that this could be due to adhesions and may return. Will continue conservative management. (2) COVID-19: Plan: COVID positive on admission 03/07. Vaccination status: Fully vaccinated and boosted. CRP: 16.38, in the setting of sacral wound/infection. Dexamethasone not indicated at this time as patient is not hypoxic. Remdesivir: Not indicated, not hypoxic and with CKD. Baricitinib: Not indicated. Fevers now resolved - now off precautions. Completed 10 days on isolation. (3) Functional quadriplegia: Plan: - Functional quadriplegia in the setting of bed bound, Parkinsonism - Cared for by her and her daughter. (4) HTN (hypertension): Plan: Continue metoprolol (on nebivolol at home). BPs controlled, has some ectopy on exam With tachycardia as well--> increase metoprolol to 100 mg po bid (5) Anemia: Plan: In the setting of CKD, anemia of chronic disease Iron studies suggestive of iron deficiency anemia. I suspect the ferritin is normal as an acute inflammatory reactant. - tried calling daughter today to discuss iron transfusions but no answer on number provided. - cbc is stable (6) Parkinsonism: Plan: Continue carbidopa levodopa 25-100 mg half tablet p.o. twice daily. - Baseline function is unable to speak, bedbound and caregiver dependent. With significant rigidity on exam. Follows with [facility] (7) Hypothyroidism: Plan: - Continue home levothyroxine. TSH normal in 12/2021 (8) Rheumatoid arthritis without rheumatoid factor, multiple sites: Plan: Hydroxychloroquine restarted today to avoid worsening rheumatoid arthritis which may be devastating for her (9) CKD (chronic kidney disease), stage III: Plan: - Baseline creatinine ~0.8, at baseline this admission. - Avoid nephrotoxins. - Renally dose meds (10) Small bowel obstruction: Plan: as above. Plan DVT prophylaxis: hold warfarin. Diet: Continue regular minced and moist diet with multivitamin to assist with wound healing and calorie consumption to minimize weight loss in hospital Disposition: continued stay Medical/surgical, medically stable awaiting placement. CODE STATUS: DNR/DNI confirmed with Daughter Admission and Anticipated Discharge Date Admission Date: March 08, 2022 Subjective 86 yo female is unable to provide history, She appears comfortable. Review of Systems Review of Systems: All systems reviewed & are unremarkable except as noted in HPI & below Physical Exam Physical Exam: Constitutional: WD/WN, vitals as above Eyes: + anicteric sclerae Neck: trachea midline, no thyromegaly Respiratory: normal respiratory effort, lungs clear to auscultation Cardiovascular: RRR, no murmur, no edema (with some ectopy) Chest (Breasts): Chest: normal inspection of chest Gastrointestinal (Abdomen): normal bowel sounds, soft, nontender, no hepatosplenomegaly Musculoskeletal: Extremities: extremities normal to inspection; no cyanosis and no clubbing Skin: no rashes, warm and dry (sacral wound not examined) Psychiatric: Orientation: alert; + not oriented x 3 Lymphatic: no lymphedema Results & Data Results & Data ([facility]) Vital Signs (Past 12 Hours) Vital Signs Temp Pulse Resp BP Pulse Ox O2 Del Method 03/29/22 15:35 36.7 C 85 16 127/71 93 Room Air PG Care Time/CCT Total # of Minutes Spent Total Time Spent with Patient: Total time spent is greater than 50% in coordination of care (as documented) at patient's floor/unit and/or counseling patient: Coding Level of Care Code 85496 Subseq Hosp Care Lvl 2 Diagnoses Unstageable pressure ulcer of sacral region L89.150 COVID-19 U07.1 Functional quadriplegia R53.2 HTN (hypertension) I10 Hypertension type: essential hypertension Anemia D64.9 Anemia type: unspecified type Parkinsonism G20 Hypothyroidism E03.9 Hypothyroidism type: acquired Rheumatoid arthritis without rheumatoid factor, multiple sites M06.09 CKD (chronic kidney disease), stage III N18.3 Small bowel obstruction K56.609 Time Spent (min) 25 Comment updated family (1) Anemia Anemia type: unspecified type Qualified Code(s): D64.9 - Anemia, unspecified (2) Hypothyroidism Hypothyroidism type: acquired Qualified Code(s): E03.9 - Hypothyroidism, unspecified (3) HTN (hypertension) Hypertension type: essential hypertension Qualified Code(s): I10 - Essential (primary) hypertension
[2022-03-29] MEDS: PANTOprazole 40 MG TAB PO SCH (21:55)
[2022-03-29] MEDS: LATANOPROST 0.005% OP SOLN 2.5 ML BTL OP SCH (21:56)
[2022-03-30 06:49] LABS: Hematocrit (blood only) 27.1 % (34.1-44.9); Hemoglobin 8.5 g/dl (12.0-16.0); Mean Corpuscular Hemoglobin 25.6 pg (25.0-34.0); Mean Corpuscular Hgb Conc 31.4 g/dL (32.0-36.0); Mean Corpuscular Volume 81.6 fL (80.0-100.0); Mean Platelet Volume 9.2 fL (9.4-12.3); Platelet Count 416 K/uL (130-400); RDW Coefficient of Variation 15.8 % (11.5-14.5); Red Blood Count 3.32 M/uL (3.93-5.22); White Blood Count 6.59 K/ul (4.8-10.8)
[2022-03-30 07:21] LABS: BUN Creatinine Ratio 10.9 (10-20); Calcium 7.4 mg/dl (8.5-10.1); Creatinine Clr Calc Pharmacy 50.1 ml/min; Est GFR (African American) 98.4 ml/min; Est GFR (Non-African American) 84.9 ml/min; Magnesium 1.8 mg/dl (1.7-2.4); Phosphorus 2.7 mg/dl (2.5-4.9); Potassium 3.6 mmol/L (3.5-5.1)
[2022-03-30 07:50] LABS: INR 1.9 (0.9-1.1); Prothrombin Time 19.5 Seconds (9.0-12.0)
[2022-03-30] MEDS: HYDROXYCHLOROQUINE SULFATE 200 MG TAB PO SCH (08:43)
[2022-03-30] MEDS: POLYETHYLENE (MIRALAX) 17 GM PACK PO SCH (08:43)
[2022-03-30] MEDS: METOPROLOL TARTRATE 100 MG TAB PO SCH ×2 (08:43→20:28)
[2022-03-30] MEDS: PANTOprazole 40 MG TAB PO SCH ×2 (08:43→20:27)
[2022-03-30] MEDS: CARBIDOPA/LEVODOPA 25/100MG TAB PO SCH ×2 (08:43→20:27)
[2022-03-30] MEDS: LEVOTHYROXINE SODIUM 37.5 MCG in SYRINGE 0 ML IV SCH (09:49)
[2022-03-30] MEDS: LATANOPROST 0.005% OP SOLN 2.5 ML BTL OP SCH (20:28)
--- NOTE | 2022-03-30 21:19 | Hospitalist Progress Note ---
Date of Service March 30, 2022 Assessment & Plan (1) Unstageable pressure ulcer of sacral region: Plan: 86-year-old female past medical history significant for hypertension, hypothyroidism, hyperlipidemia, CKD stage III, prediabetes, rheumatoid arthritis, Parkinsonism with dementia and aphasia admitted for worsening sacral pressure ulcer for wound care and IV antibiotics. Sacral ulceration, cellulitis: No leukocytosis. CRP 16.38 on admission. - Wound culture growing Proteus penneri and E. faecalis; surgical culture growing Proventella bivia - continue on Augmentin for 7 days following surgical debridement [03/16] s/p Debridement of sacral ulcer. Sharp debridement, stage IV, down to bone - Wound VAC now in place from wound care nurse. - Turns q2h to offset sacral pressure. on 03/24 -Oxygen level worsened, and WBC increased. -Clinically patient apprears comfortable and similar to when she was last seen by me 5 days ago. -Patient will have inflammatory markers checked On recheck, lactic acid is elevated. IVF was given. Chest x ray showed clear lungs but dilated bowels. Ordered ct scan of abdomen and pelvis: 2. High-grade small bowel obstruction with a transition point seen in the left lower quadrant. This is likely on the basis of adhesions. Clinical correlation required and surgical assessment is advised. 3. There is trace interloop fluid. No intraperitoneal free air is seen. There is no pneumatosis intestinalis or portal venous gas. 4. 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 This represents a change from 10/04/2021. 5. There is reconstitution of flow at the iliac bifurcation on the left and in the distal external iliac artery on the right. 6. Small volume ascites. Consulted vascular surgery, and general surgery. 03/25 D/W vascular surgery no intervention required given high ris, and likely chronicity of thrombus. Patient tolerated NG tube placement from day prior, having moderate amount of GI content suctioned. Patient will continue on low intermittent suction. placed on IVF. Lactic acid improved, which is reassuring. LIkely means symptoms are more from SBO. 03/26 Hemoglobin dropped. NG tube suction had been stopped due to concern of GI bleed. May also be dilutional, though given positive fluid balance Will place on PPI drip for GI protection. Patient had a small amount of stool last evening. However, xray shows small bowel obstruction. Will closely monitor hemoglobin. As INR was elevated, ordered vitamin K. updated family. may need consent for transfusion if blood count continues to drop. 03/27 Hemoglobin has been stable. INR normaiized. Will hold off wafarin for now and monitor patient's hemoglobin. continue NG tube on intermittent suction 03/28 Patient tolerated small bowel follow through. Now having multiple bowel movements, some stools even with food particles, despite being NPO for days. Will place on clear liquids and remove NG tube. and will monitor. 03/29 Patient's diet has been advanced. Patient appears to be tolerating this. Will monitor electrolytes, and replace. Concerned that this could be due to adhesions and may return. Will continue conservative management. 03/30 Patient is again ready for discharge medically, however disposition changed and will need to held for a day as CM works on getting patient home. This previous week, her discharge was held as she developed a SBO that was treated conservatively (NG tube for close to 5 days and SB follow through). She is now having bowel movements and is tolerating a low residue diet. Daughter will like patient to no longer go to a SNF as patient's is home on hospice. information systems security manager is setting up the wound vac for her decubitus ulcer. Her electrolytes were repleted, potassium, phos and mag Patient had hypomagnesemia, hypopotassemia, and hypophosphatemia (2) COVID-19: Plan: COVID positive on admission 03/07. Vaccination status: Fully vaccinated and boosted. CRP: 16.38, in the setting of sacral wound/infection. Dexamethasone not indicated at this time as patient is not hypoxic. Remdesivir: Not indicated, not hypoxic and with CKD. Baricitinib: Not indicated. Fevers now resolved - now off precautions. Completed 10 days on isolation. (3) Functional quadriplegia: Plan: - Functional quadriplegia in the setting of bed bound, Parkinsonism - Cared for by her and her daughter. (4) HTN (hypertension): Plan: Continue metoprolol (on nebivolol at home). BPs controlled, has some ectopy on exam HR is controlled (5) Anemia: Plan: In the setting of CKD, anemia of chronic disease Iron studies suggestive of iron deficiency anemia. I suspect the ferritin is normal as an acute inflammatory reactant. - cbc is stable -will hold warfarin in the short term, she completed 6 months of treatment for DVT. will defer to Lumadue. (6) Parkinsonism: Plan: Continue carbidopa levodopa 25-100 mg half tablet p.o. twice daily. - Baseline function is unable to speak, bedbound and caregiver dependent. With significant rigidity on exam. Follows with [facility] (7) Hypothyroidism: Plan: - Continue home levothyroxine. TSH normal in 12/2021 (8) Rheumatoid arthritis without rheumatoid factor, multiple sites: Plan: Hydroxychloroquine restarted today to avoid worsening rheumatoid arthritis which may be devastating for her (9) CKD (chronic kidney disease), stage III: Plan: - Baseline creatinine ~0.8, at baseline this admission. - Avoid nephrotoxins. - Renally dose meds (10) Small bowel obstruction: Plan: as above. Plan DVT prophylaxis: hold warfarin. Diet: Continue regular minced and moist diet with multivitamin to assist with wound healing and calorie consumption to minimize weight loss in hospital CODE STATUS: DNR/DNI confirmed with Daughter Admission and Anticipated Discharge Date Admission Date: March 08, 2022 Subjective 86 yo female appears comfortable, only hums. Review of Systems Review of Systems: All systems reviewed & are unremarkable except as noted in HPI & below Physical Exam Physical Exam: Constitutional: WD/WN, vitals as above Eyes: + anicteric sclerae Neck: trachea midline, no thyromegaly Respiratory: normal respiratory effort, lungs clear to auscultation Cardiovascular: RRR, no murmur, no edema (with some ectopy) Chest (Breasts): Chest: normal inspection of chest Gastrointestinal (Abdomen): normal bowel sounds, soft, nontender, no hepatosplenomegaly Musculoskeletal: Extremities: extremities normal to inspection; no cyanosis and no clubbing Skin: no rashes, warm and dry (sacral wound not examined) Psychiatric: Orientation: alert; + not oriented x 3 Lymphatic: no lymphedema Results & Data Results & Data ([facility]) Vital Signs (Past 12 Hours) Vital Signs Temp Pulse Pulse Resp BP BP Pulse Ox 03/30/22 20:34 36.9 C 99 H 18 117/66 92 03/30/22 16:21 36.9 C 95 H 20 131/69 94 03/30/22 15:04 36.3 C L 100 H 22 133/76 92 03/30/22 12:25 36.4 C L 86 18 138/73 97 O2 Del Method 03/30/22 20:34 Room Air 03/30/22 16:21 Room Air 03/30/22 15:04 Room Air 03/30/22 12:25 Room Air PG Care Time/CCT Total # of Minutes Spent Total Time Spent with Patient: Total time spent is greater than 50% in coordination of care (as documented) at patient's floor/unit and/or counseling patient: Coding Level of Care Code 73961 Subseq Hosp Care Lvl 3 Diagnoses Unstageable pressure ulcer of sacral region L89.150 COVID-19 U07.1 Functional quadriplegia R53.2 HTN (hypertension) I10 Hypertension type: essential hypertension Anemia D64.9 Anemia type: unspecified type Parkinsonism G20 Hypothyroidism E03.9 Hypothyroidism type: acquired Rheumatoid arthritis without rheumatoid factor, multiple sites M06.09 CKD (chronic kidney disease), stage III N18.3 Small bowel obstruction K56.609 Time Spent (min) 35 (1) Anemia Anemia type: unspecified type Qualified Code(s): D64.9 - Anemia, unspecified (2) Hypothyroidism Hypothyroidism type: acquired Qualified Code(s): E03.9 - Hypothyroidism, unspecified (3) HTN (hypertension) Hypertension type: essential hypertension Qualified Code(s): I10 - Essential (primary) hypertension
[2022-03-31 06:57] LABS: INR 1.4 (0.9-1.1); Prothrombin Time 14.6 Seconds (9.0-12.0)
[2022-03-31 08:08] LABS: Hematocrit (blood only) 26.8 % (34.1-44.9); Hemoglobin 8.4 g/dl (12.0-16.0); Mean Corpuscular Hemoglobin 25.5 pg (25.0-34.0); Mean Corpuscular Hgb Conc 31.3 g/dL (32.0-36.0); Mean Corpuscular Volume 81.5 fL (80.0-100.0); Mean Platelet Volume 9.9 fL (9.4-12.3); Platelet Count 394 K/uL (130-400); RDW Coefficient of Variation 16.4 % (11.5-14.5); Red Blood Count 3.29 M/uL (3.93-5.22); White Blood Count 7.02 K/ul (4.8-10.8)
[2022-03-31 08:31] LABS: Calcium 7.5 mg/dl (8.5-10.1); Creatinine Clr Calc Pharmacy 44.4 ml/min; Est GFR (African American) 94.6 ml/min; Est GFR (Non-African American) 81.6 ml/min; Magnesium 1.5 mg/dl (1.7-2.4); Phosphorus 2.8 mg/dl (2.5-4.9); Potassium 3.7 mmol/L (3.5-5.1)
[2022-03-31] MEDS: METOPROLOL TARTRATE 100 MG TAB PO SCH ×2 (09:00→20:03)
[2022-03-31] MEDS: PANTOprazole 40 MG TAB PO SCH ×2 (09:00→20:02)
[2022-03-31] MEDS: HYDROXYCHLOROQUINE SULFATE 200 MG TAB PO SCH (09:02)
[2022-03-31] MEDS: CARBIDOPA/LEVODOPA 25/100MG TAB PO SCH ×2 (09:03→20:02)
[2022-03-31] MEDS: POLYETHYLENE (MIRALAX) 17 GM PACK PO SCH (09:08)
[2022-03-31] MEDS: LATANOPROST 0.005% OP SOLN 2.5 ML BTL OP SCH (20:03)
--- NOTE | 2022-03-31 20:30 | Hospitalist Progress Note ---
Date of Service March 31, 2022 Assessment & Plan (1) Unstageable pressure ulcer of sacral region: Plan: 86-year-old female past medical history significant for hypertension, hypothyroidism, hyperlipidemia, CKD stage III, prediabetes, rheumatoid arthritis, Parkinsonism with dementia and aphasia admitted for worsening sacral pressure ulcer for wound care and IV antibiotics. Sacral ulceration, cellulitis: No leukocytosis. CRP 16.38 on admission. - Wound culture growing Proteus penneri and E. faecalis; surgical culture growing Proventella bivia -completed Augmentin for 7 days following surgical debridement [03/16] s/p Debridement of sacral ulcer. Sharp debridement, stage IV, down to bone - Wound VAC now in place from wound care nurse. on 03/24 -Oxygen level worsened, and WBC increased. -Clinically patient apprears comfortable and similar to when she was last seen by me 5 days ago. -Patient will have inflammatory markers checked On recheck, lactic acid is elevated. IVF was given. Chest x ray showed clear lungs but dilated bowels. Ordered ct scan of abdomen and pelvis: 2. High-grade small bowel obstruction with a transition point seen in the left lower quadrant. This is likely on the basis of adhesions. Clinical correlation required and surgical assessment is advised. 3. There is trace interloop fluid. No intraperitoneal free air is seen. There is no pneumatosis intestinalis or portal venous gas. 4. 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 This represents a change from 10/04/2021. 5. There is reconstitution of flow at the iliac bifurcation on the left and in the distal external iliac artery on the right. 6. Small volume ascites. Consulted vascular surgery, and general surgery. 03/25 D/W vascular surgery no intervention required given high ris, and likely chronicity of thrombus. Patient tolerated NG tube placement from day prior, having moderate amount of GI content suctioned. Patient will continue on low intermittent suction. placed on IVF. Lactic acid improved, which is reassuring. LIkely means symptoms are more from SBO. 03/26 Hemoglobin dropped. NG tube suction had been stopped due to concern of GI bleed. May also be dilutional, though given positive fluid balance Will place on PPI drip for GI protection. Patient had a small amount of stool last evening. However, xray shows small bowel obstruction. Will closely monitor hemoglobin. As INR was elevated, ordered vitamin K. updated family. may need consent for transfusion if blood count continues to drop. 03/27 Hemoglobin has been stable. INR normaiized. Will hold off wafarin for now and monitor patient's hemoglobin. continue NG tube on intermittent suction 03/28 Patient tolerated small bowel follow through. Now having multiple bowel movements, some stools even with food particles, despite being NPO for days. Will place on clear liquids and remove NG tube. and will monitor. 03/29 Patient's diet has been advanced. Patient appears to be tolerating this. Will monitor electrolytes, and replace. Concerned that this could be due to adhesions and may return. Will continue conservative management. 03/30 and 03/31 Patient is again ready for discharge medically-to home tomorrow This previous week, her discharge was held as she developed a SBO that was treated conservatively (NG tube for close to 5 days and SB follow through). She is now having bowel movements and is tolerating a low residue diet. Daughter will like patient to no longer go to a SNF as patient's is home on hospice. administrative assistant office manager is setting up the wound vac for her decubitus ulcer. Her electrolytes were repleted, potassium, phos and mag Patient had hypomagnesemia, hypopotassemia, and hypophosphatemia Mg 1.6 today 03/31 -Acceptablehigh magnesium foods (2) COVID-19: Plan: COVID positive on admission 03/07. Vaccination status: Fully vaccinated and boosted. CRP: 16.38, in the setting of sacral wound/infection. Dexamethasone not indicated at this time as patient is not hypoxic. Remdesivir: Not indicated, not hypoxic and with CKD. Baricitinib: Not indicated. Fevers now resolved - now off precautions. Completed 10 days on isolation. (3) Functional quadriplegia: Plan: - Functional quadriplegia in the setting of bed bound, Parkinsonism - Cared for by her and her daughter. (4) HTN (hypertension): Plan: Continue metoprolol (on nebivolol at home). BPs controlled, has some ectopy on exam HR is controlled (5) Anemia: Plan: In the setting of CKD, anemia of chronic disease Iron studies suggestive of iron deficiency anemia. I suspect the ferritin is normal as an acute inflammatory reactant. - cbc is stable -will hold warfarin in the short term, she completed 6 months of treatment for DVT. (6) Parkinsonism: Plan: Continue carbidopa levodopa 25-100 mg half tablet p.o. twice daily. - Baseline function is unable to speak, bedbound and caregiver dependent. With significant rigidity on exam. Follows with [facility] (7) Hypothyroidism: Plan: - Continue home levothyroxine. TSH normal in 12/2021 (8) Rheumatoid arthritis without rheumatoid factor, multiple sites: Plan: Hydroxychloroquine restared to avoid worsening rheumatoid arthritis which may be devastating for her (9) CKD (chronic kidney disease), stage III: Plan: - Baseline creatinine ~0.8, at baseline this admission. - Avoid nephrotoxins. - Renally dose meds (10) Small bowel obstruction: Plan: Resolved Plan DVT prophylaxis: hold warfarin. Diet: Continue regular minced and moist diet with multivitamin to assist with wound healing and calorie consumption to minimize weight loss in hospital CODE STATUS: DNR/DNI confirmed with Daughter Admission and Anticipated Discharge Date Admission Date: March 08, 2022 Subjective Seen at 1025 hrs. The patient makes eye contact but does not talk. Nursing report that sacral wound VAC in place and was seen by wound care yesterday. Seems comfortable Physical Exam Physical Exam: Emaciated elderly lady, does not answer questions except for a faint yes at 1 point. Edentulous, moist tongue, No thyromegaly Chest clear to auscultation CVS S1-S2 BOX [employer]IVER exam not possible Skin exam deferred as wound VAC in place and wound management follow Results & Data Results & Data ([facility]) Vital Signs (Past 12 Hours) Vital Signs Temp Pulse Resp BP BP Pulse Ox O2 Del Method 03/31/22 20:00 36.8 C 95 H 16 123/78 94 Room Air 03/31/22 14:56 37.1 C 86 18 124/71 98 Room Air 03/31/22 08:25 Room Air Laboratory Results Abnormal lab results 03/31/22 03/31/22 03/31/22 Range/Units 06:12 06:18 06:18 RBC 3.29 L (3.93-5.22) M/uL Hgb 8.4 L (12.0-16.0) g/dl Hct 26.8 L (34.1-44.9) % MCHC 31.3 L (32.0-36.0) g/dL RDW Std Deviation 48.0 H (36.4-46.3) fL RDW Coeff of Meryl 16.4 H (11.5-14.5) % PT 14.6 H (9.0-12.0) Seconds INR 1.4 H (0.9-1.1) BUN/Creatinine Ratio 21.0 H (10-20) Glucose 101 H (70-99(Fasting)) mg/dl Calcium 7.5 L (8.5-10.1) mg/dl Magnesium 1.5 L (1.7-2.4) mg/dl Medications Administered Home Medications Medication Instructions Recorded Confirmed Last Taken calcium carbonate 600 mg-vitamin 1 tab PO HS 01/26/19 03/07/22 10/03/21 D3 5 mcg (200 unit) tablet hydroxychloroquine 200 mg tablet 200 mg PO QAM 02/03/20 03/07/22 10/04/21 multivitamin 1 tab PO QAM 08/31/20 03/07/22 10/04/21 latanoprost 0.005 % eye drops 1 drp ophthalmic (eye) QPM 01/05/21 03/07/22 10/03/21 cyanocobalamin (vitamin B-12) 1,000 mcg PO QAM 10/04/21 03/07/22 10/04/21 1,000 mcg capsule levothyroxine 50 mcg tablet 50 mcg PO QAM 10/04/21 03/07/22 10/04/21 (Synthroid) warfarin 3 mg tablet 3 mg PO DAILY@1600 #90 tabs 11/08/21 03/07/22 Unknown nebivolol 10 mg tablet (Bystolic) 10 mg PO QAM #10 tabs 12/03/21 03/07/22 Unknown ascorbic acid (vitamin C) 1,000 mg 1 g PO DAILY 01/06/22 03/07/22 Unknown capsule carbidopa 25 mg-levodopa 100 mg 0.5 tab PO BID 30 days #30 tabs 01/20/22 03/07/22 Unknown tablet (Sinemet) warfarin 1 mg tablet See Rx Instructions PO .COMPLEX 02/24/22 03/07/22 Unknown #90 tabs Active Medications Generic Name Dose Route Start Last Admin Trade Name Freq PRN Reason Stop Dose Admin Acetaminophen 650 mg 03/07/22 20:27 03/21/22 20:58 Acetaminophen 325 Mg Tab PO 04/06/22 20:26 650 mg Q4H PRN Administration pain/fever Ascorbic Acid 1,000 mg 03/13/22 09:00 03/24/22 09:18 Ascorbic Acid 500 Mg Tab PO 04/12/22 08:59 1,000 mg DAILY SUDHA Administration Calcium Carbonate 1,250 mg 03/12/22 21:00 03/23/22 21:15 Calcium Carbonate 1250mg Tab PO 04/11/22 20:59 1,250 mg HS SUDHA Administration Carbidopa/Levodopa 0.5 tab 03/07/22 21:00 03/31/22 20:02 Carbidopa/Levodopa 25/100mg Tab PO 04/06/22 20:59 0.5 tab BID SUDHA Administration Cyanocobalamin 1,000 mcg 03/13/22 09:00 03/24/22 09:20 Cyanocobalamin (B-12) 500 Mcg Tablet PO 04/12/22 08:59 1,000 mcg QAM SUDHA Administration Ferrous Sulfate 325 mg 03/09/22 12:00 03/24/22 13:27 Ferrous Sulfate 325 Mg Tab PO 04/08/22 11:59 Not Given DAILY@1200 SUDHA Hydroxychloroquine Sulfate 200 mg 03/21/22 09:00 03/31/22 09:02 Hydroxychloroquine Sulfate 200 Mg Tab PO 04/20/22 08:59 200 mg QAM SUDHA Administration Potassium Chloride/Sodium Chloride 20 meq in 1,000 mls @ 75 mls/hr 03/28/22 12:00 03/29/22 22:08 Normal Saline W/20 Meq Kcl IV 04/27/22 11:59 Infused .[id number] SUDHA Infusion Protocol Latanoprost 1 drops 03/12/22 21:00 03/31/22 20:03 Latanoprost 0.005% Op Soln 2.5 Ml Btl OP 04/11/22 20:59 1 drops QPM SUDHA Administration Metoprolol Tartrate 100 mg 03/23/22 21:00 03/31/22 20:03 Metoprolol Tartrate 100 Mg Tab PO 04/22/22 20:59 100 mg BID SUDHA Administration Protocol Multivitamins 1 tab 03/10/22 09:00 03/24/22 09:24 Multivitamin Tab PO 04/09/22 08:59 1 tab QAM SUDHA Administration Pantoprazole Sodium 40 mg 03/29/22 21:00 03/31/22 20:02 Pantoprazole 40 Mg Tab PO 04/28/22 20:59 40 mg BID SUDHA Administration Polyethylene Glycol 17 gm 03/18/22 12:30 03/31/22 09:08 Polyethylene (Miralax) 17 Gm Pack PO 04/17/22 12:29 17 gm DAILY SUDHA Administration Warfarin Sodium 10 mg 03/23/22 16:00 03/23/22 17:41 Warfarin Sod 10 Mg Tab PO 04/22/22 15:59 10 mg DAILY@1600 SUDHA Administration PG Care Time/CCT Total # of Minutes Spent Total Time Spent with Patient: Total time spent is greater than 50% in coordination of care (as documented) at patient's floor/unit and/or counseling patient: Coding Level of Care Code 40264 Subseq Hosp Care Lvl 2 Diagnoses Unstageable pressure ulcer of sacral region L89.150 COVID-19 U07.1 Functional quadriplegia R53.2 HTN (hypertension) I10 Hypertension type: essential hypertension Anemia D64.9 Anemia type: unspecified type Parkinsonism G20 Hypothyroidism E03.9 Hypothyroidism type: acquired Rheumatoid arthritis without rheumatoid factor, multiple sites M06.09 CKD (chronic kidney disease), stage III N18.3 Small bowel obstruction K56.609 (1) HTN (hypertension) Hypertension type: essential hypertension Qualified Code(s): I10 - Essential (primary) hypertension (2) Anemia Anemia type: unspecified type Qualified Code(s): D64.9 - Anemia, unspecified (3) Hypothyroidism Hypothyroidism type: acquired Qualified Code(s): E03.9 - Hypothyroidism, unspecified
[2022-04-01] MEDS: LEVOTHYROXINE SODIUM 50 MCG TABLET PO SCH (05:42)
--- NOTE | 2022-04-01 06:11 | Electrocardiogram Report ---
Test Reason : Blood Pressure : / mmHG Vent. Rate : 106 BPM Atrial Rate : 106 BPM P-R Int : 172 ms QRS Dur : 116 ms QT Int : 382 ms P-R-T Axes : 063 -12 105 degrees QTc Int : 507 ms Sinus tachycardia Possible Anterior infarct (cited on or before 13-MAR-2022) Abnormal ECG When compared with ECG of 13-MAR-2022 08:24, Premature supraventricular complexes are no longer Present Questionable change in initial forces of Anterior leads Nonspecific T wave abnormality now evident in Anterior leads Confirmed by Sidney Eagle ([id number] on 04/01/2022 6:10:50 AM Referred By: REFERRED SELF Confirmed By:Sidney Eagle
[2022-04-01] MEDS: CARBIDOPA/LEVODOPA 25/100MG TAB PO SCH ×2 (08:39→23:03)
[2022-04-01] MEDS: METOPROLOL TARTRATE 100 MG TAB PO SCH ×2 (08:40→23:03)
[2022-04-01] MEDS: HYDROXYCHLOROQUINE SULFATE 200 MG TAB PO SCH (08:40)
[2022-04-01] MEDS: PANTOprazole 40 MG TAB PO SCH (08:40)
[2022-04-01] MEDS: POLYETHYLENE (MIRALAX) 17 GM PACK PO SCH (08:41)
[2022-04-01] MEDS ORDERED: WARFARIN SOD 5 MG TAB PO ONE (17:53)
--- NOTE | 2022-04-01 17:53 | Hospitalist Progress Note ---
Date of Service April 01, 2022 Assessment & Plan (1) Unstageable pressure ulcer of sacral region: Plan: 86-year-old female past medical history significant for hypertension, hypothyroidism, hyperlipidemia, CKD stage III, prediabetes, rheumatoid arthritis, Parkinsonism with dementia and aphasia admitted for worsening sacral pressure ulcer for wound care and IV antibiotics. Sacral ulceration, cellulitis: No leukocytosis. CRP 16.38 on admission. - Wound culture growing Proteus penneri and E. faecalis; surgical culture growing Proventella bivia -completed Augmentin for 7 days following surgical debridement [03/16] s/p Debridement of sacral ulcer. Sharp debridement, stage IV, down to bone - Wound VAC now in place from wound care nurse. on 03/24 -Oxygen level worsened, and WBC increased. -Clinically patient apprears comfortable and similar to when she was last seen by me 5 days ago. -Patient will have inflammatory markers checked On recheck, lactic acid is elevated. IVF was given. Chest x ray showed clear lungs but dilated bowels. Ordered ct scan of abdomen and pelvis: 2. High-grade small bowel obstruction with a transition point seen in the left lower quadrant. This is likely on the basis of adhesions. Clinical correlation required and surgical assessment is advised. 3. There is trace interloop fluid. No intraperitoneal free air is seen. There is no pneumatosis intestinalis or portal venous gas. 4. 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 This represents a change from 10/04/2021. 5. There is reconstitution of flow at the iliac bifurcation on the left and in the distal external iliac artery on the right. 6. Small volume ascites. Consulted vascular surgery, and general surgery. 03/25 D/W vascular surgery no intervention required given high ris, and likely chronicity of thrombus. Patient tolerated NG tube placement from day prior, having moderate amount of GI content suctioned. Patient will continue on low intermittent suction. placed on IVF. Lactic acid improved, which is reassuring. LIkely means symptoms are more from SBO. 03/26 Hemoglobin dropped. NG tube suction had been stopped due to concern of GI bleed. May also be dilutional, though given positive fluid balance Will place on PPI drip for GI protection. Patient had a small amount of stool last evening. However, xray shows small bowel obstruction. Will closely monitor hemoglobin. As INR was elevated, ordered vitamin K. updated family. may need consent for transfusion if blood count continues to drop. 03/27 Hemoglobin has been stable. INR normaiized. Will hold off wafarin for now and monitor patient's hemoglobin. continue NG tube on intermittent suction 03/28 Patient tolerated small bowel follow through. Now having multiple bowel movements, some stools even with food particles, despite being NPO for days. Will place on clear liquids and remove NG tube. and will monitor. 03/29 Patient's diet has been advanced. Patient appears to be tolerating this. Will monitor electrolytes, and replace. Concerned that this could be due to adhesions and may return. Will continue conservative management. 03/30 and 03/31 Patient is again ready for discharge medically-to home tomorrow This previous week, her discharge was held as she developed a SBO that was treated conservatively (NG tube for close to 5 days and SB follow through). She is now having bowel movements and is tolerating a low residue diet. Daughter will like patient to no longer go to a SNF as patient's is home on hospice. theatre manager is setting up the wound vac for her decubitus ulcer. Her electrolytes were repleted, potassium, phos and mag Patient had hypomagnesemia, hypopotassemia, and hypophosphatemia Mg 1.6 today 03/31 -Acceptablehigh magnesium foods 04/01 d/w hospitalist nurse coordinator. Home health being arranged at home where she will join her who is on hospice. [id number] Monday discharge. (2) COVID-19: Plan: COVID positive on admission 03/07. Vaccination status: Fully vaccinated and boosted. CRP: 16.38, in the setting of sacral wound/infection. Dexamethasone not indicated at this time as patient is not hypoxic. Remdesivir: Not indicated, not hypoxic and with CKD. Baricitinib: Not indicated. Fevers now resolved - now off precautions. Completed 10 days on isolation. (3) Functional quadriplegia: Plan: - Functional quadriplegia in the setting of bed bound, Parkinsonism - Cared for by her and her daughter. (4) HTN (hypertension): Plan: Continue metoprolol (on nebivolol at home). BPs controlled, has some ectopy on exam HR is controlled (5) Anemia: Plan: In the setting of CKD, anemia of chronic disease Iron studies suggestive of iron deficiency anemia. I suspect the ferritin is normal as an acute inflammatory reactant. - cbc is stable she completed 6 months of treatment for DVT. 04/01 resume warfarin home dose for DVT prophylaxis as Hb stable now (6) Parkinsonism: Plan: Continue carbidopa levodopa 25-100 mg half tablet p.o. twice daily. - Baseline function is unable to speak, bedbound and caregiver dependent. With significant rigidity on exam. Follows with [facility] (7) Hypothyroidism: Plan: - Continue home levothyroxine. 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 - Avoid nephrotoxins. - Renally dose meds (10) Small bowel obstruction: Plan: Resolved Plan DVT prophylaxis: Warfarin stopped earlier this hospital stay because of some blood in the NG tube and drop in hemoglobin. Will resume warfarin home dose. Renal function normalstart Lovenox 30 mg daily as subcu as the patient is totally bedbound Diet: Continue regular minced and moist diet with multivitamin to assist with wound healing and calorie consumption to minimize weight loss in hospital CODE STATUS: DNR/DNI confirmed with Daughter earlier in the hospital stay Awaiting home health to go home with her who is on hospice. Admission and Anticipated Discharge Date Admission Date: March 08, 2022 Subjective seen at 1430 h Uneventful day per RN - some soreness of the throat was assumed when she was being fed by the aide. She seem to be grimacing. However ate 75% of her meal at lunch. Also enjoyed the popsicle she was given. Wound VAC was changed today ROS not possible Physical Exam Physical Exam: Chapped lips, follows me across the room with her eyes but does not respond to any queries, emaciated looking Unable to assess oral mucosa Chest clear to auscultation Abdomen slightly distended Skin exam deferred today's photograph of wound sacral wound seen. It is a large stage III ulcer decub ulcer with granulation tissue at the bed, 6 cm longitudinally. Results & Data Results & Data ([facility]) Vital Signs (Past 12 Hours) Vital Signs Temp Pulse Pulse Resp BP Pulse Ox O2 Del Method 04/01/22 15:55 36.4 C L 92 H 16 140/75 93 Room Air 04/01/22 12:15 36.4 C L 95 H 20 124/73 95 Room Air 04/01/22 08:15 36.4 C L 90 24 126/70 93 Room Air Laboratory Results no labs Medications Administered Home Medications Medication Instructions Recorded Confirmed Last Taken calcium carbonate 600 mg-vitamin 1 tab PO HS 01/26/19 03/07/22 10/03/21 D3 5 mcg (200 unit) tablet hydroxychloroquine 200 mg tablet 200 mg PO QAM 02/03/20 03/07/22 10/04/21 multivitamin 1 tab PO QAM 08/31/20 03/07/22 10/04/21 latanoprost 0.005 % eye drops 1 drp ophthalmic (eye) QPM 01/05/21 03/07/22 10/03/21 cyanocobalamin (vitamin B-12) 1,000 mcg PO QAM 10/04/21 03/07/22 10/04/21 1,000 mcg capsule levothyroxine 50 mcg tablet 50 mcg PO QAM 10/04/21 03/07/22 10/04/21 (Synthroid) warfarin 3 mg tablet 3 mg PO DAILY@1600 #90 tabs 11/08/21 03/07/22 Unknown nebivolol 10 mg tablet (Bystolic) 10 mg PO QAM #10 tabs 12/03/21 03/07/22 Unknown ascorbic acid (vitamin C) 1,000 mg 1 g PO DAILY 01/06/22 03/07/22 Unknown capsule carbidopa 25 mg-levodopa 100 mg 0.5 tab PO BID 30 days #30 tabs 01/20/22 03/07/22 Unknown tablet (Sinemet) warfarin 1 mg tablet See Rx Instructions PO .COMPLEX 02/24/22 03/07/22 Unknown #90 tabs Active Medications Generic Name Dose Route Start Last Admin Trade Name Freq PRN Reason Stop Dose Admin Acetaminophen 650 mg 03/07/22 20:27 03/21/22 20:58 Acetaminophen 325 Mg Tab PO 04/06/22 20:26 650 mg Q4H PRN Administration pain/fever Ascorbic Acid 1,000 mg 03/13/22 09:00 03/24/22 09:18 Ascorbic Acid 500 Mg Tab PO 04/12/22 08:59 1,000 mg DAILY SUDHA Administration Calcium Carbonate 1,250 mg 03/12/22 21:00 03/23/22 21:15 Calcium Carbonate 1250mg Tab PO 04/11/22 20:59 1,250 mg HS SUDHA Administration Carbidopa/Levodopa 0.5 tab 03/07/22 21:00 04/01/22 08:39 Carbidopa/Levodopa 25/100mg Tab PO 04/06/22 20:59 0.5 tab BID SUDHA Administration Cyanocobalamin 1,000 mcg 03/13/22 09:00 03/24/22 09:20 Cyanocobalamin (B-12) 500 Mcg Tablet PO 04/12/22 08:59 1,000 mcg QAM SUDHA Administration Ferrous Sulfate 325 mg 03/09/22 12:00 03/24/22 13:27 Ferrous Sulfate 325 Mg Tab PO 04/08/22 11:59 Not Given DAILY@1200 SUDHA Hydroxychloroquine Sulfate 200 mg 03/21/22 09:00 04/01/22 08:40 Hydroxychloroquine Sulfate 200 Mg Tab PO 04/20/22 08:59 200 mg QAM SUDHA Administration Potassium Chloride/Sodium Chloride 20 meq in 1,000 mls @ 75 mls/hr 03/28/22 12:00 03/29/22 22:08 Normal Saline W/20 Meq Kcl IV 04/27/22 11:59 Infused .[id number] SUDHA Infusion Protocol Latanoprost 1 drops 03/12/22 21:00 03/31/22 20:03 Latanoprost 0.005% Op Soln 2.5 Ml Btl OP 04/11/22 20:59 1 drops QPM SUDHA Administration Levothyroxine Sodium 50 mcg 04/01/22 06:30 04/01/22 05:42 Levothyroxine Sodium 50 Mcg Tablet PO 05/01/22 06:29 50 mcg [id number] SUDHA Administration Protocol Metoprolol Tartrate 100 mg 03/23/22 21:00 04/01/22 08:40 Metoprolol Tartrate 100 Mg Tab PO 04/22/22 20:59 100 mg BID SUDHA Administration Protocol Multivitamins 1 tab 03/10/22 09:00 03/24/22 09:24 Multivitamin Tab PO 04/09/22 08:59 1 tab QAM SUDHA Administration Pantoprazole Sodium 40 mg 03/29/22 21:00 04/01/22 08:40 Pantoprazole 40 Mg Tab PO 04/28/22 20:59 40 mg BID SUDHA Administration Polyethylene Glycol 17 gm 03/18/22 12:30 04/01/22 08:41 Polyethylene (Miralax) 17 Gm Pack PO 04/17/22 12:29 17 gm DAILY SUDHA Administration Warfarin Sodium 10 mg 03/23/22 16:00 03/23/22 17:41 Warfarin Sod 10 Mg Tab PO 04/22/22 15:59 10 mg DAILY@1600 SUDHA Administration PG Care Time/CCT Total # of Minutes Spent Total Time Spent with Patient: Total time spent is greater than 50% in coordination of care (as documented) at patient's floor/unit and/or counseling patient: Coding Level of Care Code 57105 Subseq Hosp Care Lvl 1 Diagnoses Unstageable pressure ulcer of sacral region L89.150 COVID-19 U07.1 Functional quadriplegia R53.2 HTN (hypertension) I10 Hypertension type: essential hypertension Anemia D64.9 Anemia type: unspecified type Parkinsonism G20 Hypothyroidism E03.9 Hypothyroidism type: acquired Rheumatoid arthritis without rheumatoid factor, multiple sites M06.09 CKD (chronic kidney disease), stage III N18.3 Small bowel obstruction K56.609 (1) HTN (hypertension) Hypertension type: essential hypertension Qualified Code(s): I10 - Essential (primary) hypertension (2) Anemia Anemia type: unspecified type Qualified Code(s): D64.9 - Anemia, unspecified (3) Hypothyroidism Hypothyroidism type: acquired Qualified Code(s): E03.9 - Hypothyroidism, unspecified
--- NOTE | 2022-04-01 22:45 | Communication Note ---
Date of Service: April 01, 2022 Notified by RN that patient was found hypoxic with O2 saturation of 78% on room air. Placed on 4L supplemental O2 via NC which improved O2 sat to 90-92%. Patient is non-verbal (baseline). On exam, patient with tachypnea, coarse breath sounds and rhonci bilaterally. Abd is distended and appears to be diffusely tender. + normoactive bowel sounds. Stat CXR and KUB ordered. Stat labs including CBC, CMP, and lactate ordered. Will also get blood cx and UA/urine cx. -- Patient's O2 requirement continued to increase and was put on high flow with RT. Patient improved and remains stable. I am concerned about ? recurrent SBO vs. ileus as well as concern for an aspiration pneumonia picture as she did have an episode of vomiting. Ordered suctioning. Patient started on Zosyn. -- Updated patient's daughter, Veronica, over the phone and all questions answered. Resident Activity Tracking Resident Involvement: Resident Care Provided Care Provided: Adult Hospital Medicine
[2022-04-01 23:04] LABS: Basophils # (auto) 0.04 K/uL (0-0.2); Basophils % (auto) 0.3 %; Eosinophils # (auto) 0.02 K/uL (0-0.50); Eosinophils % (auto) 0.2 %; Hematocrit (blood only) 33.5 % (34.1-44.9); Hemoglobin 10.6 g/dl (12.0-16.0); Immature Granulocytes # (auto) 0.09 K/uL (0.00-0.02); Immature Granulocytes % (auto) 0.7 %; Lymphocytes # (auto) 1.13 K/uL (1.2-3.4); Lymphocytes % (auto) 8.8 %; Mean Corpuscular Hemoglobin 26.1 pg (25.0-34.0); Mean Corpuscular Hgb Conc 31.6 g/dL (32.0-36.0); Mean Corpuscular Volume 82.5 fL (80.0-100.0); Monocytes # (auto) 0.48 K/uL (0.24-0.82); Monocytes % (auto) 3.7 %; Neutrophils % (auto) 86.3 %; Platelet Count 576 K/uL (130-400); RDW Coefficient of Variation 16.6 % (11.5-14.5); Red Blood Count 4.06 M/uL (3.93-5.22); White Blood Count 12.86 K/ul (4.8-10.8)
[2022-04-01 23:23] LABS: Albumin Globulin Ratio 0.9 (0.9-2); Albumin Level 2.9 gm/dl (3.4-5.0); BUN Creatinine Ratio 25.6 (10-20); Bilirubin,Total 0.4 mg/dl (0.2-1.0); Calcium 8.6 mg/dl (8.5-10.1); Est GFR (African American) 70.9 ml/min; Est GFR (Non-African American) 61.2 ml/min; Globulin 3.1 gm/dl (2.5-4.0); Potassium 4.3 mmol/L (3.5-5.1)
[2022-04-02] MEDS: PANTOprazole 40 MG TAB PO SCH (00:41)
[2022-04-02] MEDS: PANTOprazole 40 MG in SYRINGE 0 ML IV SCH ×3 (00:41→21:39)
[2022-04-02] MEDS ORDERED: PIPERACILLIN/TAZOBACTAM 4.5 GM in DEXTROSE 5% 100 ML IV SCH (01:30)
[2022-04-02] MEDS ORDERED: MoRPHine SULFATE 2 MG/ML CARP IV STA (01:32)
[2022-04-02] MEDS ORDERED: PIPERACILLIN/TAZOBACTAM 3.375 GM in DEXTROSE 5% 100 ML IV ONE (01:45)
[2022-04-02] MEDS: LATANOPROST 0.005% OP SOLN 2.5 ML BTL OP SCH ×2 (01:46→21:43)
[2022-04-02] MEDS: LEVOTHYROXINE SODIUM 50 MCG TABLET PO SCH (04:31)
[2022-04-02] MEDS ORDERED: LACTATED RINGER'S 250 ML IV ONE (07:11)
[2022-04-02 07:22] LABS: INR 2.4 (0.9-1.1); Prothrombin Time 24.7 Seconds (9.0-12.0)
[2022-04-02] MEDS: HYDROXYCHLOROQUINE SULFATE 200 MG TAB PO SCH (07:43)
[2022-04-02] MEDS: CARBIDOPA/LEVODOPA 25/100MG TAB PO SCH ×2 (07:43→21:16)
[2022-04-02] MEDS: POLYETHYLENE (MIRALAX) 17 GM PACK PO SCH (07:43)
[2022-04-02] MEDS: METOPROLOL TARTRATE 100 MG TAB PO SCH ×2 (07:43→21:17)
[2022-04-02] MEDS ORDERED: PIPERACILLIN/TAZOBACTAM 3.375 GM in DEXTROSE 5% 100 ML IV SCH (08:00)
--- NOTE | 2022-04-02 08:05 | XRay Report ---
XR chest 1V portable, XR KUB/Abdomen 1 view HISTORY: 86 years-old Female SOB, new O2 requirement acute shortness of breath with hypoxia COMPARISON: KUB 03/28/2022, chest radiograph 03/24/2022, small bowel follow-through 03/28/2022. TECHNIQUE: AP view of the chest, KUB radiograph FINDINGS: CHEST: Cardiac silhouette is enlarged. Unchanged mild right elevation. Atherosclerosis of the aorta. No pneu mothorax. Small pleural effusions with mild bibasilar and right midlung opacities. Degenerative farley es of the shoulders and spine. ORIF changes of the left clavicle. Healed chronic bilateral rib fractu res. KUB: Persistent dilated air-filled loops of small bowel are noted measuring up to 4.1 cm, mildly progresse d from prior. Interval removal of the enteric tube. Air is also within the large bowel and rectum. No urolith, pneumatosis or pneumoperitoneum identified. Lumbar levoscoliosis. IMPRESSION: 1. Cardiomegaly without overt pulmonary edema. 2. Small pleural effusions with persistent bibasilar and new right midlung opacities suspicious for a n infectious or inflammatory pneumonitis. 3. Interval removal of the enteric tube with progressively worsened gaseous distention of the small b owel. Findings are again concerning for an obstruction. ACT 112: Negative or not required by law. The above report was generated using voice recognition software. It may contain grammatical, syntax o r spelling errors. Electronically signed by: Brock Sanchez M.D. 04/02/2022 8:03 AM
[2022-04-02] MEDS ORDERED: SODIUM CHLORIDE 0.9% 1000ML 2,000 ML IV ONE (13:08)
[2022-04-02 14:10] LABS: BUN Creatinine Ratio 35.7 (10-20); Creatinine Clr Calc Pharmacy 17.9 ml/min; Est GFR (African American) 35.1 ml/min; Est GFR (Non-African American) 30.2 ml/min; Magnesium 1.5 mg/dl (1.7-2.4); Phosphorus 4.3 mg/dl (2.5-4.9); Potassium 4.7 mmol/L (3.5-5.1)
[2022-04-02 14:25] LABS: Appearance Urine Cloudy (Clear); Bacteria Urine Automated Negative (Negative); Bilirubin Urine Negative (Negative); Blood Urine 3+ (Negative); Color Urine Yellow; Glucose Urine UA Negative (Negative); Ketones Urine Negative (Negative); Leukocyte Esterase Urine 3+ (Negative); Nitrite Urine Negative (Negative); Protein Urine 1+ (Negative); RBC Urine Automated >30 /hpf (0-4); Specific Gravity Urine 1.014 (1.000-1.030); Urobilinogen Urine Negative (Negative); WBC Urine Automated >30 /hpf (0-5)
[2022-04-02] MEDS ORDERED: WARFARIN SOD 3 MG TAB PO SCH (16:00)
--- NOTE | 2022-04-02 17:54 | Hospitalist Progress Note ---
Date of Service April 02, 2022 Assessment & Plan (1) Unstageable pressure ulcer of sacral region: Plan: 86-year-old female past medical history significant for hypertension, hypothyroidism, hyperlipidemia, CKD stage III, prediabetes, rheumatoid arthritis, Parkinsonism with dementia and aphasia admitted for worsening sacral pressure ulcer for wound care and IV antibiotics. Sacral ulceration, cellulitis: No leukocytosis. CRP 16.38 on admission. - Wound culture growing Proteus penneri and E. faecalis; surgical culture growing Proventella bivia -completed Augmentin for 7 days following surgical debridement [03/16] s/p Debridement of sacral ulcer. Sharp debridement, stage IV, down to bone - Wound VAC now in place from wound care nurse. on 03/24 -Oxygen level worsened, and WBC increased. -Clinically patient apprears comfortable and similar to when she was last seen by me 5 days ago. -Patient will have inflammatory markers checked On recheck, lactic acid is elevated. IVF was given. Chest x ray showed clear lungs but dilated bowels. Ordered ct scan of abdomen and pelvis: 2. High-grade small bowel obstruction with a transition point seen in the left lower quadrant. This is likely on the basis of adhesions. Clinical correlation required and surgical assessment is advised. 3. There is trace interloop fluid. No intraperitoneal free air is seen. There is no pneumatosis intestinalis or portal venous gas. 4. 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 This represents a change from 10/04/2021. 5. There is reconstitution of flow at the iliac bifurcation on the left and in the distal external iliac artery on the right. 6. Small volume ascites. Consulted vascular surgery, and general surgery. 03/25 D/W vascular surgery no intervention required given high ris, and likely chronicity of thrombus. Patient tolerated NG tube placement from day prior, having moderate amount of GI content suctioned. Patient will continue on low intermittent suction. placed on IVF. Lactic acid improved, which is reassuring. LIkely means symptoms are more from SBO. 03/26 Hemoglobin dropped. NG tube suction had been stopped due to concern of GI bleed. May also be dilutional, though given positive fluid balance Will place on PPI drip for GI protection. Patient had a small amount of stool last evening. However, xray shows small bowel obstruction. Will closely monitor hemoglobin. As INR was elevated, ordered vitamin K. updated family. may need consent for transfusion if blood count continues to drop. 03/27 Hemoglobin has been stable. INR normaiized. Will hold off wafarin for now and monitor patient's hemoglobin. continue NG tube on intermittent suction 03/28 Patient tolerated small bowel follow through. Now having multiple bowel movements, some stools even with food particles, despite being NPO for days. Will place on clear liquids and remove NG tube. and will monitor. 03/29 Patient's diet has been advanced. Patient appears to be tolerating this. Will monitor electrolytes, and replace. Concerned that this could be due to adhesions and may return. Will continue conservative management. 03/30 and 03/31 Patient is again ready for discharge medically-to home tomorrow This previous week, her discharge was held as she developed a SBO that was treated conservatively (NG tube for close to 5 days and SB follow through). She is now having bowel movements and is tolerating a low residue diet. Daughter will like patient to no longer go to a SNF as patient's is home on hospice. advertising sales manager is setting up the wound vac for her decubitus ulcer. Her electrolytes were repleted, potassium, phos and mag Patient had hypomagnesemia, hypopotassemia, and hypophosphatemia Mg 1.6 today 03/31 -Acceptablehigh magnesium foods 04/01 d/w hospitalist nurse coordinator. Home health being arranged at home where she will join her who is on hospice. [id number] Monday discharge. 04/02 Acute respiratory failure from aspiration pneumonia. Now again NPO. Bowel rest ARF as below IV fluids (2) Acute respiratory failure: Plan: Aspiration pneumoniahigh flow oxygen Zosyn (3) Functional quadriplegia: Plan: - Functional quadriplegia in the setting of bed bound, Parkinsonism - Cared for by her and her daughter. (4) HTN (hypertension): Plan: Continue metoprolol (on nebivolol at home). BPs controlled, has some ectopy on exam HR is controlled (5) Anemia: Plan: In the setting of CKD, anemia of chronic disease Iron studies suggestive of iron deficiency anemia. I suspect the ferritin is normal as an acute inflammatory reactant. - cbc is stable she completed 6 months of treatment for DVT. 04/01 resumed warfarin home dose for DVT prophylaxis as Hb stable now (6) Parkinsonism: Plan: Continue carbidopa levodopa 25-100 mg half tablet p.o. twice daily. - Baseline function is unable to speak, bedbound and caregiver dependent. With significant rigidity on exam. Follows with [facility] (7) Hypothyroidism: Plan: - Continue home levothyroxine. 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 - Avoid nephrotoxins. - Renally dose meds (10) Small bowel obstruction: Plan: Resolved (11) Renal failure (ARF), acute on chronic: Plan: 04/02 2 L NS bolus earlier today before which got to 50 cc bolus Watch BUN and creatinine Plan DVT prophylaxiswarfarin INR 2.4 CODE STATUS: DNR/DNI confirmed with Daughter earlier in the hospital stay Change in clinical status overnight with aspiration pneumonia. Bowel rest. Explained patient's current status to daughter earlier this morning. I called daughter to update her around 5:30 PM also but could not reach her. Left a voice message. Admission and Anticipated Discharge Date Admission Date: March 08, 2022 Subjective Seen at 9:35 AM and again around 5 PM today Events overnight noted. Around 9 PM had an episode of emesis and then desaturated. Got hypotensive to the 90s this morning and recovered with IV fluid bolus. Has been on high flow oxygen. Dilated bowel loops seen on KUB and right-sided infiltrate likely aspiration pneumonia. Now on Zosyn day 0 The patient was just needing a lower FiO2 by 5 PM at 85% compared with 100% earlier this morning. No further emesis. Is NPO. 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 Results & Data Results & Data ([facility]) Vital Signs (Past 12 Hours) Vital Signs Temp Pulse Pulse Pulse Resp BP Pulse Ox 04/02/22 07:10 04/02/22 16:31 36.7 C 103 H 22 102/58 L 94 04/02/22 15:38 90 22 92 04/02/22 14:41 36.5 C 99 H 22 118/63 94 04/02/22 12:33 36.9 C 120 H 22 91/56 L 92 04/02/22 12:08 120 H 24 93 04/02/22 10:31 36.9 C 122 H 22 94/61 L 91 04/02/22 08:33 36.7 C 120 H 22 98/64 L 92 04/02/22 07:50 120 H 28 H 96 04/02/22 07:37 36.4 C L 120 H 22 95/58 L 96 04/02/22 06:00 37 C 113 H 89/58 L 94 O2 Del Method O2 Flow Rate FiO2 04/02/22 07:10 High Flow Nasal Cannula 40 04/02/22 16:31 High Flow Nasal Cannula 40 04/02/22 15:38 High Flow Nasal Cannula 40 85 04/02/22 14:41 High Flow Nasal Cannula 40 04/02/22 12:33 High Flow Nasal Cannula 40 04/02/22 12:08 Room Air 04/02/22 10:31 High Flow Nasal Cannula 40 04/02/22 08:33 High Flow Nasal Cannula 40 04/02/22 07:50 High Flow Nasal Cannula 40 90 04/02/22 07:37 High Flow Nasal Cannula 40 04/02/22 06:00 High Flow Nasal Cannula 40 95 Laboratory Results Abnormal lab results 04/01/22 04/01/22 04/02/22 Range/Units 22:55 22:55 06:41 WBC 12.86 H (4.8-10.8) K/ul Hgb 10.6 L (12.0-16.0) g/dl Hct 33.5 L (34.1-44.9) % MCHC 31.6 L (32.0-36.0) g/dL RDW Std Deviation 49.0 H (36.4-46.3) fL RDW Coeff of Meryl 16.6 H (11.5-14.5) % Plt Count 576 H (130-400) K/uL MPV 9.0 L (9.4-12.3) fL Neut # (Auto) 11.10 H (1.4-6.5) K/uL Lymph # (Auto) 1.13 L (1.2-3.4) K/uL Immature Gran # (Auto) 0.09 H (0.00-0.02) K/uL PT 24.7 H (9.0-12.0) Seconds INR 2.4 H (0.9-1.1) Carbon Dioxide (21-32) mmol/L Anion Gap (3-11) BUN (6-23) mg/dl Creatinine (0.6-1.2) mg/dl BUN/Creatinine Ratio 25.6 H (10-20) Glucose 153 H (70-99(Fasting)) mg/dl Calcium (8.5-10.1) mg/dl Magnesium (1.7-2.4) mg/dl Albumin 2.9 L (3.4-5.0) gm/dl Urine Appearance (Clear) Urine Protein (Negative) Urine Blood (Negative) Ur Leukocyte Esterase (Negative) Urine WBC (Auto) (0-5) /hpf Urine RBC (Auto) (0-4) /hpf U Epithel Cells (Auto) (0-5) /lpf 04/02/22 04/02/22 Range/Units 13:19 Unknown WBC (4.8-10.8) K/ul Hgb (12.0-16.0) g/dl Hct (34.1-44.9) % MCHC (32.0-36.0) g/dL RDW Std Deviation (36.4-46.3) fL RDW Coeff of Meryl (11.5-14.5) % Plt Count (130-400) K/uL MPV (9.4-12.3) fL Neut # (Auto) (1.4-6.5) K/uL Lymph # (Auto) (1.2-3.4) K/uL Immature Gran # (Auto) (0.00-0.02) K/uL PT (9.0-12.0) Seconds INR (0.9-1.1) Carbon Dioxide 20 L (21-32) mmol/L Anion Gap 14 H (3-11) BUN 55 H D (6-23) mg/dl Creatinine 1.54 H D (0.6-1.2) mg/dl BUN/Creatinine Ratio 35.7 H (10-20) Glucose 181 H (70-99(Fasting)) mg/dl Calcium 8.0 L (8.5-10.1) mg/dl Magnesium 1.5 L (1.7-2.4) mg/dl Albumin (3.4-5.0) gm/dl Urine Appearance Cloudy A (Clear) Urine Protein 1+ H (Negative) Urine Blood 3+ H (Negative) Ur Leukocyte Esterase 3+ H (Negative) Urine WBC (Auto) >30 H (0-5) /hpf Urine RBC (Auto) >30 H (0-4) /hpf U Epithel Cells (Auto) 10-20 H (0-5) /lpf Medications Administered Home Medications Medication Instructions Recorded Confirmed Last Taken calcium carbonate 600 mg-vitamin 1 tab PO HS 01/26/19 03/07/22 10/03/21 D3 5 mcg (200 unit) tablet hydroxychloroquine 200 mg tablet 200 mg PO QAM 02/03/20 03/07/22 10/04/21 multivitamin 1 tab PO QAM 08/31/20 03/07/22 10/04/21 latanoprost 0.005 % eye drops 1 drp ophthalmic (eye) QPM 01/05/21 03/07/22 10/03/21 cyanocobalamin (vitamin B-12) 1,000 mcg PO QAM 10/04/21 03/07/22 10/04/21 1,000 mcg capsule levothyroxine 50 mcg tablet 50 mcg PO QAM 10/04/21 03/07/22 10/04/21 (Synthroid) warfarin 3 mg tablet 3 mg PO DAILY@1600 #90 tabs 11/08/21 03/07/22 Unknown nebivolol 10 mg tablet (Bystolic) 10 mg PO QAM #10 tabs 12/03/21 03/07/22 Unknown ascorbic acid (vitamin C) 1,000 mg 1 g PO DAILY 01/06/22 03/07/22 Unknown capsule carbidopa 25 mg-levodopa 100 mg 0.5 tab PO BID 30 days #30 tabs 01/20/22 03/07/22 Unknown tablet (Sinemet) warfarin 1 mg tablet See Rx Instructions PO .COMPLEX 02/24/22 03/07/22 Unknown #90 tabs Active Medications Generic Name Dose Route Start Last Admin Trade Name Freq PRN Reason Stop Dose Admin Acetaminophen 650 mg 03/07/22 20:27 03/21/22 20:58 Acetaminophen 325 Mg Tab PO 04/06/22 20:26 650 mg Q4H PRN Administration pain/fever Ascorbic Acid 1,000 mg 03/13/22 09:00 03/24/22 09:18 Ascorbic Acid 500 Mg Tab PO 04/12/22 08:59 1,000 mg DAILY SUDHA Administration Calcium Carbonate 1,250 mg 03/12/22 21:00 03/23/22 21:15 Calcium Carbonate 1250mg Tab PO 04/11/22 20:59 1,250 mg HS SUDHA Administration Carbidopa/Levodopa 0.5 tab 03/07/22 21:00 04/02/22 07:43 Carbidopa/Levodopa 25/100mg Tab PO 04/06/22 20:59 Not Given BID SUDHA Cyanocobalamin 1,000 mcg 03/13/22 09:00 03/24/22 09:20 Cyanocobalamin (B-12) 500 Mcg Tablet PO 04/12/22 08:59 1,000 mcg QAM SUDHA Administration Ferrous Sulfate 325 mg 03/09/22 12:00 03/24/22 13:27 Ferrous Sulfate 325 Mg Tab PO 04/08/22 11:59 Not Given DAILY@1200 SUDHA Hydroxychloroquine Sulfate 200 mg 03/21/22 09:00 04/02/22 07:43 Hydroxychloroquine Sulfate 200 Mg Tab PO 04/20/22 08:59 Not Given QAM SUDHA Potassium Chloride/Sodium Chloride 20 meq in 1,000 mls @ 75 mls/hr 03/28/22 12:00 03/29/22 22:08 Normal Saline W/20 Meq Kcl IV 04/27/22 11:59 Infused .[id number] SUDHA Infusion Protocol Pantoprazole Sodium 40 mg/ 10 mls @ 5 mls/min 04/01/22 23:15 04/02/22 10:16 Syringe IV 05/01/22 23:14 5 mls/min BID SUDHA Administration Latanoprost 1 drops 03/12/22 21:00 04/02/22 01:46 Latanoprost 0.005% Op Soln 2.5 Ml Btl OP 04/11/22 20:59 1 drops QPM SUDHA Administration Levothyroxine Sodium 50 mcg 04/01/22 06:30 04/02/22 04:31 Levothyroxine Sodium 50 Mcg Tablet PO 05/01/22 06:29 Not Given [id number] [facility] Protocol Metoprolol Tartrate 100 mg 03/23/22 21:00 04/02/22 07:43 Metoprolol Tartrate 100 Mg Tab PO 04/22/22 20:59 Not Given BID [facility] Protocol Multivitamins 1 tab 03/10/22 09:00 03/24/22 09:24 Multivitamin Tab PO 04/09/22 08:59 1 tab QAM SUDHA Administration Pantoprazole Sodium 40 mg 03/29/22 21:00 04/02/22 00:41 Pantoprazole 40 Mg Tab PO 04/28/22 20:59 Not Given BID [facility] Polyethylene Glycol 17 gm 03/18/22 12:30 04/02/22 07:43 Polyethylene (Miralax) 17 Gm Pack PO 04/17/22 12:29 Not Given DAILY [facility] Warfarin Sodium 10 mg 03/23/22 16:00 03/23/22 17:41 Warfarin Sod 10 Mg Tab PO 04/22/22 15:59 10 mg DAILY@1600 [facility] Administration PG Care Time/CCT Total # of Minutes Spent Total Time Spent with Patient: Total time spent is greater than 50% in coordination of care (as documented) at patient's floor/unit and/or counseling patient: Prolonged Care Time 15 minutes in updating daughter twice Coding Level of Care Code 93461 Subseq Hosp Care Lvl 3 Diagnoses Unstageable pressure ulcer of sacral region L89.150 Acute respiratory failure J96.00 Functional quadriplegia R53.2 HTN (hypertension) I10 Hypertension type: essential hypertension Anemia D64.9 Anemia type: unspecified type Parkinsonism G20 Hypothyroidism E03.9 Hypothyroidism type: acquired Rheumatoid arthritis without rheumatoid factor, multiple sites M06.09 CKD (chronic kidney disease), stage III N18.3 Small bowel obstruction K56.609 Renal failure (ARF), acute on chronic N17.9; N18.9 (1) HTN (hypertension) Hypertension type: essential hypertension Qualified Code(s): I10 - Essential (primary) hypertension (2) Anemia Anemia type: unspecified type Qualified Code(s): D64.9 - Anemia, unspecified (3) Hypothyroidism Hypothyroidism type: acquired Qualified Code(s): E03.9 - Hypothyroidism, unspecified
[2022-04-02] MEDS: LACTATED RINGER'S 1,000 ML IV SCH (17:59)
[2022-04-02] MEDS: PIPERACILLIN/TAZOBACTAM 3.375 GM in DEXTROSE 5% 100 ML IV SCH (20:39)
[2022-04-02] MEDS ORDERED: LACTATED RINGER'S 500 ML IV ONE (21:55)
[2022-04-03] MEDS: LACTATED RINGER'S 1,000 ML IV SCH ×2 (04:06→13:19)
[2022-04-03 07:25] LABS: INR 3.2 (0.9-1.1); Prothrombin Time 31.8 Seconds (9.0-12.0)
[2022-04-03] MEDS: PIPERACILLIN/TAZOBACTAM 3.375 GM in DEXTROSE 5% 100 ML IV SCH ×2 (07:36→20:04)
[2022-04-03] MEDS: CARBIDOPA/LEVODOPA 25/100MG TAB PO SCH ×2 (07:39→21:36)
[2022-04-03] MEDS: HYDROXYCHLOROQUINE SULFATE 200 MG TAB PO SCH (07:39)
[2022-04-03] MEDS: METOPROLOL TARTRATE 100 MG TAB PO SCH ×2 (07:39→21:36)
[2022-04-03] MEDS: POLYETHYLENE (MIRALAX) 17 GM PACK PO SCH (07:40)
[2022-04-03] MEDS: PANTOprazole 40 MG in SYRINGE 0 ML IV SCH ×2 (09:07→21:37)
--- NOTE | 2022-04-03 14:37 | XRay Report ---
KUB HISTORY: Acute generalized abdominal pain r/o SBO COMPARISON: KUB 04/01/2022 FINDINGS: Persistent pleural effusions with bibasilar opacities which are partially imaged. There is decreased distention of the small bowel compared to the prior study. Residual contrast is noted withi n colonic diverticula. No renal calculi. No ureteral calculi. No pneumoperitoneum or pneumatosis. Eboni mbar levoscoliosis with multilevel degenerative changes. Subacute to chronic nondisplaced bilateral r ib fractures. No fracture. IMPRESSION: Decreased small bowel distention compared to the prior study suggestive of resolving obstruction. ACT 112: Negative or not required by law. The above report was generated using voice recognition software. It may contain grammatical, syntax o r spelling errors. Electronically signed by: Brock Sanchez M.D. 04/03/2022 2:35 PM
[2022-04-03] MEDS: LATANOPROST 0.005% OP SOLN 2.5 ML BTL OP SCH (21:37)
--- NOTE | 2022-04-03 21:56 | Hospitalist Progress Note ---
Date of Service April 03, 2022 Assessment & Plan (1) Unstageable pressure ulcer of sacral region: Plan: 86-year-old female past medical history significant for hypertension, hypothyroidism, hyperlipidemia, CKD stage III, prediabetes, rheumatoid arthritis, Parkinsonism with dementia and aphasia admitted for worsening sacral pressure ulcer for wound care and IV antibiotics. Sacral ulceration, cellulitis: No leukocytosis. CRP 16.38 on admission. - Wound culture growing Proteus penneri and E. faecalis; surgical culture growing Proventella bivia -completed Augmentin for 7 days following surgical debridement [03/16] s/p Debridement of sacral ulcer. Sharp debridement, stage IV, down to bone - Wound VAC now in place from wound care nurse. on 03/24 -Oxygen level worsened, and WBC increased. -Clinically patient apprears comfortable and similar to when she was last seen by me 5 days ago. -Patient will have inflammatory markers checked On recheck, lactic acid is elevated. IVF was given. Chest x ray showed clear lungs but dilated bowels. Ordered ct scan of abdomen and pelvis: 2. High-grade small bowel obstruction with a transition point seen in the left lower quadrant. This is likely on the basis of adhesions. Clinical correlation required and surgical assessment is advised. 3. There is trace interloop fluid. No intraperitoneal free air is seen. There is no pneumatosis intestinalis or portal venous gas. 4. 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 This represents a change from 10/04/2021. 5. There is reconstitution of flow at the iliac bifurcation on the left and in the distal external iliac artery on the right. 6. Small volume ascites. Consulted vascular surgery, and general surgery. 03/25 D/W vascular surgery no intervention required given high ris, and likely chronicity of thrombus. Patient tolerated NG tube placement from day prior, having moderate amount of GI content suctioned. Patient will continue on low intermittent suction. placed on IVF. Lactic acid improved, which is reassuring. LIkely means symptoms are more from SBO. 03/26 Hemoglobin dropped. NG tube suction had been stopped due to concern of GI bleed. May also be dilutional, though given positive fluid balance Will place on PPI drip for GI protection. Patient had a small amount of stool last evening. However, xray shows small bowel obstruction. Will closely monitor hemoglobin. As INR was elevated, ordered vitamin K. updated family. may need consent for transfusion if blood count continues to drop. 03/27 Hemoglobin has been stable. INR normaiized. Will hold off wafarin for now and monitor patient's hemoglobin. continue NG tube on intermittent suction 03/28 Patient tolerated small bowel follow through. Now having multiple bowel movements, some stools even with food particles, despite being NPO for days. Will place on clear liquids and remove NG tube. and will monitor. 03/29 Patient's diet has been advanced. Patient appears to be tolerating this. Will monitor electrolytes, and replace. Concerned that this could be due to adhesions and may return. Will continue conservative management. 03/30 and 03/31 Patient is again ready for discharge medically-to home tomorrow This previous week, her discharge was held as she developed a SBO that was treated conservatively (NG tube for close to 5 days and SB follow through). She is now having bowel movements and is tolerating a low residue diet. Daughter will like patient to no longer go to a SNF as patient's is home on hospice. manager unit is setting up the wound vac for her decubitus ulcer. Her electrolytes were repleted, potassium, phos and mag Patient had hypomagnesemia, hypopotassemia, and hypophosphatemia Mg 1.6 today 03/31 -Acceptablehigh magnesium foods 04/01 d/w hospitalist nurse coordinator. Home health being arranged at home where she will join her who is on hospice. [id number] Monday discharge. 04/02 Acute respiratory failure from aspiration pneumonia. Now again NPO. Bowel rest ARF as below IV fluids 04/03 Urine output better with IV fluids. Clear liquids started in the afternoon. KUB improved Oxygenation better and patient clinically looks good (2) Acute respiratory failure: Plan: Aspiration pneumoniahigh flow oxygen Zosyn (3) Functional quadriplegia: Plan: - Functional quadriplegia in the setting of bed bound, Parkinsonism - Cared for by her and her daughter. (4) HTN (hypertension): Plan: Continue metoprolol (on nebivolol at home). BPs controlled, has some ectopy on exam HR is controlled (5) Anemia: Plan: In the setting of CKD, anemia of chronic disease Iron studies suggestive of iron deficiency anemia. I suspect the ferritin is normal as an acute inflammatory reactant. - cbc is stable she completed 6 months of treatment for DVT. 04/01 resumed warfarin home dose for DVT prophylaxis as Hb stable now (6) Parkinsonism: Plan: Continue carbidopa levodopa 25-100 mg half tablet p.o. twice daily. - Baseline function is unable to speak, bedbound and caregiver dependent. With significant rigidity on exam. Follows with [facility] (7) Hypothyroidism: Plan: - Continue home levothyroxine. 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 - Avoid nephrotoxins. - Renally dose meds (10) Small bowel obstruction: Plan: Resolved (11) Renal failure (ARF), acute on chronic: Plan: 04/02 2 L NS bolus earlier today before which got to 50 cc bolus Watch BUN and creatinine Plan DVT prophylaxiswarfarin INR 2.4 CODE STATUS: DNR/DNI confirmed with Daughter earlier in the hospital stay I could not call to update daughter today as it was late when I was done-at 10 pm. Admission and Anticipated Discharge Date Admission Date: March 08, 2022 Subjective Evaluated at 1345 h Awake, urine output good per nurse. Patient unable to give review of systems, oxygen reduced to 10 L from high flow by respiratory therapist early in the morning Physical Exam Physical Exam: the patient was awake and making eye contact as usual, trying to interact, nonverbal as usual, Unable to assess oral mucosa Chest CTA anteriorly Abdomen less distended Skin exam deferred Warm hands Unable to do [employer] exam as at baseline Results & Data Results & Data ([facility]) Vital Signs (Past 12 Hours) Vital Signs Temp Pulse Resp BP Pulse Ox O2 Del Method O2 Flow Rate 04/03/22 21:33 36.7 C 115 H 16 129/72 97 Nasal Cannula 11 04/03/22 16:00 37 C 112 H 20 124/71 98 Nasal Cannula 9 Diagnostic Findings Pelvis X-Ray 03/07/22 20:27 XR pelvis 1-2V routine CLINICAL HISTORY: ? sacral osteomyelitis COMPARISON STUDY: Abdomen and pelvis CT 10/04/2021. FINDINGS: The sacrum is partially obscured by overlying bowel gas. No large areas of sacral destruction identified. No fracture or dislocation within the pelvis or hips. IMPRESSION: The sacrum is partially obscured by overlying bowel gas. No large areas of sacral destruction identified to suggest an osteomyelitis. ACT 112: Negative or not required by law. Electronically signed by: Mayur Ibarra M.D. 03/08/2022 9:24 AM Abdomen/Pelvis CT 03/24/22 12:08 CT SCAN OF THE ABDOMEN AND PELVIS WITH IV CONTRAST CLINICAL HISTORY: Generalized abdominal pain. Elevated lactic acid. COMPARISON STUDY: Abdominal CT dated 10/04/2021. TECHNIQUE: Following the IV administration of 85 cc of Optiray 350, CT scan of the abdomen and pelvis is performed from the lung bases to the proximal femora. Images are reviewed in the axial, sagittal, and coronal planes. IV contrast was administered without complication. A dose lowering technique was utilized adhering to the principles of ALARA. The examination is significantly degraded by streak artifact from the arms which could not be elevated above the abdomen as well as motion. CT DOSE: 263.93 mGycm FINDINGS: Lung bases: The heart is normal in size and without pericardial effusion. Dependent airspace consolidation is seen at both lung bases. Liver: The contrast-enhanced liver is normal in size, contour, and attenuation. There is no intrahepatic biliary ductal dilatation. The hepatic veins and portal veins are patent. Gallbladder: Contracted. Spleen: Normal in size and attenuation. Pancreas: Unremarkable. Adrenal glands: Unremarkable. Kidneys: The contrast enhanced kidneys are atrophic and without hydronephrosis. The kidneys enhance symmetrically. Large bilateral renal cysts measure up to 6 cm. Foci of cortical scarring are noted in both kidneys. Abdominal vasculature: There is advanced atherosclerotic calcification and mild ectasia of the abdominal aorta. There is approximately 75% stenosis of the proximal abdominal aorta at the level of the renal arteries. 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 There is complete thrombosis of the right common iliac artery as well as the proximal and mid portions of the right external iliac artery, with distal reconstitution. There is also complete thrombosis of the proximal right internal carotid artery. There is complete thrombosis of the left common iliac artery, with reconstitution at the iliac bifurcation. There is greater than 50% focal stenosis with intraluminal thrombus seen in the left external iliac artery on image #355. Bowel: The proximal small bowel loops are distended and fluid-filled, measuring up to 3.[address] A transition point is seen in the left lower quadrant on image #275, and the appearance is consistent with a high-grade small bowel obstruction. The distal small bowel and colon are decompressed. No focally thick-walled bowel loops are identified. There is trace interloop fluid. No pneumatosis intestinalis or portal venous gas is seen. There is advanced sigmoid diverticulosis without CT evidence of acute diverticulitis. The appendix is not visualized. Peritoneum: No intraperitoneal free air seen. There is a small volume of pelvic ascites. There is also free fluid in the right paracolic gutter. Lymphadenopathy: None. Pelvic viscera: The bladder is decompressed around a Soto catheter not well evaluated. The uterus is surgically absent. No adnexal lesion is seen. Skeletal structures: The skeletal structures are osteopenic. There are chronic superior endplate compression deformities of T9 and L2. There is moderate lumbosacral spondylosis as well as scoliosis. No lytic or blastic lesions are seen. There are bilateral sacral insufficiency fractures. Healed rib fractures are seen bilaterally. IMPRESSION: 1. Severely streak and motion compromised examination. 2. High-grade small bowel obstruction with a transition point seen in the left lower quadrant. This is likely on the basis of adhesions. Clinical correlation required and surgical assessment is advised. 3. There is trace interloop fluid. No intraperitoneal free air is seen. There is no pneumatosis intestinalis or portal venous gas. 4. 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 This represents a change from 10/04/2021. 5. There is reconstitution of flow at the iliac bifurcation on the left and in the distal external iliac artery on the right. 6. Small volume ascites. 7. There is bibasilar airspace consolidation. Correlate clinically from the pneumonia/aspiration pneumonitis. 8. Additional findings as above. ACT 112: Negative or not required by law. Electronically signed by: Wally Mario M.D. 03/24/2022 1:17 PM Aorta w/Runoff CTA 03/25/22 11:05 CT ANGIOGRAM OF THE ABDOMEN AND PELVIS WITH BILATERAL LOWER EXTREMITY RUNOFF CLINICAL HISTORY: Thrombosed abdominal aorta. COMPARISON STUDY: Abdominal CT scans dated 03/24/2022 and 10/04/2021. TECHNIQUE: Following the IV administration of 87 cc of Optiray 350, CT angiogram of the abdomen and pelvis left lower extremity runoff is performed from the lung bases to the feet. Images are reviewed in the axial, sagittal, and coronal planes. IV contrast was administered without complication. 3-D MIPS are created and assessed. A dose lowering technique was utilized adhering to the principles of ALARA. The examination is significantly degraded by streak artifact from the arms which could not be elevated above the abdomen as well as motion. CT DOSE: 942.62 mGy.cm FINDINGS: Lung bases: The heart is enlarged and without pericardial effusion. Dependent airspace consolidation is seen at both lung bases. Liver: The contrast-enhanced liver is normal in size, contour, and attenuation. There is no intrahepatic biliary ductal dilatation. Gallbladder: Vicariously excreted contrast fills the gallbladder. Spleen: Normal in size and attenuation noting heterogeneous arterial phase enhancement. Pancreas: Unremarkable. Adrenal glands: Unremarkable. Kidneys: The contrast enhanced kidneys are atrophic and without hydronephrosis. The kidneys enhance symmetrically. Large bilateral renal cysts measure up to 6 cm. Foci of cortical scarring are noted in both kidneys. Abdominal aorta and iliac arteries: There is advanced atherosclerotic calcification and mild ectasia of the abdominal aorta. There is approximately 75% stenosis of the proximal abdominal aorta at the level of the renal arteries. 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 There is complete thrombosis of the right common iliac artery as well as the proximal and mid portions of the right external iliac artery, with distal reconstitution. There is also complete thrombosis of the proximal right internal carotid artery. There is complete thrombosis of the left common iliac artery, with reconstitution at the iliac bifurcation. There is greater than 50% focal stenosis with intraluminal thrombus seen in the left external iliac artery. Major branches of the abdominal aorta: The celiac trunk and superior mesenteric artery are widely patent. There is thrombosis of the origin of the inferior mesenteric artery. The distal vessel is opacified by retrograde flow. The splenic artery is patent. Hepatic arterial anatomy is conventional. There are single bilateral renal arteries. There is mild stenosis at the origin of the right renal artery. High-grade stenosis is seen at the origin of the left renal artery. Right lower extremity runoff: There is advanced atherosclerotic plaque and irregularity throughout the arteries of the right lower extremity. The right common femoral artery is patent, as is the right profunda femoris artery. The superficial femoral artery and the popliteal artery are patent noting advanced atherosclerotic plaque and irregularity. The calf arteries are diminutive, with three-vessel runoff to the foot. The calf artery are not well visualized at the ankle joint due to motion. The dorsalis pedis artery is patent. Left lower extremity runoff: There is advanced atherosclerotic plaque and irregularity seen throughout the arteries of the left lower extremity. The com mon femoral artery is patent, as is the profunda femoris artery. The superficial femoral and popliteal arteries are patent noting advanced atherosclerotic plaque and irregularity. There is focal high-grade stenosis of the distal superficial femoral artery seen on image #604. The calf arteries are diminutive. There is three-vessel runoff to the foot. The calf artery are not well visualized at the ankle joint due to motion. Flow is shown within the dorsalis pedis. Bowel: An enteric tube terminates in the stomach. The proximal small bowel loops are distended and fluid-filled, measuring up to 3.5 cm in diameter. A complex transition point is again seen in the central pelvis and the appearance is consistent with a high-grade small bowel obstruction. The distal small bowel and colon are decompressed. There are mildly thick-walled loops of small bowel in the pelvis. There is trace interloop fluid. No pneumatosis intestinalis or portal venous gas is seen. There is advanced sigmoid diverticulosis without CT evidence of acute diverticulitis. The appendix is not visualized. Peritoneum: No intraperitoneal free air seen. There is a small volume of pelvic ascites. Mesenteric edema is noted in the pelvis. There is also free fluid in the right paracolic gutter. Lymphadenopathy: None. Pelvic viscera: The bladder is decompressed around a Soto catheter and contains excreted IV contrast. The uterus is surgically absent. No adnexal lesion is seen. Skeletal structures: The skeletal structures are osteopenic. There are chronic superior endplate compression deformities of T9 and L2. There is moderate lumbosacral spondylosis as well as scoliosis. No lytic or blastic lesions are seen. There are bilateral sacral insufficiency fractures. Healed rib fractures are seen bilaterally. Lower extremities: The lower extremity soft tissues are normal as imaged noting generalized atrophy of the regional musculature. IMPRESSION: 1. Streak and motion compromised examination. 2. Persistent high-grade small bowel obstruction with a complex transition point in the pelvis. 3. There are thick walled loops of small bowel in the pelvis with surrounding mesenteric edema. This has progressed as compared to 03/24/2022 and these may be risk for ischemia. Surgical assessment is advised. 4. There is trace interloop fluid. No intraperitoneal free air is seen. There is no pneumatosis intestinalis or portal venous gas. 5. 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 6. There is reconstitution of flow at the iliac bifurcation on the left and in the distal external iliac artery on the right. 7. Abdominal angiogram and lower extremity runoff findings as above. 8. Small volume ascites. 9. There is bibasilar airspace consolidation. Correlate clinically from the pneumonia/aspiration pneumonitis. 10. Additional findings as above. ACT 112: Negative or not required by law. Electronically signed by: Wally Mario M.D. 03/25/2022 1:27 PM Small Bowel X-Ray 03/28/22 08:52 [place] small bowel follow through CLINICAL HISTORY: Small bowel obstruction. Follow-up. COMPARISON STUDY: Abdomen and pelvis CT 03/25/2022. FLUOROSCOPY TIME: None.. FINDINGS: [employer] images demonstrate the nasogastric tube within the stomach. Bibasilar densities/effusions persist. There are old, healed left-sided rib fractures. Dilated gas-filled loops of small bowel again noted within the mid to lower abdomen. There is also gas within the nondistended colon. A total of 300 cc of dilute Optiray 320 and water were placed to the NG tube. Contrast is seen within the stomach. The proximal small bowel is normal in caliber. The mid to distal small bowel is mildly distended. A few loops of the distal ileum are also decompressed. Contrast reached the cecum at 2 hours and 40 minutes. IMPRESSION: Dilated loops of mid to distal small bowel again noted. There are few decompressed distal loops of ileum. Contrast reached the cecum at 2 hours and 40 minutes. Therefore, these findings are consistent with a low-grade partial small bowel obstruction. ACT 112: Negative or not required by law. Electronically signed by: Mayur Ibarra M.D. 03/28/2022 2:21 PM Chest X-Ray 04/01/22 22:35 XR chest 1V portable, XR KUB/Abdomen 1 view HISTORY: 86 years-old Female SOB, new O2 requirement acute shortness of breath with hypoxia COMPARISON: KUB 03/28/2022, chest radiograph 03/24/2022, small bowel follow- through 03/28/2022. TECHNIQUE: AP view of the chest, KUB radiograph FINDINGS: CHEST: Cardiac silhouette is enlarged. Unchanged mild right elevation. Atherosclerosis of the aorta. No pneumothorax. Small pleural effusions with mild bibasilar and right midlung opacities. Degenerative changes of the shoulders and spine. ORIF changes of the left clavicle. Healed chronic bilateral rib fractures. KUB: Persistent dilated air-filled loops of small bowel are noted measuring up to 4.1 cm, mildly progressed from prior. Interval removal of the enteric tube. Air is also within the large bowel and rectum. No urolith, pneumatosis or pneumoperitoneum identified. Lumbar levoscoliosis. IMPRESSION: 1. Cardiomegaly without overt pulmonary edema. 2. Small pleural effusions with persistent bibasilar and new right midlung opacities suspicious for an infectious or inflammatory pneumonitis. 3. Interval removal of the enteric tube with progressively worsened gaseous distention of the small bowel. Findings are again concerning for an obstruction. ACT 112: Negative or not required by law. The above report was generated using voice recognition software. It may contain grammatical, syntax or spelling errors. Electronically signed by: Brock Sanchez M.D. 04/02/2022 8:03 AM KUB X-Ray 04/03/22 13:53 KUB HISTORY: Acute generalized abdominal pain r/o SBO COMPARISON: KUB 04/01/2022 FINDINGS: Persistent pleural effusions with bibasilar opacities which are partially imaged. There is decreased distention of the small bowel compared to the prior study. Residual contrast is noted within colonic diverticula. No renal calculi. No ureteral calculi. No pneumoperitoneum or pneumatosis. Lumbar levoscoliosis with multilevel degenerative changes. Subacute to chronic nondisplaced bilateral rib fractures. No fracture. IMPRESSION: Decreased small bowel distention compared to the prior study suggestive of resolving obstruction. ACT 112: Negative or not required by law. The above report was generated using voice recognition software. It may contain grammatical, syntax or spelling errors. Electronically signed by: Brock Sanchez M.D. 04/03/2022 2:35 PM Medications Administered Home Medications Medication Instructions Recorded Confirmed Last Taken calcium carbonate 600 mg-vitamin 1 tab PO HS 01/26/19 03/07/22 10/03/21 D3 5 mcg (200 unit) tablet hydroxychloroquine 200 mg tablet 200 mg PO QAM 02/03/20 03/07/22 10/04/21 multivitamin 1 tab PO QAM 08/31/20 03/07/22 10/04/21 latanoprost 0.005 % eye drops 1 drp ophthalmic (eye) QPM 01/05/21 03/07/22 10/03/21 cyanocobalamin (vitamin B-12) 1,000 mcg PO QAM 10/04/21 03/07/22 10/04/21 1,000 mcg capsule levothyroxine 50 mcg tablet 50 mcg PO QAM 10/04/21 03/07/22 10/04/21 (Synthroid) warfarin 3 mg tablet 3 mg PO DAILY@1600 #90 tabs 11/08/21 03/07/22 Unknown nebivolol 10 mg tablet (Bystolic) 10 mg PO QAM #10 tabs 12/03/21 03/07/22 Unknown ascorbic acid (vitamin C) 1,000 mg 1 g PO DAILY 01/06/22 03/07/22 Unknown capsule carbidopa 25 mg-levodopa 100 mg 0.5 tab PO BID 30 days #30 tabs 01/20/22 03/07/22 Unknown tablet (Sinemet) warfarin 1 mg tablet See Rx Instructions PO .COMPLEX 02/24/22 03/07/22 Unknown #90 tabs Active Medications Generic Name Dose Route Start Last Admin Trade Name Juanq PRN Reason Stop Dose Admin Acetaminophen 650 mg 03/07/22 20:27 03/21/22 20:58 Acetaminophen 325 Mg Tab PO 04/06/22 20:26 650 mg Q4H PRN Administration pain/fever Ascorbic Acid 1,000 mg 03/13/22 09:00 03/24/22 09:18 Ascorbic Acid 500 Mg Tab PO 04/12/22 08:59 1,000 mg DAILY SUDHA Administration Calcium Carbonate 1,250 mg 03/12/22 21:00 03/23/22 21:15 Calcium Carbonate 1250mg Tab PO 04/11/22 20:59 1,250 mg HS SUDHA Administration Carbidopa/Levodopa 0.5 tab 03/07/22 21:00 04/03/22 21:36 Carbidopa/Levodopa 25/100mg Tab PO 04/06/22 20:59 0.5 tab BID SUDHA Administration Cyanocobalamin 1,000 mcg 03/13/22 09:00 03/24/22 09:20 Cyanocobalamin (B-12) 500 Mcg Tablet PO 04/12/22 08:59 1,000 mcg QAM SUDHA Administration Ferrous Sulfate 325 mg 03/09/22 12:00 03/24/22 13:27 Ferrous Sulfate 325 Mg Tab PO 04/08/22 11:59 Not Given DAILY@1200 SUDHA Hydroxychloroquine Sulfate 200 mg 03/21/22 09:00 04/03/22 07:39 Hydroxychloroquine Sulfate 200 Mg Tab PO 04/20/22 08:59 Not Given QAM SUDHA Potassium Chloride/Sodium Chloride 20 meq in 1,000 mls @ 75 mls/hr 03/28/22 12:00 03/29/22 22:08 Normal Saline W/20 Meq Kcl IV 04/27/22 11:59 Infused .[id number] SUDHA Infusion Protocol Pantoprazole Sodium 40 mg/ 10 mls @ 5 mls/min 04/01/22 23:15 04/03/22 21:37 Syringe IV 05/01/22 23:14 5 mls/min BID SUDHA Administration Piperacillin Sod/Tazobactam 115 mls @ 28.75 mls/hr 04/02/22 20:00 04/03/22 20:04 Sod 3.375 gm/ Dextrose IV 04/04/22 02:00 28.8 mls/hr Q12H SUDHA Administration Protocol Latanoprost 1 drops 03/12/22 21:00 04/03/22 21:37 Latanoprost 0.005% Op Soln 2.5 Ml Btl OP 04/11/22 20:59 1 drops QPM SUDHA Administration Levothyroxine Sodium 50 mcg 04/01/22 06:30 04/02/22 04:31 Levothyroxine Sodium 50 Mcg Tablet PO 05/01/22 06:29 Not Given [id number] [facility] Protocol Metoprolol Tartrate 100 mg 03/23/22 21:00 04/03/22 21:36 Metoprolol Tartrate 100 Mg Tab PO 04/22/22 20:59 100 mg BID SUDHA Administration Protocol Multivitamins 1 tab 03/10/22 09:00 03/24/22 09:24 Multivitamin Tab PO 04/09/22 08:59 1 tab QAM SUDHA Administration Pantoprazole Sodium 40 mg 03/29/22 21:00 04/02/22 00:41 Pantoprazole 40 Mg Tab PO 04/28/22 20:59 Not Given BID SUDHA Polyethylene Glycol 17 gm 03/18/22 12:30 04/03/22 07:40 Polyethylene (Miralax) 17 Gm Pack PO 04/17/22 12:29 Not Given DAILY SUDHA Warfarin Sodium 10 mg 03/23/22 16:00 03/23/22 17:41 Warfarin Sod 10 Mg Tab PO 04/22/22 15:59 10 mg DAILY@1600 SUDHA Administration PG Care Time/CCT Total # of Minutes Spent Total Time Spent with Patient: Total time spent is greater than 50% in coordination of care (as documented) at patient's floor/unit and/or counseling patient: Coding Level of Care Code 51012 Subseq Hosp Care Lvl 2 Diagnoses Unstageable pressure ulcer of sacral region L89.150 Acute respiratory failure J96.00 Functional quadriplegia R53.2 HTN (hypertension) I10 Hypertension type: essential hypertension Anemia D64.9 Anemia type: unspecified type Parkinsonism G20 Hypothyroidism E03.9 Hypothyroidism type: acquired Rheumatoid arthritis without rheumatoid factor, multiple sites M06.09 CKD (chronic kidney disease), stage III N18.3 Small bowel obstruction K56.609 Renal failure (ARF), acute on chronic N17.9; N18.9 (1) HTN (hypertension) Hypertension type: essential hypertension Qualified Code(s): I10 - Essential (primary) hypertension (2) Anemia Anemia type: unspecified type Qualified Code(s): D64.9 - Anemia, unspecified (3) Hypothyroidism Hypothyroidism type: acquired Qualified Code(s): E03.9 - Hypothyroidism, unspecified
[2022-04-04] MEDS: LEVOTHYROXINE SODIUM 50 MCG TABLET PO SCH (06:07)
[2022-04-04 07:24] LABS: Creatinine Clr Calc Pharmacy 25.7 ml/min; Est GFR (African American) 54.4 ml/min
[2022-04-04 07:33] LABS: INR 2.3 (0.9-1.1); Prothrombin Time 23.5 Seconds (9.0-12.0)
[2022-04-04] MEDS: HYDROXYCHLOROQUINE SULFATE 200 MG TAB PO SCH (08:22)
[2022-04-04] MEDS: METOPROLOL TARTRATE 100 MG TAB PO SCH ×2 (08:22→20:13)
[2022-04-04] MEDS: CARBIDOPA/LEVODOPA 25/100MG TAB PO SCH ×2 (08:22→20:13)
[2022-04-04] MEDS: PANTOprazole 40 MG in SYRINGE 0 ML IV SCH ×2 (08:23→21:14)
[2022-04-04] MEDS: POLYETHYLENE (MIRALAX) 17 GM PACK PO SCH (08:23)
--- NOTE | 2022-04-04 10:27 | Hospitalist Progress Note ---
Date of Service April 04, 2022 Assessment & Plan (1) Unstageable pressure ulcer of sacral region: Plan: 86-year-old female past medical history significant for hypertension, hypothyroidism, hyperlipidemia, CKD stage III, prediabetes, rheumatoid arthritis, Parkinsonism with dementia and aphasia admitted for worsening sacral pressure ulcer for wound care and IV antibiotics. Sacral ulceration, cellulitis: No leukocytosis. CRP 16.38 on admission. - Wound culture growing Proteus penneri and E. faecalis; surgical culture growing Proventella bivia -completed Augmentin for 7 days following surgical debridement [03/16] s/p Debridement of sacral ulcer. Sharp debridement, stage IV, down to bone - Wound VAC now in place from wound care nurse. on 03/24 -Oxygen level worsened, and WBC increased. -Clinically patient apprears comfortable and similar to when she was last seen by me 5 days ago. -Patient will have inflammatory markers checked On recheck, lactic acid is elevated. IVF was given. Chest x ray showed clear lungs but dilated bowels. Ordered ct scan of abdomen and pelvis: 2. High-grade small bowel obstruction with a transition point seen in the left lower quadrant. This is likely on the basis of adhesions. Clinical correlation required and surgical assessment is advised. 3. There is trace interloop fluid. No intraperitoneal free air is seen. There is no pneumatosis intestinalis or portal venous gas. 4. 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 This represents a change from 10/04/2021. 5. There is reconstitution of flow at the iliac bifurcation on the left and in the distal external iliac artery on the right. 6. Small volume ascites. Consulted vascular surgery, and general surgery. 03/25 D/W vascular surgery no intervention required given high ris, and likely chronicity of thrombus. Patient tolerated NG tube placement from day prior, having moderate amount of GI content suctioned. Patient will continue on low intermittent suction. placed on IVF. Lactic acid improved, which is reassuring. LIkely means symptoms are more from SBO. 03/26 Hemoglobin dropped. NG tube suction had been stopped due to concern of GI bleed. May also be dilutional, though given positive fluid balance Will place on PPI drip for GI protection. Patient had a small amount of stool last evening. However, xray shows small bowel obstruction. Will closely monitor hemoglobin. As INR was elevated, ordered vitamin K. updated family. may need consent for transfusion if blood count continues to drop. 03/27 Hemoglobin has been stable. INR normaiized. Will hold off wafarin for now and monitor patient's hemoglobin. continue NG tube on intermittent suction 03/28 Patient tolerated small bowel follow through. Now having multiple bowel movements, some stools even with food particles, despite being NPO for days. Will place on clear liquids and remove NG tube. and will monitor. 03/29 Patient's diet has been advanced. Patient appears to be tolerating this. Will monitor electrolytes, and replace. Concerned that this could be due to adhesions and may return. Will continue conservative management. 03/30 and 03/31 Patient is again ready for discharge medically-to home tomorrow This previous week, her discharge was held as she developed a SBO that was treated conservatively (NG tube for close to 5 days and SB follow through). She is now having bowel movements and is tolerating a low residue diet. Daughter will like patient to no longer go to a SNF as patient's is home on hospice. manager engagement is setting up the wound vac for her decubitus ulcer. Her electrolytes were repleted, potassium, phos and mag Patient had hypomagnesemia, hypopotassemia, and hypophosphatemia Mg 1.6 today 03/31 -Acceptablehigh magnesium foods 04/01 d/w hospitalist nurse coordinator. Home health being arranged at home where she will join her who is on hospice. [id number] Monday discharge. 04/02 Acute respiratory failure from aspiration pneumonia. Now again NPO. Bowel rest ARF as below IV fluids 04/03 Urine output better with IV fluids. Clear liquids started in the afternoon. KUB improved Oxygenation better and patient clinically looks good. 04/04 Oxygenation much better and only on 5 L of oxygen. Anticipate discharge this week keeps improving. (2) Acute respiratory failure: Plan: 01/30 night-Aspiration pneumoniahigh flow oxygen>>>>10 l >>> 5 l NC now Saturations maintained Zosyn (3) Functional quadriplegia: Plan: - Functional quadriplegia in the setting of bed bound, Parkinsonism - Cared for by her and her daughter. (4) HTN (hypertension): Plan: Continue metoprolol (on nebivolol at home). BP little high but p.o. metoprolol was held for couple of days. Today's dose pending HR is controlled (5) Anemia: Plan: In the setting of CKD, anemia of chronic disease Iron studies suggestive of iron deficiency anemia. I suspect the ferritin is normal as an acute inflammatory reactant. - cbc is stable she completed 6 months of treatment for DVT. 04/01 resumed warfarin home dose for DVT prophylaxis as Hb stable now (6) Parkinsonism: Plan: Continue carbidopa levodopa 25-100 mg half tablet p.o. twice daily. - Baseline function is unable to speak, bedbound and caregiver dependent. With significant rigidity on exam. Follows with [facility] (7) Hypothyroidism: Plan: - Continue home levothyroxine. 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 - Avoid nephrotoxins. - Renally dose meds (10) Small bowel obstruction: Plan: Resolved To bowel movementsadvance back to moist minced diet today (11) Renal failure (ARF), acute on chronic: Plan: Resolvedcreatinine 1 down from 1.5 2 days ago Plan DVT prophylaxiswarfarin INR 2.4 CODE STATUS: DNR/DNI confirmed with Daughter earlier in the hospital stay 04/04-updated daughter Veronica on the phone. Plan is to go home with daughter and . is on hospice Wound care discharge instructions in the chart today. Optifoam till wound VAC obtained at home. Admission and Anticipated Discharge Date Admission Date: March 08, 2022 Subjective seen around 9:30 AM. Had a large bowel movement last night and this morning as well. 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) Vital Signs (Past 12 Hours) Vital Signs Temp Pulse Pulse Resp BP Pulse Ox O2 Del Method 04/04/22 08:42 36.6 C 88 18 153/60 H 95 Nasal Cannula 04/04/22 07:21 36.8 C 93 H 16 162/60 H 94 Nasal Cannula 04/04/22 02:05 36.6 C 87 16 154/64 H 96 Nasal Cannula O2 Flow Rate 04/04/22 08:42 10 04/04/22 07:21 11 04/04/22 02:05 10 Laboratory Results Abnormal lab results 04/04/22 Range/Units 06:28 PT 23.5 H (9.0-12.0) Seconds INR 2.3 H (0.9-1.1) Medications Administered Home Medications Medication Instructions Recorded Confirmed Last Taken calcium carbonate 600 mg-vitamin 1 tab PO HS 01/26/19 03/07/22 10/03/21 D3 5 mcg (200 unit) tablet hydroxychloroquine 200 mg tablet 200 mg PO QAM 02/03/20 03/07/22 10/04/21 multivitamin 1 tab PO QAM 08/31/20 03/07/22 10/04/21 latanoprost 0.005 % eye drops 1 drp ophthalmic (eye) QPM 01/05/21 03/07/22 10/03/21 cyanocobalamin (vitamin B-12) 1,000 mcg PO QAM 10/04/21 03/07/22 10/04/21 1,000 mcg capsule levothyroxine 50 mcg tablet 50 mcg PO QAM 10/04/21 03/07/22 10/04/21 (Synthroid) warfarin 3 mg tablet 3 mg PO DAILY@1600 #90 tabs 11/08/21 03/07/22 Unknown nebivolol 10 mg tablet (Bystolic) 10 mg PO QAM #10 tabs 12/03/21 03/07/22 Unknown ascorbic acid (vitamin C) 1,000 mg 1 g PO DAILY 01/06/22 03/07/22 Unknown capsule carbidopa 25 mg-levodopa 100 mg 0.5 tab PO BID 30 days #30 tabs 01/20/22 03/07/22 Unknown tablet (Sinemet) warfarin 1 mg tablet See Rx Instructions PO .COMPLEX 02/24/22 03/07/22 Unknown #90 tabs Active Medications Generic Name Dose Route Start Last Admin Trade Name Freq PRN Reason Stop Dose Admin Acetaminophen 650 mg 03/07/22 20:27 03/21/22 20:58 Acetaminophen 325 Mg Tab PO 04/06/22 20:26 650 mg Q4H PRN Administration pain/fever Ascorbic Acid 1,000 mg 03/13/22 09:00 03/24/22 09:18 Ascorbic Acid 500 Mg Tab PO 04/12/22 08:59 1,000 mg DAILY SUDHA Administration Calcium Carbonate 1,250 mg 03/12/22 21:00 03/23/22 21:15 Calcium Carbonate 1250mg Tab PO 04/11/22 20:59 1,250 mg HS SUDHA Administration Carbidopa/Levodopa 0.5 tab 03/07/22 21:00 04/04/22 08:22 Carbidopa/Levodopa 25/100mg Tab PO 04/06/22 20:59 0.5 tab BID SUDHA Administration Cyanocobalamin 1,000 mcg 03/13/22 09:00 03/24/22 09:20 Cyanocobalamin (B-12) 500 Mcg Tablet PO 04/12/22 08:59 1,000 mcg QAM SUDHA Administration Ferrous Sulfate 325 mg 03/09/22 12:00 03/24/22 13:27 Ferrous Sulfate 325 Mg Tab PO 04/08/22 11:59 Not Given DAILY@1200 SUDHA Hydroxychloroquine Sulfate 200 mg 03/21/22 09:00 04/04/22 08:22 Hydroxychloroquine Sulfate 200 Mg Tab PO 04/20/22 08:59 200 mg QAM SUDHA Administration Potassium Chloride/Sodium Chloride 20 meq in 1,000 mls @ 75 mls/hr 03/28/22 12:00 03/29/22 22:08 Normal Saline W/20 Meq Kcl IV 04/27/22 11:59 Infused .[id number] SUDHA Infusion Protocol Pantoprazole Sodium 40 mg/ 10 mls @ 5 mls/min 04/01/22 23:15 04/04/22 08:23 Syringe IV 05/01/22 23:14 5 mls/min BID SUDHA Administration Latanoprost 1 drops 03/12/22 21:00 04/03/22 21:37 Latanoprost 0.005% Op Soln 2.5 Ml Btl OP 04/11/22 20:59 1 drops QPM SUDHA Administration Levothyroxine Sodium 50 mcg 04/01/22 06:30 04/04/22 06:07 Levothyroxine Sodium 50 Mcg Tablet PO 05/01/22 06:29 50 mcg [id number] [facility] Administration Protocol Metoprolol Tartrate 100 mg 03/23/22 21:00 04/04/22 08:22 Metoprolol Tartrate 100 Mg Tab PO 04/22/22 20:59 100 mg BID [facility] Administration Protocol Multivitamins 1 tab 03/10/22 09:00 03/24/22 09:24 Multivitamin Tab PO 04/09/22 08:59 1 tab QAM SUDHA Administration Pantoprazole Sodium 40 mg 03/29/22 21:00 04/02/22 00:41 Pantoprazole 40 Mg Tab PO 04/28/22 20:59 Not Given BID SUDHA Polyethylene Glycol 17 gm 03/18/22 12:30 04/04/22 08:23 Polyethylene (Miralax) 17 Gm Pack PO 04/17/22 12:29 Not Given DAILY SUDHA Warfarin Sodium 10 mg 03/23/22 16:00 03/23/22 17:41 Warfarin Sod 10 Mg Tab PO 04/22/22 15:59 10 mg DAILY@1600 [facility] Administration PG Care Time/CCT Total # of Minutes Spent Total Time Spent with Patient: Total time spent is greater than 50% in coordination of care (as documented) at patient's floor/unit and/or counseling patient: Coding Level of Care Code 67956 Subseq Hosp Care Lvl 2 Diagnoses Unstageable pressure ulcer of sacral region L89.150 Acute respiratory failure J96.00 Functional quadriplegia R53.2 HTN (hypertension) I10 Hypertension type: essential hypertension Anemia D64.9 Anemia type: unspecified type Parkinsonism G20 Hypothyroidism E03.9 Hypothyroidism type: acquired Rheumatoid arthritis without rheumatoid factor, multiple sites M06.09 CKD (chronic kidney disease), stage III N18.3 Small bowel obstruction K56.609 Renal failure (ARF), acute on chronic N17.9; N18.9 (1) HTN (hypertension) Hypertension type: essential hypertension Qualified Code(s): I10 - Essential (primary) hypertension (2) Anemia Anemia type: unspecified type Qualified Code(s): D64.9 - Anemia, unspecified (3) Hypothyroidism Hypothyroidism type: acquired Qualified Code(s): E03.9 - Hypothyroidism, unspecified
[2022-04-04] MEDS: PIPERACILLIN/TAZOBACTAM 3.375 GM in DEXTROSE 5% 100 ML IV SCH ×2 (13:58→21:14)
[2022-04-04] MEDS: LATANOPROST 0.005% OP SOLN 2.5 ML BTL OP SCH (20:12)
[2022-04-05] MEDS: PIPERACILLIN/TAZOBACTAM 3.375 GM in DEXTROSE 5% 100 ML IV SCH ×3 (05:51→22:03)
[2022-04-05] MEDS: LEVOTHYROXINE SODIUM 50 MCG TABLET PO SCH (05:52)
[2022-04-05] MEDS: CARBIDOPA/LEVODOPA 25/100MG TAB PO SCH ×2 (08:37→21:32)
[2022-04-05] MEDS: PANTOprazole 40 MG in SYRINGE 0 ML IV SCH ×2 (08:37→21:33)
[2022-04-05] MEDS: HYDROXYCHLOROQUINE SULFATE 200 MG TAB PO SCH (08:38)
[2022-04-05] MEDS: METOPROLOL TARTRATE 100 MG TAB PO SCH ×2 (08:38→21:41)
[2022-04-05 08:51] LABS: Creatinine Clr Calc Pharmacy 31.3 ml/min; Est GFR (Non-African American) 59.5 ml/min
[2022-04-05] MEDS: POLYETHYLENE (MIRALAX) 17 GM PACK PO SCH (09:37)
[2022-04-05 10:02] LABS: Hematocrit (blood only) 24.2 % (34.1-44.9); Hemoglobin 7.4 g/dl (12.0-16.0); Mean Corpuscular Hemoglobin 25.4 pg (25.0-34.0); Mean Corpuscular Hgb Conc 30.6 g/dL (32.0-36.0); Mean Corpuscular Volume 83.2 fL (80.0-100.0); Mean Platelet Volume 9.8 fL (9.4-12.3); Platelet Count 342 K/uL (130-400); RDW Coefficient of Variation 16.9 % (11.5-14.5); RDW Standard Deviation 50.4 fL (36.4-46.3); Red Blood Count 2.91 M/uL (3.93-5.22); White Blood Count 9.66 K/ul (4.8-10.8)
[2022-04-05 10:17] LABS: Prothrombin Time 20.6 Seconds (9.0-12.0)
[2022-04-05 10:27] LABS: Basophils # (auto) 0.01 K/uL (0-0.2); Basophils % (auto) 0.1 %; Immature Granulocytes # (auto) 0.03 K/uL (0.00-0.02); Immature Granulocytes % (auto) 0.3 %; Lymphocytes # (auto) 0.99 K/uL (1.2-3.4); Lymphocytes % (auto) 10.2 %; Monocytes # (auto) 0.39 K/uL (0.24-0.82); Neutrophils # (auto) 8.24 K/uL (1.4-6.5); Neutrophils % (auto) 85.4 %
[2022-04-05 10:34] LABS: Calcium 7.5 mg/dl (8.5-10.1); Creatinine Clr Calc Pharmacy 32.8 ml/min; Est GFR (African American) 72.9 ml/min; Est GFR (Non-African American) 62.9 ml/min; Potassium 2.3 mmol/L (3.5-5.1)
[2022-04-05] MEDS ORDERED: PHYTONADIONE 5 MG in DEXTROSE 5% 50 ML IV ONE (10:42)
[2022-04-05] MEDS ORDERED: SODIUM CHLORIDE 0.9% 250 ML IV PRN (10:44)
[2022-04-05] MEDS: POTASSIUM CHLORIDE / WTR 10 MEQ/100 ML PLCT IV SCH ×4 (13:11→16:46)
--- NOTE | 2022-04-05 14:26 | Palliative Care Consultation ---
Date of Consultation April 05, 2022 Assessment & Plan (1) Palliative care encounter: Palliative medicine overview provided, son is very familir from prior engagement with his father. i disucssed concern for Frailty, defined as follows: 1. Multiple comorbidities with signs of impairments in day to day functioning, 2 or more unplanned admissions in the last year, multiple medical problems on 4 or more medications, admission to a retirement, or requiring 2 or more visits from carers a day 2. Deteriorating functional score Using the WHO/ECOG Performance Status, a score of 3 or more would be significant, ie Capable of only limited self-care, confined to bed or chair more than 50% of waking hours 3. A combination of at least 3 symptoms of: weakness, slow walking speed, low physical activity, weight loss, reduced weight and self-reported exhaustion. pt meets criteria for frailty and would qualify for hospice using her parkinsons or dementia as primary dx followed by frailty. I have provided education about the hospice benefit. Hospice is an interdisciplinary program offered by nurses, nurses aides, social workers, chaplains and a pediatric medical assistant for patients with a terminal condition and a life expectancy of less than 6 months. The goal would be to improve the quality of life of the patient in their home setting (home, retirement, inpatient hospice setting) by providing symptoms management, psychosocial and spiritual support. However, they cannot offer 24 hours care and if the family is unable to provide that care, they will have to consider personal care with out of pocket cost vs. retirement placement. Caregiver support is limited to only daughter who primarily helps care for pt in evenings/overnight but now has added responsibility for assisting pt who is home on hospice. Son has several advanced medical issues and is wheelchair dependent for mobility. They do not have additional family or friends who can help care for pt or . Son states they are looking into the option of hiring more [employer] private pay caregivers. (2) Acute respiratory failure: improved. remains on NC (3) Sacral decubitus ulcer, stage IV: Wound vac + (4) Sepsis: resolving (5) Small bowel obstruction: resolving (6) Dementia: Dementia facts we discussed briefly that aggressive medical treatment for residents with advanced dementia is often inappropriate for medical reasons, has a low rate of success, and can have negative outcomes that hasten functional decline and . ([place] [employer] Ethics Committee and Clinical Practice and Models of Care Committee. J Am Geriatr Soc. 2014 Nov;62(8):1590-3 and Yony SL, Ebero JM, Guzman SC, Mor V. A national study of the location of for older persons with dementia. J Am Geriatr Soc 2005; 53(2):299-305.) Tube feeding in residents with advanced dementia does not increase survival. It does not prevent aspiration pneumonia, malnutrition or pressure ulcers. It does not reduce the risk of infections or improve functional status or comfort of the patient. (from: Marko BORRERO, Tamir T Percutaneous endoscopic gastrostomy does not prolong survival in patients with dementia. Arch [employer]oster Plant Operator Med 2003; 163(11):3796-6163 AND Sparkle GARCIA, Deanne MALLY, Jaxson Bonilla, Anne S, Mio BAILEY. High short-term mortality in hospitalized patients with advanced dementia - Lack of benefit of tube feeding. Arch [employer]oster Plant Operator Med 2001; 161(4):594- 599.) Simple strategies involving hands-on care by well-trained staff such as massage, oral hygiene, changes in diet, and hand-feeding -- can prevent infection and manage feeding problems without resort to tube-feeding. Tube feeding does not prevent aspiration pneumonia and might actually increase its incidence, and does not prevent the consequences of malnutrition Hand feeding can be provided until the beginning of the dying process when all physiological processes shut down, note that cognitively intact cancer patients indicate that dying residents do not feel hunger and thirst. Voluntary refusal of food and liquids is often initiated by hospice patients and does not result in discomfort Hospice is a valuable service for persons with advanced dementia, particularly in management of pain, continuous involvement of the primary physician, and avoidance of hospitalization. Social support provided to caregivers is also important given their high levels of depressive symptoms and anxiety. The goal of care for residents with advanced dementia is primarily maintenance of function and patient should not be transferred to an acute care setting because hospitalization results in decline of functional abilities that do not recover after discharge back into retirement Dementia prognosis with MRI score: Dementia is an irreversible syndrome of acquired and persistent impairment in cognition and intellectual functioning, leading to progressive brain failure and . Jude (Jude Wilson. Dementia and Neurodegenerative Disorders. In: Mio BAILEY, Sparkle GARCIA, eds. Geriatric Palliative Care. [place], [place]: [employer]; 2003.) classifies dementia into four functionally defined categories: mild, moderate, severe, and terminal. Terminal dementia is defined as loss of communication, ambulation, swallowing, and continence. Many prognostic factors have been associated with shortened survival: male gender, age, diabetes mellitus, CHF, COPD, cancer, cardiac dysrhythmias, peripheral edema, aspiration, bowel incontinence, recent weight loss, dehydration, fever, pressure ulcers, seizures, shortness of breath, low oral intake, not being awake for most of the day, low BMI, and recent need for continuous oxygen. A 2012 systematic review found that malnutrition, feeding issues, and dysphagia were the strongest associated factors with 6 month mortality in elderly patients with advanced dementia. Simply being admitted to the hospital with acute illness and end-stage or terminal dementia is associated with a particularly poor prognosis: the six month mortality after hospitalization for pneumonia was 53% compared with 13% for cognitively intact patients. For patients with a new hip fracture, 55% of end-stage dementia patients within 6 months compared with 12% for cognitively intact patients (Mio RS, Iva AL. Survival in end-stage dementia following acute illness. MINE. 2000; 284:47-52.). Patient's MRI score today is 19.6; score >16.1 = 49-62% chance of 6 mo mortality. The Mortality Risk Index (MRI) score of >=12, demonstrated that 70% within 6 months (mean survival time not reported). Compared to FAST Stage 7C, the MRI had greater predictive value of six month prognosis. The MRI as only been evaluated in newly admitted retirement residents; it has yet to be validated in the community setting or for previously established long-term retirement residents. (Yony WHYTE, Alaina DK, Mook MB, et al. Estimating prognosis for retirement residents with advanced dementia. MINE. 2004; 291:3335-5681.) Access the MRI Score calculator at: [email or web address] (7) CKD (chronic kidney disease), stage III: (8) Parkinsonism: Plan * Family would like dc home when medically stable with addition of GHH. They are aware from our discussion today that hospice can be added once aggressive treatment for wound is completed, including Abtx and wound vac therapy. They are comfortable asking for hospice when they feel it is more appropriate but right now do not feel they would need hospice for Mom's care at home, she still has an acceptable QOL in their opinion. * NO acute symptoms needing palliative med intervention were identified in today's visit. * Family will reach out if more engagement with Pall Med is needed. They politely declined OP clinic follow up for now, it would be too hard for pt, but they were advised we are available to assist by telemed if needed, they are appreciative of that option. * For now, I will sign off as the GOC and plan as preferred by family is outlined above. They have fairly reasonable expectations that pt will not have an dramatic recovery but her awareness of them and how she engages with them, even non verbally, are acceptable for them and they wish to continue the current course of treatments. If ever her medical providers felt that further interventions would not offer a sustainable and meaningful benefit, they would accept a transition to hospice to assure pt had comfort and dignity in that final stage of her life. Please call or page me if additional assistance or re engagement is needed. Ashley Rodriguez [facility] Clinical Director, Palliative Medicine History of Present Illness Reason for Consultation: "palliative care needed" Requesting Physician: Jimbo Buenrostro MD Attending Physician: Jimbo Buenrostro MD History of Present Illness Yolie Falcon is an 86yo female who has been inpatient since 03/07/22. 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 PMH includes CKD 3, hyperlipidemia, hypertension, hypothyroidism, RA, pulmonary nodules, DVT on Coumadin. she presented to ED with sacral thrombus, cellulitis, worsening wound with pain. pt is seen at bedside with her son and daughter in law (LOUIS). Son is known to me from prior encounter regarding his father/pt , Arnav who is now home on hospice with terminal PHTN/resp failure. Son states that both he and his sister were very appreciative of their discussions with our team and the overall plan of care for pt. Pt lives in her private home. She has a geriatric care manager (?nurse or aide) that comes daily [phone] and then her daughter is there in the evenings and overnight to help care for pt. At this time when pt returns home, dtr will be caring overnight for both patient and , both with complex needs though is a bit more physically laborious than patient, who is a frail diminutive female. Son states his sister has made all the arrangements to bring pt home including requesting referral to [facility]. They are unsure if [facility] will manage the wound vac, though it is likely they will given that it falls under standard home health. As a family they feel pt still enjoys a reasonable QOL: she is not very verbal but can still process information and indicate yes/no as needed. She smiles and interacts when her family is visiting - she will focus on the speakers individually and appears to enjoy their company. She is bedbound and needs help with all ADLs. her concomitant Parkinson and dementia are progressing. she is incontinent. she now has a flood to help heal the sacral wound which is still connected to wound vac. Allergies Allergy/AdvReac Type Severity Reaction Status Date / Time No Known Drug Allergies Allergy NKDA Verified 03/07/22 15:37 Home Medications Medication Instructions Recorded Confirmed Type calcium carbonate 600 mg-vitamin 1 tab PO HS 01/26/19 03/07/22 History D3 5 mcg (200 unit) tablet hydroxychloroquine 200 mg tablet 200 mg PO QAM 02/03/20 03/07/22 History multivitamin 1 tab PO QAM 08/31/20 03/07/22 History latanoprost 0.005 % eye drops 1 drp ophthalmic (eye) QPM 01/05/21 03/07/22 History cyanocobalamin (vitamin B-12) 1,000 mcg PO QAM 10/04/21 03/07/22 History 1,000 mcg capsule levothyroxine 50 mcg tablet 50 mcg PO QAM 10/04/21 03/07/22 History (Synthroid) warfarin 3 mg tablet 3 mg PO DAILY@1600 #90 tabs 11/08/21 03/07/22 Rx nebivolol 10 mg tablet (Bystolic) 10 mg PO QAM #10 tabs 12/03/21 03/07/22 Rx ascorbic acid (vitamin C) 1,000 mg 1 g PO DAILY 01/06/22 03/07/22 History capsule carbidopa 25 mg-levodopa 100 mg 0.5 tab PO BID 30 days #30 tabs 01/20/22 03/07/22 Rx tablet (Sinemet) warfarin 1 mg tablet See Rx Instructions PO .COMPLEX 02/24/22 03/07/22 Rx #90 tabs Patient History Medical History Chronic back pain Glaucoma Hearing deficit HTN (hypertension) Hyperlipidemia Hypothyroidism Osteoarthritis Osteopenia after menopause Ovarian cancer dianosed "a long time ago"--sx only Prediabetes Primary progressive aphasia Pulmonary nodule (02/2021) Rheumatoid arthritis without rheumatoid factor, multiple sites Tachycardia reason for bystolic Surgical History History of bilateral cataract extraction History of bladder suspension procedure History of colonoscopy with polypectomy History of total hysterectomy with bilateral salpingo-oophorectomy (BSO) S/P debridement (03/16/22) Debridement of sacral ulcer. Sharp debridement, stage IV, down to bone, greater than 50 cm. Biopsy of sacrum. S/P ORIF (open reduction internal fixation) fracture (03/17/21) L clavicle Family History Sister Colorectal cancer, Onset Age: 68 Ovarian cancer Father Alzheimer disease Mother Hypertension Other No family history of adverse response to anesthesia Denies family history of Prostate cancer Myocardial infarction Breast cancer Social History Smoking Status: Never smoker Second Hand Exposure: No; Hx Alcohol Use: No Hx Substance Use: No Preferred Language: Khmer Communication Ability: Effective Visual Impairment: Limited Hearing Ability: Use of Hearing Aid Subassembly Assembler Required: No Beliefs That Will Affect Care: Roman Catholic Roman Catholic Beliefs: Caodaism. marital status: Current Living Situation: Spouse Current Living Situation Comment: Caregiver 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, daughter barrett current occupational status: retired Feels Safe at Home: Yes Childhood Exposure to Second-Hand Smoke: No Diet Comment: regular caffeine: Yes (Tea x 2 cups per day.) during the past year weight has: other Dental Care, Regularly: Yes Physical Activity Frequency: Does not Exercise Physical Activity Frequency Comment: due to physical condition Seatbelt Use: always Sunscreen Use: Yes Assistive Devices: Hospital Bed, Stair Lift and Wheelchair Review of Systems Review of Systems: Unobtainable due to cognitive status Physical Exam Physical Exam: Frail, elderly female. Resting in bed, sitting at about 90 degrees. Family (son and DIL) at bedside. Pt is not verbal for me (family says she will occasionally say one word but no sentences); there is bitemp wasting noted. PERRL. pharynx pink, dentition fair, MMM. Neck is supple/no stridor. No audible wheeze or rhonchi, some posterior secretions/rattling noted. Breathing comfortably at rest. Abd softly distended, +flood, +wound vac. +generalized weakness. Appears alert to self (will open eyes and look at speaker when her name is called) but unable to follow simple commands. Results & Data ([facility]) Vital Signs (Past 12 Hours) Vital Signs Temp Pulse Pulse Pulse Resp BP BP 04/05/22 14:05 36.6 C 77 16 147/69 H 04/05/22 13:49 36.4 C L 75 16 146/69 H 04/05/22 13:32 36.6 C 77 16 156/65 H 04/05/22 12:30 36.5 C 79 18 158/65 H 04/05/22 12:16 36.4 C L 77 16 158/62 H 04/05/22 12:03 36.6 C 75 16 155/62 H 04/05/22 08:00 04/05/22 11:45 36.8 C 77 16 154/63 H 04/05/22 07:24 36.6 C 88 14 148/62 H Pulse Ox O2 Del Method O2 Flow Rate 04/05/22 14:05 98 4 04/05/22 13:49 98 4 04/05/22 13:32 98 4 04/05/22 12:30 99 Nasal Cannula 4 04/05/22 12:16 95 High Flow Nasal Cannula 4 04/05/22 12:03 95 High Flow Nasal Cannula 4 04/05/22 08:00 High Flow Nasal Cannula 4 04/05/22 11:45 96 High Flow Nasal Cannula 4 04/05/22 07:24 98 Nasal Cannula 4 Laboratory Results labs and imaging reviewed PG Care Time/CCT Total # of Minutes Spent Total Time Spent: 60 Total Time Spent with Patient: Total time spent is greater than 50% in coordination of care (as documented) at patient's floor/unit and/or counseling patient: [place] [address] Inpt Consult Level 5 Patient Type New Medical Decision Making Moderate Complexity Diagnoses Palliative care encounter Z51.5 Acute respiratory failure J96.00 Sacral decubitus ulcer, stage IV L89.154 Sepsis A41.9 Small bowel obstruction K56.609 Dementia F03.90 CKD (chronic kidney disease), stage III N18.3 Parkinsonism G20
[2022-04-05] MEDS ORDERED: Nursing to Pharmacy Communication SCH (14:30)
--- NOTE | 2022-04-05 16:28 | Hospitalist Progress Note ---
Date of Service April 05, 2022 Assessment & Plan (1) Unstageable pressure ulcer of sacral region: Plan: Status post debridement and Augmentin therapy. Wound VAC in place until healed. Appreciate surgery consultation and interventions (2) Acute respiratory failure: Plan: With hypoxia. Due to aspiration of gastric contents with associated pneumonitis and pneumonia. Supplemental oxygen to keep saturation greater than 90%. Treated with intravenous Zosyn. Serial chest x-ray. (3) Functional quadriplegia: Plan: Functional quadriplegia in the setting of bed bound, Parkinsonism. Cared for by her and her daughter. Supportive care (4) HTN (hypertension): Plan: Continue metoprolol (on nebivolol at home). Adjust dosing as necessary (5) Anemia: Plan: Could possibly be associated with chronic GI loss from Coumadin therapy. And advanced age, Coumadin therapy risks outweigh benefits. Coumadin has been discontinued and reversed with vitamin K. She will need blood transfusion today. Check fecal occult blood. Serial labs. (6) Parkinsonism: Plan: Continue carbidopa levodopa therapy. Supportive care. Follows with [facility] (7) Hypothyroidism: Plan: Continue home levothyroxine. TSH normal in 12/2021 (8) Rheumatoid arthritis without rheumatoid factor, multiple sites: Plan: Hydroxychloroquine has been restarted to avoid worsening rheumatoid arthritis (9) CKD (chronic kidney disease), stage III: Plan: Baseline creatinine ~0.8, at baseline this admission. Monitor intake and output. Serial labs. Avoid nephrotoxins. (10) Small bowel obstruction: Plan: Resolved. (11) Renal failure (ARF), acute on chronic: Plan: Resolved. Monitor intake and output. Serial lab studies Plan DVT prophylaxis: Coumadin discontinued and reversed today, April 05. We will start heparin subcu tomorrow CODE STATUS: DNR/DNI Disposition: To be determined. Palliative care consultation pending Admission and Anticipated Discharge Date Admission Date: March 08, 2022 Subjective Awake. No apparent distress. She has nonverbal with me due to severe dementia and aphasia. Hemoglobin is dropped to 7.4. I feel the risks of Coumadin outweigh any benefits. Coumadin stopped and reversed with vitamin K. We will check fecal occult blood. 1 unit packed red blood cells ordered. Hypokalemia will be addressed with intravenous replacement. Palliative care consult requested Review of Systems Review of Systems: Unable to assess review of systems due to aphasia Physical Exam Physical Exam: General-alert, no apparent distress. Nonverbal HEENT-head atraumatic and normocephalic, pupils equal and reactive to light, extraocular muscles intact Neck-no lymphadenopathy or thyromegaly, trachea midline Chest-scattered rhonchi bilaterally anteriorly. No wheezing or dullness to percussion Cardiac-regular rate and rhythm, normal S1 and S2 Abdomen-normal bowel sounds, no hepatosplenomegaly Extremities-no cyanosis, clubbing, or edema Neuro-aphasic. Otherwise no apparent focal motor deficits Psych-awake. Cannot assess due to aphasia Results & Data Results & Data ([facility]) Vital Signs (Past 12 Hours) Vital Signs Temp Pulse Pulse Pulse Resp BP BP 04/05/22 15:35 36.7 C 81 14 153/73 H 04/05/22 15:34 36.7 C 82 14 153/73 H 04/05/22 14:35 36.4 C L 79 16 150/71 H 04/05/22 14:05 36.4 C L 79 16 150/71 H 04/05/22 14:05 36.6 C 77 16 147/69 H 04/05/22 13:49 36.4 C L 75 16 146/69 H 04/05/22 13:32 36.6 C 77 16 156/65 H 04/05/22 12:30 36.5 C 79 18 158/65 H 04/05/22 12:16 36.4 C L 77 16 158/62 H 04/05/22 12:03 36.6 C 75 16 155/62 H 04/05/22 08:00 04/05/22 11:45 36.8 C 77 16 154/63 H 04/05/22 07:24 36.6 C 88 14 148/62 H Pulse Ox O2 Del Method O2 Flow Rate 04/05/22 15:35 99 4 04/05/22 15:34 99 Nasal Cannula 4 04/05/22 14:35 99 4 04/05/22 14:05 97 4 04/05/22 14:05 98 4 04/05/22 13:49 98 4 04/05/22 13:32 98 4 04/05/22 12:30 99 Nasal Cannula 4 04/05/22 12:16 95 High Flow Nasal Cannula 4 04/05/22 12:03 95 High Flow Nasal Cannula 4 04/05/22 08:00 High Flow Nasal Cannula 4 04/05/22 11:45 96 High Flow Nasal Cannula 4 04/05/22 07:24 98 Nasal Cannula 4 Laboratory Results 04/05/22 09:11 04/05/22 09:11 PG Care Time/CCT Total # of Minutes Spent Total Time Spent with Patient: Total time spent is greater than 50% in coordination of care (as documented) at patient's floor/unit and/or counseling patient: Coding Level of Care Code 76079 Subseq Hosp Care Lvl 3 Diagnoses Unstageable pressure ulcer of sacral region L89.150 Acute respiratory failure J96.00 Functional quadriplegia R53.2 HTN (hypertension) I10 Hypertension type: essential hypertension Anemia D64.9 Anemia type: unspecified type Parkinsonism G20 Hypothyroidism E03.9 Hypothyroidism type: acquired Rheumatoid arthritis without rheumatoid factor, multiple sites M06.09 CKD (chronic kidney disease), stage III N18.3 Small bowel obstruction K56.609 Renal failure (ARF), acute on chronic N17.9; N18.9 (1) HTN (hypertension) Hypertension type: essential hypertension Qualified Code(s): I10 - Essential (primary) hypertension (2) Anemia Anemia type: unspecified type Qualified Code(s): D64.9 - Anemia, unspecified (3) Hypothyroidism Hypothyroidism type: acquired Qualified Code(s): E03.9 - Hypothyroidism, unspecified
[2022-04-05] MEDS: LATANOPROST 0.005% OP SOLN 2.5 ML BTL OP SCH (21:32)
[2022-04-06] MEDS: PIPERACILLIN/TAZOBACTAM 3.375 GM in DEXTROSE 5% 100 ML IV SCH ×3 (05:29→21:19)
[2022-04-06] MEDS: LEVOTHYROXINE SODIUM 50 MCG TABLET PO SCH (05:29)
[2022-04-06 06:31] LABS: Basophils # (auto) 0.01 K/uL (0-0.2); Basophils % (auto) 0.1 %; Eosinophils # (auto) 0.01 K/uL (0-0.50); Eosinophils % (auto) 0.1 %; Hematocrit (blood only) 28.6 % (34.1-44.9); Hemoglobin 9.5 g/dl (12.0-16.0); Immature Granulocytes # (auto) 0.03 K/uL (0.00-0.02); Immature Granulocytes % (auto) 0.4 %; Lymphocytes # (auto) 1.11 K/uL (1.2-3.4); Mean Corpuscular Hemoglobin 26.8 pg (25.0-34.0); Mean Corpuscular Hgb Conc 33.2 g/dL (32.0-36.0); Mean Corpuscular Volume 80.8 fL (80.0-100.0); Mean Platelet Volume 9.6 fL (9.4-12.3); Monocytes # (auto) 0.46 K/uL (0.24-0.82); Monocytes % (auto) 5.4 %; Neutrophils # (auto) 6.92 K/uL (1.4-6.5); Platelet Count 343 K/uL (130-400); RDW Coefficient of Variation 15.8 % (11.5-14.5); RDW Standard Deviation 46.1 fL (36.4-46.3); Red Blood Count 3.54 M/uL (3.93-5.22); White Blood Count 8.54 K/ul (4.8-10.8)
[2022-04-06 06:41] LABS: INR 1.1 (0.9-1.1); Prothrombin Time 12.1 Seconds (9.0-12.0)
[2022-04-06 07:03] LABS: BUN Creatinine Ratio 23.5 (10-20); Creatinine Clr Calc Pharmacy 40.5 ml/min; Est GFR (African American) 91.8 ml/min; Est GFR (Non-African American) 79.2 ml/min; Potassium 2.4 mmol/L (3.5-5.1)
[2022-04-06] MEDS ORDERED: STAT IV STA (07:18)
[2022-04-06] MEDS ORDERED: CALCIUM GLUCONATE 10% 2,000 MG in DEXTROSE 5% 50 ML IV ONE (07:45)
[2022-04-06] MEDS: D5W AND 1/2NSS + 20MEQ KCL 20 MEQ/1,000 ML BAG IV SCH ×2 (08:45→21:00)
[2022-04-06] MEDS: POTASSIUM CHLORIDE / WTR 10 MEQ/100 ML PLCT IV SCH ×4 (08:46→12:39)
[2022-04-06] MEDS: POLYETHYLENE (MIRALAX) 17 GM PACK PO SCH (09:39)
[2022-04-06] MEDS: HYDROXYCHLOROQUINE SULFATE 200 MG TAB PO SCH ×2 (09:39→12:35)
[2022-04-06] MEDS: METOPROLOL TARTRATE 100 MG TAB PO SCH ×2 (09:39→21:04)
[2022-04-06] MEDS: CARBIDOPA/LEVODOPA 25/100MG TAB PO SCH ×2 (09:39→12:34)
[2022-04-06] MEDS: PANTOprazole 40 MG in SYRINGE 0 ML IV SCH ×2 (09:46→21:01)
--- NOTE | 2022-04-06 12:19 | Hospitalist Progress Note ---
Date of Service April 06, 2022 Assessment & Plan (1) Unstageable pressure ulcer of sacral region: Plan: Status post debridement and Augmentin therapy. Wound VAC in place until healed. Appreciate surgery consultation and interventions (2) Acute respiratory failure: Plan: With hypoxia. Due to aspiration of gastric contents with associated pneumonitis and pneumonia. Supplemental oxygen to keep saturation greater than 90%. Treated with intravenous Zosyn. Serial chest x-ray. (3) Functional quadriplegia: Plan: Functional quadriplegia in the setting of bed bound, Parkinsonism. Cared for by her and her daughter. Supportive care (4) HTN (hypertension): Plan: Continue metoprolol (on nebivolol at home). Adjust dosing as necessary (5) Anemia: Plan: Could possibly be associated with chronic GI loss from Coumadin therapy. With advanced age, Coumadin therapy risks outweigh benefits. Coumadin has been discontinued and reversed with vitamin K. She received blood transfusion yesterday, April 05. Fecal occult blood remains pending. Serial labs. (6) Parkinsonism: Plan: Continue carbidopa levodopa therapy. Supportive care. Follows with [facility] [place] [facility] (7) Hypothyroidism: Plan: Continue home levothyroxine. TSH normal in 12/2021 (8) Rheumatoid arthritis without rheumatoid factor, multiple sites: Plan: Hydroxychloroquine has been restarted to avoid worsening rheumatoid arthritis (9) CKD (chronic kidney disease), stage III: Plan: Baseline creatinine ~0.8, at baseline this admission. Monitor intake and output. Serial labs. Avoid nephrotoxins. (10) Small bowel obstruction: Plan: Resolved. (11) Renal failure (ARF), acute on chronic: Plan: Resolved. Monitor intake and output. Serial lab studies (12) Hypokalemia: Plan: Intravenous replacement ordered. Serial labs (13) Hypocalcemia: Plan: Intravenous replacement ordered. Serial labs Plan DVT prophylaxis: Coumadin discontinued and reversed on April 05. Now on heparin subcu CODE STATUS: DNR/DNI Disposition: To be determined. Palliative care consultation pending Admission and Anticipated Discharge Date Admission Date: March 08, 2022 Subjective Eyes are open but I am not sure of her level of awareness. She is chronically aphasic. I spoke with her daughter by phone today and made them aware that palliative care will be seeing the patient and will be calling them. Review of Systems Review of Systems: Unable to assess review of systems due to aphasia Physical Exam Physical Exam: General-awake, aphasic HEENT-head atraumatic and normocephalic, pupils equal and reactive to light, extraocular muscles intact. Dry mucous membranes Neck-no lymphadenopathy or thyromegaly, trachea midline Chest-scattered rhonchi bilaterally anteriorly. No wheezing or dullness to percussion Cardiac-regular rate and rhythm, normal S1 and S2 Abdomen-normal bowel sounds, no hepatosplenomegaly Extremities-no cyanosis, clubbing, or edema Neuro-aphasic. Otherwise no apparent focal motor deficits Psych-awake. Cannot assess due to aphasia Results & Data Results & Data ([facility]) Vital Signs (Past 12 Hours) Vital Signs Temp Pulse Pulse Resp BP Pulse Ox O2 Del Method 04/06/22 10:33 36.6 C 87 22 152/68 H 96 Nasal Cannula 04/06/22 09:32 87 04/06/22 07:47 36.6 C 100 H 18 159/69 H 94 Nasal Cannula O2 Flow Rate 04/06/22 10:33 4 04/06/22 09:32 04/06/22 07:47 4 Laboratory Results 04/06/22 05:26 04/06/22 05:26 PG Care Time/CCT Total # of Minutes Spent Total Time Spent with Patient: Total time spent is greater than 50% in coordination of care (as documented) at patient's floor/unit and/or counseling patient: Coding Level of Care Code 95045 Subseq Hosp Care Lvl 3 Diagnoses Unstageable pressure ulcer of sacral region L89.150 Acute respiratory failure J96.00 Functional quadriplegia R53.2 HTN (hypertension) I10 Hypertension type: essential hypertension Anemia D64.9 Anemia type: unspecified type Parkinsonism G20 Hypothyroidism E03.9 Hypothyroidism type: acquired Rheumatoid arthritis without rheumatoid factor, multiple sites M06.09 CKD (chronic kidney disease), stage III N18.3 Small bowel obstruction K56.609 Renal failure (ARF), acute on chronic N17.9; N18.9 Hypokalemia E87.6 Hypocalcemia E83.51 (1) HTN (hypertension) Hypertension type: essential hypertension Qualified Code(s): I10 - Essential (primary) hypertension (2) Anemia Anemia type: unspecified type Qualified Code(s): D64.9 - Anemia, unspecified (3) Hypothyroidism Hypothyroidism type: acquired Qualified Code(s): E03.9 - Hypothyroidism, unspecified
[2022-04-06] MEDS: HEPARIN SOD 5,000 UNIT/0.5 ML VIAL SQ SCH (21:04)
[2022-04-06] MEDS: LATANOPROST 0.005% OP SOLN 2.5 ML BTL OP SCH (21:05)
[2022-04-07] MEDS: LEVOTHYROXINE SODIUM 50 MCG TABLET PO SCH (05:45)
[2022-04-07] MEDS: PIPERACILLIN/TAZOBACTAM 3.375 GM in DEXTROSE 5% 100 ML IV SCH (05:45)
[2022-04-07 06:32] LABS: Basophils # (auto) 0.01 K/uL (0-0.2); Basophils % (auto) 0.2 %; Eosinophils # (auto) 0.02 K/uL (0-0.50); Eosinophils % (auto) 0.3 %; Hematocrit (blood only) 28.2 % (34.1-44.9); Hemoglobin 9.4 g/dl (12.0-16.0); Immature Granulocytes # (auto) 0.04 K/uL (0.00-0.02); Immature Granulocytes % (auto) 0.6 %; Lymphocytes # (auto) 0.97 K/uL (1.2-3.4); Lymphocytes % (auto) 15.6 %; Mean Corpuscular Hemoglobin 26.9 pg (25.0-34.0); Mean Corpuscular Hgb Conc 33.3 g/dL (32.0-36.0); Mean Corpuscular Volume 80.6 fL (80.0-100.0); Mean Platelet Volume 9.4 fL (9.4-12.3); Monocytes % (auto) 4.8 %; Neutrophils # (auto) 4.86 K/uL (1.4-6.5); Neutrophils % (auto) 78.5 %; Platelet Count 283 K/uL (130-400); RDW Standard Deviation 47.2 fL (36.4-46.3)
[2022-04-07 07:18] LABS: BUN Creatinine Ratio 16.7 (10-20); Calcium 6.8 mg/dl (8.5-10.1); Creatinine Clr Calc Pharmacy 45.9 ml/min; Est GFR (African American) 95.7 ml/min; Est GFR (Non-African American) 82.5 ml/min; Potassium 2.7 mmol/L (3.5-5.1)
[2022-04-07] MEDS: D5W AND 1/2NSS + 20MEQ KCL 20 MEQ/1,000 ML BAG IV SCH (09:41)
[2022-04-07] MEDS: METOPROLOL TARTRATE 100 MG TAB PO SCH ×2 (09:42→21:14)
[2022-04-07] MEDS: HYDROXYCHLOROQUINE SULFATE 200 MG TAB PO SCH (09:42)
[2022-04-07] MEDS: PANTOprazole 40 MG in SYRINGE 0 ML IV SCH ×2 (09:42→21:13)
[2022-04-07] MEDS: HEPARIN SOD 5,000 UNIT/0.5 ML VIAL SQ SCH ×2 (09:42→21:14)
[2022-04-07] MEDS: POLYETHYLENE (MIRALAX) 17 GM PACK PO SCH (09:54)
[2022-04-07] MEDS ORDERED: POTASSIUM PHOS 3 MMOL/1 ML INFUSION IV STA (12:41)
[2022-04-07] MEDS ORDERED: amLODIPine BESYLATE 5 MG TAB PO ONE (13:04)
--- NOTE | 2022-04-07 13:14 | Hospitalist Progress Note ---
Date of Service April 07, 2022 Assessment & Plan (1) Unstageable pressure ulcer of sacral region: Plan: Status post debridement and Augmentin therapy. Wound VAC in place until healed. Wound care following (2) Acute respiratory failure: Plan: With hypoxia. Due to aspiration of gastric contents with associated pneumonitis and pneumonia last week. Supplemental oxygen to keep saturation greater than 90%. Can be weaned down to 2 L easily. Treated with intravenous Zosyn 5 days total. (3) Functional quadriplegia: Plan: Functional quadriplegia in the setting of bed bound, Parkinsonism. Cared for by her and her daughter. Supportive care (4) HTN (hypertension): Plan: Continue metoprolol (on nebivolol at home). Adjust dosing as necessary BP in the 150s to 160s in hypovolemic state. We will add low-dose Norvasc today (5) Anemia: Plan: Could possibly be associated with chronic GI loss from Coumadin therapy. With advanced age, Coumadin therapy risks outweigh benefits. Coumadin has been discontinued and reversed with vitamin K. She received blood transfusion yesterday, April 05. Fecal occult blood remains pending. Serial labs. (6) Parkinsonism: Plan: Continue carbidopa levodopa therapy. Supportive care. [place] [facility] [place] (7) Hypothyroidism: Plan: Continue home levothyroxine. TSH normal in 12/2021 (8) Rheumatoid arthritis without rheumatoid factor, multiple sites: Plan: Hydroxychloroquine has been restarted to avoid worsening rheumatoid arthritis (9) CKD (chronic kidney disease), stage III: Plan: Baseline creatinine ~0.8, at baseline this admission. Monitor intake and output. Serial labs. Avoid nephrotoxins. (10) Small bowel obstruction: Plan: Resolved. (11) Renal failure (ARF), acute on chronic: Plan: Resolved. Monitor intake and output. Serial lab studies (12) Hypokalemia: Plan: Intravenous replacement ordered. Serial labs (13) Hypocalcemia: Plan: Intravenous replacement ordered. Serial labs Plan DVT prophylaxis: Coumadin discontinued and reversed on April 05. Now on heparin subcu CODE STATUS: DNR/DNI Palliative care consultation seen 04/05- home w home health in am- discussed with case management Admission and Anticipated Discharge Date Admission Date: March 08, 2022 Subjective -Seen at 1230. Per RN p.o. intake basically was none this morning. Did not eat dry breakfast at all. Sipping her apple juice occasionally. Electrolyte abnormalities persist potassium 2.7 today after 2K riders. Urine output adequate at 1200 cc overnight Baseline dementiareview of systems not possible Physical Exam Physical Exam: Awake and makes eye contact but nonverbal 97% on 4 L nasal cannula Dry tongue Chest CTA anteriorly Abdomen soft, nondistended, Soto container with light yellow urine Skin exam deferred Yesterday's wound care pictures shows a 8 cm long and about 6 cm wide sacral decubitus ulcer with's purulent film, jagged edges Warm hands Unable to do EDUCATION SPEC exam as at baseline-unable to follow commands because of dementia Extremities: heel protectors on, no edema Results & Data Results & Data ([facility]) Vital Signs (Past 12 Hours) Vital Signs Temp Pulse Resp BP Pulse Ox O2 Del Method O2 Flow Rate 04/07/22 07:43 36.3 C L 85 12 163/75 H 97 Nasal Cannula 4 Laboratory Results Abnormal lab results 04/07/22 04/07/22 Range/Units 05:39 05:39 RBC 3.50 L (3.93-5.22) M/uL Hgb 9.4 L (12.0-16.0) g/dl Hct 28.2 L (34.1-44.9) % RDW Std Deviation 47.2 H (36.4-46.3) fL RDW Coeff of Meryl 16.0 H (11.5-14.5) % Lymph # (Auto) 0.97 L (1.2-3.4) K/uL Immature Gran # (Auto) 0.04 H (0.00-0.02) K/uL Potassium 2.7 L (3.5-5.1) mmol/L Glucose 157 H (70-99(Fasting)) mg/dl Calcium 6.8 L (8.5-10.1) mg/dl Medications Administered Home Medications Medication Instructions Recorded Confirmed Last Taken calcium carbonate 600 mg-vitamin 1 tab PO HS 01/26/19 03/07/22 10/03/21 D3 5 mcg (200 unit) tablet hydroxychloroquine 200 mg tablet 200 mg PO QAM 02/03/20 03/07/22 10/04/21 multivitamin 1 tab PO QAM 08/31/20 03/07/22 10/04/21 latanoprost 0.005 % eye drops 1 drp ophthalmic (eye) QPM 01/05/21 03/07/22 10/03/21 cyanocobalamin (vitamin B-12) 1,000 mcg PO QAM 10/04/21 03/07/22 10/04/21 1,000 mcg capsule levothyroxine 50 mcg tablet 50 mcg PO QAM 10/04/21 03/07/22 10/04/21 (Synthroid) warfarin 3 mg tablet 3 mg PO DAILY@1600 #90 tabs 11/08/21 03/07/22 Unknown nebivolol 10 mg tablet (Bystolic) 10 mg PO QAM #10 tabs 12/03/21 03/07/22 Unknown ascorbic acid (vitamin C) 1,000 mg 1 g PO DAILY 01/06/22 03/07/22 Unknown capsule carbidopa 25 mg-levodopa 100 mg 0.5 tab PO BID 30 days #30 tabs 01/20/22 03/07/22 Unknown tablet (Sinemet) warfarin 1 mg tablet See Rx Instructions PO .COMPLEX 02/24/22 03/07/22 Unknown #90 tabs Active Medications Generic Name Dose Route Start Last Admin Trade Name Pankaj PRN Reason Stop Dose Admin Ascorbic Acid 1,000 mg 03/13/22 09:00 03/24/22 09:18 Ascorbic Acid 500 Mg Tab PO 04/12/22 08:59 1,000 mg DAILY SUDHA Administration Calcium Carbonate 1,250 mg 03/12/22 21:00 03/23/22 21:15 Calcium Carbonate 1250mg Tab PO 04/11/22 20:59 1,250 mg HS SUDHA Administration Cyanocobalamin 1,000 mcg 03/13/22 09:00 03/24/22 09:20 Cyanocobalamin (B-12) 500 Mcg Tablet PO 04/12/22 08:59 1,000 mcg QAM SUDHA Administration Ferrous Sulfate 325 mg 03/09/22 12:00 03/24/22 13:27 Ferrous Sulfate 325 Mg Tab PO 04/08/22 11:59 Not Given DAILY@1200 [facility] Heparin Sodium (Porcine) 5,000 units 04/06/22 21:00 04/07/22 09:42 Heparin Sod 5,000 Unit/0.5 Ml Vial SQ 05/06/22 20:59 5,000 units Q12 SUDHA Administration Hydroxychloroquine Sulfate 200 mg 03/21/22 09:00 04/07/22 09:42 Hydroxychloroquine Sulfate 200 Mg Tab PO 04/20/22 08:59 200 mg QAM SUDHA Administration Pantoprazole Sodium 40 mg/ 10 mls @ 5 mls/min 04/01/22 23:15 04/07/22 09:42 Syringe IV 05/01/22 23:14 5 mls/min BID SUDHA Administration Potassium Chloride/Dextrose/Sod Cl 20 meq in 1,000 mls @ 75 mls/hr 04/06/22 07:30 04/07/22 09:41 D5w And 1/2nss + 20meq Kcl IV 05/06/22 07:29 75 mls/hr .[id number] SUDHA Administration Protocol Latanoprost 1 drops 03/12/22 21:00 04/06/22 21:05 Latanoprost 0.005% Op Soln 2.5 Ml Btl OP 04/11/22 20:59 1 drops QPM SUDHA Administration Levothyroxine Sodium 50 mcg 04/01/22 06:30 04/07/22 05:45 Levothyroxine Sodium 50 Mcg Tablet PO 05/01/22 06:29 50 mcg [id number] SUDHA Administration Protocol Metoprolol Tartrate 100 mg 03/23/22 21:00 04/07/22 09:42 Metoprolol Tartrate 100 Mg Tab PO 04/22/22 20:59 100 mg BID SUDHA Administration Protocol Multivitamins 1 tab 03/10/22 09:00 03/24/22 09:24 Multivitamin Tab PO 04/09/22 08:59 1 tab QAM SUDHA Administration Pantoprazole Sodium 40 mg 03/29/22 21:00 04/02/22 00:41 Pantoprazole 40 Mg Tab PO 04/28/22 20:59 Not Given BID SUDHA Polyethylene Glycol 17 gm 03/18/22 12:30 04/07/22 09:54 Polyethylene (Miralax) 17 Gm Pack PO 04/17/22 12:29 17 gm DAILY SUDHA Administration PG Care Time/CCT Total # of Minutes Spent Total Time Spent with Patient: Total time spent is greater than 50% in coordination of care (as documented) at patient's floor/unit and/or counseling patient: Coding Level of Care Code 40160 Subseq Hosp Care Lvl 2 Diagnoses Unstageable pressure ulcer of sacral region L89.150 Acute respiratory failure J96.00 Functional quadriplegia R53.2 HTN (hypertension) I10 Hypertension type: essential hypertension Anemia D64.9 Anemia type: unspecified type Parkinsonism G20 Hypothyroidism E03.9 Hypothyroidism type: acquired Rheumatoid arthritis without rheumatoid factor, multiple sites M06.09 CKD (chronic kidney disease), stage III N18.3 Small bowel obstruction K56.609 Renal failure (ARF), acute on chronic N17.9; N18.9 Hypokalemia E87.6 Hypocalcemia E83.51 (1) HTN (hypertension) Hypertension type: essential hypertension Qualified Code(s): I10 - Essential (primary) hypertension (2) Anemia Anemia type: unspecified type Qualified Code(s): D64.9 - Anemia, unspecified (3) Hypothyroidism Hypothyroidism type: acquired Qualified Code(s): E03.9 - Hypothyroidism, unspecified
[2022-04-07] MEDS: POTASSIUM CHLORIDE / WTR 10 MEQ/100 ML PLCT IV SCH ×4 (13:24→17:03)
--- NOTE | 2022-04-07 15:00 | History & Physical Bridge Note ---
Date of Service April 07, 2022 History & Physical Bridge Note aT 1445 H, Spoke with daughter Veronica and informed her that the patient's electrolytes are precarious. Her p.o. intake is erratic and actually poor. Speech therapy yesterday saw her poor swallowing reflex.Veronica wonders if she is afraid of a sore throat which she apparently had before the aspiration pneumonia last week Hospice would be a suitable plan at this time. She will think about it and she told me some of her mother's favorite foods namely applesauce, lemon pudding, cranberry juice, ice tea, banana popsicles which we will try as available here Veronica understands the concept of hospice since her father is on hospice. We will reconvene on phone tomorrow.
[2022-04-07] MEDS: LATANOPROST 0.005% OP SOLN 2.5 ML BTL OP SCH (21:14)
[2022-04-08] MEDS: METOPROLOL TARTRATE 100 MG TAB PO SCH ×2 (07:55→20:27)
[2022-04-08] MEDS: amLODIPine BESYLATE 5 MG TAB PO SCH (07:55)
[2022-04-08] MEDS: HEPARIN SOD 5,000 UNIT/0.5 ML VIAL SQ SCH ×2 (07:55→20:27)
[2022-04-08] MEDS: HYDROXYCHLOROQUINE SULFATE 200 MG TAB PO SCH (07:55)
[2022-04-08] MEDS: PANTOprazole 40 MG in SYRINGE 0 ML IV SCH (07:55)
[2022-04-08 08:01] LABS: Albumin Globulin Ratio 0.8 (0.9-2); Albumin Level 2.5 gm/dl (3.4-5.0); BUN Creatinine Ratio 15.8 (10-20); Bilirubin,Total 0.6 mg/dl (0.2-1.0); Calcium 6.8 mg/dl (8.5-10.1); Creatinine Clr Calc Pharmacy 48.3 ml/min; Est GFR (African American) 97.3 ml/min; Est GFR (Non-African American) 83.9 ml/min; Globulin 3.2 gm/dl (2.5-4.0); Phosphorus 2.3 mg/dl (2.5-4.9); Potassium 3.2 mmol/L (3.5-5.1); Prealbumin 10.8 mg/dl (20-40); Total Protein 5.7 gm/dl (6.0-8.3)
[2022-04-08] MEDS ORDERED: POTASSIUM CHLORIDE CRTAB 20 MEQ TABCR PO STA (08:35)
[2022-04-08] MEDS ORDERED: CALCIUM GLUCONATE 10% 1,000 MG in DEXTROSE 5% 50 ML IV ONE (09:00)
[2022-04-08] MEDS: POLYETHYLENE (MIRALAX) 17 GM PACK PO SCH (09:44)
[2022-04-08] MEDS: LEVOTHYROXINE SODIUM 50 MCG TABLET PO SCH (09:44)
[2022-04-08] MEDS: CALCIUM 600MG + VIT D 400 IU TAB PO SCH ×2 (09:45→20:27)
--- NOTE | 2022-04-08 14:47 | Hospitalist Progress Note ---
Date of Service April 08, 2022 Assessment & Plan (1) Failure to thrive: Plan: Very poor p.o. intake the last 2 days. Significant hypokalemia and was being replenished. Now getting oliguric. See discussion below under plan (2) Unstageable pressure ulcer of sacral region: Plan: Status post debridement and Augmentin therapy. Wound VAC in place until healed. Wound care following Hospital day 32 (3) Acute respiratory failure: Plan: With hypoxia. Now resolved due to aspiration of gastric contents with associa jessica pneumonitis and pneumonia around 01 April- supplemental oxygen to keep saturation greater than 90%. Can be weaned down to 2 L easily. Treated with intravenous Zosyn 5 days total. (4) Functional quadriplegia: Plan: Functional quadriplegia in the setting of bed bound, Parkinsonism. Cared for by her and her daughter. Supportive care (5) HTN (hypertension): Plan: Continue metoprolol (on nebivolol at home) and amlodipine. ([id number]) Normotensive (6) Anemia: Plan: Could possibly be associated with chronic GI loss from Coumadin therapy. With advanced age, Coumadin therapy risks outweigh benefits. Coumadin has been discontinued and reversed with vitamin K 04/05. She received blood transfusion April 05. Fecal occult blood remains pending. (7) Parkinsonism: Plan: Continue carbidopa levodopa therapy. Supportive care. Follows with [facility] [place] (8) Hypothyroidism: Plan: Continue home levothyroxine. TSH normal in 12/2021 (9) Rheumatoid arthritis without rheumatoid factor, multiple sites: Plan: Hydroxychloroquine has been restarted to avoid worsening rheumatoid arthritis (10) CKD (chronic kidney disease), stage III: Plan: Baseline creatinine ~0.8, at baseline this admission. Monitor intake and output. Serial labs. Avoid nephrotoxins. (11) Small bowel obstruction: Plan: Resolved. (12) Renal failure (ARF), acute on chronic: Plan: Resolved. Monitor intake and output. Serial lab studies (13) Hypokalemia: Plan: Intravenous replacement ordered. Serial labs (14) Hypocalcemia: Plan: Intact PTH normal and so his vitamin D. Has known CKD likely poor p.o. intake. Continue calcium with vitamin D. (15) Protein calorie malnutrition: Plan: Prealbumin only 10. Plan DVT prophylaxis: Coumadin discontinued and reversed on April 05. Now on heparin subcu CODE STATUS: DNR/DNI 06/09: Spoke with daughter Veronica who has discussed with her brother and they both agree that hospice is the best option for this patient with her continuing decline.. She agrees that we only do comfort care now. Labs to be stopped. Present medications to be continued her favorite foods are cranberry juice, lemon pudding, banana popsicle which can be continued. Home hospice being arranged by case management to have discussed with Home hospice with [facility] as a family choice and will be arranged. May go home over the weekend or by . Daughter Veronica's told me that she just wants the patient home in her familiar surroundings. Her questions were answered Admission and Anticipated Discharge Date Admission Date: March 08, 2022 Subjective at noon, patient has had no p.o. intake for lunch or breakfast. Urine output 300 cc over the last 6 hours. Only to 50 cc throughout the night. Had not been reacting much to wound VAC change which is new. 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 Anaerobic Blood Culture - Final No growth in Anaerobic bottle after 5 days. 04/02/22 06:41 Aerobic Blood Culture - Final Blood No growth in Aerobic bottle after 5 days. Anaerobic Blood Culture - Final No growth in Anaerobic bottle after 5 days. 04/08/22 04/08/22 04/08/22 09:38 09:38 06:36 Sodium 140 Potassium 3.2 L Chloride 102 Carbon Dioxide 28 Anion Gap 10 BUN 9 Creatinine 0.57 L Est Cr Clr Drug Dosing 48.3 Est GFR ( Amer) 97.3 Est GFR (Non-Af Amer) 83.9 BUN/Creatinine Ratio 15.8 Glucose 77 Calcium 6.8 L Phosphorus 2.3 L Total Bilirubin 0.6 AST 33 ALT 26 Alkaline Phosphatase 118 H Total Protein 5.7 L Albumin 2.5 L Globulin 3.2 Albumin/Globulin Ratio 0.8 L Prealbumin 10.8 L 25-OH Vitamin D Total 35.4 PTH Intact 51.1 Medications Administered Home Medications Medication Instructions Recorded Confirmed Last Taken calcium carbonate 600 mg-vitamin 1 tab PO HS 01/26/19 03/07/22 10/03/21 D3 5 mcg (200 unit) tablet hydroxychloroquine 200 mg tablet 200 mg PO QAM 02/03/20 03/07/22 10/04/21 multivitamin 1 tab PO QAM 08/31/20 03/07/22 10/04/21 latanoprost 0.005 % eye drops 1 drp ophthalmic (eye) QPM 01/05/21 03/07/22 10/03/21 cyanocobalamin (vitamin B-12) 1,000 mcg PO QAM 10/04/21 03/07/22 10/04/21 1,000 mcg capsule levothyroxine 50 mcg tablet 50 mcg PO QAM 10/04/21 03/07/22 10/04/21 (Synthroid) warfarin 3 mg tablet 3 mg PO DAILY@1600 #90 tabs 11/08/21 03/07/22 Unknown nebivolol 10 mg tablet (Bystolic) 10 mg PO QAM #10 tabs 12/03/21 03/07/22 Unknown ascorbic acid (vitamin C) 1,000 mg 1 g PO DAILY 01/06/22 03/07/22 Unknown capsule carbidopa 25 mg-levodopa 100 mg 0.5 tab PO BID 30 days #30 tabs 01/20/22 03/07/22 Unknown tablet (Sinemet) warfarin 1 mg tablet See Rx Instructions PO .COMPLEX 02/24/22 03/07/22 Unknown #90 tabs Active Medications Generic Name Dose Route Start Last Admin Trade Name Freq PRN Reason Stop Dose Admin Amlodipine Besylate 2.5 mg 04/08/22 09:00 04/08/22 07:55 Amlodipine Besylate 5 Mg Tab PO 05/08/22 08:59 2.5 mg DAILY SUDHA Administration Calcium/Vitamin D 1 tab 04/08/22 09:00 04/08/22 09:45 Calcium 600mg + Vit D 400 Iu Tab PO 05/08/22 08:59 Not Given BID SUDHA Heparin Sodium (Porcine) 5,000 units 04/06/22 21:00 04/08/22 07:55 Heparin Sod 5,000 Unit/0.5 Ml Vial SQ 05/06/22 20:59 5,000 units Q12 SUDHA Administration Hydroxychloroquine Sulfate 200 mg 03/21/22 09:00 04/08/22 07:55 Hydroxychloroquine Sulfate 200 Mg Tab PO 04/20/22 08:59 200 mg QAM SUDHA Administration Latanoprost 1 drops 03/12/22 21:00 04/07/22 21:14 Latanoprost 0.005% Op Soln 2.5 Ml Btl OP 04/11/22 20:59 1 drops QPM SUDHA Administration Levothyroxine Sodium 50 mcg 04/01/22 06:30 04/08/22 09:44 Levothyroxine Sodium 50 Mcg Tablet PO 05/01/22 06:29 Not Given [id number] [facility] Protocol Metoprolol Tartrate 100 mg 03/23/22 21:00 04/08/22 07:55 Metoprolol Tartrate 100 Mg Tab PO 04/22/22 20:59 100 mg BID SUDHA Administration Protocol Polyethylene Glycol 17 gm 03/18/22 12:30 04/08/22 09:44 Polyethylene (Miralax) 17 Gm Pack PO 04/17/22 12:29 Not Given DAILY [facility] PG Care Time/CCT Total # of Minutes Spent Total Time Spent with Patient: Total time spent is greater than 50% in coordination of care (as documented) at patient's floor/unit and/or counseling patient: Coding Level of Care Code 22736 Subseq Hosp Care Lvl 3 Diagnoses Failure to thrive Unstageable pressure ulcer of sacral region L89.150 Acute respiratory failure J96.00 Functional quadriplegia R53.2 HTN (hypertension) I10 Hypertension type: essential hypertension Anemia D64.9 Anemia type: unspecified type Parkinsonism G20 Hypothyroidism E03.9 Hypothyroidism type: acquired Rheumatoid arthritis without rheumatoid factor, multiple sites M06.09 CKD (chronic kidney disease), stage III N18.3 Small bowel obstruction K56.609 Renal failure (ARF), acute on chronic N17.9; N18.9 Hypokalemia E87.6 Hypocalcemia E83.51 Protein calorie malnutrition E46 Comment 20 minutes trying to reach daughter and then discussing with her. (1) HTN (hypertension) Hypertension type: essential hypertension Qualified Code(s): I10 - Essential (primary) hypertension (2) Anemia Anemia type: unspecified type Qualified Code(s): D64.9 - Anemia, unspecified (3) Hypothyroidism Hypothyroidism type: acquired Qualified Code(s): E03.9 - Hypothyroidism, unsp ecified
[2022-04-08] MEDS ORDERED: ONDANSETRON INJ 2 MG/ML 2 ML VIAL IV PRN (19:04)
[2022-04-08] MEDS ORDERED: LORazepam 0.5 MG TAB PO PRN (19:04)
[2022-04-08] MEDS ORDERED: ACETAMINOPHEN 325 MG TAB PO PRN (19:04)
[2022-04-08] MEDS ORDERED: ONDANSETRON 4 MG OD TAB SL PRN (19:04)
[2022-04-08] MEDS ORDERED: LORazepam 0.5 MG in SYRINGE 0 ML IV PRN (19:04)
[2022-04-08] MEDS: LATANOPROST 0.005% OP SOLN 2.5 ML BTL OP SCH (20:27)
[2022-04-09] MEDS: LEVOTHYROXINE SODIUM 50 MCG TABLET PO SCH (06:25)
[2022-04-09] MEDS: amLODIPine BESYLATE 5 MG TAB PO SCH (08:44)
[2022-04-09] MEDS: CALCIUM 600MG + VIT D 400 IU TAB PO SCH ×2 (08:44→20:26)
[2022-04-09] MEDS: FAMOTIDINE SUSP 20 MG/2.5 ML UDP PO SCH (08:44)
[2022-04-09] MEDS: POLYETHYLENE (MIRALAX) 17 GM PACK PO SCH (08:44)
[2022-04-09] MEDS: METOPROLOL TARTRATE 100 MG TAB PO SCH ×2 (08:44→20:27)
[2022-04-09] MEDS: HYDROXYCHLOROQUINE SULFATE 200 MG TAB PO SCH (08:44)
[2022-04-09] MEDS: HEPARIN SOD 5,000 UNIT/0.5 ML VIAL SQ SCH (08:57)
--- NOTE | 2022-04-09 11:47 | Hospitalist Progress Note ---
Date of Service April 09, 2022 Assessment & Plan (1) Failure to thrive: Plan: Mrs. Falcon is an 86 yo woman, currently on hospital day 33, awaiting discharge for home hospice services. Currently on comfort care. - Very poor p.o. intake the last 3 days. - suspect this related to progressive dementia (2) Unstageable pressure ulcer of sacral region: Plan: - Status post debridement and Augmentin therapy. - Wound VAC in place until healed. Wound care following - undoubtedly due to malnutrition (3) Acute respiratory failure: Plan: - With hypoxia. - Now resolved due to aspiration of gastric contents with associated pneumonitis and pneumonia around 01 April - Treated with intravenous Zosyn 5 days total. (4) Functional quadriplegia: Plan: Functional quadriplegia in the setting of bed bound, Parkinsonism. Cared for by her and her daughter. Supportive care (5) HTN (hypertension): Plan: Continue metoprolol (on nebivolol at home) and amlodipine. - reasonable to continue as uncontrolled HTN could cause acute symptoms (ie headache, etc) (6) Anemia: Plan: - Could possibly be associated with chronic GI loss from Coumadin therapy. Coumadin has since been discontinued and reversed with vitamin K 04/05. - She received blood transfusion April 05. - Fecal occult blood remains pending. - iron and B12/folate levels checked within past month and all WNL (7) Parkinsonism: Plan: - note from 04/08/22 said to continue current dose sinemet, however it was not ordered - ordered home dose sinemet, restarted 04/09/22 - [place] [facility] [place] (8) Hypothyroidism: Plan: Continue home levothyroxine. TSH normal in 12/2021 (9) Rheumatoid arthritis without rheumatoid factor, multiple sites: Plan: Hydroxychloroquine has been restarted to avoid worsening rheumatoid arthritis (10) CKD (chronic kidney disease), stage III: Plan: Baseline creatinine ~0.8, at baseline this admission. (11) Small bowel obstruction: Plan: Resolved. (12) Renal failure (ARF), acute on chronic: Plan: Resolved. (13) Hypokalemia: Plan: This was replaced earlier in hospital stay - however now that patient is on comfort, would recommend against further BMP checks (14) Hypocalcemia: Plan: - Intact PTH normal and so is vitamin D. - Has known CKD likely poor p.o. intake. - Continue calcium with vitamin D. (15) Protein calorie malnutrition: Plan: - Prealbumin only 10. Plan DVT prophylaxis: Coumadin discontinued and reversed on April 05. Patient was started on heparin, but now that she is on comfort measures, this should be stopped CODE STATUS: DNR/DNI 06/09: Spoke with daughter Veronica who has discussed with her brother and they both agree that hospice is the best option for this patient with her continuing decline. She agrees that we only do comfort care now. Labs to be stopped. Present medications to be continued; her favorite foods are cranberry juice, lemon pudding, banana popsicle which can be continued. Home hospice being arranged by case management to have discussed with Home hospice with [facility] as a family choice and will be arranged. May go home over the weekend or by Wednesday 04/11. Daughter Veronica's told me that she just wants the patient home in her familiar surroundings. 06/10 I spoke with daughter Veronica regarding patient's nutrition - she is frustrated because her mother was a good eater before this hospital stay - Veronica think something must have happened after the NG tube was placed for her SBO. I counseled her that all acute medical issues had resolved and her failure to eat was not a matter of hospital staff restricting food, but instead indicative of end stage illness. Veronica shares that she is particularly upset because her father is also at home on hospital, now also refusing to eat. She does have her brother to help support her and help with her parents Admission and Anticipated Discharge Date Admission Date: March 08, 2022 Subjective no acute events overnight. Patient on comfort measures. Daughter called in today frustrated with why hospital staff is not feeding her mother - questioned about other sources of nutrition. Review of Systems Review of Systems: Unobtainable due to cognitive status Physical Exam Constitutional: + cachectic Eyes: + anicteric sclerae ENMT: external ear and nose normal, oropharynx normal Neck: trachea midline, no thyromegaly Respiratory: normal respiratory effort Musculoskeletal: Head/Neck/Chest: normocephalic and head atraumatic Skin: no rashes, warm and dry + wound (Vac in place ) Neurologic: + obtunded Genitourinary: Soto catheter in place, draining yellow urine without visible blood clots (1) Anemia Anemia type: unspecified type Qualified Code(s): D64.9 - Anemia, unspecified (2) Hypothyroidism Hypothyroidism type: acquired Qualified Code(s): E03.9 - Hypothyroidism, unspecified (3) HTN (hypertension) Hypertension type: essential hypertension Qualified Code(s): I10 - Essential (primary) hypertension
--- NOTE | 2022-04-09 14:06 | Billing Data ---
Date of Service April 09, 2022 Coding Level of Care Code 13110 Subseq Hosp Care Lvl 1
[2022-04-09] MEDS: MoRPHine SULFATE 2 MG/ML CARP IV PRN ×2 (15:22→17:52)
[2022-04-09] MEDS: CARBIDOPA/LEVODOPA 25/100MG TAB ODT PO SCH (20:26)
[2022-04-09] MEDS: LATANOPROST 0.005% OP SOLN 2.5 ML BTL OP SCH (20:26)
[2022-04-10] MEDS: CARBIDOPA/LEVODOPA 25/100MG TAB ODT PO SCH ×2 (10:29→21:48)
[2022-04-10] MEDS: FAMOTIDINE SUSP 20 MG/2.5 ML UDP PO SCH (10:30)
[2022-04-10] MEDS: HYDROXYCHLOROQUINE SULFATE 200 MG TAB PO SCH (10:30)
[2022-04-10] MEDS: METOPROLOL TARTRATE 100 MG TAB PO SCH ×2 (10:30→21:48)
--- NOTE | 2022-04-10 10:33 | Hospitalist Progress Note ---
Date of Service April 10, 2022 Assessment & Plan (1) Failure to thrive: Plan: Mrs. Falcon is an 86 yo woman, currently on hospital day 34, awaiting discharge for home hospice services. Currently on comfort care. - Very poor p.o. intake the preceding days - patient was able to take in some fluid and pills today - suspect this related to progressive dementia (2) Unstageable pressure ulcer of sacral region: Plan: - Status post debridement and Augmentin therapy. - Wound VAC in place until healed. Wound care following. Wound care nurse noted that when patient goes home with hospice services, wound VAC dressing should be removed, fill wound with Aquacel AG and secure with Optifoam. - undoubtedly due to malnutrition (3) Acute respiratory failure: Plan: - With hypoxia. - Now resolved due to aspiration of gastric contents with associated pneumonitis and pneumonia around 01 April - Treated with intravenous Zosyn 5 days total. (4) Tachycardia: Plan: - intermittent problem - rate controlled when able to take beta jackie - I suspect it is reactive to poor PO intake (5) Functional quadriplegia: Plan: Functional quadriplegia in the setting of bed bound, Parkinsonism. Cared for by her and her daughter. Supportive care (6) HTN (hypertension): Plan: Continue metoprolol (on nebivolol at home) and amlodipine. - reasonable to continue as uncontrolled HTN could cause acute symptoms (ie headache, etc) (7) Anemia: Plan: - Could possibly be associated with chronic GI loss from Coumadin therapy. Coumadin has since been discontinued and reversed with vitamin K 04/05. - She received blood transfusion April 05. - iron and B12/folate levels checked within past month and all WNL (8) Parkinsonism: Plan: - note from 04/08/22 said to continue current dose sinemet, however it was not ordered - ordered home dose sinemet, restarted 04/09/22 - Follows [place] [facility] [place] (9) Hypothyroidism: Plan: Continue home levothyroxine. TSH normal in 12/2021 (10) Rheumatoid arthritis without rheumatoid factor, multiple sites: Plan: Hydroxychloroquine has been restarted to avoid worsening rheumatoid arthritis (11) CKD (chronic kidney disease), stage III: Plan: Baseline creatinine ~0.8, at baseline this admission. (12) Small bowel obstruction: Plan: Resolved. (13) Renal failure (ARF), acute on chronic: Plan: Resolved. (14) Hypokalemia: Plan: This was replaced earlier in hospital stay - however now that patient is on comfort, would recommend against further BMP checks (15) Hypocalcemia: Plan: - Intact PTH normal and so is vitamin D. - Has known CKD likely poor p.o. intake. - Continue calcium with vitamin D. (16) Protein calorie malnutrition: Plan: - Prealbumin only 10. Plan DVT prophylaxis: Coumadin discontinued and reversed on April 05. Patient was started on heparin, but now that she is on comfort measures, this should be stopped CODE STATUS: DNR/DNI 04/08: Spoke with daughter Veronica who has discussed with her brother and they both agree that hospice is the best option for this patient with her continuing decline. She agrees that we only do comfort care now. Labs to be stopped. Present medications to be continued; her favorite foods are cranberry juice, lemon pudding, banana popsicle which can be continued. Home hospice being arranged by case management to have discussed with Home hospice with [facility] as a family choice and will be arranged. May go home over the weekend or by Wednesday 04/11. Daughter Veronica's told me that she just wants the patient home in her familiar surroundings. 04/09 I spoke with daughter Veronica regarding patient's nutrition - she is frustrated because her mother was a good eater before this hospital stay - Veronica think something must have happened after the NG tube was placed for her SBO. I counseled her that all acute medical issues had resolved and her failure to eat was not a matter of hospital staff restricting food, but instead indicative of end stage illness. Veronica shares that she is particularly upset because her father is also at home on hospital, now also refusing to eat. She does have her brother to help support her and help with her parents Admission and Anticipated Discharge Date Admission Date: March 08, 2022 Subjective no acute events overnight - patient did finally take in PO today Review of Systems Review of Systems: Unobtainable due to cognitive status Physical Exam Constitutional: + cachectic Eyes: + anicteric sclerae ENMT: external ear and nose normal, oropharynx normal Neck: trachea midline, no thyromegaly Respiratory: normal respiratory effort Cardiovascular: Rate/Rhythm: + tachycardic Musculoskeletal: Head/Neck/Chest: normocephalic and head atraumatic Skin: no rashes, warm and dry + wound (Vac in place ) Neurologic: + obtunded Genitourinary: Soto catheter in place, draining yellow urine without visible blood clots Results & Data Results & Data ([facility]) Vital Signs (Past 12 Hours) Vital Signs Temp Pulse Resp BP Pulse Ox O2 Del Method 04/10/22 09:59 36.6 C 118 H 16 157/73 H 91 Room Air PG Care Time/CCT Total # of Minutes Spent Total Time Spent with Patient: Total time spent is greater than 50% in coordination of care (as documented) at patient's floor/unit and/or counseling patient: Coding Level of Care Code 47328 Subseq Hosp Care Lvl 1 Diagnoses Failure to thrive Unstageable pressure ulcer of sacral region L89.150 Acute respiratory failure J96.00 Tachycardia R00.0 Functional quadriplegia R53.2 HTN (hypertension) I10 Hypertension type: essential hypertension Anemia D64.9 Anemia type: unspecified type Parkinsonism G20 Hypothyroidism E03.9 Hypothyroidism type: acquired Rheumatoid arthritis without rheumatoid factor, multiple sites M06.09 CKD (chronic kidney disease), stage III N18.3 Small bowel obstruction K56.609 Renal failure (ARF), acute on chronic N17.9; N18.9 Hypokalemia E87.6 Hypocalcemia E83.51 Protein calorie malnutrition E46 (1) Anemia Anemia type: unspecified type Qualified Code(s): D64.9 - Anemia, unspecified (2) Hypothyroidism Hypothyroidism type: acquired Qualified Code(s): E03.9 - Hypothyroidism, unspecified (3) HTN (hypertension) Hypertension type: essential hypertension Qualified Code(s): I10 - Essential (primary) hypertension
[2022-04-10] MEDS ORDERED: MoRPHine SULFATE 2 MG/ML CARP IV STA (10:34)
[2022-04-10] MEDS: amLODIPine BESYLATE 5 MG TAB PO SCH (10:38)
[2022-04-10] MEDS: POLYETHYLENE (MIRALAX) 17 GM PACK PO SCH (11:09)
[2022-04-10] MEDS: CALCIUM 600MG + VIT D 400 IU TAB PO SCH (11:10)
[2022-04-10] MEDS: LATANOPROST 0.005% OP SOLN 2.5 ML BTL OP SCH (21:48)
[2022-04-11] MEDS: LEVOTHYROXINE SODIUM 50 MCG TABLET PO SCH (06:22)
[2022-04-11] MEDS: FAMOTIDINE SUSP 20 MG/2.5 ML UDP PO SCH (10:23)
[2022-04-11] MEDS: METOPROLOL TARTRATE 100 MG TAB PO SCH (10:23)
[2022-04-11] MEDS: amLODIPine BESYLATE 5 MG TAB PO SCH (10:23)
[2022-04-11] MEDS: CARBIDOPA/LEVODOPA 25/100MG TAB ODT PO SCH (10:24)
[2022-04-11] MEDS: HYDROXYCHLOROQUINE SULFATE 200 MG TAB PO SCH (10:24)
[2022-04-11] MEDS: POLYETHYLENE (MIRALAX) 17 GM PACK PO SCH (10:25)
--- NOTE | 2022-04-11 13:46 | Discharge Summary ---
Date of Service April 11, 2022 Admission HPI Per Admitting Provider Yolie is a 86-year-old female with a past medical history of CKD 3, hyperlipidemia, hypertension, hypothyroidism, RA, pulmonary nodules, DVT on Coumadin who presents with a deep sacral ulcer with malodorous worsening appearance at wound care and he was recommended for inpatient treatment of cellulitis. Yolie is seen at the bedside with her daughter. There was seen at wound care and reports that she has had continued progression of the deep sacral ulcer which is very painful to Yolie. Yolie is able to understand things are being said to her, but does have some underlying cognitive change and expressive aphasia thought to be due to underlying Parkinson's. They have never discussed Lewy body in the past. No fever/chills/sweats. History is limited by cognitive status, grossly denies chest pain and radiating pain. Does endorse tenderness in the sacrum. Endorses runny nose and sore throat for about 4 days, no cough. Medical History: Reviewed Medications: Reviewed Surgical History: Reviewed Allergies: Reviewed Social History: Reviewed, no tobacco/alcohol use Code Status: Full Code, discussed with family and went over the nature of DNR/DNI. 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-unable to follow commands because of dementia Extremities: no edema Discharge Data Allergies Allergy/AdvReac Type Severity Reaction Status Date / Time No Known Drug Allergies Allergy NKDA Verified 03/07/22 15:37 Consultations 03/07/22 17:27 ED Decision to Admit Stat 03/09/22 14:37 Consult General Surgery Routine 03/24/22 11:25 Consult General Surgery Routine 03/24/22 13:54 Consult Vascular Surgery Routine 03/27/22 09:03 Consult Gastroenterology Routine 04/05/22 13:19 Consult Palliative Care Routine Procedures Performed Operation Date: 03/16/22 09:30 Actual Procedures p Debridement of Sacral Wound(Not Applicable) - Lakhwinder Mccauley, DO, FACS Ordered Studies 03/24/22 12:08 CT abd pelvis IV con only Stat 03/25/22 11:05 CT ang AA albert w inc wo jesse Routine 03/28/22 08:52 FL small bowel follow through Routine Hospital Course (1) Failure to thrive: Very poor p.o. intake the last 4-5 days. Significant hypokalemia and was being replenished. Oliguric- per output ecords- 1400 yeserday urine today 04/11 : 50 cc in bag (2) Unstageable pressure ulcer of sacral region: Status post debridement and Augmentin therapy. Wound VAC was in place until healed. With home hsopice plan, wound vac to be discontinued (3) Acute respiratory failure: With hypoxia. Now resolved due to aspiration of gastric contents with associated pneumonitis and pneumonia around 01 April- supplemental oxygen to keep saturation greater than 90%. Can be weaned down to 2 L easily. Treated with intravenous Zosyn 5 days total. (4) Functional quadriplegia: Functional quadriplegia in the setting of bed bound, Parkinsonism. Cared for by her and her daughter. Supportive care (5) HTN (hypertension): Continue metoprolol (on nebivolol at home) and amlodipine. ([id number]/15) Normotensive (6) Anemia: Could possibly be associated with chronic GI loss from Coumadin therapy. With advanced age, Coumadin therapy risks outweigh benefits. Coumadin was discontinued and reversed with vitamin K 04/05. She received blood transfusion April 05. Fecal occult blood prdered before home hospice and comfort care started 04/08/2022 (7) Parkinsonism: Continue carbidopa levodopa therapy. Supportive care. [place] [facility] [place] (8) Hypothyroidism: Continue home levothyroxine. TSH normal in 12/2021 (9) Rheumatoid arthritis without rheumatoid factor, multiple sites: Hydroxychloroquine has been restarted to avoid worsening rheumatoid arthritis (10) CKD (chronic kidney disease), stage III: Baseline creatinine ~0.8, at baseline this admission. Monitor intake and output. Serial labs. Avoid nephrotoxins. (11) Small bowel obstruction: Resolved. (12) Renal failure (ARF), acute on chronic: Resolved. Monitor intake and output. Serial lab studies (13) Hypokalemia: Intravenous replacement ordered. Serial labs (14) Hypocalcemia: Intact PTH normal and so his vitamin D. Has known CKD likely poor p.o. intake. Continue calcium with vitamin D. (15) Protein calorie malnutrition: Prealbumin only 10. Plan DVT prophylaxis: Coumadin discontinued and reversed on April 05. Now on heparin subcu CODE STATUS: DNR/DNI 06/09: Spoke with daughter Veronica who has discussed with her brother and they both agree that hospice is the best option for this patient with her continuing decline.. She agrees that we only do comfort care now. Labs to be stopped. Present medications to be continued her favorite foods are cranberry juice, lemon pudding, banana popsicle which can be continued. Home hospice being arranged by case management to have discussed with Home hospice with [facility] arranged. Discharging w home hospice that has been arranged. meds have been cahnged to solutab form when possible. Metoprolol and sinemet cannot be changed to liquid/ easily soluble forms. Total Time Total Time Spent Total Time Spent (In Minutes): 50 Discharge Plan Discharge Items Patient Disposition: Hospice - Home Reason For Visit: SACRAL WOUND, CELLULITIS Discharge Diagnosis: failure to thrive, genearl decline, hypokalemia, stage 4 sacral l decub ulcer Activity: As commented below Activity Comment: bedbound Non-emergency contact: Primary Care Provider Call non-emergency contact if: you have any medication questions Follow-up/Referrals: Patito Benton DO [Primary Care Provider] - Diet Comment: puddings and liquids. Not chewing- holds food in mouth. May try at home Addtl Attending Provider Instructions: if patient unable to swallow a medicationplease do not give. Pending Studies at Discharge: No Stand-Alone Forms: My [facility] [employer] Medications and DC Order Prescriptions: New metoprolol tartrate 100 mg Tablet 100 mg PO BID Qty: 30 2RF amlodipine [Norvasc] 5 mg Tablet 2.5 mg PO DAILY Qty: 20 0RF ondansetron 4 mg Tablet,Disintegrating 4 mg sublingual Q4H PRN (Reason: nausea and vomiting) Qty: 10 0RF famotidine 40 mg/5 mL (8 mg/mL) Suspension 20 mg PO DAILY Qty: 50 0RF carbidopa-levodopa 25-100 mg Tablet,Disintegrating 1 tab PO BID Qty: 30 1RF acetaminophen 160 mg/5 mL elixir 500 mg PO Q6H PRN (Reason: fever or pain) Qty: 118 0RF lorazepam 0.5 mg Tablet 0.5 mg PO Q4H PRN (Reason: agitation) Qty: 7 0RF Continued carbidopa-levodopa [Sinemet] 25-100 mg tablet 0.5 tab PO BID 30 Days Qty: 30 5RF calcium carbonate-vitamin D3 600 mg(1,500mg) -200 unit tablet 1 tab PO HS hydroxychloroquine 200 mg tablet 200 mg PO QAM latanoprost 0.005 % drops 1 drp ophthalmic (eye) QPM levothyroxine [Synthroid] 50 mcg tablet 50 mcg PO QAM Rx Instructions: Every day but Monday Discontinued warfarin 3 mg tablet 3 mg PO DAILY@1600 Qty: 90 1RF Protocol: Dose Management Condition: Monday Dose/Route: 3 mg Instruction: 1 x 3 mg tablet Condition: Monday Dose/Route: 3 mg Instruction: 1 x 3 mg tablet Condition: Monday Dose/Route: 4 mg Instruction: 1 x 1 mg tablet, 1 x 3 mg tablet Condition: Monday Dose/Route: 3 mg Instruction: 1 x 3 mg tablet Condition: Dose/Route: 4 mg Instruction: 1 x 1 mg tablet, 1 x 3 mg tablet Condition: Monday Dose/Route: 3 mg Instruction: 1 x 3 mg tablet Condition: Monday Dose/Route: 3 mg Instruction: 1 x 3 mg tablet Protocol Text: Adjustment Start Date: Monday02/28/22 INR Value: 2.6 INR Date: 02/25/22 Recheck Date: 03/28/22 nebivolol [Bystolic] 10 mg tablet 10 mg PO QAM Qty: 10 0RF warfarin 1 mg tablet See Rx Instructions PO .COMPLEX Qty: 90 2RF Protocol: Dose Management Condition: Monday Dose/Route: 3 mg Instruction: 1 x 3 mg tablet Condition: Monday Dose/Route: 3 mg Instruction: 1 x 3 mg tablet Condition: Monday Dose/Route: 4 mg Instruction: 1 x 1 mg tablet, 1 x 3 mg tablet Condition: Monday Dose/Route: 3 mg Instruction: 1 x 3 mg tablet Condition: Dose/Route: 4 mg Instruction: 1 x 1 mg tablet, 1 x 3 mg tablet Condition: Monday Dose/Route: 3 mg Instruction: 1 x 3 mg tablet Condition: Monday Dose/Route: 3 mg Instruction: 1 x 3 mg tablet Protocol Text: Adjustment Start Date: Monday02/28/22 INR Value: 2.6 INR Date: 02/25/22 Recheck Date: 03/28/22 Rx Instructions: PO; as directed ascorbic acid (vitamin C) 1,000 mg capsule 1 g PO DAILY multivitamin Tablet 1 tab PO QAM cyanocobalamin (vitamin B-12) 1,000 mcg capsule 1,000 mcg PO QAM Admission Data Admit Date/Time: 03/08/22 14:09 Attending Provider: Reginald Vasquez Admit Provider: Davy Power Primary Care Provider: Patito Benton Other Providers: [facility] ; [facility] ; Davy Power ; Jimbo Ram ; Lester Jaeger ; Ever Rowan ; Enzo Sigala Jr ; Abel Burgos ; Lakhwinder Mccauley ; Melissa Johnson ; Zion Chavez ; Arnaldo Little ; Osmin Kincaid ; Stephen Lozano ; Tiffany Ellis ; [facility] Other Interventions: Discharge Summary Assessment (RN) Last Done: 04/11/22 11:55 Coding Level of Care Code D/C DAY MANAGEMENT >30 MINS Diagnoses Failure to thrive Unstageable pressure ulcer of sacral region L89.150 Acute respiratory failure J96.00 Functional quadriplegia R53.2 HTN (hypertension) I10 Hypertension type: essential hypertension Anemia D64.9 Anemia type: unspecified type Parkinsonism G20 Hypothyroidism E03.9 Hypothyroidism type: acquired Rheumatoid arthritis without rheumatoid factor, multiple sites M06.09 CKD (chronic kidney disease), stage III N18.3 Small bowel obstruction K56.609 Renal failure (ARF), acute on chronic N17.9; N18.9 Hypokalemia E87.6 Hypocalcemia E83.51 Protein calorie malnutrition E46
== END 2022-04-11 17:05 | disposition hospice, home (50) | DRG 570 ==
LOC: ED 15:04 → 3E 15:04 → SUATTDRO 17:50 → 3E 20:29 → SUATTDRO 03-08 14:09 → 3E 03-21 13:21